=== PATIENT | female | born 1955 | race Caucasian/White ===

== ENCOUNTER 2017-02-13 16:32 | Inpatient (IN) | payer OTHER, SELFPAY | END 2017-02-16 10:15 | disposition home or self-care (01) | DRG 194 | PROVIDERS: Admitting Provider Family Medicine; Family Provider Family Medicine; Visit Provider Family Medicine | DX: J44.0 Chronic obstructive pulmonary disease with (acute) lower respiratory infection (principal); J10.00 Influenza due to other identified influenza virus with unspecified type of pneumonia | CPT/HCPCS: 71020; 80048; 82803; 85025; 87040; 87070; 87205; 87486; 87581; 87633; 87798; 94640; 94760; J0456 ==

== ENCOUNTER → 2018-05-04 14:30 | Outpatient (CLI) | payer OTHER, SELFPAY ==
--- NOTE | 2018-05-04 14:39 | XR_ITS ---
XR hand RT min 3V HISTORY: Previous surgery little finger right hand ITS.REASON: RT HAND PAIN ORDERING PHYSICIAN: Rajwinder Lazaro PATIENT AGE: 62 years COMPARISON: None FINDINGS: No fracture or dislocation. No lytic or blastic change. There is normal mineralization.. There is an orthopedic pin fusing the DIP joint of the little finger. There is narrowing of the DIP joints of the index middle and ring finger. The soft tissues are normal. 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
== END ==
PROVIDERS: PCP Nurse Practitioner Family; Visit Provider Nurse Practitioner Family
DX: M79.641 Pain in right hand (principal)
CPT/HCPCS: 73130

== ENCOUNTER → 2018-05-29 09:52 | Outpatient (CLI) | payer OTHER, SELFPAY ==
--- NOTE | 2018-05-29 09:55 | XR_ITS ---
XR DEXA axial skeleton HISTORY: ITS.REASON: POSTMENOPAUSAL SCREENING ORDERING PHYSICIAN: Rajwinder Lazaro PATIENT AGE: 62 years COMPARISON: None FINDINGS: The BMD measured at the AP Spine L1-L4 is 0.790 g/cm squared with a T score of -3.2. This is considered Osteoporotic according to the World Health Organization criteria. Fracture risk is High. Treatment is advised. IMPRESSION: Osteoporosis with high fracture risk. Pharmacological treatment suggested. Recommend follow-up exam for 1999
== END ==
PROVIDERS: PCP Nurse Practitioner Family; Visit Provider Nurse Practitioner Family
DX: Z13.820 Encounter for screening for osteoporosis (principal); Z78.0 Asymptomatic menopausal state
CPT/HCPCS: 77080

== ENCOUNTER → 2018-07-27 11:40 | Outpatient (CLI) | payer OTHER, SELFPAY ==
--- NOTE | 2018-07-27 11:44 | XR_ITS ---
XR chest 2V HISTORY: ITS.REASON: COPD,COUGH,WHEEZING,DYSPNEA ORDERING PHYSICIAN: Valerie Bermudez APRN PATIENT AGE: 62 years COMPARISON: 02/13/2017 FINDINGS: The cardiomediastinal silhouette and pulmonary vascularity are within normal limits. COPD. Scattered fibrotic change. There is thickening of the major fissure which has developed since previous exam. There are some atelectatic or fibrotic changes also noted in the lingula. No lobar consolidation or collapse.. No acute bony abnormalities. IMPRESSION: COPD with chronic changes with some new thickening of the major fissure and atelectatic or fibrotic changes in the lingula
== END ==
PROVIDERS: PCP Nurse Practitioner Family; Visit Provider Nurse Practitioner Family
DX: J44.9 Chronic obstructive pulmonary disease, unspecified (principal); R05 Cough; R06.02 Shortness of breath; R06.00 Dyspnea, unspecified
CPT/HCPCS: 71046

== ENCOUNTER → 2018-11-23 15:08 | Outpatient (CLI) | payer OTHER, SELFPAY ==
[2018-11-23 15:33] LABS: Basophils # 0.1 K/mm3 (0-0.2); Basophils % 0.6 % (0.1-2.0); Eosinophils # 0.2 K/mm3 (0.0-0.4); Eosinophils % 1.3 % (0.1-12.0); Hematocrit 45.8 % (37.0-47.0); Hemoglobin 13.8 g/dL (12.2-16.2); Lymphocytes # 3.8 K/mm3 (0.7-4.5); Lymphocytes % 26.8 % (10-50); Mean Corpuscular HGB Conc 30.2 g/dL (31.8-35.4); Mean Corpuscular Hemoglobin 30.7 pg (27.0-31.2); Mean Corpuscular Volume 101.6 fl (81-99); Mean Platelet Volume 7.7 fl (7.4-10.4); Monocytes # 1.1 K/mm3 (0.1-1.0); Monocytes % 7.4 % (1.7-9.3); Neutrophils # 9.1 K/mm3 (1.8-7.8); Neutrophils % 63.9 % (37.0-80.0); Platelet Count 465 K/mm3 (142-424); Red Blood Count 4.51 M/mm3 (4.20-5.40); Red Cell Distribution Width 14.9 % (11.5-17.5); White Blood Count 14.3 K/mm3 (4.8-10.8)
[2018-11-23 15:56] LABS: Erythrocyte Sedimentation Rate 16 mm/hr (0-30)
[2018-11-23 18:04] LABS: Alanine Aminotransferase 15 U/L (12-78); Albumin Level 3.5 gm/dL (3.4-5.0); Albumin/Globulin Ratio 1.2 (1.1-1.8); Alkaline Phosphatase 79 U/L (46-116); Anion Gap 14.3 mEq/L (5-15); Aspartate Amino Transferase 8 U/L (15-37); Bilirubin,Total 0.2 mg/dL (0.2-1.0); Blood Urea Nitrogen 12 mg/dL (7-18); C-Reactive Protein 0.2 mg/dL (0.0-0.9); Calcium 8.3 mg/dL (8.5-10.1); Carbon Dioxide 28 mmol/L (21.0-32.0); Chloride 107 mmol/L (98-107); Creatinine,Serum 0.79 mg/dL (0.55-1.02); Estimated Glomerular Filt Rate 74 ml/min (>60); GFR (African American) 89 ML/MIN (>60); Globulin 2.9 gm/dl (1.3-3.2); Glucose 96 mg/dL (74-106); Potassium 4.3 mmoL/L (3.5-5.1); Sodium 145 mmol/L (136-145); Total Protein,Serum 6.4 gm/dL (6.4-8.2)
== END ==
PROVIDERS: Visit Provider Internal Medicine
DX: M06.4 Inflammatory polyarthropathy (principal); M81.0 Age-related osteoporosis without current pathological fracture; Z79.899 Other long term (current) drug therapy
CPT/HCPCS: 36415; 80053; 85025; 85651; 86140

== ENCOUNTER → 2018-12-23 11:57 | Outpatient (CLI) | payer OTHER, SELFPAY ==
[2018-12-23 13:39] LABS: Basophils # 0.1 K/mm3 (0-0.2); Basophils % 0.7 % (0.1-2.0); Eosinophils # 0.2 K/mm3 (0.0-0.4); Eosinophils % 1.7 % (0.1-12.0); Hematocrit 46.6 % (37.0-47.0); Hemoglobin 14.8 g/dL (12.2-16.2); Lymphocytes # 3.2 K/mm3 (0.7-4.5); Lymphocytes % 33.7 % (10-50); Mean Corpuscular HGB Conc 31.6 g/dL (31.8-35.4); Mean Corpuscular Volume 104.4 fl (81-99); Mean Platelet Volume 8.5 fl (7.4-10.4); Monocytes # 0.5 K/mm3 (0.1-1.0); Monocytes % 5.4 % (1.7-9.3); Neutrophils # 5.6 K/mm3 (1.8-7.8); Neutrophils % 58.5 % (37.0-80.0); Platelet Count 432 K/mm3 (142-424); Red Blood Count 4.47 M/mm3 (4.20-5.40); Red Cell Distribution Width 14.4 % (11.5-17.5); White Blood Count 9.5 K/mm3 (4.8-10.8)
[2018-12-23 13:58] LABS: Alanine Aminotransferase 15 U/L (12-78); Albumin Level 3.9 gm/dL (3.4-5.0); Albumin/Globulin Ratio 1.3 (1.1-1.8); Alkaline Phosphatase 76 U/L (46-116); Anion Gap 14.1 mEq/L (5-15); Aspartate Amino Transferase 8 U/L (15-37); Bilirubin,Total 0.5 mg/dL (0.2-1.0); Blood Urea Nitrogen 11 mg/dL (7-18); Calcium 9.3 mg/dL (8.5-10.1); Carbon Dioxide 29 mmol/L (21.0-32.0); Chloride 103 mmol/L (98-107); Creatinine,Serum 0.54 mg/dL (0.55-1.02); Estimated Glomerular Filt Rate 114 ml/min (>60); GFR (African American) 138 ML/MIN (>60); Globulin 2.9 gm/dl (1.3-3.2); Glucose 79 mg/dL (74-106); Potassium 4.1 mmoL/L (3.5-5.1); Sodium 142 mmol/L (136-145); Total Protein,Serum 6.8 gm/dL (6.4-8.2)
[2018-12-23 14:00] LABS: C-Reactive Protein < 0.2 mg/dL (0.0-0.9)
[2018-12-23 14:34] LABS: Erythrocyte Sedimentation Rate 17 mm/hr (0-30)
== END ==
PROVIDERS: Visit Provider Internal Medicine
DX: M06.4 Inflammatory polyarthropathy (principal); M81.0 Age-related osteoporosis without current pathological fracture; Z79.899 Other long term (current) drug therapy
CPT/HCPCS: 36415; 80053; 85025; 85651; 86140

== ENCOUNTER → 2019-01-19 09:47 | Outpatient (CLI) | payer OTHER, SELFPAY ==
--- NOTE | 2019-01-19 09:50 | FL_ITS ---
PROCEDURE: FL BARIUM ENEMA CLINICAL INDICATION: tortuous colon Colon polyps COMPARISON: No exams were available for comparison FINDINGS: Fluoroscopy time: 2 minutes and 30 seconds. [employer] exam is unremarkable. The colon is visualized from rectum to cecum. Extensive diverticulosis is present within the sigmoid colon. No annular constricting lesion or polypoid filling defects were evident. There is reflux of contrast into the terminal ileum which has an unremarkable appearance. IMPRESSION: Sigmoid diverticulosis otherwise negative air-contrast barium enema Dictated by: Fox Benitez MD 01/19/2019 16:21 Electronically signed by Fox Benitez MD in [place] 01/22/2019 09:19
== END ==
PROVIDERS: PCP Family Medicine; Visit Provider Surgery
DX: Q43.8 Other specified congenital malformations of intestine (principal)
CPT/HCPCS: 74270

== ENCOUNTER → 2019-02-04 10:08 | Outpatient (CLI) | payer OTHER, SELFPAY ==
[2019-02-04 10:42] LABS: Basophils # 0.1 K/mm3 (0-0.2); Basophils % 0.5 % (0.1-2.0); Eosinophils # 0.2 K/mm3 (0.0-0.4); Eosinophils % 1.2 % (0.1-12.0); Hematocrit 42.7 % (37.0-47.0); Hemoglobin 13.6 g/dL (12.2-16.2); Lymphocytes # 5.5 K/mm3 (0.7-4.5); Lymphocytes % 28.3 % (10-50); Mean Corpuscular HGB Conc 31.7 g/dL (31.8-35.4); Mean Corpuscular Hemoglobin 31.1 pg (27.0-31.2); Mean Corpuscular Volume 98.2 fl (81-99); Monocytes % 5.2 % (1.7-9.3); Neutrophils # 12.7 K/mm3 (1.8-7.8); Neutrophils % 64.8 % (37.0-80.0); Platelet Count 601 K/mm3 (142-424); Red Blood Count 4.35 M/mm3 (4.20-5.40); Red Cell Distribution Width 14.6 % (11.5-17.5); White Blood Count 19.6 K/mm3 (4.8-10.8)
[2019-02-04 11:03] LABS: MANUAL DIFFERENTIAL MANUAL DIFFERENTIAL (MANUAL DIFF)
[2019-02-04 11:07] LABS: Eosinophils % 2 % (0-3); Lymphocytes % 30 % (10-50); Monocytes % 8 % (2-9); Neutrophils % 60 % (42-76); Platelet Estimate Moderate Increase; Total Cells Counted 100
[2019-02-04 11:08] LABS: RBC Morphology Normal
[2019-02-04 11:16] LABS: Erythrocyte Sedimentation Rate 16 mm/hr (0-30)
[2019-02-04 12:14] LABS: Alanine Aminotransferase 46 U/L (12-78); Albumin Level 3.2 gm/dL (3.4-5.0); Alkaline Phosphatase 88 U/L (46-116); Anion Gap 12.6 mEq/L (5-15); Aspartate Amino Transferase 19 U/L (15-37); Bilirubin,Total 0.3 mg/dL (0.2-1.0); Blood Urea Nitrogen 12 mg/dL (7-18); Calcium 8.5 mg/dL (8.5-10.1); Carbon Dioxide 32 mmol/L (21.0-32.0); Chloride 104 mmol/L (98-107); Creatinine,Serum 0.69 mg/dL (0.55-1.02); Estimated Glomerular Filt Rate 86 ml/min (>60); GFR (African American) 104 ML/MIN (>60); Globulin 3.2 gm/dl (1.3-3.2); Glucose 77 mg/dL (74-106); Potassium 3.6 mmoL/L (3.5-5.1); Sodium 145 mmol/L (136-145); Total Protein,Serum 6.4 gm/dL (6.4-8.2)
[2019-02-04 12:17] LABS: C-Reactive Protein < 0.2 mg/dL (0.0-0.9)
== END ==
PROVIDERS: Visit Provider Internal Medicine
DX: M06.4 Inflammatory polyarthropathy (principal); M81.0 Age-related osteoporosis without current pathological fracture; Z79.899 Other long term (current) drug therapy
CPT/HCPCS: 36415; 80053; 85007; 85025; 85651; 86140

== ENCOUNTER 2019-02-11 12:59 | Observation (INO) | payer OTHER, SELFPAY ==
--- NOTE | 2019-02-11 11:58 | XR_ITS ---
PROCEDURE: XR CHEST 2V CLINICAL HISTORY: shortness of breath COMPARISON: CXR1 CHEST-PORTABLE from 02/14/2016 CXR CHEST(2 VIEWS-NOT PORTABLE) from 02/13/2017 CT ANGIO CHEST from 12/03/2018 XR CHEST PORTABLE from 12/03/2018 FINDINGS: The cardiomediastinal silhouette and pulmonary vascularity are within normal limits. Lucent changes in the lung zhang bilaterally specially in the upper lobes appear to be stable. There are some stable curvilinear strands of increased density in the lung bases bilaterally suggesting scarring. No acute bony abnormalities. IMPRESSION: No change and no acute process. COPD. Dictated by: Ion Vo 02/11/2019 13:35 Electronically signed by Ion Vo in [place] 02/11/2019 13:35
[2019-02-11 13:24] VITALS: BMI 24.8
--- NOTE | 2019-02-11 13:58 | P.CONPHA_ITS ---
[facility] Pharmacy VTE Monitoring - Patient Demographics Admission date: 02/11/19 Report Date: 02/11/19 Time: 13:58 Allergies/Adverse Reactions: Patient Allergies No Known Allergies Allergy (Verified 01/27/19 10:05) Height: 1.65 m Weight: 67.8 kg - VTE Risk Was VTE Risk Assessment Performed: Yes VTE Score: 1 VTE Risk Level: Very Low Risk - Prophylaxis VTE Prophylaxis Ordered?: Yes Types of VTE Prophylaxis: TEDS Knee High Location of Applied Device: Bilateral Lower Extremeties - VTE Diagnosis Confirmed Treatment or plan recommended: Continue Current Treatment
[2019-02-11 14:20] LABS: Basophils # 0.1 K/mm3 (0-0.2); Basophils % 0.3 % (0.1-2.0); Eosinophils # 0.1 K/mm3 (0.0-0.4); Eosinophils % 0.5 % (0.1-12.0); Hematocrit 41.3 % (37.0-47.0); Hemoglobin 13.6 g/dL (12.2-16.2); Lymphocytes # 1.1 K/mm3 (0.7-4.5); Lymphocytes % 5.7 % (10-50); Mean Corpuscular HGB Conc 32.9 g/dL (31.8-35.4); Mean Corpuscular Hemoglobin 31.9 pg (27.0-31.2); Mean Corpuscular Volume 96.8 fl (81-99); Mean Platelet Volume 7.4 fl (7.4-10.4); Monocytes # 0.6 K/mm3 (0.1-1.0); Monocytes % 3.3 % (1.7-9.3); Neutrophils # 17.2 K/mm3 (1.8-7.8); Neutrophils % 90.2 % (37.0-80.0); Platelet Count 523 K/mm3 (142-424); Red Blood Count 4.27 M/mm3 (4.20-5.40); Red Cell Distribution Width 14.8 % (11.5-17.5); White Blood Count 19.1 K/mm3 (4.8-10.8)
[2019-02-11 14:22] VITALS: BP 131/74; PULSE 99; RESP 18; TEMP 36.9; O2SAT 95
[2019-02-11 14:23] LABS: MANUAL DIFFERENTIAL MANUAL DIFFERENTIAL (MANUAL DIFF)
[2019-02-11 14:48] LABS: Alanine Aminotransferase 25 U/L (12-78); Albumin Level 3.3 gm/dL (3.4-5.0); Albumin/Globulin Ratio 0.9 (1.1-1.8); Alkaline Phosphatase 76 U/L (46-116); Anion Gap 14.4 mEq/L (5-15); Aspartate Amino Transferase 4 U/L (15-37); Bilirubin,Total 0.2 mg/dL (0.2-1.0); Blood Urea Nitrogen 15 mg/dL (7-18); Calcium 8.8 mg/dL (8.5-10.1); Carbon Dioxide 29 mmol/L (21.0-32.0); Chloride 102 mmol/L (98-107); Creatinine Clearance Estimated 61 mL/min (50-200); Creatinine,Serum 0.64 mg/dL (0.55-1.02); Estimated Glomerular Filt Rate 93 ml/min (>60); GFR (African American) 113 ML/MIN (>60); Globulin 3.7 gm/dl (1.3-3.2); Glucose 125 mg/dL (74-106); Potassium 4.4 mmoL/L (3.5-5.1); Sodium 141 mmol/L (136-145)
[2019-02-11 15:05] LABS: ABG HCO3 25.4 mmhg (22.0-26.0); ABG Oxygen Saturation 95 % (90-100); ABG PCO2 40.1 mmhg (35.0-45.0); ABG PH 7.42 mmol/L (7.35-7.45); ABG PO2 74.4 mmhg (80-100); ABG TCO2 26.7 mmhg (23-27)
[2019-02-11 15:07] LABS: Allen's Test Acceptable; Oxygen 2L %; Source Right Radial
[2019-02-11 15:48] LABS: Lymphocytes % 5 % (10-50); Monocytes % 6 % (2-9); Neutrophils % 89 % (42-76); Platelet Estimate Slight Increase; RBC Morphology Normal; Total Cells Counted 100
[2019-02-11 16:00] VITALS: PULSE 93
--- NOTE | 2019-02-11 16:52 | HMH.HP ---
*Admission Date: 02/11/19 *Chief complaint: Shortness of breath *History of present illness: 63-year-old female with severe COPD presented to the office again today with complaints of worsening shortness of breath. Patient had been seen approximately 1 week prior and diagnosed with a COPD exacerbation. She was placed on antibiotics as well as oral steroids and was already using inhaled medications at home. Patient returned to the office today stating she was feeling worse. Her cough was unrelenting and interfering with sleep. She was more short of breath and was not responding to her home aerosols. In the office she was tachypneic with a pulse rate of 130 and O2 sat of 90% on room air. Exam was significant for diffuse rhonchi and expiratory wheezes. Patient was admitted for failed outpatient treatment of COPD exacerbation. [facility] History I have reviewed the patient's past medical history: Yes Medical History: Reports:: Chronic Obstructive Pulmonary Disease (COPD), Hypertension, Migraine Denies:: Cancer, Diabetes Mellitus Type 1, Diabetes Mellitus Type 2, Internal Pacemaker, MRSA, Seizures *Have you ever received a pneumonia vaccine?: Yes *Have you received a flu vaccine this season?: Yes Laterality Cases: Bilateral: Carpal Tunnel Release Other Surgeries: Yes: Appendectomy, Colonoscopy, Tubal Ligation, Other. No: Pacemaker Amputation: No Fractures: No - *Social History Educational Level: Attended College Smoking Status: Current every day smoker Tobacco Type: cigarettes # Packs/Day (cigarettes): 1 Alcohol Intake: never Substance Use Type: denies use *Occupational Status:: employed Housing: house Household Members: children *Travel in the last 8 weeks: None Family Hx:: No significant family history Review of Systems - Constitutional Denies anorexia, Denies body ache(s), Denies chills, Denies fever(s) - *Cardiovascular Denies chest pain, Denies chest pain at rest, Denies chest pain with activity - *Respiratory Reports change in phlegm color, Reports chest congestion, Reports cough, Reports shortness of breath, Reports shortness of breath with activity, Reports pain with cough, Denies coughing up blood - *Gastrointestinal Denies abdominal pain - *Musculoskeletal Denies joint pain Meds Home Medications Medication Instructions Recorded Confirmed Type Fluticasone/Umeclidin/Vilanter 1 puff IH DAILY 10/29/18 02/11/19 History [Trelegy Ellipta 100-62.5-25] Folic Acid [Folic Acid 1mg tablet] 1 mg PO DAILY 10/29/18 02/11/19 History SUMAtriptan succinate [Imitrex] 100 mg PO DAILYP PRN 10/29/18 02/11/19 History metHOTREXate sodium [metHOTREXate 4 tab PO WEEKLY 10/29/18 02/11/19 History 2.5mg Tablet] buPROPion HCl [Wellbutrin Xl] 150 mg PO DAILY 12/03/18 02/11/19 History Ipratropium Hamlin [Ipratropium 1 neb NS Q6 12/10/18 02/11/19 History Hamlin 0.021mg/act NS] Allergies Allergy/AdvReac Type Severity Reaction Status Date / Time No Known Allergies Allergy Verified 01/27/19 10:05 Exam Vital signs and Labs for Last 24 Hours: Temp Pulse Resp BP Pulse Ox 98.4 F 93 H 18 131/74 95 02/11/19 14:22 02/11/19 16:00 02/11/19 14:22 02/11/19 14:22 02/11/19 14:22 Laboratory Results - last 24 hr 02/11/19 11:58: Specimen Source Right radial, O2 % 2l, ABG pH 7.42, ABG pCO2 40.1, ABG pO2 74.4 L, ABG HCO3 25.4, ABG Total CO2 26.7, ABG O2 Saturation 95, ABG Base Excess 1.0, Fox Test Acceptable 02/11/19 14:00: Sodium 141, Potassium 4.4, Chloride 102, Carbon Dioxide 29, Anion Gap 14.4, BUN 15, Creatinine 0.64, Estimated Creat Clear 61, Estimated GFR 93, Est GFR ( Amer) 113, Glucose 125 H, Calcium 8.8, Total Bilirubin 0.2, AST 4 L, ALT 25, Alkaline Phosphatase 76, Total Protein 7.0, Albumin 3.3 L, Globulin 3.7 H, Albumin/Globulin Ratio 0.9 L 02/11/19 14:00: B-Natriuretic Peptide 30 02/11/19 14:00: WBC 19.1 H, RBC 4.27, Hgb 13.6, Hct 41.3, MCV 96.8, MCH 31.9 H, MCHC 32.9, RDW 14.8, Plt Count 523 H, MPV 7
[2019-02-11 19:35] VITALS: PULSE 115; O2SAT 95
[2019-02-11 20:00] VITALS: BP 147/73; PULSE 96; RESP 19; TEMP 36.6; O2SAT 95
--- NOTE | 2019-02-11 21:58 | PC.NURSE ---
Pt's room air sat at rest = 87%. RT placed pt back on O2 at 2 lpm via nc.
[2019-02-11 23:46] VITALS: BP 122/67; PULSE 81; RESP 16; TEMP 37.1; O2SAT 95
[2019-02-12] VITALS (10 sets, daily range): BP systolic 133–153; BP diastolic 74–95; PULSE 83–115; RESP 18–22; TEMP 36.6–36.8; O2SAT 86–95; BMI 24.9
--- NOTE | 2019-02-12 03:39 | PC.NURSE ---
A&OX4. PT UP INDEPENDENTLY IN ROOM. PT HAS DRY INTERMITTENT COUGH, BUT WAS ABLE TO PRODUCE SPUTUM THIS SHIFT. PT TOLERATING 2L NC WELL. PT C/O COUGH, STATING WHEN IT STARTS I JUST CAN'T GET IT TO STOP. COUGH MEDICINE ADMINISTERED PER MAR, ON REASSESSMENT, RELIEF OF COUGH NOTED. PT TOLERATING REGULAR DIET. PT HAS HAD NO C/O SOA. NO OTHER COMPLAINTS THIS SHIFT, PT RESTING IN BED, VSS WILL CONTINUE TO MONITOR.
--- NOTE | 2019-02-12 07:28 | HMH.ACPN2 ---
Internal Medicine - PN: Subj *Date: 02/12/19 *Time: 07:28 Interval history: Patient reports poor quality sleep overnight due to her cough. Her cough remains nonproductive. O2 sats did decrease to 86% on room air at rest. Exam Vital signs and Labs for Last 24 Hours: Temp Pulse Resp BP Pulse Ox 97.9 F 85 22 133/85 86 L 02/12/19 04:00 02/12/19 05:33 02/12/19 04:00 02/12/19 04:00 02/12/19 05:55 Laboratory Results - last 24 hr 02/11/19 11:58: Specimen Source Right radial, O2 % 2l, ABG pH 7.42, ABG pCO2 40.1, ABG pO2 74.4 L, ABG HCO3 25.4, ABG Total CO2 26.7, ABG O2 Saturation 95, ABG Base Excess 1.0, Fox Test Acceptable 02/11/19 14:00: Sodium 141, Potassium 4.4, Chloride 102, Carbon Dioxide 29, Anion Gap 14.4, BUN 15, Creatinine 0.64, Estimated Creat Clear 61, Estimated GFR 93, Est GFR ( Amer) 113, Glucose 125 H, Calcium 8.8, Total Bilirubin 0.2, AST 4 L, ALT 25, Alkaline Phosphatase 76, Total Protein 7.0, Albumin 3.3 L, Globulin 3.7 H, Albumin/Globulin Ratio 0.9 L 02/11/19 14:00: B-Natriuretic Peptide 30 02/11/19 14:00: WBC 19.1 H, RBC 4.27, Hgb 13.6, Hct 41.3, MCV 96.8, MCH 31.9 H, MCHC 32.9, RDW 14.8, Plt Count 523 H, MPV 7.4, Neut % (Auto) 90.2 H, Lymph % (Auto) 5.7 L, Mingo % (Auto) 3.3, Eos % (Auto) 0.5, Baso % (Auto) 0.3, Neut # (Auto) 17.2 H, Lymph # (Auto) 1.1, Mingo # (Auto) 0.6, Eos # (Auto) 0.1, Baso # (Auto) 0.1, Total Counted 100, Neutrophils % (Manual) 89 H, Lymphocytes % (Manual) 5 L, Monocytes % (Manual) 6, Platelet Estimate Slight increase, RBC Morphology Normal I & O for Last 24 hours: Intake & Output 02/09/19 02/10/19 02/11/19 02/12/19 11:59 11:59 11:59 11:59 Intake Total 360 / 360 Balance 360 / 360 Weight 149 lb 11.102 oz Microbiology Reports for the Last 24 Hours: Microbiology 02/12/19 01:30 Sputum - Expectorated Sputum Gram Stain - Final Narrative: Patient is comfortable while seated in bed. Her cough is rather harsh and deep. Lung exam reveals distant breath sounds with expiratory wheezes. Heart has a regular rate and rhythm Assessment and Plan (1) Acute exacerbation of chronic obstructive airways disease Current visit: No Status: Acute Category: Medical Code(s): J44.1 - Chronic obstructive pulmonary disease with (acute) exacerbation - Assessment and plan all Dx Assessment and Plan for all problems:: 1. Add Mucomyst nebs to see if we can help with sputum clearance 2. Continue IV steroids, duo nebs, supplemental oxygen support
--- NOTE | 2019-02-12 11:14 | HMH.PHAINT ---
MED REC-MED LIST COMPARED TO MED LIST FROM MD OFFICE AND RX FILL HX.
--- NOTE | 2019-02-12 18:05 | PC.NURSE ---
ALERT AND ORIENTED X4. PT HAS SPENT MOST OF SHIFT LYING IN BED. AMBULATES INDEPENDENTLY TO BATHROOM AND IN HALLWAY ONCE THIS SHIFT. LUNGS REMAIN DIMINISHED THROUGHOUT. O2 SATURATION IN LOW 90'S ON 2L NC. PT'S COUGH IS SLOWLY BECOMING MORE PRODUCTIVE. COUGH SUPPRESSANT ADMINISTERED ONCE PER MAR. APPETITE IS NORMAL. PT HAD BM. NO COMPLAINTS VOICED. PT DENIES PAIN. VSS. SAFETY MEASURES IN PLACE AND FALL PREVENTION EDUCATION COMPLETED. WILL CONTINUE TO MONITOR
--- NOTE | 2019-02-12 19:13 | PC.NURSE ---
report given to rigo
--- NOTE | 2019-02-12 19:34 | PC.NURSE ---
Pt's O2 sat on room air at rest = 87%. Pt did put O2 back on after neb tx
[2019-02-13] VITALS (10 sets, daily range): BP systolic 146–159; BP diastolic 85–98; PULSE 77–108; RESP 18–22; TEMP 36.5–37.1; O2SAT 86–95; BMI 24.8
--- NOTE | 2019-02-13 04:55 | PC.NURSE ---
A&OX4. PT TOLERATING 2L NC THIS SHIFT, O2 SAT IN MID 90S. UP INDEPENDENTLY IN ROOM AND HALLWAY. PT CONTINUING TO HAVE INTERMITTENT DRY COUGHING SPELLS, TREATED WITH PRN MED PER APR. ON REASSESSMENT, PT RESTING IN BED WITH EYES CLOSED. PT HAS NO OTHER COMPLAINTS THUS FAR. RESTING T/O MOST OF SHIFT. VSS WILL CONTINUE TO MONITOR.
--- NOTE | 2019-02-13 08:26 | HMH.ACPN2 ---
Internal Medicine - PN: Subj *Date: 02/13/19 *Time: 08:26 Interval history: Patient has no new complaints this morning however she does not feel very well when compared to yesterday. Patient admits that she will feel great for approximately 60 minutes after her breathing treatment but once the aerosol wears off she will begin to feel chest tightness again with shortness of breath. Episodes of cough are quite harsh and the patient becomes tired and achy from her coughing. Staff reports that she has started to have some response to the Mucomyst nebs Exam Vital signs and Labs for Last 24 Hours: Temp Pulse Resp BP Pulse Ox 98.0 F 100 H 20 151/91 H 93 L 02/13/19 08:00 02/13/19 08:00 02/13/19 08:00 02/13/19 08:00 02/13/19 08:00 I & O for Last 24 hours: Intake & Output 02/10/19 02/11/19 02/12/19 02/13/19 11:59 11:59 11:59 11:59 Intake Total 600 / 600 840 / 840 Balance 600 / 600 840 / 840 Weight 149 lb 11.102 oz 149 lb 5 oz Microbiology Reports for the Last 24 Hours: Microbiology 02/12/19 01:30 Sputum - Expectorated Sputum Gram Stain - Final 02/12/19 01:30 Sputum - Expectorated Sputum Sputum Culture - Preliminary Narrative: Patient looks very tired. Lung exam reveals more rhonchi and wheezing on the right today than yesterday. Heart has a regular rate and rhythm Assessment and Plan (1) Acute exacerbation of chronic obstructive airways disease Current visit: No Status: Acute Category: Medical Code(s): J44.1 - Chronic obstructive pulmonary disease with (acute) exacerbation - Assessment and plan all Dx Assessment and Plan for all problems:: No change in plan of care. Give Mucomyst more time. Continue to check room air sats.
--- NOTE | 2019-02-13 14:39 | PC.NURSE ---
Pt has rested well today with no complaints of pain or shortness of breath. She did have some complaint this morning of nausea and heartburn that did subside without intervention. Reported to MD with orders given to administer daily pantoprazole to prevent heartburn/acid reflux. Pt has slept intermittently throughout shift after having informed RN that she had not been sleeping well. No other issues/concerns noted at this time.
[2019-02-14] VITALS (11 sets, daily range): BP systolic 141–167; BP diastolic 70–101; PULSE 77–115; RESP 18–22; TEMP 36.6–36.9; O2SAT 85–97; BMI 25.9
--- NOTE | 2019-02-14 00:05 | PC.NURSE ---
2100 courtesy round, pt sitting up in bed, no needs expressed
--- NOTE | 2019-02-14 05:25 | PC.NURSE ---
Pt's main problems this shift has been coughing. PRN cough med given per request, cough is harsh and nonproductive when in room. Blood pressure elevated, but appears to be her norm. Pt reports her stomach hurts when she coughs, suggested splinting while coughing, pt reported, I do that, I've just coughed for so long, I told the doctor, enough is enough. Independent with care, up with steady gait noted. Nothing acute to report, monitoring continues.
--- NOTE | 2019-02-14 08:24 | HMH.ACPN2 ---
Internal Medicine - PN: Subj *Date: 02/14/19 *Time: 08:24 Interval history: Patient continues to voice frustration with her incessant cough that aggravates an abdominal hernia causing pain intermittently. She feels like there is phlegm in her throat that she cannot clear. However she does report she has been able to mobilize more sputum that is as thick as glue Exam Vital signs and Labs for Last 24 Hours: Temp Pulse Resp BP Pulse Ox 97.8 F 82 22 154/96 H 97 02/14/19 03:56 02/14/19 07:00 02/14/19 03:56 02/13/19 23:41 02/14/19 07:00 I & O for Last 24 hours: Intake & Output 02/11/19 02/12/19 02/13/19 02/14/19 11:59 11:59 11:59 11:59 Intake Total 600 / 600 840 / 840 1200 / 1200 Balance 600 / 600 840 / 840 1200 / 1200 Weight 149 lb 11.102 oz 149 lb 5 oz 156 lb 5 oz Microbiology Reports for the Last 24 Hours: Microbiology 02/12/19 01:30 Sputum - Expectorated Sputum Gram Stain - Final 02/12/19 01:30 Sputum - Expectorated Sputum Sputum Culture - Preliminary - Constitutional no acute distress - *Routine Respiratory Exam Present: rhonchi, wheezes - *Routine Cardiovascular Exam Present: RRR, Normal S1, Normal S2 Assessment and Plan (1) Acute exacerbation of chronic obstructive airways disease Current visit: No Status: Acute Category: Medical Code(s): J44.1 - Chronic obstructive pulmonary disease with (acute) exacerbation - Assessment and plan all Dx Assessment and Plan for all problems:: 1. Add mucinex and use hycodan for cough
--- NOTE | 2019-02-14 15:17 | HMH.ACPN ---
Internal Medicine - PN: Subj *Date: 02/14/19 *Time: 15:17 Exam Vital signs and Labs for Last 24 Hours: Temp Pulse Resp BP Pulse Ox 98.2 F 115 H 18 151/85 H 85 L 02/14/19 12:00 02/14/19 15:06 02/14/19 12:00 02/14/19 12:00 02/14/19 15:06 I & O for Last 24 hours: Intake & Output 02/11/19 02/12/19 02/13/19 02/14/19 23:59 23:59 23:59 23:59 Intake Total 360 / 360 720 / 720 1560 / 1560 840 / 840 Balance 360 / 360 720 / 720 1560 / 1560 840 / 840 Weight 67.8 kg 67.9 kg 67.727 kg 70.902 kg Microbiology Reports for the Last 24 Hours: Microbiology 02/12/19 01:30 Sputum - Expectorated Sputum Gram Stain - Final 02/12/19 01:30 Sputum - Expectorated Sputum Sputum Culture - Preliminary Gram Positive Cocci Assessment and Plan (1) Acute exacerbation of chronic obstructive airways disease Current visit: No Status: Acute Category: Medical Code(s): J44.1 - Chronic obstructive pulmonary disease with (acute) exacerbation The patient's infection will respond to the chosen ABx?: Yes Is the patient receiving the right drug, dose, and route?: Yes Could a more targeted ABx be ordered?: No (GRAM POSITIVE COCCI IN SPUTUM. SENSITIVITIES PENDING)
--- NOTE | 2019-02-14 17:21 | PC.NURSE ---
PT IS ALERT AND ORIENTED X4. SPORTS CARTOONIST IS STILL IN PLACE. PT DENIES PAIN. O2 SATURATION REMAINS IN LOW TO MID 90'S ON 2L NC. NO ACUTE CHANGES THIS SHIFT. PT HAS BEEN IN BED ALL SHIFT. NO REPORTED BM. APPETITE IS NORMAL. SAFETY MEASURES IN PLACE. VSS. NO DISTRESS NOTED. FALL PREVENTION EDUCATION COMPLETED. WILL CONTINUE TO MONITOR
--- NOTE | 2019-02-14 19:10 | PC.NURSE ---
PT REFUSED TO CHANGE IV.
[2019-02-15 04:00] VITALS: BP 158/96; PULSE 77; RESP 16; TEMP 36.7; O2SAT 90
--- NOTE | 2019-02-15 04:44 | PC.NURSE ---
Pt had a good night, actually slept well following hycodan administration, coughing only occasionally during rest. Fine crackles noted in bases, although pt does deep breathe. Discussed going home today, as that is her plan; education provided and admission folder contents. Pt reports being ready to go home and is so thankful the hycodan calmed her cough enough to get some rest. Pt c/o abdominal pain concerning hernia and coughing, advised continual splinting. Pt remained safe and stable, monitoring continues.
[2019-02-15 04:57] VITALS: BMI 25.9
[2019-02-15 06:13] VITALS: PULSE 63; PULSE 69; O2SAT 93
--- NOTE | 2019-02-15 07:01 | HMH.ACPN2 ---
Internal Medicine - PN: Subj *Date: 02/15/19 *Time: 07:01 Interval history: Patient notes she feels better. She has been able to go longer periods of time in between coughing spells and attributes this to the use of Hycodan. Her cough remains mostly nonproductive although she admits she feels like there is sputum to produce. Her sputum culture has shown a gram-positive cocci on preliminary review. Patient does have a documented room air sat at rest of 85% yesterday evening Exam Vital signs and Labs for Last 24 Hours: Temp Pulse Resp BP Pulse Ox 98.0 F 69 16 158/96 H 93 L 02/15/19 04:00 02/15/19 06:13 02/15/19 04:00 02/15/19 04:00 02/15/19 06:13 I & O for Last 24 hours: Intake & Output 02/12/19 02/13/19 02/14/19 02/15/19 11:59 11:59 11:59 11:59 Intake Total 600 / 600 840 / 840 1560 / 1560 1090 / 1090 Balance 600 / 600 840 / 840 1560 / 1560 1090 / 1090 Weight 149 lb 11.102 oz 149 lb 5 oz 156 lb 5 oz 156 lb 4.994 oz Microbiology Reports for the Last 24 Hours: Microbiology 02/12/19 01:30 Sputum - Expectorated Sputum Gram Stain - Final 02/12/19 01:30 Sputum - Expectorated Sputum Sputum Culture - Preliminary Gram Positive Cocci Narrative: Patient looks comfortable. Breath sounds are distant but there is much less wheezing today with improved aeration. Assessment and Plan (1) Acute exacerbation of chronic obstructive airways disease Current visit: No Status: Acute Category: Medical Code(s): J44.1 - Chronic obstructive pulmonary disease with (acute) exacerbation - Assessment and plan all Dx Assessment and Plan for all problems:: Patient will be discharged home today. She will continue Hycodan, prednisone taper and will be placed on amoxicillin at discharge. She will require supplemental oxygen so portable and home oxygen will be arranged. She will continue her nebs at home.
--- NOTE | 2019-02-15 07:03 | HMH.DCSUM ---
General - General Admission date:: 02/11/19 Discharge date: 02/15/19 HPI HPI: 63-year-old female with severe COPD presented to the office again today with complaints of worsening shortness of breath. Patient had been seen approximately 1 week prior and diagnosed with a COPD exacerbation. She was placed on antibiotics as well as oral steroids and was already using inhaled medications at home. Patient returned to the office today stating she was feeling worse. Her cough was unrelenting and interfering with sleep. She was more short of breath and was not responding to her home aerosols. In the office she was tachypneic with a pulse rate of 130 and O2 sat of 90% on room air. Exam was significant for diffuse rhonchi and expiratory wheezes. Patient was admitted for failed outpatient treatment of COPD exacerbation. Hospital Course Hospital Course: Patient was admitted and started on IV azithromycin, high-dose IV Solu-Medrol and bronchodilators for her COPD exacerbation. Patient was slow to respond and remained on supplemental oxygen throughout hospitalization with room air sats dropping to the mid 80s. As hospitalization progressed her wheezing improved. Cough remained a significant contributor to her general feeling of wellbeing. Cough interfered with sleep and dyspnea. Various remedies for her cough were tried and ultimately Hycodan tablets seem to improve her cough the most with allowed her to rest. Once patient rested better she seemed to improve more quickly. At discharge patient had improved aeration with only faint expiratory wheezes. Based on patient's history of how her previous COPD exacerbations have resolved she will require prolonged steroid taper along with continued use of aerosols. Patient will also be given Hycodan for cough. Home oxygen will be arranged. Patient's sputum culture was showing a gram-positive cocci at discharge and she will be prescribed amoxicillin. Objective Vital signs: Temp Pulse Resp BP Pulse Ox 98.0 F 69 16 158/96 H 93 L 02/15/19 04:00 02/15/19 06:13 02/15/19 04:00 02/15/19 04:00 02/15/19 06:13 no acute distress - *Routine Respiratory Exam Present: wheezes (End expiratory, less audible than on admission), distant breath sounds - *Routine Cardiovascular Exam Present: RRR Results Labs on day of discharge: Preliminary micro results at discharge 02/12/19 01:30 Sputum Culture - Preliminary Sputum - Expectorated Sputum Gram Positive Cocci DS: Diagnosis - Discharge Diagnosis (1) Acute exacerbation of chronic obstructive airways disease Status: Acute (2) COPD (chronic obstructive pulmonary disease) Status: Acute Discharge Plan - Patient Discharge Instructions ACTIVITY: Continue current activity DIET: continue same diet Patient Instructions: Chronic Obstructive Pulmonary Disease, DI for Chronic Obstructive Pulmonary Disease - Follow up Plan Follow up with: Mansoor Lamas MD [Primary Care Provider] - 02/19/19 Disposition: Home, Self-Longterm Medications: Home Medications Medication Instructions Recorded Confirmed Type Fluticasone/Umeclidin/Vilanter 1 puff IH DAILY 10/29/18 02/11/19 History [Trelegy Ellipta 100-62.5-25] Folic Acid [Folic Acid 1mg tablet] 1 mg PO DAILY 10/29/18 02/11/19 History SUMAtriptan succinate [Imitrex] 100 mg PO DAILYP PRN 10/29/18 02/11/19 History metHOTREXate sodium [metHOTREXate 10 mg PO SA 10/29/18 02/12/19 History 2.5mg Tablet] Ipratropium [place] [Ipratropium 1 neb INHALATION Q6 12/10/18 02/12/19 History [place] 0.021mg/act NS] buPROPion HCL [Wellbutrin SR 150mg 150 mg PO DAILY 02/12/19 02/12/19 History Tablet] Amoxicillin/Potassium Clav 1 tab PO BID #14 tab 02/15/19 Rx [Amox-Clav 875-125 mg Tablet] Hydrocodone Bit/Homatrop Me-Br 1 each PO Q6HP PRN #30 tablet 02/15/19 Rx [Hycodan 5mg tablet] predniSONE [Deltasone 20mg 2 tab PO DAILY #14 tab 02/15/19 Rx tablet
--- NOTE | 2019-02-15 07:57 | PC.NURSE ---
RA sat assessed at 88%. O2 2 L NC applied and pt now resting in bed.
--- NOTE | 2019-02-15 07:57 | SW/DCPLANNER ---
RECEIVED REFERRAL FOR HOME 02 FOR THIS PATIENT: PATIENT DID QUALIFY FOR HOME OXYGEN AND A PORTABLE WILL BE BROUGHT UP TO THE HOSPITAL PRIOR TO DISCHARGE.... 02 SET UP WITH [facility].
[2019-02-15 08:00] VITALS: BP 142/78; PULSE 78; RESP 19; TEMP 37.1; O2SAT 91; O2SAT 93
[2019-02-15 09:51] VITALS: PULSE 62; PULSE 68
--- NOTE | 2019-02-15 10:58 | PC.NURSE ---
Discharge completed per Michelle BRANCH
--- NOTE | 2019-02-15 11:37 | HMH.PHAINT ---
DISCHARGE COUNSELING COMPLETED FOR ALL MEDICATIONS. DRUG MONOGRAPHS GIVEN AND PATIENT DID NOT HAVE ANY QUESTIONS.
== END 2019-02-15 10:44 | disposition home or self-care (01) ==
PROVIDERS: Admitting Provider Family Medicine; PCP Family Medicine; Visit Provider Family Medicine
DX: J44.1 Chronic obstructive pulmonary disease with (acute) exacerbation (principal); I10 Essential (primary) hypertension; G43.909 Migraine, unspecified, not intractable, without status migrainosus; Z72.0 Tobacco use; Z79.899 Other long term (current) drug therapy; Z98.51 Tubal ligation status; Z90.49 Acquired absence of other specified parts of digestive tract
CPT/HCPCS: G0379; 36415; 71046; 80053; 82803; 83880; 85007; 85025; 87070; 87077; 87186; 87205; 94640; 94761; G0378; J8610

== ENCOUNTER → 2019-04-08 11:23 | Outpatient (CLI) | payer OTHER, SELFPAY ==
[2019-04-08 12:23] LABS: Basophils # 0.1 K/mm3 (0-0.2); Basophils % 0.7 % (0.1-2.0); Eosinophils # 0.2 K/mm3 (0.0-0.4); Eosinophils % 1.9 % (0.1-12.0); Hematocrit 43.1 % (37.0-47.0); Hemoglobin 13.9 g/dL (12.2-16.2); Lymphocytes # 3.1 K/mm3 (0.7-4.5); Lymphocytes % 28.5 % (10-50); Mean Corpuscular HGB Conc 32.2 g/dL (31.8-35.4); Mean Corpuscular Hemoglobin 31.5 pg (27.0-31.2); Mean Corpuscular Volume 97.9 fl (81-99); Mean Platelet Volume 8.1 fl (7.4-10.4); Monocytes # 0.6 K/mm3 (0.1-1.0); Monocytes % 5.5 % (1.7-9.3); Neutrophils # 6.9 K/mm3 (1.8-7.8); Neutrophils % 63.5 % (37.0-80.0); Platelet Count 410 K/mm3 (142-424); Red Cell Distribution Width 14.8 % (11.5-17.5); White Blood Count 10.9 K/mm3 (4.8-10.8)
[2019-04-08 12:57] LABS: Chloride 104 mmol/L (98-107); Sodium 141 mmol/L (136-145)
[2019-04-08 12:58] LABS: Potassium 3.6 mmoL/L (3.5-5.1)
[2019-04-08 13:00] LABS: Alanine Aminotransferase 13 U/L (12-78); Albumin/Globulin Ratio 1.9 (1.1-1.8); Alkaline Phosphatase 53 U/L (38-126); Anion Gap 12.6 mEq/L (5-15); Aspartate Amino Transferase 18 U/L (14-36); Bilirubin,Total 0.2 mg/dl (0.2-1.3); Blood Urea Nitrogen 12 mg/dl (7-17); Carbon Dioxide 28 mmol/L (22.0-30.0); Estimated Glomerular Filt Rate 101 ml/min (>60); GFR (African American) 122 ML/MIN (>60); Globulin 2.1 g/dL (1.3-3.2); Total Protein,Serum 6.1 g/dl (6.3-8.2)
[2019-04-08 13:01] LABS: Glucose 106 mg/dl (74-100)
[2019-04-08 14:02] LABS: Erythrocyte Sedimentation Rate 14 mm/hr (0-30)
[2019-04-08 14:19] LABS: C-Reactive Protein 0.8 mg/L (0-4)
== END ==
PROVIDERS: Visit Provider Internal Medicine
DX: M06.4 Inflammatory polyarthropathy (principal); M81.0 Age-related osteoporosis without current pathological fracture; Z79.899 Other long term (current) drug therapy
CPT/HCPCS: 36415; 80053; 85025; 85651; 86140

== ENCOUNTER → 2020-01-03 10:08 | Outpatient (CLI) | payer MEDICARE, OTHER, SELFPAY ==
[2020-01-03 14:27] LABS: Coronavirus 19 IgG Antibody Negative (Negative); Coronavirus 19 IgM Antibody Negative (Negative)
== END ==
PROVIDERS: Visit Provider Surgery
DX: Z01.818 Encounter for other preprocedural examination (principal); Z12.11 Encounter for screening for malignant neoplasm of colon
CPT/HCPCS: 36415; 86328

== ENCOUNTER 2020-01-06 08:30 | Day surgery (SDC) | payer MEDICARE, OTHER, SELFPAY ==
[2020-01-04 10:47] VITALS: BMI 24.4
[2020-01-06 08:48] VITALS: BP 143/77; PULSE 77; RESP 18; TEMP 36.4; O2SAT 94
--- NOTE | 2020-01-06 09:29 | P.PN_ITS ---
[facility] Anesthesia Checklist - Patient Identification Patient Identification: Arm Band, Verbal (Name & ) - Structural Data Admitted From: Home Planned Operative Procedure/s: colon Consent for Planned Operative Procedure(s) Verified: Yes Verified Documents: History and Physical - NPO Status Verified Time NPO: 00:00 - Additional verifications Patient : No Anesthesia Reactions: No Hx Blood Transfusions: No Blood Transfusion Reaction: No Cephalosporin Allergy: No Previous Colonoscopy: Yes - Cardiovascular Assessment Heart Sounds: S1 & S2 Pulse Strength: Baseline Pulse Rhythm: Regular Peripheral Edema: No - Airway Assessment C-Spine Mobility Assessed: Yes TMJ Mobility Assessed: Yes Dentition: Good Dentition - Neurological Assessment Level of Consciousness: Awake, Alert, Appropriate Hx Seizures: No Numbness or tingling in extremities: No - Anesthesia Plan Anesthesia Risk discussed: Yes Anesthesia Plan: Verified ASA Class: III Anesthesia Type: MAC [facility] History I have reviewed the patient's past medical history: Yes Medical History: Reports:: Chronic Obstructive Pulmonary Disease (COPD), Hypertension, Migraine Denies:: Cancer, Diabetes Mellitus Type 1, Diabetes Mellitus Type 2, Internal Pacemaker, MRSA, Seizures *Have you ever received a pneumonia vaccine?: Yes *Have you received a flu vaccine this season?: No Anesthesia experience/problems:: none Laterality Cases: Bilateral: Carpal Tunnel Release Other Surgeries: Yes: Appendectomy, Colonoscopy, Tubal Ligation, Other. No: Pacemaker Amputation: No Fractures: No - *Social History Smoking Status: Current every day smoker Tobacco Type: cigarettes # Packs/Day (cigarettes): 1 Alcohol Intake: never Substance Use Type: denies use *Occupational Status:: retired Housing: house Household Members: none *Travel in the last 8 weeks: None Family Hx:: No significant family history
[2020-01-06 09:38] VITALS: O2SAT 97
[2020-01-06 10:41] VITALS: BP 117/82; PULSE 104; RESP 18; TEMP 36.1; O2SAT 95
--- NOTE | 2020-01-06 10:44 | P.PCN_ITS ---
- Procedure: Date: 01/06/20 Patient Date of :: 1955 Procedure Performed:: Colonoscopy with polypectomy Indications:: History of colon polyps Diverticulosis Performing Provider:: Leoncio Sultana MD Referring Provider:: . Sedation:: Monitored anesthesia care Procedure:: After informed consent was obtained the patient was taken to the endoscopy nyla te. Sedation ensued after the patient was transferred to the left lateral decubitus position. Pulse, blood pressure, and oxygen saturation were monitored throughout the procedure. Digital rectal exam revealed no significant abnormality. The colonoscope was placed in position. The entire colon was evaluated. The colonoscope was carefully removed and the patient was transferred to recovery in stable condition. Please see findings and specimens below for detail. Findings:: Bowel preparation moderate Profound tortuosity and spasticity of the sigmoid colon Hemorrhoid cushions/tags Sigmoid diverticulosis Multiple polyps (see specimens) Specimens:: Adjacent cecal polyp (snare) Proximal right colon polyp Adjacent polyps at 35 cm (snare) Lobulated sessile complex polyp at 45 cm (snare) Recommendations:: Timing of repeat colonoscopy is pending pathology but will likely be between 1-2 years secondary to size/nature/number of polyps, profound tortuosity/spasticity of the sigmoid colon, and moderate bowel preparation. Complications:: No immediate Estimated blood obtained (mL): 1
[2020-01-06 10:51] VITALS: BP 138/79; PULSE 110; RESP 18; O2SAT 95
[2020-01-06 11:01] VITALS: BP 145/77; PULSE 94; RESP 18; O2SAT 97
[2020-01-06 11:17] VITALS: BP 132/80; PULSE 80; RESP 18; O2SAT 97
== END 2020-01-06 11:21 | disposition home or self-care (01) ==
LOC: OUTP 08:32
PROVIDERS: PCP Family Medicine; Visit Provider Surgery
PROC: 0DJD8ZZ Inspection of Lower Intestinal Tract, Via Natural or Artificial Opening Endoscopic (ICD-10-PCS; CPT 45380; principal; 2020-01-06 09:30)
DX: Z12.11 Encounter for screening for malignant neoplasm of colon (principal); K56.2 Volvulus; Z86.010 Personal history of colon polyps; K64.0 First degree hemorrhoids; K57.30 Diverticulosis of large intestine without perforation or abscess without bleeding; K63.5 Polyp of colon; J44.9 Chronic obstructive pulmonary disease, unspecified; I10 Essential (primary) hypertension
CPT/HCPCS: 45380; 45385; 88305; J2704

== ENCOUNTER → 2020-04-15 11:23 | Outpatient (CLI) | payer MEDICARE, OTHER, SELFPAY ==
[2020-04-15 14:12] LABS: Alanine Aminotransferase 13 U/L (12-78); Albumin/Globulin Ratio 1.5 (1.1-1.8); Alkaline Phosphatase 74 U/L (38-126); Anion Gap 9.1 mEq/L (5-15); Aspartate Amino Transferase 21 U/L (14-36); Bilirubin,Total 0.5 mg/dl (0.2-1.3); Blood Urea Nitrogen 10 mg/dl (7-17); Calcium 9.1 mg/dl (8.4-10.2); Carbon Dioxide 27 mmol/L (22.0-30.0); Chloride 109 mmol/L (98-107); Chol/HDL Ratio 3.6 (1-3.5); Cholesterol 216 mg/dl (140-200); Estimated Glomerular Filt Rate 100 ml/min (>60); GFR (African American) 121 ML/MIN (>60); Globulin 2.6 g/dL (1.3-3.2); Glucose 80 mg/dl (74-100); HDL Cholesterol 60 mg/dl (40-60); Potassium 4.1 mmoL/L (3.5-5.1); Sodium 141 mmol/L (136-145); Total Protein,Serum 6.6 g/dl (6.3-8.2); Triglycerides 76 mg/dl (30-150); VLDL Cholesterol 15 mg/dL (0-40)
[2020-04-15 14:23] LABS: Direct LDL Cholesterol 120.96 mg/dL (100-129)
[2020-04-15 14:29] LABS: 25-OH Vitamin D, Total 44.3 ng/mL (30-100)
[2020-04-15 14:43] LABS: Thyroid Stimulating Hormone 0.78 uIU/mL (0.465-4.68)
[2020-04-15 16:06] LABS: Basophils # 0.1 K/mm3 (0-0.2); Basophils % 0.7 % (0.1-2.0); Eosinophils # 0.1 K/mm3 (0.0-0.4); Eosinophils % 1.3 % (0.1-12.0); Hematocrit 46.8 % (37.0-47.0); Hemoglobin 15.3 g/dL (12.2-16.2); Lymphocytes # 3.2 K/mm3 (0.7-4.5); Lymphocytes % 34.3 % (10-50); Mean Corpuscular HGB Conc 32.7 g/dL (31.8-35.4); Mean Corpuscular Hemoglobin 31.1 pg (27.0-31.2); Mean Corpuscular Volume 95.1 fl (81-99); Mean Platelet Volume 10.4 fl (7.4-10.4); Monocytes # 0.6 K/mm3 (0.1-1.0); Monocytes % 6.4 % (1.7-9.3); Neutrophils # 5.4 K/mm3 (1.8-7.8); Neutrophils % 57.3 % (37.0-80.0); Platelet Count 289 K/mm3 (142-424); Red Blood Count 4.92 M/mm3 (4.20-5.40); Red Cell Distribution Width 13.7 % (11.5-17.5); White Blood Count 9.4 K/mm3 (4.8-10.8)
== END ==
PROVIDERS: Visit Provider Nurse Practitioner Family
DX: M81.0 Age-related osteoporosis without current pathological fracture (principal); R19.00 Intra-abdominal and pelvic swelling, mass and lump, unspecified site; Z13.29 Encounter for screening for other suspected endocrine disorder; Z13.220 Encounter for screening for lipoid disorders; E78.00 Pure hypercholesterolemia, unspecified
CPT/HCPCS: 36415; 80053; 80061; 82306; 84443; 85025

== ENCOUNTER → 2020-04-20 10:00 | Outpatient (CLI) | payer MEDICARE, OTHER, SELFPAY ==
--- NOTE | 2020-04-20 10:03 | XR_ITS ---
PROCEDURE: XR DEXA AXIAL SKELETON CLINICAL HISTORY: AGE-RELATED OSTEOPOROSIS COMPARISON: CR DEXAAX XR DEXA axial skeleton from 05/29/2018 FINDINGS: The right hip BMD is 0.669 with a T-score of -1.6. The left hip BMD is 0.637 with a T-score of -2.5. The lumbar spine BMD is 0.691 with a T-score of -3.2. Previously the lowest density was in the spine with a T-score -3.2. IMPRESSION: This patient is considered osteoporotic according to the World Health Organization criteria. Fracture risk is high. Treatment is advised. Based on these results a follow-up exam is recommended in 1 year. Dictated by: Fox Benitez MD 04/21/2020 06:20 Fox Benitez MD in [place] 04/21/2020 06:20
== END ==
PROVIDERS: PCP Family Medicine; Visit Provider Nurse Practitioner Family
DX: M81.0 Age-related osteoporosis without current pathological fracture (principal)
CPT/HCPCS: 77080

== ENCOUNTER → 2020-04-25 10:10 | Outpatient (CLI) | payer MEDICARE, OTHER, SELFPAY ==
--- NOTE | 2020-04-25 10:14 | CT_ITS ---
PROCEDURE: CT ABDOMEN PELVIS W CON CLINICAL INDICATION: ABD WALL BULGE Left-sided abdominal wall bulge COMPARISON: No exams were available for comparison TECHNIQUE: IV Contrast: 75ML Isovue 370 Oral Contrast None Axial images obtained with sagittal and coronal reformats. All CT scans at the facility use one or more dose reduction, viz: automated exposure control, ma/kV adjustment per patient size (including targeted exams where dose is matched to indication, i.e. head), or iterative reconstruction technique. FINDINGS: LOWER THORAX: There are mild fibrotic changes within the lingula. ABDOMEN & PELVIS: There is a small hiatal hernia. There is a 4 mm hypodensity in the left hepatic lobe and may represent a small liver cyst. The spleen, adrenal glands, and pancreas have an unremarkable appearance. There is a 5.4 cm right renal cyst and other smaller bilateral renal cyst. No renal or ureteral calculi. No hydronephrosis. The antrum of the stomach appears somewhat thickened. No intestinal obstruction or free air. There has been a prior appendectomy. There is extensive colonic diverticulosis of the sigmoid colon but no evidence of diverticulitis. There is a small umbilical hernia containing fat. Just superior to the un bili kiss there is a small right and also a small left paracentral hernia. The left side is slightly larger than the right and corresponds to the palpable abnormality as a BB is placed along the anterior abdominal wall at this region to denote the area of palpable concern.. There may be a tiny infraumbilical hernia as well centrally. No acute bony findings. Small cortical defect is present involving the left femoral neck at 8 mm. IMPRESSION: 1. There is a small umbilical hernia containing fat as well as small supraumbilical hernias in the right and left paracentral region of the abdomen with questionable tiny infra umbilical hernia containing fat. 2. Other nonacute findings as described above. Dictated by: Fox Benitez MD 04/27/2020 16:06 Fox Benitez MD in [place] 04/27/2020 16:06
== END ==
PROVIDERS: PCP Family Medicine; Visit Provider Nurse Practitioner Family
DX: R19.00 Intra-abdominal and pelvic swelling, mass and lump, unspecified site (principal)
CPT/HCPCS: 74177; Q9967

== ENCOUNTER 2020-05-08 09:30 | Outpatient (CLI) | payer MEDICARE, OTHER, SELFPAY ==
[2020-05-08 09:45] VITALS: BP 156/89; PULSE 68; RESP 20; TEMP 36.9; O2SAT 95
== END 2020-05-08 09:55 | disposition home or self-care (01) ==
LOC: INF 09:34
PROVIDERS: Visit Provider Nurse Practitioner Family
DX: M81.0 Age-related osteoporosis without current pathological fracture (principal)
CPT/HCPCS: 96372; J0897

== ENCOUNTER → 2020-05-31 10:47 | Outpatient (CLI) | payer MEDICARE, OTHER, SELFPAY ==
[2020-05-31 10:51] LABS: Microscopic, Urine URINE MICROSCOPIC (MICROSCOPIC)
--- NOTE | 2020-05-31 11:21 | ECG_ITS ---
APPROVED REPORT Exam: Resting ECG HR:90 bpm ECG Measurements Heart Rate 90 AXES NC 140 P 76 QRSd 102 QRS -80 QT 356 T 71 QTc 435 Conclusion Normal sinus rhythm Incomplete right bundle branch block Left anterior fascicular block Septal infarct, age undetermined Abnormal ECG Electronically signed by : Mansoor Griggs, 06/01/2020 13:56:18
[2020-05-31 11:35] LABS: Basophils # 0.1 K/mm3 (0-0.2); Basophils % 0.7 % (0.1-2.0); Eosinophils # 0.1 K/mm3 (0.0-0.4); Eosinophils % 0.6 % (0.1-12.0); Hematocrit 46.9 % (37.0-47.0); Hemoglobin 15.2 g/dL (12.2-16.2); Lymphocytes % 30.1 % (10-50); Mean Corpuscular HGB Conc 32.5 g/dL (31.8-35.4); Mean Corpuscular Hemoglobin 30.3 pg (27.0-31.2); Mean Corpuscular Volume 93.2 fl (81-99); Mean Platelet Volume 7.5 fl (7.4-10.4); Monocytes # 0.6 K/mm3 (0.1-1.0); Neutrophils # 6.3 K/mm3 (1.8-7.8); Neutrophils % 62.6 % (37.0-80.0); Platelet Count 454 K/mm3 (142-424); Red Blood Count 5.03 M/mm3 (4.20-5.40); Red Cell Distribution Width 14.4 % (11.5-17.5); White Blood Count 10.1 K/mm3 (4.8-10.8)
[2020-05-31 11:41] LABS: Appearance,Urine CLEAR (Clear); Bilirubin,Urine Negative (Negative); Blood, Urine Negative (Negative); Chloride 106 mmol/L (98-107); Color,Urine YELLOW (Yellow); Glucose,Urine (UA) Negative (Negative); Ketones,Urine Negative (Negative); Leukocyte Esterase,Urine Negative (Negative); Nitrate,Urine Negative (Negative); PH,Urine 6.5 (5.0-8.5); Protein,Urine Negative (Negative); Sodium 143 mmol/L (136-145); Specific Gravity, Urine <= 1.005 (1.005-1.030); Urobilinogen,Urine 0.2 EU/dl (0.2)
[2020-05-31 11:42] LABS: Potassium 4.4 mmoL/L (3.5-5.1)
[2020-05-31 11:44] LABS: Blood Urea Nitrogen 6 mg/dl (7-17); Estimated Glomerular Filt Rate 100 ml/min (>60); GFR (African American) 121 ML/MIN (>60)
[2020-05-31 11:45] LABS: Anion Gap 13.4 mEq/L (5-15); Calcium 9.3 mg/dl (8.4-10.2); Carbon Dioxide 28 mmol/L (22.0-30.0); Glucose 85 mg/dl (74-100)
[2020-05-31 12:00] LABS: Coronavirus 19 IgG Antibody Positive (Negative); Coronavirus 19 IgM Antibody Negative (Negative)
== END ==
PROVIDERS: Visit Provider Surgery
DX: K42.9 Umbilical hernia without obstruction or gangrene (principal); Z01.812 Encounter for preprocedural laboratory examination; Z20.822 Contact with and (suspected) exposure to COVID-19
CPT/HCPCS: 36415; 80048; 81001; 85025; 86328; 93005

== ENCOUNTER 2020-06-02 09:36 | Day surgery (SDC) | payer MEDICARE, OTHER, SELFPAY ==
[2020-05-30 12:54] VITALS: BMI 25.0
[2020-06-02] VITALS (14 sets, daily range): BP systolic 119–156; BP diastolic 43–136; PULSE 53–97; RESP 14–18; TEMP 36.6–42.7; O2SAT 77–98
--- NOTE | 2020-06-02 12:29 | HMH.OPNOTE ---
Date of procedure: 06/02/20 Pre-op Diagnosis:: Left periumbilical/supraumbilical hernia with incarcerated preperitoneal fat Right periumbilical/infraumbilical hernia Post-op Diagnosis:: Same Procedure performed:: Laparoscopic-assisted open repair of incarcerated left supraumbilical hernia with VentraLex Laparoscopic-assisted open primary repair small right infraumbilical hernia Surgeon:: Leoncio Sultana MD MANAGER [employer]:: Jatin Ramon Anesthesia: GETA Estimated blood loss (mL): 15 Operative findings:: Left supraumbilical hernia with incarcerated preperitoneal fat repaired with 6.3 cm Ventralex mesh Tiny right infraumbilical hernia primarily with 0 Ethibond Operative note:: After informed consent was obtained the patient was taken to the operating room and placed in the supine position. General anesthesia was induced and her abdomen was prepped and draped in a sterile fashion. After infiltration of local anesthetic a small stab incision was made in the left upper quadrant. A Veress needle was placed in position. The abdomen was insufflated. A 5 mm optical trocar was placed in the left mid flank. Visualization confirmed a very small right infraumbilical hernia with no sign of incarceration. Obvious incarceration of the left supraumbilical hernia was noted. The decision was made to proceed with open repair. An incision was made overlying both defects. The incarcerated preperitoneal fat along the left supraumbilical hernia was transected with electrocautery. This transection was at the edge of the herniation. A 6.3 cm Ventralex mesh was placed in position and secured with 0 Ethibond. Primary repair over the Ventralex with 0 Ethibond was then completed. Attention was then turned to the tiny right infraumbilical hernia. The deep subcutaneous tissue was dissected. A small defect was carefully elevated and primary repair was completed with 0 Ethibond. Both wounds were irrigated. Skin was then reapproximated with running 4-0 Monocryl. Dressings were applied. Patient's anesthetic agents were reversed and she was extubated prior to transfer to recovery. Condition: stable Disposition: PACU Specimens:: Incarcerated preperitoneal fat Complications:: No immediate
--- NOTE | 2020-06-02 12:37 | P.PN_ITS ---
[facility] Anesthesia Checklist - Patient Identification Patient Identification: Arm Band - Structural Data Admitted From: Home Planned Operative Procedure/s: laparoscopic paraumbilical hernia repair Consent for Planned Operative Procedure(s) Verified: Yes Verified Documents: Surgical Consent, History and Physical - NPO Status Verified Time NPO: 00:00 - Additional verifications Anesthesia Reactions: No Hx Blood Transfusions: No Blood Transfusion Reaction: No - Airway Assessment C-Spine Mobility Assessed: Yes (mp2) TMJ Mobility Assessed: Yes Dentition: Poor Dentition - Neurological Assessment Level of Consciousness: Awake, Alert - Anesthesia Plan Anesthesia Risk discussed: Yes Anesthesia Plan: Verified ASA Class: III Anesthesia Type: General [facility] History I have reviewed the patient's past medical history: Yes Medical History: Reports:: Chronic Obstructive Pulmonary Disease (COPD), Hypertension, Migraine Denies:: Cancer, Diabetes Mellitus Type 1, Diabetes Mellitus Type 2, Internal Pacemaker, MRSA, Seizures *Have you ever received a pneumonia vaccine?: Yes *Have you received a flu vaccine this season?: No Other Medical History: Denies: Blood Transfusion Reaction Anesthesia experience/problems:: nac Laterality Cases: Bilateral: Carpal Tunnel Release Other Surgeries: Yes: Appendectomy, Colonoscopy, Tubal Ligation, Other. No: Pacemaker Amputation: No Fractures: No - *Social History Last grade of school completed: Advanced degree Smoking Status: Current every day smoker Tobacco Type: cigarettes # Packs/Day (cigarettes): 1 Alcohol Intake: never Substance Use Type: denies use *Occupational Status:: retired Housing: house Household Members: none *Travel in the last 8 weeks: None Family Hx:: No significant family history
--- NOTE | 2020-06-02 12:38 | HMH.ANESI ---
[facility] Anesthesia Record Part I Intake, IV Amount: 1,500 Estimated blood loss (mL): 10 Urine output (mL): 100 Blood Pressure: 146/83 SaO2: 91 Pulse Rate: 97 Respiratory Rate: 16 Temperature: 99.5 F Patient is:: Drowsy, Stable Stable to PACU at:: 12:35
--- NOTE | 2020-06-02 13:39 | P.PN_ITS ---
[facility] Anesthesia Record Part II Discharge Time: 13:14 Destination: Surgical Day Care (OP Surgery) PACU nurse assessment reviewed?: Yes Patient Condition:: Good Anesthesia Complications:: None Swallowing reflex intact?: Yes Cyanosis?: No Blood Pressure: 121/43 Pulse Rate: 71 Temperature: 98.7 F Mental Status: Alert & Oriented Pain level:: 4 Nausea and/or vomitting:: None Intake, IV Amount: 0
[2020-06-02 13:41] LABS: Microscopic,Cath URINE MICROSCOPIC (MICROSCOPIC)
[2020-06-02 14:31] LABS: Appearance,Urine/Cath TURBID (Clear); Bilirubin,Cath Negative (Negative); Blood, Urine/Cath TRACE-I (Negative); Color,Urine/Cath DK YELLOW (Yellow); Glucose,Urine/Cath (UA) Negative (Negative); Ketones,Urine/Cath Negative (Negative); Leukocyte Esterase,Cath Negative (Negative); Nitrate,Cath Negative (Negative); Protein,Urine/Cath TRACE (Negative); Specific Gravity, Urine/Cath >= 1.030 (1.005-1.030); Urobilinogen,Cath 0.2 EU/dl (0.2)
[2020-06-02 14:43] LABS: Bacteria,Urine/Cath 4+ /lpf; Mucus,Urine/Cath 2+ /lpf
--- NOTE | 2020-06-26 15:35 | ECG_ITS ---
APPROVED REPORT Exam: Resting ECG HR:77 bpm ECG Measurements Heart Rate 77 AXES UT 136 P 72 QRSd 96 QRS -60 QT 362 T -1 QTc 409 Conclusion Normal sinus rhythm Incomplete right bundle branch block Left anterior fascicular block Septal infarct, old changes Abnormal ECG Electronically signed by : Mansoor Griggs, 06/28/2020 22:20:38
== END 2020-06-02 14:25 | disposition home or self-care (01) ==
LOC: OR 09:39
PROVIDERS: PCP Family Medicine; Visit Provider Surgery
PROC: 0WQF4ZZ Repair Abdominal Wall, Percutaneous Endoscopic Approach (ICD-10-PCS; CPT 49587; principal; 2020-06-02 11:00)
DX: K42.9 Umbilical hernia without obstruction or gangrene (principal); J44.9 Chronic obstructive pulmonary disease, unspecified; I10 Essential (primary) hypertension; G43.909 Migraine, unspecified, not intractable, without status migrainosus; Z72.0 Tobacco use; Z79.899 Other long term (current) drug therapy
CPT/HCPCS: 49587; 81001; 87086; 88302; 96374; C1781; J2405; J2710

== ENCOUNTER 2020-06-24 10:37 | Inpatient (IN) | payer MEDICARE, OTHER, SELFPAY ==
[2020-06-24] VITALS (14 sets, daily range): BP systolic 133–188; BP diastolic 80–112; PULSE 69–87; RESP 18–22; TEMP 36.8; O2SAT 85–97; BMI 24.1; BMI 24.6
--- NOTE | 2020-06-24 11:16 | HMH.EDGENADL ---
ED Disposition Clinical Impression: Diverticulitis of intestine with abscess Qualifiers: Diverticulitis site: large intestine Diverticulitis bleeding: without bleeding Qualified Code(s): K57.20 - Diverticulitis of large intestine with perforation and abscess without bleeding Disposition: Admitted As Inpatient Condition on Discharge: Good Referrals: Mansoor Lamas MD [Primary Care Provider] - Time of Disposition: 13:19 - Critical Care Critical Care Time: No Attestation: On 06/24/20, the high probability of a clinically significant, sudden or life threatening deterioration of the following system(s) required my full and direct attention, intervention and personal management. The time I documented below is in addition to time spent performing reported procedures but includes the following listed in this critical care notation. Medical Decision Making - Medical Records Medical records reviewed: Yes: I reviewed the patient's medical records. - Sajan Inquiry Pt receiving controlled substance: No Vital Signs: 06/24/20 10:37 06/24/20 11:30 06/24/20 12:52 Temperature 98.3 F Temperature Source Oral Pulse Rate 80 81 Pulse Rate [Right Radial] 87 Respiratory Rate 18 18 Blood Pressure 188/108 H 157/93 H Blood Pressure [Right Arm] 175/112 H Blood Pressure Mean 134 114 Blood Pressure Mean [Right Arm] 133 Blood Pressure Source [Right Arm] Automatic Cuff Blood Pressure Position [Right Arm] Sitting 02 Sat by Pulse Oximetry 96 94 L 94 L Oxygen Delivery Method Room Air 06/24/20 13:00 Temperature Temperature Source Pulse Rate 77 Pulse Rate [Right Radial] Respiratory Rate 18 Blood Pressure 165/97 H Blood Pressure [Right Arm] Blood Pressure Mean 119 Blood Pressure Mean [Right Arm] Blood Pressure Source [Right Arm] Blood Pressure Position [Right Arm] 02 Sat by Pulse Oximetry 95 Oxygen Delivery Method - Lab Data Lab results reviewed: Yes: I reviewed the patient's lab results. Lab Results 06/24/20 10:47: Urine Color Yellow, Urine Appearance Clear, Urine pH 7.0, Ur Specific [place] <= 1.005, Urine Protein Negative, Urine Glucose (UA) Negative, Urine Ketones Negative, Urine Blood Negative, Urine Nitrate Negative, Urine Bilirubin Negative, Urine Urobilinogen 0.2, Ur Leukocyte Esterase Negative, Urine RBC None, Urine WBC 3-5, Ur Squamous Epith Cells 3-5, Urine Bacteria None 06/24/20 11:00: WBC 13.4 H, RBC 4.71, Hgb 13.9, Hct 44.8, MCV 95.2, MCH 29.5, MCHC 31.0 L, RDW 13.5, Plt Count 532 H, MPV 7.5, Neut % (Auto) 67.4, Lymph % (Auto) 21.6, [place] % (Auto) 6.9, Eos % (Auto) 3.1, Baso % (Auto) 1.1, Neut # (Auto) 9.0 H, Lymph # (Auto) 2.9, [place] # (Auto) 0.9, Eos # (Auto) 0.4, Baso # (Auto) 0.2 06/24/20 11:00: Sodium 141, Potassium 3.8, Chloride 105, Carbon Dioxide 30, Anion Gap 9.8, BUN 6 L, Creatinine 0.50 L, Estimated Creat Clear 58, Estimated GFR 124, Est GFR ( Amer) 150, Glucose 77, Calcium 9.0, Total Bilirubin 0.4, AST 18, ALT 15, Alkaline Phosphatase 66, Total Protein 7.1, Albumin 4.2, Globulin 2.9, Albumin/Globulin Ratio 1.4 Result diagrams: 06/24/20 11:00 06/24/20 11:00 Orders (Tests/Meds): ED MEDICATIONS Generic Name Dose Route Start Last Admin Trade Name Freq PRN Reason Stop Dose Admin Lactated Ringer's 1,000 mls @ 125 mls/hr 06/24/20 12:45 06/24/20 12:48 Lactated Ringer's 1000 Ml Bag IV 07/24/20 12:44 125 mls/hr .Q8H HARMAN Administration Piperacillin Sod/Tazobactam 100 mls @ 200 mls/hr 06/24/20 12:58 06/24/20 13:05 Sod 4.5 gm/ Sodium Chloride IV 06/24/20 13:27 200 mls/hr ONCE ONE Administration Protocol Discontinued Medications Generic Name Dose Route Start Last Admin Trade Name Freq PRN Reason Stop Dose Admin Iopamidol 75 ml 06/24/20 11:59 06/24/20 12:00 Iopamidol-370 (76%);100ml Bottle IV 06/24/20 12:00 75 ml ONCE ONE Administration Morphine Sulfate 4 mg 06/24/20 12:46 06/24/20 12:55 Morphine 4mg/Ml Syringe IV 06/24/20 12:4
[2020-06-24 11:24] LABS: Microscopic, Urine URINE MICROSCOPIC (MICROSCOPIC)
[2020-06-24 11:25] LABS: Appearance,Urine CLEAR (Clear); Bilirubin,Urine Negative (Negative); Blood, Urine Negative (Negative); Color,Urine YELLOW (Yellow); Glucose,Urine (UA) Negative (Negative); Ketones,Urine Negative (Negative); Leukocyte Esterase,Urine Negative (Negative); Nitrate,Urine Negative (Negative); Protein,Urine Negative (Negative); Specific Gravity, Urine <= 1.005 (1.005-1.030); Urobilinogen,Urine 0.2 EU/dl (0.2)
[2020-06-24 11:28] LABS: Basophils # 0.2 K/mm3 (0-0.2); Basophils % 1.1 % (0.1-2.0); Chloride 105 mmol/L (98-107); Eosinophils # 0.4 K/mm3 (0.0-0.4); Eosinophils % 3.1 % (0.1-12.0); Hematocrit 44.8 % (37.0-47.0); Hemoglobin 13.9 g/dL (12.2-16.2); Lymphocytes # 2.9 K/mm3 (0.7-4.5); Lymphocytes % 21.6 % (10-50); Mean Corpuscular Hemoglobin 29.5 pg (27.0-31.2); Mean Corpuscular Volume 95.2 fl (81-99); Mean Platelet Volume 7.5 fl (7.4-10.4); Monocytes # 0.9 K/mm3 (0.1-1.0); Monocytes % 6.9 % (1.7-9.3); Neutrophils % 67.4 % (37.0-80.0); Platelet Count 532 K/mm3 (142-424); Potassium 3.8 mmoL/L (3.5-5.1); Red Blood Count 4.71 M/mm3 (4.20-5.40); Red Cell Distribution Width 13.5 % (11.5-17.5); Sodium 141 mmol/L (136-145); White Blood Count 13.4 K/mm3 (4.8-10.8)
[2020-06-24 11:30] LABS: Blood Urea Nitrogen 6 mg/dl (7-17); Creatinine Clearance Estimated 58 mL/min (50-200); Estimated Glomerular Filt Rate 124 ml/min (>60); GFR (African American) 150 ML/MIN (>60)
[2020-06-24 11:31] LABS: Alanine Aminotransferase 15 U/L (12-78); Albumin Level 4.2 g/dl (3.5-5.0); Albumin/Globulin Ratio 1.4 (1.1-1.8); Alkaline Phosphatase 66 U/L (38-126); Anion Gap 9.8 mEq/L (5-15); Aspartate Amino Transferase 18 U/L (14-36); Bilirubin,Total 0.4 mg/dl (0.2-1.3); Carbon Dioxide 30 mmol/L (22.0-30.0); Globulin 2.9 g/dL (1.3-3.2); Glucose 77 mg/dl (74-100); Total Protein,Serum 7.1 g/dl (6.3-8.2)
--- NOTE | 2020-06-24 11:40 | CT_ITS ---
PROCEDURE INFORMATION: Exam: CT Abdomen And Pelvis With Contrast Exam date and time: 06/24/2020 11:40 AM Age: 64 years old Clinical indication: Abdominal tenderness and bloating; Abdominal pain; Generalized; Prior surgery; Surgery date: <1 month; Surgery type: Hernia; Additional info: Abd pain and bloating TECHNIQUE: Imaging protocol: Computed tomography of the abdomen and pelvis with contrast. Radiation optimization: All CT scans at this facility use at least one of these dose optimization techniques: automated exposure control; mA and/or kV adjustment per patient size (includes targeted exams where dose is matched to clinical indication); or iterative reconstruction. Contrast material: ISOVUE; Contrast volume: 75 ml; Contrast route: IV; COMPARISON: CT ABDOMEN PELVIS W CON 04/25/2020 11:17 AM FINDINGS: Lungs: Atelectasis in the right lower lobe Liver: Hepatomegaly 20 cm Gallbladder and bile ducts: Normal. No calcified stones. No ductal dilation. Pancreas: Normal. No ductal dilation. Spleen: Normal. No splenomegaly. Adrenal glands: Normal. No mass. Kidneys and ureters: 6 cm simple cyst anterior right kidney. 2 cm simple cyst posterior left kidney1.1 cm simple cyst posterior right kidney . No follow-up imaging recommended . Stomach and bowel: Diverticulosis and Bowel wall thickening along the rectosigmoid colon. Mild pericolonic inflammatory changes. No evidence of perforation or bleeding. Findings consistent with acute diverticulitis. 2 cm fluid collection in the rectosigmoid. Series 3 image [id number] consistent with diverticular abscess.. Appendix: No evidence of appendicitis. Intraperitoneal space: Unremarkable. No free air. No significant fluid collection. Vasculature: Unremarkable. No abdominal aortic aneurysm. Lymph nodes: Unremarkable. No enlarged lymph nodes. Urinary bladder: Unremarkable as visualized. Reproductive: Unremarkable as visualized. Bones/joints: Unremarkable. No acute fracture. Soft tissues: Unremarkable. IMPRESSION: 1. Diverticulosis and Bowel wall thickening along the rectosigmoid colon. Mild pericolonic inflammatory changes. No evidence of perforation or bleeding. Findings consistent with acute diverticulitis. . 2. 2 cm fluid collection in the rectosigmoid. Series 3 image [id number] consistent with diverticular abscess.. THIS REPORT CONTAINS FINDINGS THAT MAY BE CRITICAL TO PATIENT CARE. The findings were verbally communicated via telephone conference with RYAN GONZALEZ at 12:38 PM EDT on 06/24/2020. The findings were acknowledged and understood. COMMENTS: Consistent with the [employer]'s Incidental Findings Committee white paper (J Am Lenora Radiol 2018): Any incidental renal lesion less than 1 cm or classified as too small to characterize, or any incidental cystic renal lesion characterized as simple-appearing, is likely benign. No follow-up imaging is recommended for these lesions per consensus recommendations based on imaging criteria.
--- NOTE | 2020-06-24 12:42 | PC.NURSE ---
Dr Chua speaking with Dr Andre
--- NOTE | 2020-06-24 12:46 | PC.NURSE ---
paged Dr Gutierrez
--- NOTE | 2020-06-24 12:55 | PC.NURSE ---
ESTEPHANIA ANDERSON speaking with Dr. Gutierrez who is educational manager for Dr. Lamas
--- NOTE | 2020-06-24 13:33 | PC.NURSE ---
Dr Andre here to see pt.
--- NOTE | 2020-06-24 13:43 | HMH.GSCON ---
*Admission Date: 06/24/20 *Reason for consult:: Diverticulitis *History of present illness: Patient is a 64-year-old female with known diverticulosis of the colon. Incidentally, she had undergone diagnostic laparoscopy and hernia repair by Dr. Sultana on 06/02/2020. She had been doing well and was actually seen for surgical follow-up on 06/21/2020. She states that later that day she had developed abdominal pain. It persisted and became progressively severe. On Friday it was quite significant. Due to the persistence she presented to the emergency department today. She was found to have a mild leukocytosis. She underwent CT scan which revealed findings consistent with sigmoid diverticulitis with rectosigmoid fluid collection consistent with possible developing abscess. Patient does state that she has had previous diverticulitis in the distant past. She has had a colonoscopy with Dr. Sultana on 12/10/2018 which revealed polyps, diverticulosis, tortuosity, spasticity of the colon. He performed follow-up colonoscopy on her on 01/06/2020 at which time she was found to have diverticulosis, polyps, tortuosity, spasticity, and fair preparation. Tentative plan was for follow-up colonoscopy in July. Review of Systems - Review of Systems Review of systems:: pertinent systems reviewed and negative unless documented below [facility] History I have reviewed the patient's past medical history: Yes Medical History: Reports:: Chronic Obstructive Pulmonary Disease (COPD), Depression, Hypertension, Migraine Denies:: Cancer, Diabetes Mellitus Type 1, Diabetes Mellitus Type 2, Internal Pacemaker, MRSA, Seizures *Have you ever received a pneumonia vaccine?: No *Have you received a flu vaccine this season?: No Other Medical History: Denies: Blood Transfusion Reaction Laterality Cases: Bilateral: Carpal Tunnel Release Other Surgeries: Yes: Appendectomy, Colonoscopy, Hernia Repair, Tubal Ligation, Other. No: Pacemaker Amputation: No Fractures: No - *Social History Smoking Status: Current every day smoker Tobacco Type: cigarettes # Packs/Day (cigarettes): 1 Alcohol Intake: never Substance Use Type: denies use *Occupational Status:: other Housing: house Household Members: none *Travel in the last 8 weeks: None - Psychiatric History Pschychiatric History:: Reports:: Depression Family Hx:: No significant family history Meds Home Medications Medication Instructions Recorded Confirmed Type Fluticasone/Umeclidin/Vilanter 1 puff IH DAILY 10/29/18 06/24/20 History [Trelerobles Ellipta 100-62.5-25] Calc/D3/Magnes/B6/Zn/Cu/Shravan 1 mg PO DAILY 06/02/20 06/24/20 History [[facility] Cit-D3-Mag 250 mg Cplt] buPROPion HCL [Wellbutrin SR 150mg 150 mg PO DAILY 06/24/20 06/24/20 History Tablet] Allergies Allergy/AdvReac Type Severity Reaction Status Date / Time No Known Allergies Allergy Verified 06/21/20 09:04 Exam Vital signs and Labs for Last 24 Hours: Temp Pulse Resp BP Pulse Ox 98.3 F 77 18 165/97 H 95 06/24/20 10:37 06/24/20 13:00 06/24/20 13:00 06/24/20 13:00 06/24/20 13:00 Laboratory Results - last 24 hr 06/24/20 10:47: Urine Color Yellow, Urine Appearance Clear, Urine pH 7.0, Ur Specific [employer] <= 1.005, Urine Protein Negative, Urine Glucose (UA) Negative, Urine Ketones Negative, Urine Blood Negative, Urine Nitrate Negative, Urine Bilirubin Negative, Urine Urobilinogen 0.2, Ur Leukocyte Esterase Negative, Urine RBC None, Urine WBC 3-5, Ur Squamous Epith Cells 3-5, Urine Bacteria None 06/24/20 11:00: WBC 13.4 H, RBC 4.71, Hgb 13.9, Hct 44.8, MCV 95.2, MCH 29.5, MCHC 31.0 L, RDW 13.5, Plt Count 532 H, MPV 7.5, Neut % (Auto) 67.4, Lymph % (Auto) 21.6, [place] % (Auto) 6.9, Eos % (Auto) 3.1, Baso % (Auto) 1.1, Neut # (Auto) 9.0 H, Lymph # (Auto) 2.9, [place] # (Auto) 0.9, Eos # (Auto) 0.4, Baso # (Auto) 0.2 06/24/20 11:00: Sodium 141, Potassium 3.8, Chloride 105, Carbon Dioxide 30, Anion Gap 9.8, BUN 6 L, Creatinine 0.50 L, Estimated Creat
--- NOTE | 2020-06-24 15:44 | PC.NURSE ---
lab advises 4 minutes left on covid test results
--- NOTE | 2020-06-24 16:09 | PC.NURSE ---
report called to herbert pineda at this time. states she will send staff down to get pt
--- NOTE | 2020-06-24 18:22 | PC.NURSE ---
shift note: New admit this shift. Dx Diverticulitis with abscess. Reports abd pain controlled with prn Morphine. A&Ox4. Up ad brittany. O2 sat mid 90s on 2L NC. Tolerating a reg diet. Dr. Andre to manage with IV abx. No other issues noted.
[2020-06-25 03:58] VITALS: BP 118/62; PULSE 67; RESP 20; TEMP 36.7; O2SAT 95
[2020-06-25 04:00] VITALS: BMI 24.7
--- NOTE | 2020-06-25 05:24 | PC.NURSE ---
pt alert and oriented. iv patent and infusing per order. vss. pt stated pain and prn med given. pt stated she didnt want take the morphine if possible. call light in reach. will continue to monitor
[2020-06-25 07:18] LABS: Basophils # 0.1 K/mm3 (0-0.2); Basophils % 0.9 % (0.1-2.0); Eosinophils # 0.5 K/mm3 (0.0-0.4); Eosinophils % 4.5 % (0.1-12.0); Hematocrit 37.3 % (37.0-47.0); Lymphocytes # 2.8 K/mm3 (0.7-4.5); Lymphocytes % 26.3 % (10-50); Mean Corpuscular HGB Conc 32.7 g/dL (31.8-35.4); Mean Corpuscular Hemoglobin 30.3 pg (27.0-31.2); Mean Corpuscular Volume 92.7 fl (81-99); Mean Platelet Volume 7.5 fl (7.4-10.4); Monocytes # 0.8 K/mm3 (0.1-1.0); Monocytes % 7.7 % (1.7-9.3); Neutrophils # 6.5 K/mm3 (1.8-7.8); Neutrophils % 60.5 % (37.0-80.0); Platelet Count 436 K/mm3 (142-424); Red Blood Count 4.03 M/mm3 (4.20-5.40); Red Cell Distribution Width 13.9 % (11.5-17.5); White Blood Count 10.7 K/mm3 (4.8-10.8)
[2020-06-25 07:21] LABS: Hemoglobin 12.2 g/dL (12.2-16.2)
[2020-06-25 07:24] LABS: Anion Gap 4.8 mEq/L (5-15); Blood Urea Nitrogen 7 mg/dl (7-17); Carbon Dioxide 31 mmol/L (22.0-30.0); Chloride 107 mmol/L (98-107); Creatinine Clearance Estimated 60 mL/min (50-200); Estimated Glomerular Filt Rate 100 ml/min (>60); GFR (African American) 121 ML/MIN (>60); Glucose 89 mg/dl (74-100); Potassium 3.8 mmoL/L (3.5-5.1); Sodium 139 mmol/L (136-145)
[2020-06-25 07:29] LABS: Calcium 7.7 mg/dl (8.4-10.2)
--- NOTE | 2020-06-25 07:46 | HMH.HP ---
*Admission Date: 06/24/20 *Chief complaint: Abdominal pain *History of present illness: 64-year-old female with history of known diverticulosis presented to the emergency department with abdominal pain. Patient believes she may have a urinary tract infection based on the fact that her pain was in the lower abdomen and suprapubic area. On evaluation patient was found to have an early diverticular abscess on CT scan. Patient was started on Zosyn and admitted. She has since been seen by Dr. Andre of the surgical service who is recommended conservative care. Patient herself denies fevers or chills. She has known diverticulosis diagnosed on multiple colonoscopies over the last 3 years. Appetite has been normal. She does report discomfort with bowel movement this morning. [facility] History I have reviewed the patient's past medical history: Yes Medical History: Reports:: Chronic Obstructive Pulmonary Disease (COPD), Depression, Hypertension, Migraine Denies:: Cancer, Diabetes Mellitus Type 1, Diabetes Mellitus Type 2, Internal Pacemaker, MRSA, Seizures *Have you ever received a pneumonia vaccine?: No *Have you received a flu vaccine this season?: No Other Medical History: Denies: Blood Transfusion Reaction Laterality Cases: Bilateral: Carpal Tunnel Release Other Surgeries: Yes: Appendectomy, Colonoscopy, Colostomy, Hernia Repair, Tubal Ligation, Other. No: Pacemaker Amputation: No Fractures: No - *Social History Smoking Status: Current every day smoker Tobacco Type: cigarettes # Packs/Day (cigarettes): 1 Alcohol Intake: never Substance Use Type: denies use *Occupational Status:: unemployed Housing: house Household Members: none *Travel in the last 8 weeks: None - Psychiatric History Pschychiatric History:: Reports:: Depression Family Hx:: No significant family history Review of Systems - Constitutional Denies anorexia - Eyes Denies blurry vision - ENT Denies dizziness - *Cardiovascular Reports shortness of breath, Reports shortness of breath with activity, Denies chest pain - *Respiratory Reports cough, Reports shortness of breath, Denies change in phlegm color, Denies chest congestion - *Gastrointestinal Reports abdominal pain - *Genitourinary Denies difficulty urinating - *Musculoskeletal Denies abnormal walking, Denies joint pain - Integumentary/Breasts Denies hair loss - *Neurologic Denies abnormal walking - Psychiatric Reports anxiety - Endocrine Denies cold intolerance - Hematologic/Lymphatic Denies easy bleeding - Allergic/Immunologic Denies GI upset with certain foods Meds Home Medications Medication Instructions Recorded Confirmed Type Fluticasone/Umeclidin/Vilanter 1 puff IH DAILY 10/29/18 06/24/20 History [Trelerobles Ellipta 100-62.5-25] Calc/D3/Magnes/B6/Zn/Cu/Shravan 1 mg PO DAILY 06/02/20 06/24/20 History [C[facility] Cit-D3-Mag 250 mg Cplt] buPROPion HCL [Wellbutrin SR 150mg 150 mg PO DAILY 06/24/20 06/24/20 History Tablet] Allergies Allergy/AdvReac Type Severity Reaction Status Date / Time No Known Allergies Allergy Verified 06/21/20 09:04 Exam Vital signs and Labs for Last 24 Hours: Temp Pulse Resp BP Pulse Ox 98.1 F 67 20 118/62 95 06/25/20 03:58 06/25/20 03:58 06/25/20 03:58 06/25/20 03:58 06/25/20 03:58 Laboratory Results - last 24 hr 06/24/20 10:47: Urine Color Yellow, Urine Appearance Clear, Urine pH 7.0, Ur Specific [place] <= 1.005, Urine Protein Negative, Urine Glucose (UA) Negative, Urine Ketones Negative, Urine Blood Negative, Urine Nitrate Negative, Urine Bilirubin Negative, Urine Urobilinogen 0.2, Ur Leukocyte Esterase Negative, Urine RBC None, Urine WBC 3-5, Ur Squamous Epith Cells 3-5, Urine Bacteria None 06/24/20 11:00: WBC 13.4 H, RBC 4.71, Hgb 13.9, Hct 44.8, MCV 95.2, MCH 29.5, MCHC 31.0 L, RDW 13.5, Plt Count 532 H, MPV 7.5, Neut % (Auto) 67.4, Lymph % (Auto) 21.6, [place] % (Auto) 6.9, Eos % (Auto) 3.1, Baso % (Auto) 1
[2020-06-25 08:00] VITALS: BP 119/56; PULSE 60; RESP 20; TEMP 36.8; O2SAT 95
[2020-06-25 08:05] VITALS: PULSE 60; RESP 20; O2SAT 95
--- NOTE | 2020-06-25 08:45 | P.PN_ITS ---
Subjective Narrative: Patient still complains of lower abdominal/pelvic discomfort. Tolerating a diet without difficulty Progress Note: A&P (1) Diverticulitis of intestine with abscess Status: Acute (2) COPD (chronic obstructive pulmonary disease) Status: Acute Assessment and Plan for All Diagnoses:: Continue IV antibiotics for now. White blood cell count has normalized. May be able to transition oral antibiotics for outpatient care soon. If clinically doing well may repeat CT scan near completion of oral antibiotic regimen. However, if clinically indicated could need CT scan sooner. Exam Vital signs and Labs for Last 24 Hours: Temp Pulse Resp BP Pulse Ox 98.1 F 67 20 118/62 95 06/25/20 03:58 06/25/20 03:58 06/25/20 03:58 06/25/20 03:58 06/25/20 03:58 Laboratory Results - last 24 hr 06/24/20 10:47: Urine Color Yellow, Urine Appearance Clear, Urine pH 7.0, Ur Specific [place] <= 1.005, Urine Protein Negative, Urine Glucose (UA) Negative, Urine Ketones Negative, Urine Blood Negative, Urine Nitrate Negative, Urine Bilirubin Negative, Urine Urobilinogen 0.2, Ur Leukocyte Esterase Negative, Urine RBC None, Urine WBC 3-5, Ur Squamous Epith Cells 3-5, Urine Bacteria None 06/24/20 11:00: WBC 13.4 H, RBC 4.71, Hgb 13.9, Hct 44.8, MCV 95.2, MCH 29.5, MCHC 31.0 L, RDW 13.5, Plt Count 532 H, MPV 7.5, Neut % (Auto) 67.4, Lymph % (Auto) 21.6, [place] % (Auto) 6.9, Eos % (Auto) 3.1, Baso % (Auto) 1.1, Neut # (Auto) 9.0 H, Lymph # (Auto) 2.9, [place] # (Auto) 0.9, Eos # (Auto) 0.4, Baso # (Auto) 0.2 06/24/20 11:00: Sodium 141, Potassium 3.8, Chloride 105, Carbon Dioxide 30, Anion Gap 9.8, BUN 6 L, Creatinine 0.50 L, Estimated Creat Clear 58, Estimated GFR 124, Est GFR ( Amer) 150, Glucose 77, Calcium 9.0, Total Bilirubin 0.4, AST 18, ALT 15, Alkaline Phosphatase 66, Total Protein 7.1, Albumin 4.2, Globulin 2.9, Albumin/Globulin Ratio 1.4 06/25/20 06:43: WBC 10.7, RBC 4.03 L, Hgb 12.2 D, Hct 37.3, MCV 92.7, MCH 30.3, MCHC 32.7, RDW 13.9, Plt Count 436 H, MPV 7.5, Neut % (Auto) 60.5, Lymph % (Auto) 26.3, [place] % (Auto) 7.7, Eos % (Auto) 4.5, Baso % (Auto) 0.9, Neut # (Auto) 6.5, Lymph # (Auto) 2.8, [place] # (Auto) 0.8, Eos # (Auto) 0.5 H, Baso # (Auto) 0.1 06/25/20 06:43: Sodium 139, Potassium 3.8, Chloride 107, Carbon Dioxide 31 H, Anion Gap 4.8 L, BUN 7, Creatinine 0.60, Estimated Creat Clear 60, Estimated GFR 100, Est GFR ( Amer) 121, Glucose 89, Calcium 7.7 L D I & O for Last 24 hours: Intake & Output 06/22/20 06/23/20 06/24/20 06/25/20 11:59 11:59 11:59 11:59 Intake Total 2280 / 2280 Output Total 0 / 0 Balance 2280 / 2280 Weight 145 lb 148 lb 3.997 oz Microbiology Reports for the Last 24 Hours: Microbiology 06/24/20 12:50 Nasopharyngeal Coronavirus COVID-19 PCR - Final - *Routine Abdominal Exam Absent: tenderness
--- NOTE | 2020-06-25 09:56 | HMH.PHAVTE ---
[facility] Pharmacy VTE Monitoring - Patient Demographics Admission date: 06/25/20 Report Date: 06/25/20 Time: 09:56 Allergies/Adverse Reactions: Patient Allergies No Known Allergies Allergy (Verified 06/21/20 09:04) Height: 1.65 m Weight: 67.245 kg Patient Problems: Current Active Problems COPD (chronic obstructive pulmonary disease) (Acute) Diverticulitis of intestine with abscess (Acute) - VTE Risk Labs: VTE Related Lab Results Hgb 12.2 g/dL (12.2-16.2) D 06/25/20 06:43 Hct 37.3 % (37.0-47.0) 06/25/20 06:43 Plt Count 436 K/mm3 (142-424) H 06/25/20 06:43 BUN 7 mg/dl (7-17) 06/25/20 06:43 Creatinine 0.60 mg/dl (0.52-1.04) 06/25/20 06:43 Estimated Creat Clear 60 mL/min (50-200) 06/25/20 06:43 VTE Score: 4 VTE Risk Level: Low Risk - Prophylaxis Types of VTE Prophylaxis: TEDS Knee High, IPCS Knee High (CINDY HOSE / ICDS ORDERED) Location of Applied Device: Not Applicable
[2020-06-25 16:00] VITALS: BP 102/66; PULSE 82; RESP 16; TEMP 36.7; O2SAT 95
--- NOTE | 2020-06-25 18:15 | PC.NURSE ---
Pt has been pleasant and cooperative this shift. A&O X4. Pt has complained of abdominal pain X2 thus far today and has received Morphine + Ibuprofen per MAR with favorable results. Pt is receiving O2 via NC @ 2.5 LPM with sats. >90%. Lungs CTA. No edema noted. Skin is C/D/I. Pt uses the toilet to void clear, yellow urine without issue. No BM this shift. Pt ambulates independently to/from the bathroom and throughout the room. 20 G peripheral IV in the RT AC is patent and infusing LR @ 125 ML/HR. VSS. Call light within reach. Will continue to monitor.
[2020-06-25 20:00] VITALS: BP 147/71; PULSE 87; RESP 19; TEMP 37.2; O2SAT 98
[2020-06-26] VITALS (7 sets, daily range): BP systolic 144–156; BP diastolic 72–99; PULSE 57–95; RESP 16–19; TEMP 36.7–37.4; O2SAT 93–98; BMI 24.7; BMI 24.6
--- NOTE | 2020-06-26 04:00 | PC.NURSE ---
late entry: pt voiced headache that was unrelieved and new order obtained. iv patent and infusing per order. pt states abd worse when using the bathroom but when resting in bed no pain. call light in reach.. vss.. will continue to monitor
[2020-06-26 06:20] LABS: Basophils # 0.1 K/mm3 (0-0.2); Basophils % 0.6 % (0.1-2.0); Eosinophils # 0.4 K/mm3 (0.0-0.4); Eosinophils % 3.3 % (0.1-12.0); Hematocrit 37.7 % (37.0-47.0); Lymphocytes # 2.4 K/mm3 (0.7-4.5); Lymphocytes % 19.6 % (10-50); Mean Corpuscular HGB Conc 31.9 g/dL (31.8-35.4); Mean Corpuscular Hemoglobin 29.9 pg (27.0-31.2); Mean Corpuscular Volume 93.7 fl (81-99); Mean Platelet Volume 7.4 fl (7.4-10.4); Monocytes % 8.1 % (1.7-9.3); Neutrophils # 8.2 K/mm3 (1.8-7.8); Neutrophils % 68.4 % (37.0-80.0); Platelet Count 418 K/mm3 (142-424); Red Blood Count 4.02 M/mm3 (4.20-5.40); Red Cell Distribution Width 13.8 % (11.5-17.5)
--- NOTE | 2020-06-26 07:20 | HMH.ACPN2 ---
Internal Medicine - PN: Leatha *Date: 06/26/20 *Time: 07:20 Interval history: Patient reports significant increase in pain after ambulating to the bathroom this morning. She also reports chest congestion Exam Vital signs and Labs for Last 24 Hours: Temp Pulse Resp BP Pulse Ox 98.1 F 57 L 17 144/72 H 98 06/26/20 04:00 06/26/20 04:00 06/26/20 04:00 06/26/20 04:00 06/26/20 04:00 Laboratory Results - last 24 hr 06/25/20 06:43: WBC 10.7, RBC 4.03 L, Hgb 12.2 D, Hct 37.3, MCV 92.7, MCH 30.3, MCHC 32.7, RDW 13.9, Plt Count 436 H, MPV 7.5, Neut % (Auto) 60.5, Lymph % (Auto) 26.3, [place] % (Auto) 7.7, Eos % (Auto) 4.5, Baso % (Auto) 0.9, Neut # (Auto) 6.5, Lymph # (Auto) 2.8, [place] # (Auto) 0.8, Eos # (Auto) 0.5 H, Baso # (Auto) 0.1 06/25/20 06:43: Sodium 139, Potassium 3.8, Chloride 107, Carbon Dioxide 31 H, Anion Gap 4.8 L, BUN 7, Creatinine 0.60, Estimated Creat Clear 60, Estimated GFR 100, Est GFR ( Amer) 121, Glucose 89, Calcium 7.7 L D 06/26/20 05:55: WBC 12.0 H, RBC 4.02 L, Hgb 12.0 L, Hct 37.7, MCV 93.7, MCH 29.9, MCHC 31.9, RDW 13.8, Plt Count 418, MPV 7.4, Neut % (Auto) 68.4, Lymph % (Auto) 19.6, [place] % (Auto) 8.1, Eos % (Auto) 3.3, Baso % (Auto) 0.6, Neut # (Auto) 8.2 H, Lymph # (Auto) 2.4, [place] # (Auto) 1.0, Eos # (Auto) 0.4, Baso # (Auto) 0.1 I & O for Last 24 hours: Intake & Output 06/23/20 06/24/20 06/25/20 06/26/20 11:59 11:59 11:59 11:59 Intake Total 2760 / 2760 2504 / 2504 Output Total 0 / 0 Balance 2760 / 2760 2504 / 2504 Weight 145 lb 148 lb 3.997 oz 148 lb 3 oz Narrative: Patient is anxious. Lung exam reveals distant but clear breath sounds. Heart has a regular rate and rhythm. Abdomen is soft, nontender, with active bowel sounds Assessment and Plan (1) Diverticulitis of intestine with abscess Status: Acute Qualifiers: Diverticulitis site: large intestine Diverticulitis bleeding: without bleeding Qualified Code(s): K57.20 - Diverticulitis of large intestine with perforation and abscess without bleeding Category: Medical Code(s): K57.80 - Diverticulitis of intestine, part unspecified, with perforation and abscess without bleeding (2) COPD (chronic obstructive pulmonary disease) Status: Acute Category: Medical Code(s): J44.9 - Chronic obstructive pulmonary disease, unspecified - Assessment and plan all Dx Assessment and Plan for all problems:: 1. Start duo nebs and budesonide as substitutes for patient's maintenance medicines for her COPD which she does not have with her 2. I will discuss with surgeon possibly changing patient's antibiotics versus repeat imaging with this increased episode of pain this morning.
--- NOTE | 2020-06-26 08:21 | HMH.GSPN ---
Subjective Narrative: Patient had acute exacerbation of pain early this morning. She states that she does have pelvic discomfort when voiding. Minimal bowel movements. Progress Note: A&P (1) Diverticulitis of intestine with abscess Status: Acute (2) COPD (chronic obstructive pulmonary disease) Status: Acute Assessment and Plan for All Diagnoses:: Due to some increase in white blood cell count with acute increase in pain I will switch her from Zosyn to Invanz. May need follow-up CT scan. Exam Vital signs and Labs for Last 24 Hours: Temp Pulse Resp BP Pulse Ox 98.1 F 57 L 17 144/72 H 98 06/26/20 04:00 06/26/20 04:00 06/26/20 04:00 06/26/20 04:00 06/26/20 04:00 Laboratory Results - last 24 hr 06/26/20 05:55: WBC 12.0 H, RBC 4.02 L, Hgb 12.0 L, Hct 37.7, MCV 93.7, MCH 29.9, MCHC 31.9, RDW 13.8, Plt Count 418, MPV 7.4, Neut % (Auto) 68.4, Lymph % (Auto) 19.6, [place] % (Auto) 8.1, Eos % (Auto) 3.3, Baso % (Auto) 0.6, Neut # (Auto) 8.2 H, Lymph # (Auto) 2.4, [place] # (Auto) 1.0, Eos # (Auto) 0.4, Baso # (Auto) 0.1 I & O for Last 24 hours: Intake & Output 06/23/20 06/24/20 06/25/20 06/26/20 11:59 11:59 11:59 11:59 Intake Total 2760 / 2760 2504 / 2504 Output Total 0 / 0 Balance 2760 / 2760 2504 / 2504 Weight 145 lb 148 lb 3.997 oz 148 lb 3 oz - *Routine Abdominal Exam Comments: Some tenderness in the left lower quadrant.
--- NOTE | 2020-06-26 15:41 | PC.NURSE ---
pt called out for pain under her left breast, and it was not radiating. patient has been coughing a lot. obtained an ekg, while getting ekg pt states the pain went away. md olmstead aware and stated no new orders.
[2020-06-27] VITALS (10 sets, daily range): BP systolic 131–156; BP diastolic 61–80; PULSE 68–94; RESP 16–20; TEMP 36.8–36.9; O2SAT 88–96; BMI 24.7
--- NOTE | 2020-06-27 03:21 | PC.NURSE ---
No acute changes overnight. Pt has c/o pain in abd and when voiding t/o shift. Pain meds have been given with desired effects. Abd is round and firm, pt reports no tenderness with palpation. Bowels sounds x4. Pt stated she felt she wasn't improving since admission. Pt is able to ambulate independently to BR. Lungs diminished, on 2.5L NC. IV patent, LR @ 125. VSS, call light in reach, no concerns at this time.
[2020-06-27 06:38] LABS: Basophils # 0.1 K/mm3 (0-0.2); Basophils % 0.6 % (0.1-2.0); Eosinophils # 0.4 K/mm3 (0.0-0.4); Hematocrit 35.1 % (37.0-47.0); Hemoglobin 11.2 g/dL (12.2-16.2); Lymphocytes # 2.9 K/mm3 (0.7-4.5); Lymphocytes % 20.2 % (10-50); Mean Corpuscular HGB Conc 31.9 g/dL (31.8-35.4); Mean Corpuscular Volume 94.2 fl (81-99); Mean Platelet Volume 7.4 fl (7.4-10.4); Monocytes # 1.2 K/mm3 (0.1-1.0); Monocytes % 8.7 % (1.7-9.3); Neutrophils # 9.5 K/mm3 (1.8-7.8); Neutrophils % 67.4 % (37.0-80.0); Platelet Count 407 K/mm3 (142-424); Red Blood Count 3.73 M/mm3 (4.20-5.40); Red Cell Distribution Width 13.6 % (11.5-17.5); White Blood Count 14.1 K/mm3 (4.8-10.8)
--- NOTE | 2020-06-27 07:06 | HMH.ACPN2 ---
Internal Medicine - PN: Subj *Date: 06/27/20 *Time: 07:06 Interval history: Patient continues to have abdominal pain. She reports pain is now more focal in the lower abdomen and suprapubic area. Pain is most intense with ambulation or going to the bathroom to urinate. Patient has concerns because she has not had a bowel movement in 48 hours. Exam Vital signs and Labs for Last 24 Hours: Temp Pulse Resp BP Pulse Ox 98.3 F 87 20 141/74 H 94 L 06/27/20 04:00 06/27/20 06:13 06/27/20 04:00 06/27/20 04:00 06/27/20 06:13 Laboratory Results - last 24 hr 06/27/20 05:55: WBC 14.1 H, RBC 3.73 L, Hgb 11.2 L, Hct 35.1 L, MCV 94.2, MCH 30.0, MCHC 31.9, RDW 13.6, Plt Count 407, MPV 7.4, Neut % (Auto) 67.4, Lymph % (Auto) 20.2, [place] % (Auto) 8.7, Eos % (Auto) 3.0, Baso % (Auto) 0.6, Neut # (Auto) 9.5 H, Lymph # (Auto) 2.9, [place] # (Auto) 1.2 H, Eos # (Auto) 0.4, Baso # (Auto) 0.1 I & O for Last 24 hours: Intake & Output 06/24/20 06/25/20 06/26/20 06/27/20 11:59 11:59 11:59 11:59 Intake Total 2760 / 2760 2984 / 2984 720 / 720 Output Total 0 / 0 Balance 2760 / 2760 2984 / 2984 720 / 720 Weight 145 lb 148 lb 3.997 oz 148 lb 3 oz 148 lb 8 oz Narrative: Patient is in no distress. She has a bronchitic cough. Lungs however are clear with a faint end expiratory wheeze heard in the right upper lobe. Heart has a regular rate and rhythm. Abdomen is soft with minimal left lower quadrant or suprapubic tenderness this morning Assessment and Plan (1) Diverticulitis of intestine with abscess Status: Acute Qualifiers: Diverticulitis site: large intestine Diverticulitis bleeding: without bleeding Qualified Code(s): K57.20 - Diverticulitis of large intestine with perforation and abscess without bleeding Category: Medical Code(s): K57.80 - Diverticulitis of intestine, part unspecified, with perforation and abscess without bleeding (2) COPD (chronic obstructive pulmonary disease) Status: Acute Category: Medical Code(s): J44.9 - Chronic obstructive pulmonary disease, unspecified - Assessment and plan all Dx Assessment and Plan for all problems:: Await morning labs. Appreciate Dr. Andre's management of the patient. Continue Invanz. Possible CT scan this morning.
--- NOTE | 2020-06-27 08:11 | CT_ITS ---
PROCEDURE: CT ABDOMEN PELVIS W CON CLINICAL INDICATION: DIVERTICULITIS, INCREASING WBC COMPARISON: CT CT ANGIO CHEST from 12/03/[address] ABDOMEN PELVIS W CON from 06/24/2020 TECHNIQUE: IV Contrast: 75ML Isovue 370 Oral Contrast 450ml Redicat Axial images obtained with sagittal and coronal reformats. All CT scans at the facility use one or more dose reduction, viz: automated exposure control, ma/kV adjustment per patient size (including targeted exams where dose is matched to indication, i.e. head), or iterative reconstruction technique. FINDINGS: LOWER THORAX: Subsegmental consolidation noted in the right lower lobe. Minor lingular atelectasis. Bibasal atelectasis is noted. HEPATOBILIARY: Hepatomegaly is noted with the liver measuring 22.3 centimeters in craniocaudal dimension. There is minor focal subtle enhancement noted in the subcapsular right lobe of the liver in segment 6 (series 3, image 48), demonstrates no focal hypodensity or washout on the 10 minutes delay phase images. This most likely represents a transient hepatic attenuation difference (FERN), nonspecific. No other focal liver lesions are noted. Minor heterogeneous enhancement of the liver parenchyma is noted. There is minor periportal edema. The gallbladder unremarkable. No intra or extrahepatic biliary dilation is noted. PANCREAS: Unremarkable. No pancreatic ductal dilation. SPLEEN:Unremarkable ADRENALS:No focal masses or nodules. KIDNEYS/URETERS/BLADDER: No evidence of focal calcifications or hydronephrosis. Bilateral renal hypodense lesions are noted, larger on the right measuring 5.5 times 5.5 centimeters, statistically most likely represent cysts. PERITONEUM / RETROPERITONEUM: Small amount of free fluid is noted in the pelvis. Peritoneum LYMPH NODES: No significant retroperitoneal or mesenteric adenopathy. GI TRACT: Few colonic diverticula are noted without evidence of diverticulitis. There is focal area of wall thickening noted in the mid sigmoid colon, demonstrates pericolonic stranding. There is a focal rim enhancing collection noted in the sigmoid colon adjacent to the inflamed diverticulum, measuring 2.3 x 2.4 centimeters. No other significant abnormality is noted. Appendix: The appendix is not knee seen although no secondary signs of appendicitis are noted. ABDOMINAL WALL: Postsurgical changes of the anterior abdominal wall. There is a small fat containing umbilical hernia noted. SOFT TISSUES: Unremarkable BONES: Minor multilevel degenerative changes of the lumbar spine are noted. IMPRESSION: There is a 2.3 x 2.4 centimeter rim enhancing focal collection noted adjacent to the inflamed diverticulum in the sigmoid colon, suggestive of diverticular abscess. No significant interval change in size compared to the prior study. Small amount of free fluid is noted in the pelvis. Multiple colonic diverticula are noted. Other chronic findings as described above. Dictated by: Aziza Reynolds 06/27/2020 11:58 Aziza Reynolds in [facility] 06/27/2020 11:58
--- NOTE | 2020-06-27 08:16 | P.PN_ITS ---
Subjective Narrative: Patient continues to complain of lower abdominal pain, worse when ambulating. Progress Note: A&P (1) Diverticulitis of intestine with abscess Status: Acute (2) COPD (chronic obstructive pulmonary disease) Status: Acute Assessment and Plan for All Diagnoses:: Follow up CT scan with IV and oral contrast due to lack of clear clinical improvement. May need operative intervention. Exam Vital signs and Labs for Last 24 Hours: Temp Pulse Resp BP Pulse Ox 98.2 F 87 18 135/67 94 L 06/27/20 07:37 06/27/20 07:37 06/27/20 07:37 06/27/20 07:37 06/27/20 07:37 Laboratory Results - last 24 hr 06/27/20 05:55: WBC 14.1 H, RBC 3.73 L, Hgb 11.2 L, Hct 35.1 L, MCV 94.2, MCH 30.0, MCHC 31.9, RDW 13.6, Plt Count 407, MPV 7.4, Neut % (Auto) 67.4, Lymph % (Auto) 20.2, [place] % (Auto) 8.7, Eos % (Auto) 3.0, Baso % (Auto) 0.6, Neut # (Auto) 9.5 H, Lymph # (Auto) 2.9, [place] # (Auto) 1.2 H, Eos # (Auto) 0.4, Baso # (Auto) 0.1 I & O for Last 24 hours: Intake & Output 06/24/20 06/25/20 06/26/20 06/27/20 11:59 11:59 11:59 11:59 Intake Total 2760 / 2760 2984 / 2984 720 / 720 Output Total 0 / 0 Balance 2760 / 2760 2984 / 2984 720 / 720 Weight 145 lb 148 lb 3.997 oz 148 lb 3 oz 148 lb 8 oz - *Routine Abdominal Exam Present: soft Comments: Mild tenderness. No guarding or rebound.
--- NOTE | 2020-06-27 08:34 | PC.NURSE ---
Pt notified me that she was done drinking her contrast, I called radiology and told Shantal.
--- NOTE | 2020-06-27 17:22 | PC.NURSE ---
PT MAN COMPLAINT TODAY WAS A MICHEL, CONTACTED AND HE PUT ORDERS IN THAT WERE CARRIED OUT. SHE WALKED THE HALLS WITH DAUGHTER, AND TOOK A SHOWER. NO BM THIS SHIFT. OTHERWISE NO ACUTE CHANGES NOTED. VSS. WILL CONT. TO MONITOR.
--- NOTE | 2020-06-27 18:48 | PC.NURSE ---
PT REPORTS HAVING LOOSE STOOLS AND BEING ABLE TO PIN POINT PAIN BEING IN HER VERY LOWER ABD.
[2020-06-28] VITALS (10 sets, daily range): BP systolic 136–151; BP diastolic 71–90; PULSE 69–89; RESP 17–20; TEMP 36.6–37.1; O2SAT 93–98; BMI 25.7
--- NOTE | 2020-06-28 04:11 | PC.NURSE ---
pt has rested intermittently t/o shift, did complain of headache twice this shift that was treated with prn medications, this morning does complain of right sided pain, that is less intense than it was yesterday, remains on 2L NC, did become SOA while ambulating to and from bathroom without oxygen
--- NOTE | 2020-06-28 06:00 | PC.NURSE ---
RA SAT=72% AT REST, RETURNED PT TO 2L NC AND GAVE NEBULIZERS.
[2020-06-28 06:27] LABS: Basophils # 0.1 K/mm3 (0-0.2); Basophils % 0.5 % (0.1-2.0); Eosinophils # 0.6 K/mm3 (0.0-0.4); Eosinophils % 5.3 % (0.1-12.0); Hematocrit 33.7 % (37.0-47.0); Hemoglobin 11.1 g/dL (12.2-16.2); Lymphocytes % 16.8 % (10-50); Mean Corpuscular HGB Conc 32.9 g/dL (31.8-35.4); Mean Corpuscular Hemoglobin 30.7 pg (27.0-31.2); Mean Corpuscular Volume 93.3 fl (81-99); Mean Platelet Volume 7.9 fl (7.4-10.4); Monocytes # 1.2 K/mm3 (0.1-1.0); Monocytes % 9.6 % (1.7-9.3); Neutrophils # 8.3 K/mm3 (1.8-7.8); Neutrophils % 67.9 % (37.0-80.0); Platelet Count 390 K/mm3 (142-424); Red Blood Count 3.61 M/mm3 (4.20-5.40); Red Cell Distribution Width 13.7 % (11.5-17.5); White Blood Count 12.2 K/mm3 (4.8-10.8)
--- NOTE | 2020-06-28 07:09 | P.PN_ITS ---
Subjective Patient reports: no new complaints Narrative: Patient states that she has had multiple bowel movements. She does have some pain when she ambulates to the bathroom. No nausea. Concerned about her breathing. Progress Note: A&P (1) Diverticulitis of intestine with abscess Status: Acute (2) COPD (chronic obstructive pulmonary disease) Status: Acute Assessment and Plan for All Diagnoses:: Continue IV antibiotics a limited diet. Discontinue MiraLAX. Exam Vital signs and Labs for Last 24 Hours: Temp Pulse Resp BP Pulse Ox 98.1 F 73 18 146/71 H 98 06/28/20 04:00 06/28/20 06:03 06/28/20 04:00 06/28/20 04:00 06/28/20 06:03 Laboratory Results - last 24 hr 06/28/20 05:55: WBC 12.2 H, RBC 3.61 L, Hgb 11.1 L, Hct 33.7 L, MCV 93.3, MCH 30.7, MCHC 32.9, RDW 13.7, Plt Count 390, MPV 7.9, Neut % (Auto) 67.9, Lymph % (Auto) 16.8, [place] % (Auto) 9.6 H, Eos % (Auto) 5.3, Baso % (Auto) 0.5, Neut # (Auto) 8.3 H, Lymph # (Auto) 2.0, [place] # (Auto) 1.2 H, Eos # (Auto) 0.6 H, Baso # (Auto) 0.1 I & O for Last 24 hours: Intake & Output 06/25/20 06/26/20 06/27/20 06/28/20 11:59 11:59 11:59 11:59 Intake Total 2760 / 2760 2984 / 2984 720 / 720 1707 / 1707 Output Total 0 / 0 Balance 2760 / 2760 2984 / 2984 720 / 720 1707 / 1707 Weight 148 lb 3.997 oz 148 lb 3 oz 148 lb 8 oz 154 lb 4 oz - *Routine Abdominal Exam Present: soft Comments: Mild tenderness in the lower abdomen.
--- NOTE | 2020-06-28 07:24 | HMH.ACPN2 ---
Internal Medicine - PN: Subj *Date: 06/28/20 *Time: 07:24 Interval history: Patient is frustrated by her slow improvement. She has developed loose stools and is making trips to the bathroom every 30 to 60 minutes. She does admit her pain has improved since admission. CT scan yesterday showed unchanged diverticular abscess. Patient continues to complain of shortness of breath with decrease in O2 sats to the 80s with ambulation to the bathroom. She will remove her oxygen at these times. Exam Vital signs and Labs for Last 24 Hours: Temp Pulse Resp BP Pulse Ox 98.1 F 73 18 146/71 H 98 06/28/20 04:00 06/28/20 06:03 06/28/20 04:00 06/28/20 04:00 06/28/20 06:03 Laboratory Results - last 24 hr 06/28/20 05:55: WBC 12.2 H, RBC 3.61 L, Hgb 11.1 L, Hct 33.7 L, MCV 93.3, MCH 30.7, MCHC 32.9, RDW 13.7, Plt Count 390, MPV 7.9, Neut % (Auto) 67.9, Lymph % (Auto) 16.8, [place] % (Auto) 9.6 H, Eos % (Auto) 5.3, Baso % (Auto) 0.5, Neut # (Auto) 8.3 H, Lymph # (Auto) 2.0, [place] # (Auto) 1.2 H, Eos # (Auto) 0.6 H, Baso # (Auto) 0.1 I & O for Last 24 hours: Intake & Output 06/25/20 06/26/20 06/27/20 06/28/20 11:59 11:59 11:59 11:59 Intake Total 2760 / 2760 2984 / 2984 720 / 720 1707 / 1707 Output Total 0 / 0 Balance 2760 / 2760 2984 / 2984 720 / 720 1707 / 1707 Weight 148 lb 3.997 oz 148 lb 3 oz 148 lb 8 oz 154 lb 4 oz Narrative: Patient is anxious. Lung exam reveals good aeration anteriorly but posteriorly there are faint expiratory wheezes throughout the lung zhang. Heart has a regular rate and rhythm. Abdomen is soft. Assessment and Plan (1) Diverticulitis of intestine with abscess Status: Acute Qualifiers: Diverticulitis site: large intestine Diverticulitis bleeding: without bleeding Qualified Code(s): K57.20 - Diverticulitis of large intestine with perforation and abscess without bleeding Category: Medical Code(s): K57.80 - Diverticulitis of intestine, part unspecified, with perforation and abscess without bleeding (2) COPD (chronic obstructive pulmonary disease) Status: Acute Category: Medical Code(s): J44.9 - Chronic obstructive pulmonary disease, unspecified - Assessment and plan all Dx Assessment and Plan for all problems:: 1. Continue IV Invanz and daily CBC. Had a discussion with the patient that we are attempting to avoid surgery by treating with a prolonged course of antibiotics. Patient voiced understanding 2. Patient is frustrated by her hospitalization. This pattern has been seen with prior hospitalizations in this patient. It was emphasized patient should wear her oxygen. Adjustments will be made to her duo nebs with substitution of Xopenex for albuterol to see if that may alleviate some of the patient's feelings of anxiety 3. Start Mucomyst nebs 4. Patient will receive Imitrex subcu for migraine headaches. She thinks the morphine may be triggering her headaches so this will be discontinued in favor of Dilaudid for severe pain 5. Encourage patient to get out of bed and ambulate as tolerated. Continue to use incentive spirometer.
--- NOTE | 2020-06-28 16:02 | PC.NURSE ---
Patients room air sat was noted to be 95% on ra. pt states that she feels as though she is breathing better after the fluids were turned off. pt does not think she had any extra UOP. (meter was not placed in toilet prior to voids). pt has requested pain meds every time they have been available. lungs are clear. bowel sounds are active. nad noted. pt has had several visitors this shift.
--- NOTE | 2020-06-29 03:16 | PC.NURSE ---
pt reports some itching since receiving Dilaudid. no hives noted or swelling. offered to call md for Benadryl and pt refused. stated she was fine. iv patent. still reports pain when urinating or having a bowel movement. 2LNC in use at this time. vss. call light in reach. will continue to monitor
[2020-06-29 04:00] VITALS: BP 124/78; PULSE 75; RESP 18; TEMP 36.7; O2SAT 93
[2020-06-29 05:00] VITALS: BMI 25.6
[2020-06-29 05:46] LABS: Basophils # 0.1 K/mm3 (0-0.2); Basophils % 0.5 % (0.1-2.0); Eosinophils # 0.7 K/mm3 (0.0-0.4); Eosinophils % 6.1 % (0.1-12.0); Hematocrit 35.9 % (37.0-47.0); Hemoglobin 11.5 g/dL (12.2-16.2); Lymphocytes # 2.4 K/mm3 (0.7-4.5); Lymphocytes % 20.6 % (10-50); Mean Corpuscular HGB Conc 32.1 g/dL (31.8-35.4); Mean Corpuscular Volume 93.6 fl (81-99); Mean Platelet Volume 7.4 fl (7.4-10.4); Monocytes # 1.1 K/mm3 (0.1-1.0); Neutrophils # 7.5 K/mm3 (1.8-7.8); Neutrophils % 63.7 % (37.0-80.0); Platelet Count 438 K/mm3 (142-424); Red Blood Count 3.83 M/mm3 (4.20-5.40); Red Cell Distribution Width 13.4 % (11.5-17.5); White Blood Count 11.8 K/mm3 (4.8-10.8)
[2020-06-29 05:53] LABS: Anion Gap 5.5 mEq/L (5-15); Calcium 8.4 mg/dl (8.4-10.2); Carbon Dioxide 35 mmol/L (22.0-30.0); Chloride 104 mmol/L (98-107); Creatinine Clearance Estimated 62 mL/min (50-200); Estimated Glomerular Filt Rate 160 ml/min (>60); GFR (African American) 194 ML/MIN (>60); Glucose 95 mg/dl (74-100); Potassium 3.5 mmoL/L (3.5-5.1); Sodium 141 mmol/L (136-145)
[2020-06-29 06:30] VITALS: PULSE 73; O2SAT 91
[2020-06-29 06:52] LABS: Blood Urea Nitrogen 2 mg/dl (7-17)
--- NOTE | 2020-06-29 06:52 | HMH.GSPN ---
Subjective Patient reports: no new complaints Narrative: She states that she feels better overall . She slept fairly well and is breathing better . She continues to have lower abdominal pain that she states is more focal now . Severity of her pain has not changed and continues to be worse with going to the bathroom . Progress Note: A&P (1) Diverticulitis of intestine with abscess Status: Acute Assessment and plan: Overall, she remains fairly stable on current antibiotics. Continue antibiotics Continue serial abdominal exams May repeat CT in approximately 1 week for ongoing evaluation of abscess (in order to better-guide antibiotic therapy and also to evaluate for possible drainable mature abscess ). (2) COPD (chronic obstructive pulmonary disease) Status: Acute Exam Vital signs and Labs for Last 24 Hours: Temp Pulse Resp BP Pulse Ox 98.0 F 75 18 124/78 93 L 06/29/20 04:00 06/29/20 04:00 06/29/20 04:00 06/29/20 04:00 06/29/20 04:00 Laboratory Results - last 24 hr 06/29/20 05:35: WBC 11.8 H, RBC 3.83 L, Hgb 11.5 L, Hct 35.9 L, MCV 93.6, MCH 30.0, MCHC 32.1, RDW 13.4, Plt Count 438 H, MPV 7.4, Neut % (Auto) 63.7, Lymph % (Auto) 20.6, [place] % (Auto) 9.0, Eos % (Auto) 6.1, Baso % (Auto) 0.5, Neut # (Auto) 7.5, Lymph # (Auto) 2.4, [place] # (Auto) 1.1 H, Eos # (Auto) 0.7 H, Baso # (Auto) 0.1 I & O for Last 24 hours: Intake & Output 06/26/20 06/27/20 06/28/20 06/29/20 11:59 11:59 11:59 11:59 Intake Total 2984 / 2984 720 / 720 2187 / 2187 960 / 960 Balance 2984 / 2984 720 / 720 2187 / 2187 960 / 960 Weight 148 lb 3 oz 148 lb 8 oz 154 lb 4 oz 154 lb - Constitutional no acute distress - *Routine Respiratory Exam Absent: respiratory distress - *Routine Cardiovascular Exam Present: RRR - *Routine Abdominal Exam Present: soft, tenderness
[2020-06-29 07:49] VITALS: BP 142/78; PULSE 79; RESP 20; TEMP 36.7; O2SAT 92
--- NOTE | 2020-06-29 07:57 | HMH.ACPN2 ---
Internal Medicine - PN: Subj *Date: 06/29/20 *Time: 07:57 Interval history: Patient reports significant improvement over the last 24 hours with pain only occurring when she has to use the bathroom to. Pain will begin upon urination or defecation and resolve at the end of bathroom use. Patient did receive Dilaudid yesterday for pain which caused itching. She notes improvement in shortness of breath with use of Mucomyst Exam Vital signs and Labs for Last 24 Hours: Temp Pulse Resp BP Pulse Ox 98.0 F 79 20 142/78 H 92 L 06/29/20 07:49 06/29/20 07:49 06/29/20 07:49 06/29/20 07:49 06/29/20 07:49 Laboratory Results - last 24 hr 06/29/20 05:35: WBC 11.8 H, RBC 3.83 L, Hgb 11.5 L, Hct 35.9 L, MCV 93.6, MCH 30.0, MCHC 32.1, RDW 13.4, Plt Count 438 H, MPV 7.4, Neut % (Auto) 63.7, Lymph % (Auto) 20.6, [place] % (Auto) 9.0, Eos % (Auto) 6.1, Baso % (Auto) 0.5, Neut # (Auto) 7.5, Lymph # (Auto) 2.4, [place] # (Auto) 1.1 H, Eos # (Auto) 0.7 H, Baso # (Auto) 0.1 06/29/20 05:35: Sodium 141, Potassium 3.5, Chloride 104, Carbon Dioxide 35 H, Anion Gap 5.5, BUN 2 L, Creatinine 0.40 L, Estimated Creat Clear 62, Estimated GFR 160, Est GFR ( Amer) 194, Glucose 95, Calcium 8.4 I & O for Last 24 hours: Intake & Output 06/26/20 06/27/20 06/28/20 06/29/20 11:59 11:59 11:59 11:59 Intake Total 2984 / 2984 720 / 720 2187 / 2187 1560 / 1560 Balance 2984 / 2984 720 / 720 2187 / 2187 1560 / 1560 Weight 148 lb 3 oz 148 lb 8 oz 154 lb 4 oz 154 lb - Constitutional no acute distress - *Routine Respiratory Exam Present: wheezes (Posteriorly) - *Routine Cardiovascular Exam Present: RRR, Normal S1, Normal S2 - *Routine Abdominal Exam Present: other Comments: Soft with suprapubic tenderness with deep palpation Assessment and Plan (1) Diverticulitis of intestine with abscess Status: Acute Qualifiers: Diverticulitis site: large intestine Diverticulitis bleeding: without bleeding Qualified Code(s): K57.20 - Diverticulitis of large intestine with perforation and abscess without bleeding Category: Medical Code(s): K57.80 - Diverticulitis of intestine, part unspecified, with perforation and abscess without bleeding (2) COPD (chronic obstructive pulmonary disease) Status: Acute Category: Medical Code(s): J44.9 - Chronic obstructive pulmonary disease, unspecified - Assessment and plan all Dx Assessment and Plan for all problems:: 1. PICC line will be placed today and Invanz will need to be continued for total of 14 days. Patient will return as an outpatient for Invanz infusions 2. Patient has duo nebs as well as Mucomyst at home. 3. Resting room air sat will be checked to see if patient will qualify for home oxygen use with her COPD. 4. Patient will need a CT scan in 1 week
--- NOTE | 2020-06-29 08:11 | XR_ITS ---
PROCEDURE: XR CHEST PORTABLE PICC PLAC CLINICAL HISTORY: Confirm PICC line placement COMPARISON: CR CXR CHEST(2 VIEWS-NOT PORTABLE) from 02/13/[address] ANGIO CHEST from 12/03/2018 CR XR CHEST PORTABLE from 12/03/2018 CR XR CHEST 2V from 02/11/2019 FINDINGS: Left subclavian PICC line with its tip overlying the SVC is noted. Background of chronic interstitial changes. No lobar consolidation, or pneumothorax. Trace right pleural effusion. Cardiac size and central pulmonary vasculature within normal limits. Vascular calcification is noted. Degenerative changes of the visualized thoracic spine. Focal sclerotic density in the right head of humerus, demonstrates no significant interval change compared to multiple studies dating back to December 03, 2018. IMPRESSION: Small right effusion. Background of chronic interstitial changes. Dictated by: Aziza Reynolds 06/29/2020 12:18 Aziza Reynolds in [facility] 06/29/2020 12:18
--- NOTE | 2020-06-29 09:26 | SW/DCPLANNER ---
PATIENT IS DISCHARGING TO HOME TODAY AND IS GOING TO NEED 10 MORE DAYS OF IV ANTIBIOTICS AND WILL GET A PICC LINE TODAY BEFORE SHE DISCHARGE... SHE WILL BE SET UP WITH HOME 02 HER ROOM AIR SATS WERE 72 THIS MORNING... A PORTABLE TANK WILL DELIVERED TO HER ROOM BEFORE SHE DISCHARGES...
--- NOTE | 2020-06-29 09:30 | PC.NURSE ---
patient resting room air sat noted to have dropped to 72%. replaced 2l of o2. will need home oxygen
[2020-06-29 09:31] VITALS: O2SAT 73
--- NOTE | 2020-06-29 11:06 | P.PN_ITS ---
Internal Medicine - PN: Subj *Date: 06/29/20 *Time: 11:06 Exam Vital signs and Labs for Last 24 Hours: Temp Pulse Resp BP Pulse Ox 98.0 F 79 20 142/78 H 73 L 06/29/20 07:49 06/29/20 07:49 06/29/20 07:49 06/29/20 07:49 06/29/20 09:31 Laboratory Results - last 24 hr 06/29/20 05:35: WBC 11.8 H, RBC 3.83 L, Hgb 11.5 L, Hct 35.9 L, MCV 93.6, MCH 30.0, MCHC 32.1, RDW 13.4, Plt Count 438 H, MPV 7.4, Neut % (Auto) 63.7, Lymph % (Auto) 20.6, [place] % (Auto) 9.0, Eos % (Auto) 6.1, Baso % (Auto) 0.5, Neut # (Auto) 7.5, Lymph # (Auto) 2.4, [place] # (Auto) 1.1 H, Eos # (Auto) 0.7 H, Baso # (Auto) 0.1 06/29/20 05:35: Sodium 141, Potassium 3.5, Chloride 104, Carbon Dioxide 35 H, Anion Gap 5.5, BUN 2 L, Creatinine 0.40 L, Estimated Creat Clear 62, Estimated GFR 160, Est GFR ( Amer) 194, Glucose 95, Calcium 8.4 I & O for Last 24 hours: Intake & Output 06/26/20 06/27/20 06/28/20 06/29/20 23:59 23:59 23:59 23:59 Intake Total 1320 / 1320 480 / 480 2667 / 2667 600 / 600 Balance 1320 / 1320 480 / 480 2667 / 2667 600 / 600 Weight 67 kg 67.358 kg 69.967 kg 69.853 kg Assessment and Plan (1) Diverticulitis of intestine with abscess Status: Acute Qualifiers: Diverticulitis site: large intestine Diverticulitis bleeding: without bleeding Qualified Code(s): K57.20 - Diverticulitis of large intestine with perforation and abscess without bleeding Category: Medical Code(s): K57.80 - Diverticulitis of intestine, part unspecified, with perforation and abscess without bleeding (2) COPD (chronic obstructive pulmonary disease) Status: Acute Category: Medical Code(s): J44.9 - Chronic obstructive pulmonary disease, unspecified The patient's infection will respond to the chosen ABx?: Yes Is the patient receiving the right drug, dose, and route?: Yes Could a more targeted ABx be ordered?: No 14
--- NOTE | 2020-06-29 15:37 | PC.NURSE ---
THIS RN PROVIDED D/C INSTRUCTIONS TO PATIENT. THIS RN VERBALIZED TO PATIENT THAT SHE HAS AN APPOINTMENT AT INFUSION AT 1300. PATIENT VERBALIZED AN UNDERSTANDING. NO OTHER CONCERNS AT THIS TIME.
--- NOTE | 2020-07-06 06:57 | HMH.DCSUM ---
General - General Admission date:: 06/24/20 Discharge date: 06/29/20 HPI HPI: 64-year-old female with history of known diverticulosis presented to the emergency department with abdominal pain. Patient believes she may have a urinary tract infection based on the fact that her pain was in the lower abdomen and suprapubic area. On evaluation patient was found to have an early diverticular abscess on CT scan. Patient was started on Zosyn and admitted. She has since been seen by Dr. Andre of the surgical service who is recommended conservative care. Patient herself denies fevers or chills. She has known diverticulosis diagnosed on multiple colonoscopies over the last 3 years. Appetite has been normal. She does report discomfort with bowel movement this morning. Hospital Course Hospital Course: Patient was admitted with diagnosis of diverticular abscess and placed on Zosyn. Over initial 48 hours patient did not feel like she was improving and pain mostly occurred when ambulating and using the bathroom to urinate. Patient is anxiety began to rise because of her perceived lack of improvement. Patient's white count initially responded to Zosyn but then increased again and antibiotics were switched to Invanz. Dr. Andre of the surgical service saw the patient daily during hospitalization. Patient's anxiety continued to rise and it was explained to the patient that recovering from a diverticular abscess was a slow process and that there were signs she was improving. This seemed to alleviate some of the patient's anxiety. White count began to trend down. Abdominal pain improved. Patient did not require inpatient surgery. Patient was discharged home. During hospitalization patient developed increased wheezing from her COPD. She was started on duo nebs and Mucomyst nebs which improved both dyspnea and wheezing. However she did develop an oxygen requirement and at discharge will require supplemental oxygen at 2 L/min. Objective Vital signs: Temp Pulse Resp BP Pulse Ox 98.0 F 79 20 142/78 H 73 L 06/29/20 07:49 06/29/20 07:49 06/29/20 07:49 06/29/20 07:49 06/29/20 09:31 DS: Diagnosis - Discharge Diagnosis (1) Diverticulitis of intestine with abscess Status: Acute (2) COPD (chronic obstructive pulmonary disease) Status: Acute Discharge Plan - Patient Discharge Instructions ACTIVITY: Continue current activity DIET: continue same diet Patient Instructions: DI for Chronic Obstructive Pulmonary Disease, DI for Diverticulitis - Follow up Plan Follow up with: Mansoor Lamas MD [Primary Care Provider] - 07/05/20 10:45 am Leoncio Sultana MD [Staff Physician] - 07/11/20 9:15 am Disposition: Home, Self-Care Condition at discharge:: Improved Home Medications: Home Medications Medication Instructions Recorded Confirmed Type Fluticasone/Umeclidin/Vilanter 1 puff IH DAILY 10/29/18 07/05/20 History [Trelegy Ellipta 100-62.5-25] Calc/D3/Magnes/B6/Zn/Cu/Shravan 1 mg PO DAILY 06/02/20 07/05/20 History [[facility] Cit-D3-Mag 250 mg Cplt] buPROPion HCL [Wellbutrin SR 150mg 150 mg PO DAILY 06/24/20 07/05/20 History Tablet] SUMAtriptan succinate [Imitrex] 100 mg PO DAILYP PRN 06/25/20 07/05/20 History Hydrocodone/Acetaminophen 1 each PO Q6HP PRN #20 tab 06/29/20 07/05/20 Rx [Hydrocodone-Acetamin 5-325 mg] Ertapenem Sodium [Invanz 1gm Vial] 1 gm IV Q24H 06/30/20 07/05/20 History Prescriptions/Medication Reconciliation: New Hydrocodone/Acetaminophen [Hydrocodone-Acetamin 5-325 mg] 1 each PO Q6HP PRN #20 tab PRN Reason: Moderate To Severe Pain Continued Fluticasone/Umeclidin/Vilanter [Trelegy Ellipta 100-62.5-25] 1 puff IH DAILY Calc/D3/Magnes/B6/Zn/Cu/Shravan [[facility] Cit-D3-Mag 250 mg Cplt] 1 mg PO DAILY buPROPion HCL [Wellbutrin SR 150mg Tablet] 150 mg PO DAILY SUMAtriptan succinate [Imitrex] 100 mg PO DAILYP PRN PRN Reason: MIGRAINES No Action E
== END 2020-06-29 15:33 | disposition home or self-care (01) | DRG 392 ==
LOC: ER 13:19 → 2ND 13:30
PROVIDERS: Admitting Provider Internal Medicine Adolescent Medicine; Emergency Provider Family Medicine; PCP Family Medicine; Visit Provider Family Medicine
DX: K57.20 Diverticulitis of large intestine with perforation and abscess without bleeding (principal); J44.9 Chronic obstructive pulmonary disease, unspecified; I10 Essential (primary) hypertension; G43.909 Migraine, unspecified, not intractable, without status migrainosus; F32.9 Major depressive disorder, single episode, unspecified; F17.210 Nicotine dependence, cigarettes, uncomplicated
CPT/HCPCS: 36415; 36569; 71045; 74177; 80048; 80053; 81001; 85025; 93005; 94640; 94760; 94761; 96365; 96367; 96375; 96376; 99284; C1751; J1335; J2405; J2543; Q9967; U0003

== ENCOUNTER 2020-06-30 13:05 | Outpatient (CLI) | payer MEDICARE, OTHER, SELFPAY ==
[2020-06-30 14:10] VITALS: BP 156/96; PULSE 78; RESP 17; TEMP 36.7; O2SAT 93
[2020-06-30 14:11] VITALS: BP 147/82; PULSE 87; RESP 16; O2SAT 90
== END 2020-06-30 14:16 | disposition home or self-care (01) ==
LOC: INF 13:05
PROVIDERS: Visit Provider Family Medicine
DX: K57.80 Diverticulitis of intestine, part unspecified, with perforation and abscess without bleeding (principal)
CPT/HCPCS: 96365; J1335

== ENCOUNTER → 2020-07-01 13:03 | Outpatient (CLI) | payer MEDICARE, OTHER, SELFPAY ==
[2020-07-01 13:06] VITALS: BP 156/93; PULSE 78; RESP 18; TEMP 36.8; O2SAT 90
== END ==
PROVIDERS: PCP Family Medicine; Visit Provider Family Medicine
DX: K57.80 Diverticulitis of intestine, part unspecified, with perforation and abscess without bleeding (principal)
CPT/HCPCS: 96365; J1335

== ENCOUNTER 2020-07-02 12:27 | Outpatient (CLI) | payer MEDICARE, OTHER, SELFPAY ==
[2020-07-02 12:27] VITALS: BP 135/72; PULSE 82; RESP 18; TEMP 37.1; O2SAT 95
== END 2020-07-02 13:11 | disposition home or self-care (01) ==
LOC: INF 12:28
PROVIDERS: PCP Family Medicine; Visit Provider Family Medicine
DX: K57.80 Diverticulitis of intestine, part unspecified, with perforation and abscess without bleeding (principal)
CPT/HCPCS: 96365; J1335

== ENCOUNTER 2020-07-03 12:37 | Outpatient (CLI) | payer MEDICARE, OTHER, SELFPAY ==
[2020-07-03 13:08] VITALS: BP 144/90; PULSE 76; RESP 18; TEMP 36.4; O2SAT 96
[2020-07-03 13:45] VITALS: BP 144/75; PULSE 87; RESP 18; O2SAT 95
== END 2020-07-03 13:45 | disposition home or self-care (01) ==
LOC: INF 12:38
PROVIDERS: Visit Provider Family Medicine
DX: K57.80 Diverticulitis of intestine, part unspecified, with perforation and abscess without bleeding (principal)
CPT/HCPCS: 96365; J1335

== ENCOUNTER 2020-07-04 11:39 | Outpatient (CLI) | payer MEDICARE, OTHER, SELFPAY ==
[2020-07-04 11:51] VITALS: BP 144/89; PULSE 87; RESP 20; TEMP 36.3; O2SAT 96
[2020-07-04 12:40] VITALS: BP 155/81; PULSE 88; RESP 20; O2SAT 96
== END 2020-07-04 12:40 | disposition home or self-care (01) ==
LOC: INF 11:39
PROVIDERS: Visit Provider Family Medicine
DX: K57.80 Diverticulitis of intestine, part unspecified, with perforation and abscess without bleeding (principal)
CPT/HCPCS: 96365; J1335

== ENCOUNTER 2020-07-05 11:45 | Outpatient (CLI) | payer MEDICARE, OTHER, SELFPAY ==
[2020-07-05 12:25] VITALS: BP 140/82; PULSE 80; RESP 18; TEMP 36.4; O2SAT 93
[2020-07-05 13:00] VITALS: BP 142/77; PULSE 92; RESP 18
== END 2020-07-05 13:30 | disposition home or self-care (01) ==
LOC: INF 12:13
PROVIDERS: Visit Provider Family Medicine
DX: K57.80 Diverticulitis of intestine, part unspecified, with perforation and abscess without bleeding (principal)
CPT/HCPCS: 96365; J1335

== ENCOUNTER 2020-07-06 12:15 | Outpatient (CLI) | payer MEDICARE, OTHER, SELFPAY ==
[2020-07-06 12:27] VITALS: BP 131/85; PULSE 89; RESP 18; TEMP 36.4; O2SAT 96
[2020-07-06 13:12] VITALS: BP 133/73; PULSE 87; RESP 16; TEMP 36.4; O2SAT 97
== END 2020-07-06 13:22 | disposition home or self-care (01) ==
LOC: INF 12:15
PROVIDERS: Visit Provider Family Medicine
DX: K57.80 Diverticulitis of intestine, part unspecified, with perforation and abscess without bleeding (principal)
CPT/HCPCS: 96365; J1335

== ENCOUNTER 2020-07-07 12:25 | Outpatient (CLI) | payer MEDICARE, OTHER, SELFPAY ==
[2020-07-07 12:50] VITALS: BP 144/84; PULSE 76; RESP 18; TEMP 36.8; O2SAT 98
[2020-07-07 13:35] VITALS: BP 137/79; PULSE 86; RESP 18; O2SAT 96
== END 2020-07-07 13:40 | disposition home or self-care (01) ==
LOC: INF 12:25
PROVIDERS: Visit Provider Family Medicine
DX: K57.80 Diverticulitis of intestine, part unspecified, with perforation and abscess without bleeding (principal)
CPT/HCPCS: 96365; J1335

== ENCOUNTER → 2020-07-08 12:19 | Outpatient (CLI) | payer MEDICARE, OTHER, SELFPAY ==
[2020-07-08 12:32] VITALS: BP 163/92; PULSE 78; RESP 20; TEMP 36.8; O2SAT 96
== END ==
PROVIDERS: PCP Family Medicine; Visit Provider Family Medicine
DX: K57.80 Diverticulitis of intestine, part unspecified, with perforation and abscess without bleeding (principal)
CPT/HCPCS: 96365; G0463; J1335

== ENCOUNTER → 2020-07-09 12:39 | Outpatient (CLI) | payer MEDICARE, OTHER, SELFPAY ==
[2020-07-09 12:52] VITALS: BP 132/69; PULSE 74; RESP 18; O2SAT 92
[2020-07-09 13:30] VITALS: BP 132/69; PULSE 74; RESP 18; O2SAT 92
== END ==
PROVIDERS: PCP Family Medicine; Visit Provider Family Medicine
DX: K57.80 Diverticulitis of intestine, part unspecified, with perforation and abscess without bleeding (principal)
CPT/HCPCS: 96365; G0463; J1335

== ENCOUNTER 2020-07-11 09:18 | Outpatient (CLI) | payer MEDICARE, OTHER, SELFPAY ==
[2020-07-11 11:14] LABS: Basophils # 0.1 K/mm3 (0-0.2); Basophils % 1.1 % (0.1-2.0); Eosinophils # 0.3 K/mm3 (0.0-0.4); Eosinophils % 2.9 % (0.1-12.0); Hematocrit 39.2 % (37.0-47.0); Lymphocytes % 27.9 % (10-50); Mean Corpuscular HGB Conc 33.1 g/dL (31.8-35.4); Mean Corpuscular Hemoglobin 30.1 pg (27.0-31.2); Mean Corpuscular Volume 90.9 fl (81-99); Mean Platelet Volume 7.7 fl (7.4-10.4); Monocytes # 0.5 K/mm3 (0.1-1.0); Monocytes % 4.8 % (1.7-9.3); Neutrophils # 6.8 K/mm3 (1.8-7.8); Neutrophils % 63.2 % (37.0-80.0); Platelet Count 443 K/mm3 (142-424); Red Blood Count 4.31 M/mm3 (4.20-5.40); Red Cell Distribution Width 14.1 % (11.5-17.5); White Blood Count 10.8 K/mm3 (4.8-10.8)
[2020-07-11 12:09] LABS: Anion Gap 9.9 mEq/L (5-15); Blood Urea Nitrogen 10 mg/dl (7-17); Calcium 8.4 mg/dl (8.4-10.2); Carbon Dioxide 28 mmol/L (22.0-30.0); Chloride 108 mmol/L (98-107); Estimated Glomerular Filt Rate 124 ml/min (>60); GFR (African American) 150 ML/MIN (>60); Glucose 79 mg/dl (74-100); Potassium 3.9 mmoL/L (3.5-5.1); Sodium 142 mmol/L (136-145)
== END 2020-07-11 11:04 | disposition home or self-care (01) ==
PROVIDERS: PCP Family Medicine; Visit Provider Family Medicine
DX: K57.20 Diverticulitis of large intestine with perforation and abscess without bleeding (principal); K57.80 Diverticulitis of intestine, part unspecified, with perforation and abscess without bleeding
CPT/HCPCS: 36415; 80048; 85025; 96374

== ENCOUNTER 2020-07-18 11:25 | Outpatient (CLI) | payer MEDICARE, OTHER, SELFPAY ==
--- NOTE | 2020-07-18 12:17 | CT_ITS ---
PROCEDURE: CT ABDOMEN PELVIS W CON CLINICAL INDICATION: abscess fu COMPARISON: CT CT ABDOMEN PELVIS W CON from 04/25/[address] ABDOMEN PELVIS W CON from 06/27/2020 TECHNIQUE: IV Contrast: 75ML Isovue 370 Oral Contrast None Axial images obtained with sagittal and coronal reformats. All CT scans at the facility use one or more dose reduction, viz: automated exposure control, ma/kV adjustment per patient size (including targeted exams where dose is matched to indication, i.e. head), or iterative reconstruction technique. FINDINGS: LOWER THORAX: There are chronic changes present in the lung bases with scarring. ABDOMEN & PELVIS: Sub cm hypodensity is present in the left hepatic lobe may be due to small cyst. The liver has an otherwise unremarkable appearance. The spleen, pancreas, and gallbladder have an unremarkable appearance. There are bilateral renal cysts as previously described. No renal or ureteral calculi or hydronephrosis. The largest cyst is along the lower pole of the right kidney measuring 5.6 cm. The left adrenal gland is slightly prominent possibly due to adenomatous involvement. The left adrenal gland however appears slightly more prominent compared to the previous exam which could be related to slice orientation. Continued follow-up may confirm stability. No intestinal obstruction or free air is evident. Previously noted abscess in the right pelvic region is no longer apparent. Colonic diverticulosis is once again noted. There is some mild residual colonic wall thickening in the sigmoid region some of which may be due to nondistention. No acute bony findings. There is a small umbilical hernia containing fat and there is an additional small right paracentral abdominal wall hernia containing fat just in the supraumbilical region IMPRESSION: Right-sided pelvic abscess has resolved. Colonic diverticulosis. There is mild nonspecific thickening of the colon in the right sigmoid area which could be due to some residual inflammation. No convincing evidence of diverticulitis. Dictated by: Fox Benitez MD 07/18/2020 16:12 Fox Benitez MD in [facility] 07/18/2020 16:12
[2020-07-18 12:28] LABS: Basophils # 0.1 K/mm3 (0-0.2); Basophils % 0.6 % (0.1-2.0); Eosinophils # 0.4 K/mm3 (0.0-0.4); Eosinophils % 2.4 % (0.1-12.0); Hematocrit 44.7 % (37.0-47.0); Hemoglobin 14.7 g/dL (12.2-16.2); Lymphocytes # 3.5 K/mm3 (0.7-4.5); Lymphocytes % 21.7 % (10-50); Mean Corpuscular HGB Conc 32.9 g/dL (31.8-35.4); Mean Corpuscular Hemoglobin 30.3 pg (27.0-31.2); Mean Corpuscular Volume 92.1 fl (81-99); Mean Platelet Volume 8.3 fl (7.4-10.4); Monocytes % 5.8 % (1.7-9.3); Neutrophils # 11.3 K/mm3 (1.8-7.8); Neutrophils % 69.6 % (37.0-80.0); Platelet Count 412 K/mm3 (142-424); Red Blood Count 4.86 M/mm3 (4.20-5.40); Red Cell Distribution Width 14.2 % (11.5-17.5); White Blood Count 16.3 K/mm3 (4.8-10.8)
[2020-07-18 12:30] LABS: MANUAL DIFFERENTIAL MANUAL DIFFERENTIAL (MANUAL DIFF)
[2020-07-18 12:37] LABS: Blood Urea Nitrogen 12 mg/dl (7-17); Estimated Glomerular Filt Rate 84 ml/min (>60); GFR (African American) 102 ML/MIN (>60)
[2020-07-18 13:59] LABS: Eosinophils % 2 % (0-3); Lymphocytes % 24 % (10-50); Monocytes % 2 % (2-9); Neutrophils % 72 % (42-76); Total Cells Counted 100
[2020-07-18 14:00] LABS: Platelet Estimate Slight Increase
[2020-07-18 14:04] LABS: Hypochromasia 1+
== END 2020-07-18 15:20 | disposition home or self-care (01) ==
PROVIDERS: PCP Family Medicine; Visit Provider Surgery
DX: K57.80 Diverticulitis of intestine, part unspecified, with perforation and abscess without bleeding (principal)
CPT/HCPCS: 36415; 74177; 82565; 84520; 85007; 85025; Q9967

== ENCOUNTER → 2020-07-19 09:58 | Outpatient (CLI) | payer MEDICARE, OTHER, SELFPAY ==
[2020-07-19 10:21] LABS: Basophils # 0.1 K/mm3 (0-0.2); Basophils % 0.9 % (0.1-2.0); Eosinophils # 0.4 K/mm3 (0.0-0.4); Eosinophils % 3.5 % (0.1-12.0); Hematocrit 42.8 % (37.0-47.0); Lymphocytes # 3.3 K/mm3 (0.7-4.5); Lymphocytes % 30.3 % (10-50); Mean Corpuscular HGB Conc 32.8 g/dL (31.8-35.4); Mean Corpuscular Hemoglobin 30.4 pg (27.0-31.2); Mean Corpuscular Volume 92.7 fl (81-99); Mean Platelet Volume 7.7 fl (7.4-10.4); Monocytes # 0.6 K/mm3 (0.1-1.0); Monocytes % 5.9 % (1.7-9.3); Neutrophils # 6.5 K/mm3 (1.8-7.8); Neutrophils % 59.3 % (37.0-80.0); Platelet Count 413 K/mm3 (142-424); Red Blood Count 4.62 M/mm3 (4.20-5.40); Red Cell Distribution Width 14.1 % (11.5-17.5); White Blood Count 10.9 K/mm3 (4.8-10.8)
[2020-07-19 11:20] LABS: Alanine Aminotransferase 13 U/L (12-78); Albumin Level 4.3 g/dl (3.5-5.0); Albumin/Globulin Ratio 1.7 (1.1-1.8); Alkaline Phosphatase 76 U/L (38-126); Anion Gap 9.9 mEq/L (5-15); Aspartate Amino Transferase 19 U/L (14-36); Bilirubin,Total 0.6 mg/dl (0.2-1.3); Blood Urea Nitrogen 13 mg/dl (7-17); Calcium 9.3 mg/dl (8.4-10.2); Carbon Dioxide 26 mmol/L (22.0-30.0); Chloride 108 mmol/L (98-107); Estimated Glomerular Filt Rate 84 ml/min (>60); GFR (African American) 102 ML/MIN (>60); Globulin 2.6 g/dL (1.3-3.2); Glucose 87 mg/dl (74-100); Potassium 3.9 mmoL/L (3.5-5.1); Sodium 140 mmol/L (136-145); Total Protein,Serum 6.9 g/dl (6.3-8.2)
== END ==
PROVIDERS: Family Medicine; Visit Provider Surgery
DX: K57.80 Diverticulitis of intestine, part unspecified, with perforation and abscess without bleeding (principal)
CPT/HCPCS: 36415; 80053; 85025

== ENCOUNTER → 2020-09-06 09:56 | Outpatient (CLI) | payer MEDICARE, OTHER, SELFPAY ==
[2020-09-06 10:45] LABS: Basophils # 0.1 K/mm3 (0-0.2); Basophils % 0.9 % (0.1-2.0); Eosinophils # 0.2 K/mm3 (0.0-0.4); Eosinophils % 1.7 % (0.1-12.0); Hematocrit 47.5 % (37.0-47.0); Hemoglobin 15.8 g/dL (12.2-16.2); Lymphocytes # 3.2 K/mm3 (0.7-4.5); Lymphocytes % 31.3 % (10-50); Mean Corpuscular HGB Conc 33.3 g/dL (31.8-35.4); Mean Corpuscular Hemoglobin 30.3 pg (27.0-31.2); Mean Platelet Volume 9.1 fl (7.4-10.4); Monocytes # 0.6 K/mm3 (0.1-1.0); Monocytes % 5.7 % (1.7-9.3); Neutrophils # 6.1 K/mm3 (1.8-7.8); Neutrophils % 60.3 % (37.0-80.0); Platelet Count 374 K/mm3 (142-424); Red Blood Count 5.22 M/mm3 (4.20-5.40); Red Cell Distribution Width 14.8 % (11.5-17.5); White Blood Count 10.1 K/mm3 (4.8-10.8)
== END ==
PROVIDERS: Visit Provider Surgery
DX: K57.80 Diverticulitis of intestine, part unspecified, with perforation and abscess without bleeding (principal)
CPT/HCPCS: 36415; 85025

== ENCOUNTER 2020-10-27 10:07 | Emergency (ER) | payer MEDICARE, OTHER, SELFPAY ==
[2020-10-27 11:14] VITALS: BP 175/106; PULSE 69; RESP 18; TEMP 36.6; O2SAT 96; BMI 20.7
[2020-10-27 11:26] VITALS: BP 175/106; PULSE 69; RESP 18; TEMP 36.6
--- NOTE | 2020-10-27 11:44 | HMH.EDUTC ---
[facility] [place] Disposition Clinical Impression: Exposure to COVID-19 virus Disposition: Home, Self-Care Condition on Discharge: Good Instructions: Preventing the Spread of Coronavirus Discharge Instructions Additional Instructions: Drink plenty of fluids. Take tylenol for pain or fever. Return if you begin to have difficulty breathing. Follow up with your regular doctor. GO TO THE ER FOR ANY WORSENING SYMPTOMS Quarantine until you know the results of your covid-19 test. If it is positive, the health department should call you and give you further instructions about your length of Quarantine and other things. Notify your school or workplace of your results and follow their instructions regarding return to work/school. Referrals: Mansoor Lamas MD [Primary Care Provider] - Time of Disposition: 11:46 Medical Decision Making - Medical Records Medical records reviewed: No: I reviewed the patient's medical records. - Sajan Inquiry Pt receiving controlled substance: No Vital Signs: 10/27/20 11:14 10/27/20 11:26 Temperature 97.8 F 97.8 F Temperature Source Oral Pulse Rate 69 Pulse Rate [Left] 69 Respiratory Rate 18 18 Blood Pressure 175/106 H Blood Pressure [Right Arm] 175/106 H Blood Pressure Mean [Right Arm] 129 02 Sat by Pulse Oximetry 96 [facility] [place] HPI - General Stated complaint: exposure with symthoms Time Seen by Provider: 10/27/20 11:44 Mode of Arrival: Ambulatory Source of Information: Patient Limitations: No Limitations Description of Symptoms (Recalled from Triage Doc. by RN): covid test. exposed 10/26 HEENT Symptoms (Recalled from RN notes): No Resp Symptoms (Recalled from RN notes): No Skin Symptoms (Recalled from RN notes): No MS Symptoms (Recalled from RN notes): No Functional Status (Recalled from RN notes): na - History of Present Illness Provider Complaint: She states that her daughter and son-in-law have covid-19 at this time. She has been around them several times recently. She denies any symptoms so far. She has been vaccinated against covid-19. - Related Data Home Medications Medication Instructions Recorded Confirmed Fluticasone/Umeclidin/Vilanter 1 puff IH DAILY 10/29/18 09/06/20 [Trelegy Ellipta 100-62.5-25] Calc/D3/Magnes/B6/Zn/Cu/Shravan 1 mg PO DAILY 06/02/20 09/06/20 [[facility] Cit-D3-Mag 250 mg Cplt] buPROPion HCL [Wellbutrin SR 150mg 150 mg PO DAILY 06/24/20 09/06/20 Tablet] SUMAtriptan succinate [Imitrex] 100 mg PO DAILYP PRN 06/25/20 09/06/20 Previous Rx's Medication Instructions Recorded sodium,potassium,mag sulfates 17.5 See Rx Instructions PO .COMPLEX 09/06/20 gram-3.13 gram-1.6 gram oral soln #354 ml Allergies Allergy/AdvReac Type Severity Reaction Status Date / Time No Known Allergies Allergy Verified 09/06/20 10:39 - Worker's Comp Is this a Worker's Comp case?: No [facility] History - Hepatitis A Screen Drug use history?: No High risk sexual behaviors?: No History of sexually transmitted infection?: No Currently employed?: No Childcare worker?: No Do you have indoor plumbing?: Yes Do you have electricity?: Yes Attestation statement:: This patient has been screened for Hepatitis A risk factors. I have reviewed the patient's past medical history: Yes Medical History: Reports:: Chronic Obstructive Pulmonary Disease (COPD), Depression, Hypertension, Migraine Denies:: Cancer, Diabetes Mellitus Type 1, Diabetes Mellitus Type 2, Internal Pacemaker, MRSA, Seizures Other Medical History: Denies: Blood Transfusion Reaction Laterality Cases: Bilateral: Carpal Tunnel Release Other Surgeries: Yes: Appendectomy, Colonoscopy, Colostomy, Hernia Repair, Tubal Ligation, Other. No: Pacemaker Amputation: No Fractures: No - Social History Smoking Status: Current every day smoker Tobacco Type: cigarettes # Packs/Day (cigarettes): 1 Alcohol Intake: never Substance Use Type: denies use Occupational Status: unemployed Housing:
== END 2020-10-27 12:28 | disposition home or self-care (01) ==
PROVIDERS: Emergency Provider Nurse Practitioner Family; PCP Family Medicine
DX: U07.1 COVID-19 (principal); J44.9 Chronic obstructive pulmonary disease, unspecified; I10 Essential (primary) hypertension; F33.1 Major depressive disorder, recurrent, moderate; F17.210 Nicotine dependence, cigarettes, uncomplicated; Z79.899 Other long term (current) drug therapy
CPT/HCPCS: G0463; 99202; U0003

== ENCOUNTER → 2020-10-30 10:43 | Outpatient (CLI) | payer MEDICARE, OTHER, SELFPAY | PROVIDERS: PCP Family Medicine; Visit Provider Family Medicine | DX: Z20.822 Contact with and (suspected) exposure to COVID-19 (principal) | CPT/HCPCS: C9803; U0003; U0005 ==

== ENCOUNTER → 2020-11-08 08:14 | Outpatient (CLI) | payer MEDICARE, OTHER, SELFPAY | PROVIDERS: Visit Provider Surgery | DX: Z01.812 Encounter for preprocedural laboratory examination (principal); Z20.822 Contact with and (suspected) exposure to COVID-19; Z12.11 Encounter for screening for malignant neoplasm of colon | CPT/HCPCS: C9803; U0003; U0005 ==

== ENCOUNTER 2020-11-09 06:35 | Day surgery (SDC) | payer MEDICARE, OTHER, SELFPAY ==
[2020-11-08 11:46] VITALS: BMI 23.3
[2020-11-09] VITALS (11 sets, daily range): BP systolic 129–146; BP diastolic 72–87; PULSE 77–101; RESP 16–18; TEMP 36.2–36.6; O2SAT 95–98
--- NOTE | 2020-11-09 08:35 | HMH.SCOPE ---
- Procedure: Date: 11/09/20 Patient Date of :: 1955 Procedure Performed:: Colonoscopy with polypectomy Indications:: History of serrated adenoma of colon History of diverticulitis with abscess Performing Provider:: Leoncio Sultana MD Referring Provider:: . Sedation:: Monitored anesthesia care Procedure:: After informed consent was obtained the patient was taken to the endoscopy suite. Sedation ensued after the patient was transferred to the left lateral decubitus position. Pulse, blood pressure, and oxygen saturation were monitored throughout the procedure. Digital rectal exam revealed no significant abnormality. The colonoscope was placed in position. The entire colon was evaluated. The colonoscope was carefully removed and the patient was transferred to recovery in stable condition. Please see findings and specimens below for detail. Findings:: Bowel preparation relatively fair Profound tortuosity of sigmoid colon Severe lack of relaxation Multiple polyps (see specimens) Specimens:: Periappendiceal polyp Hepatic flexure polyp Transverse colon polyp Adjacent polyps at 60 cm Polyp at 50 cm Polyp at 30 cm (snare) Recommendations:: Timing of repeat colonoscopy is pending pathology but will likely be between 2-3 years secondary to history of complex polyps, size/nature/number of polyps noted on this evaluation, tortuosity, and lack of relaxation. Complications:: No immediate Estimated blood obtained (mL): 1
--- NOTE | 2020-11-09 10:09 | P.PN_ITS ---
[facility] Anesthesia Checklist - Patient Identification Patient Identification: Arm Band, Verbal (Name & ) - Structural Data Admitted From: Home Planned Operative Procedure/s: colon Consent for Planned Operative Procedure(s) Verified: Yes Verified Documents: History and Physical - NPO Status Verified Time NPO: 00:00 - Additional verifications Patient : No Anesthesia Reactions: No Hx Blood Transfusions: No Blood Transfusion Reaction: No Cephalosporin Allergy: No Previous Colonoscopy: Yes - Cardiovascular Assessment Heart Sounds: S1 & S2 Pulse Strength: Baseline Pulse Rhythm: Regular Peripheral Edema: No - Airway Assessment C-Spine Mobility Assessed: Yes TMJ Mobility Assessed: Yes Dentition: Good Dentition - Neurological Assessment Level of Consciousness: Awake, Alert, Appropriate Hx Seizures: No Numbness or tingling in extremities: No - Anesthesia Plan Anesthesia Risk discussed: Yes Anesthesia Plan: Verified ASA Class: III Anesthesia Type: MAC [facility] History I have reviewed the patient's past medical history: Yes Medical History: Reports:: Chronic Obstructive Pulmonary Disease (COPD), Depression, Hypertension, Migraine Denies:: Cancer, Diabetes Mellitus Type 1, Diabetes Mellitus Type 2, Internal Pacemaker, MRSA, Seizures *Have you ever received a pneumonia vaccine?: Yes *Have you received a flu vaccine this season?: No Other Medical History: Denies: Blood Transfusion Reaction Anesthesia experience/problems:: none Laterality Cases: Bilateral: Carpal Tunnel Release Other Surgeries: Yes: Appendectomy, Colonoscopy, Colostomy, Hernia Repair, Tubal Ligation, Other. No: Pacemaker Amputation: No Fractures: No - *Social History Last grade of school completed: Advanced degree Smoking Status: Current every day smoker Tobacco Type: cigarettes # Packs/Day (cigarettes): 1 Alcohol Intake: never Substance Use Type: denies use *Occupational Status:: retired Housing: house Household Members: none *Travel in the last 8 weeks: None - Psychiatric History Pschychiatric History:: Reports:: Depression Family Hx:: No significant family history
--- NOTE | 2020-11-09 10:30 | XR_ITS ---
PROCEDURE: XR ACUTE ABDOMEN SERIES CLINICAL INDICATION: Status post complicated colonoscopy COMPARISON: CR XR CHEST PORTABLE PICC PLAC from 06/29/2020 FINDINGS: Frontal view of the chest shows COPD with emphysematous changes. No lobar consolidation or collapse. Normal heart size. Upright and supine views of the abdomen show a nonspecific bowel gas pattern. There are nondistended gas-filled loops of small bowel. No free air apparent. There is degenerative disc disease at L4-5. no abnormal calcifications IMPRESSION: No acute findings. Dictated by: Fox Benitez MD 11/09/2020 11:27 Fox Benitez MD in [place] 11/09/2020 11:27
--- NOTE | 2020-11-09 10:38 | SUR.PHASEII ---
1034: Pt. to radiology via w/c.
== END 2020-11-09 11:35 | disposition home or self-care (01) ==
LOC: OUTP 06:37
PROVIDERS: PCP Family Medicine; Visit Provider Surgery
PROC: 0DJD8ZZ Inspection of Lower Intestinal Tract, Via Natural or Artificial Opening Endoscopic (ICD-10-PCS; principal; 2020-11-09 07:30)
DX: Z12.11 Encounter for screening for malignant neoplasm of colon (principal); Z86.010 Personal history of colon polyps; K56.2 Volvulus; K63.5 Polyp of colon; I10 Essential (primary) hypertension; J44.9 Chronic obstructive pulmonary disease, unspecified; F32.9 Major depressive disorder, single episode, unspecified; G43.909 Migraine, unspecified, not intractable, without status migrainosus; Z90.49 Acquired absence of other specified parts of digestive tract; Z72.0 Tobacco use; Z79.899 Other long term (current) drug therapy
CPT/HCPCS: 45380; 45385; 74021; 88305; J2704

== ENCOUNTER 2020-11-16 11:26 | Outpatient (CLI) | payer MEDICARE, OTHER, SELFPAY ==
[2020-11-16 11:58] VITALS: BP 160/97; PULSE 66; RESP 18; TEMP 36.7; O2SAT 98
== END 2020-11-16 11:59 | disposition home or self-care (01) ==
LOC: INF 11:27
PROVIDERS: PCP Family Medicine; Visit Provider Nurse Practitioner Family
DX: M81.0 Age-related osteoporosis without current pathological fracture (principal)
CPT/HCPCS: 96372; J0897

== ENCOUNTER 2021-05-18 09:40 | Outpatient (CLI) | payer MEDICARE, OTHER, SELFPAY ==
[2021-05-18 10:20] VITALS: BP 145/78; BP 149/79; PULSE 100; PULSE 90; RESP 16; RESP 17; TEMP 36.3; TEMP 36.4; O2SAT 92; O2SAT 95
== END 2021-05-18 10:20 | disposition home or self-care (01) ==
LOC: INF 09:42
PROVIDERS: PCP Family Medicine; Visit Provider Nurse Practitioner Family
DX: M81.0 Age-related osteoporosis without current pathological fracture (principal)
CPT/HCPCS: 96372; J0897

== ENCOUNTER 2021-08-18 09:31 | Emergency (ER) | payer MEDICARE, OTHER, SELFPAY ==
--- NOTE | 2021-08-18 09:40 | HMH.EDUTC ---
[facility] [place] Clinical Impression: Viral syndrome Pharyngitis Qualifiers: Pharyngitis/tonsillitis etiology: unspecified etiology Qualified Code(s): J02.9 - Acute pharyngitis, unspecified Disposition: Home, Self-Care Condition on Discharge: Good Instructions: DI for Viral Syndrome, DI for COVID-19 (Suspected or Confirmed ), Preventing the Spread of Coronavirus Discharge Instructions Additional Instructions: Finish the steroids that you are currently on. Drink plenty of fluids. Take tylenol or ibuprofen for pain or fever. Take the medications as directed. Follow up with your regular doctor. GO TO THE ER FOR ANY WORSENING SYMPTOMS Quarantine until you know the results of your covid-19 test. Notify your school or workplace of your results and follow their instructions regarding return to work/school. Prescriptions: Ondansetron [Zofran 4mg ODT] 4 mg PO Q8HP PRN #20 tab PRN Reason: Nausea Transmission Status: Received by [facility] #[id number] Benzonatate [Benzonatate 100mg cap] 100 mg PO TIDP PRN #30 cap PRN Reason: Cough Transmission Status: Received by [facility] #[id number] Referrals: Mansoor Lamas MD [Primary Care Provider] - Time of Disposition: 10:06 Medical Decision Making - Medical Records Medical records reviewed: No: I reviewed the patient's medical records. - Sajan Inquiry Pt receiving controlled substance: No Vital Signs: 08/18/21 09:46 08/18/21 10:21 Temperature 98.4 F 98.4 F Temperature Source Oral Pulse Rate 105 H Pulse Rate [Left] 105 H Respiratory Rate 20 20 Blood Pressure 136/80 Blood Pressure [Right Arm] 136/80 Blood Pressure Mean [Right Arm] 98 02 Sat by Pulse Oximetry 95 - Lab Data Lab results reviewed: Yes: I reviewed the patient's lab results. Lab Results 08/18/21 09:41: Group A Strep Rapid Negative Orders (Tests/Meds): ORDERS Category Date Time Status Strep Screen Confirmation Stat Micro 08/18/21 09:41 Received [facility] [place] HPI - General Stated complaint: congestion, sore throat Time Seen by Provider: 08/18/21 09:45 - History of Present Illness Provider Complaint: She c/o sore throat and sinus congestion for the past 2 days. - Related Data Home Medications Medication Instructions Recorded Confirmed Fluticasone/Umeclidin/Vilanter 1 puff IH DAILY 10/29/18 11/28/20 [Trelegy Ellipta 100-62.5-25] Calc/D3/Magnes/B6/Zn/Cu/Shravan 1 mg PO DAILY 06/02/20 11/28/20 [[facility] Cit-D3-Mag 250 mg Cplt] buPROPion HCL [Wellbutrin SR 150mg 150 mg PO DAILY 06/24/20 11/28/20 Tablet] SUMAtriptan succinate [Imitrex] 100 mg PO DAILYP PRN 06/25/20 11/28/20 Acetylcysteine [Mucomyst 20% 4mL 2 ml INHALATION Q4H 11/08/20 11/28/20 vial] Previous Rx's Medication Instructions Recorded Benzonatate [Benzonatate 100mg 100 mg PO TIDP PRN #30 cap 08/18/21 cap] Ondansetron [Zofran 4mg ODT] 4 mg PO Q8HP PRN #20 tab 08/18/21 Allergies Allergy/AdvReac Type Severity Reaction Status Date / Time No Known Allergies Allergy Verified 08/18/21 09:50 [facility] History - Hepatitis A Screen Attestation statement:: This patient has been screened for Hepatitis A risk factors. I have reviewed the patient's past medical history: Yes Medical History: Reports:: Chronic Obstructive Pulmonary Disease (COPD), Depression, Hyperlipidemia, Hypertension, Migraine Denies:: Cancer, Diabetes Mellitus Type 1, Diabetes Mellitus Type 2, Internal Pacemaker, MRSA, Seizures Other Medical History: Denies: Blood Transfusion Reaction Laterality Cases: Bilateral: Carpal Tunnel Release Other Surgeries: Yes: Appendectomy, Colonoscopy, Colostomy, Hernia Repair, Tubal Ligation, Other. No: Pacemaker Amputation: No Fractures: No - Social History Smoking Status: Former smoker Tobacco Type: cigarettes # Packs/Day (cigarettes): 1 Alcohol Intake: never Substance Use Type: denies use Occupational Status: employed Ho
[2021-08-18 09:46] VITALS: BP 136/80; PULSE 105; RESP 20; TEMP 36.9; O2SAT 95; BMI 24.1
[2021-08-18 10:05] LABS: Strep Scrn Group A (Rapid) Negative (Negative)
[2021-08-18 10:21] VITALS: BP 136/80; PULSE 105; RESP 20; TEMP 36.9
== END 2021-08-18 10:23 | disposition home or self-care (01) ==
PROVIDERS: Emergency Provider Nurse Practitioner Family; PCP Family Medicine
DX: J02.9 Acute pharyngitis, unspecified (principal); B34.9 Viral infection, unspecified
CPT/HCPCS: 87430; 99212; C9803; G0463; U0003; U0005

== ENCOUNTER → 2021-09-24 07:23 | Outpatient (CLI) | payer MEDICARE, OTHER, SELFPAY ==
--- NOTE | 2021-09-24 07:27 | CT_ITS ---
FINAL REPORT CLINICAL HISTORY: H/O NICOTINE DEPENDENCE 1/2 ppd x48 years COMPARISON: 12/04/2018 FINDINGS: CTDI vol (mGy): 2.[address] images of the chest were obtained using the low-dose protocol for screening. There are multiple, borderline mediastinal lymph nodes. No axillary mass or adenopathy is identified. On the lung window images, there is moderate emphysema and mild scarring. There is a calcified granuloma in the right upper lobe. There are multiple, new bilateral pulmonary nodules. Within the right lung nodules are seen measuring up to 6 mm, 1 of which is in the anterior right upper lobe seen on image 18 and a 2nd, seen in the right lower lobe, on image number 48. Left lung nodules measure up to 7 mm, as seen in the left lower lobe on image 38. Multiple other smaller noncalcified nodules are seen bilaterally. IMPRESSION: Bilateral, noncalcified, pulmonary nodules measuring up to 7 mm, new from prior exam. Lung RADS category 4A. Recommend three-month follow-up low-dose chest CT. Reviewed, Interpreted and Dictated by German Roberson III, MD Transcribed by Sylvia Stallworth Authenticated and [facility]
== END ==
PROVIDERS: PCP Family Medicine; Visit Provider Family Medicine
DX: Z87.891 Personal history of nicotine dependence (principal); Z12.2 Encounter for screening for malignant neoplasm of respiratory organs
CPT/HCPCS: 71271

== ENCOUNTER → 2021-10-31 14:43 | Outpatient (CLI) | payer MEDICARE, OTHER, SELFPAY ==
[2021-11-07 00:07] LABS: Aspergillus flavus Negative (Neg:<1:1); Aspergillus fumigatus Negative (Neg:<1:1); Aspergillus niger Negative (Neg:<1:1); Blastomyces Antibody Negative (Neg:<1:1)
== END ==
PROVIDERS: PCP Family Medicine; Visit Provider Internal Medicine Pulmonary Disease
DX: J84.10 Pulmonary fibrosis, unspecified (principal); F17.210 Nicotine dependence, cigarettes, uncomplicated
CPT/HCPCS: 36415; 86606; 86612; 87070; 87205

== ENCOUNTER 2021-11-19 11:08 | Outpatient (CLI) | payer MEDICARE, OTHER, SELFPAY ==
[2021-11-19 11:14] VITALS: BP 156/88; PULSE 77; RESP 21; TEMP 36.3; O2SAT 90
== END 2021-11-19 11:25 | disposition home or self-care (01) ==
LOC: INF 11:09
PROVIDERS: PCP Family Medicine; Visit Provider Family Medicine
DX: M81.0 Age-related osteoporosis without current pathological fracture (principal)
CPT/HCPCS: 96372; J0897

== ENCOUNTER 2021-12-21 18:38 | Emergency (ER) | payer MEDICARE, OTHER, SELFPAY ==
[2021-12-21 18:38] VITALS: BP 189/112; PULSE 95; RESP 20; TEMP 36.9; O2SAT 86; BMI 26.6
--- NOTE | 2021-12-21 18:47 | XR_ITS ---
PROCEDURE INFORMATION: Exam: XR Chest Exam date and time: 12/21/2021 7:24 PM Age: 66 years old Clinical indication: Cough TECHNIQUE: Imaging protocol: Radiologic exam of the chest. Views: 1 view. COMPARISON: CR XR CHEST PORTABLE PICC PLAC 06/29/2020 11:48 AM FINDINGS: Lungs: Bilateral hyperinflation is present. Atelectatic changes noted within both lung bases. No focal pneumonia or pneumothorax. Pleural spaces: There are no pleural effusions present. Heart/Mediastinum: Unremarkable. No cardiomegaly. Vasculature: The vasculature demonstrates diffuse mild atherosclerotic calcification. Bones/joints: The thoracic spine demonstrates mild degenerative changes at multiple levels. IMPRESSION: 1. Bilateral hyperinflation is present. 2. Atelectatic changes noted within both lung bases. 3. No focal pneumonia or pneumothorax.
--- NOTE | 2021-12-21 18:48 | ECG_ITS ---
APPROVED REPORT Exam: Resting ECG HR:87 bpm ECG Measurements Heart Rate 87 AXES MA 158 P 94 QRSd 117 QRS -78 QT 365 T 81 QTc 409 Conclusion SINUS RHYTHM INCOMPLETE RIGHT BUNDLE BRANCH BLOCK [90+ ms QRS DURATION, TERMINAL R IN V1/V2, 40+ ms S IN I/aVL/V4/V5/V6] LEFT ANTERIOR FASCICULAR BLOCK [QRS AXIS <= -45, QR IN I, RS IN II] SEPTAL MYOCARDIAL INFARCTION , OF INDETERMINATE AGE [40+ ms Q WAVE IN V1/V2] ABNORMAL ECG UNCONFIRMED REPORT Electronically signed by : Mansoor Griggs MD 12/22/2021 08:42:20
--- NOTE | 2021-12-21 18:52 | PC.NURSE ---
notified RT of neb treatment order per ER request
--- NOTE | 2021-12-21 18:53 | HMH.EDGENADL ---
Discharge Plan Disposition Patient Disposition: Home, Self-Care Condition: Good Prescriptions Prescriptions: New ipratropium-albuterol 0.5 mg-3 mg(2.5 mg base)/3 mL solution for nebulization 3 ml inhalation Q6H PRN (Reason: wheezing) Qty: 90 0RF Rx Instructions: Do not combine with other breathing treatments benzonatate 100 mg capsule 100 mg PO TID PRN (Reason: cough) Qty: 30 0RF azithromycin 250 mg tablet 250 mg PO DAILY 4 Days Qty: 4 0RF prednisone 50 mg tablet 50 mg PO DAILY 5 Days Qty: 5 0RF Rx Instructions: Do not combine with other oral glucocorticoids No Action albuterol sulfate [ProAir HFA] 90 mcg/actuation HFA aerosol inhaler 2 puff inhalation Q6H PRN (Reason: COPD ) doxycycline hyclate 100 mg capsule 100 mg PO BID 5 Days Qty: 10 0RF prednisone 20 mg tablet 40 mg PO DAILY 5 Days Qty: 10 0RF Anoro Ellipta 62.5-25 mcg/actuation blister with device 1 inh inhalation DAILY 90 Days Qty: 180 3RF nicotine 7 mg/24 hr patch 24 hour 1 patch transdermal Q24H Qty: 28 1RF benzonatate 100 MG capsule 100 mg PO TIDP PRN (Reason: Cough) Qty: 30 0RF [id number] 1 EACH tablet 1 mg PO DAILY bupropion HCl 150 MG tablet 150 mg PO DAILY sumatriptan succinate 100 MG tablet 100 mg PO DAILYP PRN (Reason: MIGRAINES) Activity Restrictions/Add. Instructions Additional Instructions/Restrictions: At this time was felt you are safe to be discharged home. If new or worsening symptoms please do not hesitate to return to the emergency department. Please take your medications as prescribed and continue to follow-up with your primary care doctor as discussed. Clinical Impressions Clinical Impression: Acute exacerbation of chronic obstructive pulmonary disease (COPD) Instructions Patient Instructions: DI for Chronic Obstructive Pulmonary Disease Discharge ED Provider: Miguel Christine General Adult HPI General Chief complaint: Shortness of Breath/Dyspnea Stated complaint: SOA Time Seen by Provider: 12/21/21 18:50 History of Present Illness HPI narrative: Patient is a 66-year-old female with past medical history of COPD intermittently on 2 L nasal cannula at home who presents emergency department for respiratory complaint. She has had worsening shortness of breath, cough over the last 24 hours. Patient left her oxygen tank in the car and is complaining of worsening shortness of breath upon arrival. No other acute complaints at this time. Related Data Home Medications Medication Instructions Recorded Confirmed calcium 250 mg-D3 400 1 mg PO DAILY Supplement 06/02/20 12/05/21 unit-magnesium 40 [id number]-copper-valdo tablet bupropion HCl 150 mg tablet,12 hr 150 mg PO DAILY mood 06/24/20 12/05/21 sustained-release sumatriptan succinate 100 mg tablet 100 mg PO DAILYP PRN MIGRAINES 06/25/20 12/05/21 albuterol sulfate 90 mcg/actuation 2 puff inhalation Q6H PRN COPD 10/31/21 12/05/21 aerosol inhaler (ProAir HFA) Previous Rx's Medication Instructions Recorded benzonatate 100 mg capsule 100 mg PO TIDP PRN Cough #30 caps 08/18/21 umeclidinium 62.5 mcg-vilanterol 1 inh inhalation DAILY 90 days 11/23/21 25 mcg/actuation powdr for #180 ea inhalation (Anoro Ellipta) doxycycline hyclate 100 mg capsule 100 mg PO BID 5 days #10 caps 12/05/21 prednisone 20 mg tablet 40 mg PO DAILY 5 days #10 tabs 12/05/21 nicotine 7 mg/24 hr daily 1 patch transdermal Q24H #28 ea 12/10/21 transdermal patch azithromycin 250 mg tablet 250 mg PO DAILY 4 days #4 tabs 12/21/21 benzonatate 100 mg capsule 100 mg PO TID PRN cough #30 caps 12/21/21 ipratropium 0.5 mg-albuterol 3 mg 3 ml inhalation Q6H PRN wheezing 12/21/21 (2.5 mg base)/3 mL nebulization #90 mL soln prednisone 50 mg tablet 50 mg PO DAILY 5 days #5 tabs 12/21/21 Allergies Allergy/AdvReac Type Severity Reaction Status Date / Time No Known Allergies Allergy Verified
[2021-12-21 19:00] VITALS: BP 137/85; PULSE 74; O2SAT 99
[2021-12-21 19:06] VITALS: O2SAT 95
[2021-12-21 19:07] LABS: Coronavirus 19, PCR Not Detected (NotDetected); Influenza A, PCR Not Detected (NotDetected); Influenza B, PCR Not Detected (NotDetected)
[2021-12-21 19:08] LABS: Basophils # 0.2 K/mm3 (0-0.2); Basophils % 1.4 % (0.1-2.0); Eosinophils # 0.5 K/mm3 (0.0-0.4); Hematocrit 48.2 % (37.0-47.0); Hemoglobin 15.1 g/dL (12.2-16.2); Lymphocytes # 3.9 K/mm3 (0.7-4.5); Lymphocytes % 32.5 % (10-50); Mean Corpuscular HGB Conc 31.4 g/dL (31.8-35.4); Mean Corpuscular Hemoglobin 30.7 pg (27.0-31.2); Mean Corpuscular Volume 97.7 fl (81-99); Mean Platelet Volume 8.3 fl (7.4-10.4); Monocytes # 0.7 K/mm3 (0.1-1.0); Neutrophils # 6.8 K/mm3 (1.8-7.8); Neutrophils % 56.2 % (37.0-80.0); Platelet Count 384 K/mm3 (142-424); Red Blood Count 4.93 M/mm3 (4.20-5.40); White Blood Count 12.1 K/mm3 (4.8-10.8)
[2021-12-21 19:18] LABS: Alanine Aminotransferase 18 U/L (12-78); Albumin Level 4.3 g/dl (3.5-5.0); Albumin/Globulin Ratio 1.7 (1.1-1.8); Alkaline Phosphatase 71 U/L (38-126); Anion Gap 14.6 mEq/L (5-15); Aspartate Amino Transferase 28 U/L (14-36); Bilirubin,Total 0.2 mg/dl (0.2-1.3); Blood Urea Nitrogen 16 mg/dl (7-17); Calcium 9.2 mg/dl (8.4-10.2); Carbon Dioxide 32 mmol/L (22.0-30.0); Chloride 100 mmol/L (98-107); Estimated Glomerular Filt Rate 83 ml/min (>60); GFR (African American) 101 ML/MIN (>60); Globulin 2.6 g/dL (1.3-3.2); Glucose 91 mg/dl (74-100); Potassium 3.6 mmoL/L (3.5-5.1); Sodium 143 mmol/L (136-145); Total Protein,Serum 6.9 g/dl (6.3-8.2)
[2021-12-21 19:23] LABS: D-Dimer 0.67 ug/mL (0.0-0.5)
--- NOTE | 2021-12-21 19:25 | PC.NURSE ---
report given to herbert oshea and mylesrn
[2021-12-21 19:30] VITALS: BP 151/104; PULSE 77; O2SAT 95
[2021-12-21 19:33] LABS: Troponin I < 0.01 ng/ml (0.00-0.034)
[2021-12-21 19:54] LABS: VBG Base Excess 0.9 mmol/L (-2.4-2.3); VBG HCO3 27.1 mmol/L (23-30); VBG Oxygen Saturation 79.5 % (50-70); VBG PH 7.31 mmol/L (7.31-7.41); VBG Total CO2 28.8 mmol/L (23-27)
--- NOTE | 2021-12-21 19:57 | PC.NURSE ---
notified of VBG results at this time.
[2021-12-21 19:59] LABS: VBG PCO2 54.7 mmol/L (35-51)
[2021-12-21 20:36] VITALS: PULSE 75; PULSE 79
[2021-12-21 20:42] VITALS: BP 130/78; PULSE 75; RESP 18; TEMP 36.6; O2SAT 99
== END 2021-12-21 21:00 | disposition home or self-care (01) ==
PROVIDERS: Emergency Provider Emergency Medicine; PCP Family Medicine
DX: J44.1 Chronic obstructive pulmonary disease with (acute) exacerbation (principal); Z79.51 Long term (current) use of inhaled steroids; Z79.899 Other long term (current) drug therapy; R91.8 Other nonspecific abnormal finding of lung field
CPT/HCPCS: 71045; 80053; 82803; 84484; 85025; 85378; 93005; 94640; 96374; 99284; C9803; U0003; U0005

== ENCOUNTER → 2021-12-26 12:31 | Outpatient (CLI) | payer MEDICARE, OTHER, SELFPAY ==
[2021-12-26 13:35] VITALS: PULSE 82; PULSE 88
--- NOTE | 2021-12-26 14:28 | CT_ITS ---
FINAL REPORT TECHNIQUE: Axial images were obtained through the chest without contrast. CLINICAL HISTORY: f/u to nodules seen on 09/2021 lung screening scan COMPARISON: 09/24/2021 FINDINGS: There is no significant mediastinal mass or adenopathy. There is a small sliding-type hiatal hernia. Previously noted nodule in the anterior right upper lobe is less evident on prior. It appears smaller and more centrally dense. This is well seen on image 56 series 3. Previously noted focus in the periphery of the right upper lobe is not well seen. Or inferior smaller nodules in the periphery of the right upper lobe are not seen on today's exam. There is a new small nodule in the inferior right upper lobe measuring 3 mm. This is well seen on image 106 of series 3. Previously noted multitude of nodules in the posterior left lower lobe are no longer seen. There are moderate changes of centrilobular emphysema. Limited images of the upper abdomen demonstrate mild bilateral adrenal hyperplasia. IMPRESSION: Marked improvement or resolution of multiple bilateral pulmonary nodules. New 3 mm nodule in the inferior right upper lobe, indeterminate. Six-month follow-up chest CT is recommended. Reviewed, Interpreted and Dictated by Nabil Chávez MD Transcribed by Olimpia Ty Authenticated and [facility]
== END ==
PROVIDERS: PCP Family Medicine; Visit Provider Internal Medicine Pulmonary Disease
DX: R91.8 Other nonspecific abnormal finding of lung field (principal); R06.02 Shortness of breath
CPT/HCPCS: 71250; 94060; 94618; 94640; 94727; 94729

== ENCOUNTER 2022-01-23 12:35 | Emergency (ER) | payer MEDICARE, OTHER, SELFPAY ==
--- NOTE | 2022-01-23 12:43 | CT_ITS ---
FINAL REPORT CLINICAL HISTORY: abd pain COMPARISON: July 18, 2020 FINDINGS: CT OF THE ABDOMEN AND PELVIS WITH CONTRAST Axial CT images of the abdomen and pelvis were obtained after the administration of IV contrast. Coronal reformatted images were also obtained and reviewed.This study was performed with techniques to keep radiation doses as low as reasonably achievable (ALARA). Individualized dose reduction techniques using automated exposure control or adjustment of mA and/or kV according to the patient's size were employed. Abdomen: There are mild changes of emphysema and mild pulmonary scarring in the lung bases. The heart is normal in size. There is a less than 1 cm left hepatic lobe cyst which is stable. The spleen is unremarkable. There is mild adrenal gland enlargement favor hyperplasia or adenomas. The pancreas has an unremarkable appearance. There are multiple bilateral renal cysts with the largest in the medial right kidney measuring 64 mm. The aorta is normal in caliber. There is no free fluid or adenopathy. No mass or abnormal fluid collection is seen. There is a small umbilical hernia containing fat. Pelvis: There is mild colonic wall thickening which is worrisome for colitis. There is sigmoid colon diverticulosis. There is no evidence of mass or adenopathy. There is no evidence of bowel obstruction. IMPRESSION: Stable less than 1 cm left hepatic lobe cyst. Multiple bilateral renal cysts, largest 64 mm. Mild colonic wall thickening worrisome for colitis. Sigmoid colon diverticulosis. Reviewed, Interpreted and Dictated by German Roberson III, MD Transcribed by Amarilys Strickland Authenticated and [facility]
--- NOTE | 2022-01-23 12:48 | HMH.EDABDPAI ---
Discharge Plan Disposition Patient Disposition: Home, Self-Care Condition: Good Prescriptions Prescriptions: New ondansetron 8 mg tablet,disintegrating 8 mg PO DAILY 5 Days Qty: 14 0RF No Action albuterol sulfate [ProAir HFA] 90 mcg/actuation HFA aerosol inhaler 2 puff inhalation Q6H PRN (Reason: COPD ) lisinopril-hydrochlorothiazide 10-12.5 mg tablet 1 tab PO DAILY Trelegy Ellipta 100-62.5-25 mcg blister with device 1 inh inhalation DAILY 90 Days Qty: 90 3RF doxycycline hyclate 100 mg capsule 100 mg PO BID 5 Days Qty: 10 0RF prednisone 20 mg tablet 40 mg PO DAILY 5 Days Qty: 10 0RF nicotine 7 mg/24 hr patch 24 hour 1 patch transdermal Q24H Qty: 28 1RF benzonatate 100 MG capsule 100 mg PO TIDP PRN (Reason: Cough) Qty: 30 0RF ipratropium-albuterol 0.5 mg-3 mg(2.5 mg base)/3 mL solution for nebulization 3 ml inhalation Q6H PRN (Reason: wheezing) Qty: 90 0RF Rx Instructions: Do not combine with other breathing treatments benzonatate 100 mg capsule 100 mg PO TID PRN (Reason: cough) Qty: 30 0RF azithromycin 250 mg tablet 250 mg PO DAILY 4 Days Qty: 4 0RF prednisone 50 mg tablet 50 mg PO DAILY 5 Days Qty: 5 0RF Rx Instructions: Do not combine with other oral glucocorticoids [id number]-R0-La-Hh-valdo 1 EACH tablet 1 mg PO DAILY bupropion HCl 150 MG tablet 150 mg PO DAILY sumatriptan succinate 100 MG tablet 100 mg PO DAILYP PRN (Reason: MIGRAINES) Referrals Follow up/Referrals: Mansoor Lamas MD [Primary Care Provider] - See instructions Activity Restrictions/Add. Instructions Additional Instructions/Restrictions: Please take the Zofran as prescribed. Follow-up with your primary care physician within the next 1 to 2 days given your enteritis. Please eat soft liquid diet and escalate as tolerated. Please take Tylenol and ibuprofen for pain control. Return if inability to have a bowel movement, bloody stools or any other concerns. Clinical Impressions Clinical Impression: Enteritis Instructions Patient Instructions: DI for Acute Abdominal Pain, DI for Enteritis Print Language Print Language: German Discharge ED Provider: Crystal Davis Abdominal Pain HPI General Chief Complaint: Abdominal Pain Stated Complaint: Severe abd pain Time Seen by Provider: 01/23/22 12:36 Mode of Arrival: Ambulatory Source of Information: Patient Limitations: No Limitations History of Present Illness HPI narrative: Miss Mobley is a 66 yo female w PMh for COPD, recent diverticulitis, presenting to the ED for generalized abd pain, non bloody non bilious N/V/ non bloody D, which started yesterday. Patient denies fevers, cough or other infectious symptosm. Abd pain described as LLQ, constant, sharp and non radiating. No chest pain, dyspnea, cough or other respiratory sx. MD complaint: abdominal pain Onset (ago): day(s) Consistency: constant Location: LLQ Severity: severe Quality: stabbing Radiation: none Migration to: no migration Relieving factors: nothing Exacerbating factors: nothing Associated symptoms: nausea, vomiting and diarrhea Related Data Home Medications Medication Instructions Recorded Confirmed calcium 250 mg-D3 400 1 mg PO DAILY Supplement 06/02/20 12/05/21 unit-magnesium 40 [id number]-L7-Ms-copper-valdo tablet bupropion HCl 150 mg tablet,12 hr 150 mg PO DAILY mood 06/24/20 12/31/21 sustained-release sumatriptan succinate 100 mg tablet 100 mg PO DAILYP PRN MIGRAINES 06/25/20 12/05/21 albuterol sulfate 90 mcg/actuation 2 puff inhalation Q6H PRN COPD 10/31/21 12/05/21 aerosol inhaler (ProAir HFA) lisinopril 10 1 tab PO DAILY 12/31/21 12/31/21 mg-hydrochlorothiazide 12.5 mg tablet Previous Rx's Medication Instructions Recorded benzonatate 100 mg capsule 100 mg PO TIDP PRN Cough #30 caps 08/18/21 doxycycline hyclate 100 mg capsule 100 mg PO BID 5 days #10 caps 12/05/21 prednisone 2
[2022-01-23 12:59] LABS: Basophils # 0.2 K/mm3 (0-0.2); Eosinophils # 0.5 K/mm3 (0.0-0.4); Eosinophils % 2.3 % (0.1-12.0); Hematocrit 50.6 % (37.0-47.0); Hemoglobin 16.4 g/dL (12.2-16.2); Lymphocytes # 3.8 K/mm3 (0.7-4.5); Lymphocytes % 19.9 % (10-50); Mean Corpuscular HGB Conc 32.4 g/dL (31.8-35.4); Mean Corpuscular Hemoglobin 30.6 pg (27.0-31.2); Mean Corpuscular Volume 94.5 fl (81-99); Mean Platelet Volume 9.1 fl (7.4-10.4); Monocytes # 0.9 K/mm3 (0.1-1.0); Monocytes % 4.9 % (1.7-9.3); Neutrophils # 13.6 K/mm3 (1.8-7.8); Neutrophils % 71.8 % (37.0-80.0); Platelet Count 483 K/mm3 (142-424); Red Blood Count 5.35 M/mm3 (4.20-5.40); Red Cell Distribution Width 13.7 % (11.5-17.5)
[2022-01-23 13:00] LABS: MANUAL DIFFERENTIAL MANUAL DIFFERENTIAL (MANUAL DIFF)
[2022-01-23 13:02] VITALS: BP 119/79; PULSE 89
[2022-01-23 13:09] LABS: Alanine Aminotransferase 18 U/L (12-78); Albumin Level 4.4 g/dl (3.5-5.0); Albumin/Globulin Ratio 1.6 (1.1-1.8); Alkaline Phosphatase 94 U/L (38-126); Anion Gap 14.5 mEq/L (5-15); Aspartate Amino Transferase 27 U/L (14-36); Bilirubin,Total 0.5 mg/dl (0.2-1.3); Blood Urea Nitrogen 27 mg/dl (7-17); Calcium 9.7 mg/dl (8.4-10.2); Carbon Dioxide 26 mmol/L (22.0-30.0); Chloride 104 mmol/L (98-107); Estimated Glomerular Filt Rate 50 ml/min (>60); GFR (African American) 60 ML/MIN (>60); Globulin 2.8 g/dL (1.3-3.2); Glucose 136 mg/dl (74-100); Lactic Acid 1.6 mmol/L (0.7-2.1); Lipase 86 U/L (23-300); Potassium 4.5 mmoL/L (3.5-5.1); Sodium 140 mmol/L (136-145); Total Protein,Serum 7.2 g/dl (6.3-8.2)
[2022-01-23 13:12] LABS: Eosinophils % 1 % (0-3); Lymphocytes % 16 % (10-50); Monocytes % 4 % (2-9); Neutrophils % 78 % (42-76); Platelet Estimate Slight Increase; RBC Morphology Normal; Total Cells Counted 100
[2022-01-23 13:30] VITALS: BP 119/79; PULSE 76; RESP 20; TEMP 36.8; O2SAT 100; BMI 24.5
[2022-01-23 14:00] VITALS: BP 125/73; PULSE 88; O2SAT 100
[2022-01-23 14:30] VITALS: BP 132/80; PULSE 89; O2SAT 100
[2022-01-23 15:12] LABS: Microscopic, Urine URINE MICROSCOPIC (MICROSCOPIC)
[2022-01-23 15:18] LABS: Appearance,Urine CLEAR (Clear); Bilirubin,Urine Negative (Negative); Blood, Urine Negative (Negative); Color,Urine YELLOW (Yellow); Glucose,Urine (UA) Negative (Negative); Ketones,Urine Negative (Negative); Leukocyte Esterase,Urine Negative (Negative); Nitrate,Urine Negative (Negative); PH,Urine 5.5 (5.0-8.5); Protein,Urine Negative (Negative); Specific Gravity, Urine 1.015 (1.005-1.030); Urobilinogen,Urine 0.2 EU/dl (0.2)
[2022-01-23 15:35] LABS: Bacteria,Urine Trace /lpf; WBC,Urine Occasional #/hpf (0-3)
[2022-01-23 16:15] VITALS: BP 137/90; PULSE 92; RESP 20; TEMP 36.8; O2SAT 95
== END 2022-01-23 16:17 | disposition home or self-care (01) ==
PROVIDERS: Emergency Provider Student in an Organized Health Care Education/Training Program; PCP Family Medicine
DX: K52.9 Noninfective gastroenteritis and colitis, unspecified (principal); Z79.899 Other long term (current) drug therapy; J44.9 Chronic obstructive pulmonary disease, unspecified
CPT/HCPCS: 74177; 80053; 81001; 83605; 83690; 85007; 85025; 96374; 96375; 99284; J2405; Q9967

== ENCOUNTER 2022-05-22 08:49 | Outpatient (CLI) | payer MEDICARE, OTHER, SELFPAY ==
[2022-05-22 09:08] VITALS: BP 147/96; PULSE 86; RESP 18; O2SAT 92
== END 2022-05-22 09:08 | disposition home or self-care (01) ==
LOC: INF 08:49
PROVIDERS: PCP Family Medicine; Visit Provider Nurse Practitioner Family
DX: M81.0 Age-related osteoporosis without current pathological fracture (principal)
CPT/HCPCS: 96372; J0897

== ENCOUNTER 2022-11-25 09:29 | Outpatient (CLI) | payer MEDICARE, OTHER, SELFPAY ==
--- OUTSIDE RECORDS SUMMARY | 2022-11-25 09:32 | XMS_ITS | Continuity of Care Document ---
Author Name Unknown Organization [facility] Address [address] [place] [phone] Phone Care Team Providers Care Fabrication Operator Name Role Phone Kennedy ANDERSON, Sky Unavailable Unavailable Allergies, Adverse Reactions, Alerts Substance Reaction Status Criticality No Known Allergies Active No Inform ation Medications Medication Instructions Dosage Effective Dates (start - stop) Status Comments Medrol (Ha) 4 mg tablets in a dose pack take by oral route as directed per package instructions 0.00 - Active diclofenac 1 % topical gel apply 2-4 gram by topical route 3-4 times every day to the affected area(s) prn as needed - Active methotrexate sodium 2.5 mg tablet take 4 tabs po once a week ( take all 4 tabs on the same day once a week) - Active folic acid 1 mg tablet 1 tablet daily - Active ipratropium bromide 0.02 % solution for inhalation take 0.2% solution for inhalation once a day - Active bupropion HCl SR 150 mg tablet,12 hr sustained-release take 1 tablet once a day - Active AMOXICILLIN (unknown strength) take 1 tablet by oral route every 12 hours
[2022-11-25 09:56] VITALS: BP 127/82; PULSE 72; RESP 18; TEMP 36.4; O2SAT 95
== END 2022-11-25 10:15 | disposition home or self-care (01) ==
LOC: INF 09:30
PROVIDERS: PCP Family Medicine; Visit Provider Family Medicine
DX: M81.0 Age-related osteoporosis without current pathological fracture (principal)
CPT/HCPCS: 96372; J0897

== ENCOUNTER 2022-12-05 09:53 | Emergency (ER) | payer MEDICARE, OTHER, SELFPAY ==
[2022-12-05 09:54] VITALS: BP 128/77; PULSE 98; RESP 18; TEMP 36.7; O2SAT 93; BMI 25.0
--- NOTE | 2022-12-05 09:58 | XR_ITS ---
FINAL REPORT CLINICAL HISTORY: fall FINDINGS: LEFT WRIST Three views demonstrate findings worrisome for nondisplaced fracture of the distal radius. The visualized joint spaces are normally aligned. The soft tissues are unremarkable. IMPRESSION: Findings worrisome for nondisplaced fracture of the distal radius. Reviewed, Interpreted and Dictated by German Roberson III, MD Transcribed by Sylvia Stallworth Authenticated and [facility]
--- NOTE | 2022-12-05 09:58 | XR_ITS ---
FINAL REPORT CLINICAL HISTORY: fall FINDINGS: LEFT HAND Three views demonstrate no acute fracture or dislocation. There are mild and moderate degenerative changes, greatest at the second DIP and fifth digit. The visualized joint spaces are normally aligned. The soft tissues are unremarkable. IMPRESSION: No acute process. Reviewed, Interpreted and Dictated by German Roberson III, MD Transcribed by Sylvia Stallworth Authenticated and [facility]
--- NOTE | 2022-12-05 09:58 | XR_ITS ---
FINAL REPORT CLINICAL HISTORY: fall FINDINGS: 2 views of the left forearm were obtained. There is mild irregularity of the lateral cortex of the distal radius worrisome for nondisplaced fracture. The joints are intact. There are no soft tissue abnormalities. IMPRESSION: Findings worrisome for nondisplaced fracture of the lateral cortex of the distal radius. Reviewed, Interpreted and Dictated by German Roberson III, MD Transcribed by Sylvia Stallworth Authenticated and [facility]
--- OUTSIDE RECORDS SUMMARY | 2022-12-05 09:59 | XMS_ITS | Continuity of Care Document ---
Author Name Unknown Organization [facility] Address [address] [place] [phone] Phone Care Team Providers Care Hydro Electric Station Operator Name Role Phone Kennedy ANDERSON, Sky [...] 1 tablet once a day - Active Imitrex 50 mg tablet take 1 tablet by oral route after onset of migraine; may repeat after 2 hours if headache
--- NOTE | 2022-12-05 10:24 | EXP.UTC ---
Discharge Plan Disposition Patient Disposition: Home, Self-Care Condition: Good Prescriptions Prescriptions: No Action albuterol sulfate [ProAir HFA] 90 mcg/actuation HFA aerosol inhaler 2 puff inhalation Q6H PRN (Reason: COPD ) losartan 25 mg tablet 25 mg PO DAILY hydrochlorothiazide 12.5 mg tablet 12.5 mg PO DAILY Trelegy Ellipta 100-62.5-25 mcg blister with device 1 inh inhalation DAILY 90 Days Qty: 90 3RF ipratropium-albuterol 0.5 mg-3 mg(2.5 mg base)/3 mL solution for nebulization 3 ml inhalation Q6H PRN (Reason: wheezing) Qty: 90 0RF Rx Instructions: Do not combine with other breathing treatments ipcd-B0-[id number]-H4-Pk-Ns-valdo 1 EACH tablet 1 mg PO DAILY sumatriptan succinate 100 MG tablet 100 mg PO DAILYP PRN (Reason: MIGRAINES) Referrals Follow up/Referrals: Beck Olson DO [Staff Physician] - See instructions (Call office for appointment) Mansoor Lamas MD [Primary Care Provider] - See instructions Activity Restrictions/Add. Instructions Additional Instructions/Restrictions: *RICE, Rest the extremity, Ice 15-20 minutes 3-4 times daily, Compress- wear the romeo wrap as discussed as much as possible to help reduce swelling and pain, Elevate the extremity when at rest *Romeo wrap is for support and help control swelling, use it except in the shower. Be sure that is not to tight but not to loose either *Elevate when resting? *Ibuprofen as directed on package every 6-8 hours as needed for pain an inflammation. If need something more can take Tylenol in between doses of Ibuprofen to help Immediately follow up with your family doctor for new or worsening of symptoms, or no noticeable improvement over the next 3-5 days Clinical Impressions Clinical Impression: Distal radial fracture Qualifiers: Encounter type: initial encounter Fracture type: closed Fracture morphology: other fracture Laterality: left Qualified Code(s): S52.592A - Other fractures of lower end of left radius, initial encounter for closed fracture Instructions Patient Instructions: How To Perform RICE (Rest, Ice, Compress, Elevate), DI for Distal Radius Fracture, Ibuprofen Discharge ED Provider: Kimmie Brewster [facility] H[place] General Stated complaint: [id number], Lt wrist pain Mode of Arrival: Ambulatory Source of Information: Patient Limitations: No Limitations Time Seen by Provider: 12/05/22 10:00 Description of Symptoms (Recalled from Triage Doc. by RN): Patient reports falling and landing on her left wrist 2 days ago. Complaint of left wrist pain. HEENT Symptoms (Recalled from RN notes): No Resp Symptoms (Recalled from RN notes): No Skin Symptoms (Recalled from RN notes): No MS Symptoms (Recalled from RN notes): Yes Functional Status (Recalled from RN notes): wnl History of Present Illness Provider Complaint: Patient states that she was walking up the steps a couple of days ago and her toes clipped the step and made her fall foreword landing on her left wrist area States that since then she has been having swelling and pain in her wrist area with movement States that she has been putting ice on it and keeping it elevated but still has pain when she moves or bends it so today she came in to get it checked Denies any other injury Related Data Home Medications Medication Instructions Recorded Confirmed calcium 250 mg-D3 400 1 mg PO DAILY Supplement 06/02/20 11/25/22 unit-magnesium 40 nc-K1-Jd-copper-valdo tablet sumatriptan succinate 100 mg tablet 100 mg PO DAILYP PRN MIGRAINES 06/25/20 11/25/22 albuterol sulfate 90 mcg/actuation 2 puff inhalation Q6H PRN COPD 10/31/21 11/25/22 aerosol inhaler (ProAir HFA) losartan 25 mg tablet 25 mg PO DAILY 04/10/22 11/25/22 hydrochlorothiazide 12.5 mg tablet 12.5 mg PO DAILY 10/01/22 11/25/22 Previous Rx's Medication Instructions Recorded ipratropium 0.5 mg-albuterol 3 mg 3 ml inhalation Q6H PRN wheezing 12/21/21 (2.5 mg base)/3 mL
[2022-12-05 11:55] VITALS: BP 128/77; PULSE 98; RESP 18; TEMP 36.7; O2SAT 93
== END 2022-12-05 11:55 | disposition home or self-care (01) ==
PROVIDERS: Emergency Provider Nurse Practitioner; PCP Family Medicine
DX: S52.592A Other fractures of lower end of left radius, initial encounter for closed fracture (principal); F17.210 Nicotine dependence, cigarettes, uncomplicated; J44.9 Chronic obstructive pulmonary disease, unspecified; R91.8 Other nonspecific abnormal finding of lung field; W10.8XXA Fall (on) (from) other stairs and steps, initial encounter
CPT/HCPCS: 73090; 73110; 73130; 99212; 99214; G0463

== ENCOUNTER 2022-12-10 14:31 | Outpatient (RCR) | payer MEDICARE, OTHER, SELFPAY | END 2022-12-10 16:00 | disposition home or self-care (01) | LOC: OT 14:31 | PROVIDERS: Visit Provider Orthopaedic Surgery | DX: S52.502A Unspecified fracture of the lower end of left radius, initial encounter for closed fracture (principal); M25.532 Pain in left wrist | CPT/HCPCS: 97763 ==

== ENCOUNTER → 2022-12-31 13:13 | Outpatient (CLI) | payer MEDICARE, OTHER, SELFPAY ==
--- OUTSIDE RECORDS SUMMARY | 2022-12-31 13:17 | XMS_ITS | Continuity of Care Document ---
Author Name Unknown Organization [facility] Address [address] [place] [phone] Phone Care Team Providers Care Aquatic Director Name Role Phone Kennedy ANDERSON, Sky Unavailable [...] 1 tablet by oral route every 12 hour
--- NOTE | 2022-12-31 13:32 | XR_ITS ---
FINAL REPORT CLINICAL HISTORY: left wrist fx FINDINGS: 3 views of the left wrist were obtained. There is a minimally impacted transverse fracture of the distal radial metaphysis. There is no intra-articular extension. There is no dislocation. The joint spaces are intact. There is no soft tissue abnormality. IMPRESSION: Minimally impacted distal radius fracture. Reviewed, Interpreted and Dictated by Nabil Chávez MD Transcribed by Selvin Aguilar Authenticated and [facility]
== END ==
PROVIDERS: PCP Family Medicine; Visit Provider Orthopaedic Surgery
DX: S52.592A Other fractures of lower end of left radius, initial encounter for closed fracture (principal); Y99.9 Unspecified external cause status
CPT/HCPCS: 73110

== ENCOUNTER → 2023-01-14 14:19 | Outpatient (CLI) | payer MEDICARE, OTHER, SELFPAY ==
--- NOTE | 2023-01-14 14:22 | CT_ITS ---
FINAL REPORT CLINICAL HISTORY: current smoker, 1/2 pack per day for 45 years FINDINGS: CT CHEST LOW DOSE SCREENING HISTORY: Screening exam for lung cancer. Current smoker, 45 pack year smoking history DOSE: CTDIvol: 2.90 mGy, DLP: 96.38 mGy*cm COMPARISON: None . TECHNIQUE: Axial CT without IV contrast administration using low dose protocol FINDINGS: No acute lung disease is present . No pulmonary lesions are seen suspicious for neoplasm. There is evidence of old calcified granulomatous disease. Emphysematous changes are noted. No pleural or pericardial effusion is seen . No adenopathy or mass lesion is present . IMPRESSION: 1. No evidence of lung cancer LUNG RADS CATEGORY 1 RECOMMENDATION: 12 month LDCT follow up Authenticated and ER[facility]
--- OUTSIDE RECORDS SUMMARY | 2023-01-14 14:22 | XMS_ITS | Continuity of Care Document ---
Author Name Unknown Organization [facility] Address [address] [place] [phone] Phone Care Team Providers Care Cabinet Mounter Name Role Phone Kennedy ANDERSON, Sky Unavailable [...]
== END ==
PROVIDERS: PCP Family Medicine; Visit Provider Internal Medicine Pulmonary Disease
DX: F17.210 Nicotine dependence, cigarettes, uncomplicated (principal); Z12.2 Encounter for screening for malignant neoplasm of respiratory organs
CPT/HCPCS: 71271

== ENCOUNTER 2023-03-29 10:07 | Inpatient (IN) | payer MEDICARE, OTHER, SELFPAY ==
[2023-03-29] VITALS (15 sets, daily range): BP systolic 92–135; BP diastolic 46–78; PULSE 60–116; RESP 16–22; TEMP 36.5–36.8; O2SAT 86–99; BMI 25.0; BMI 25.5
--- NOTE | 2023-03-29 10:17 | XR_ITS ---
PROCEDURE INFORMATION: Exam: XR Chest Exam date and time: 03/29/2023 10:33 AM Age: 67 years old Clinical indication: Dyspnea TECHNIQUE: Imaging protocol: Radiologic exam of the chest. Views: 1 view. COMPARISON: CT LUNG SCREENING 01/14/2023 2:33 PM FINDINGS: Lungs: Hyperexpansion of the lungs with flattening of the diaphragms, suggestive of COPD. Chronically increased interstitial markings. No dense pulmonary consolidation to suggest pneumonia. Pleural spaces: No pleural effusion or pneumothorax. Heart/Mediastinum: Heart size is normal. Vasculature: Aortic atherosclerosis. Bones/joints: Unremarkable. IMPRESSION: Hyperexpansion of the lungs with flattening of the diaphragms, suggestive of COPD. Chronically increased interstitial markings. No dense pulmonary consolidation to suggest pneumonia.
--- NOTE | 2023-03-29 10:18 | PC.NURSE ---
pt 89% on 2lnc.
--- NOTE | 2023-03-29 10:18 | HMH.EDCP ---
Discharge Plan Disposition Patient Disposition: Still a Patient Prescriptions Prescriptions: No Action albuterol sulfate [ProAir HFA] 90 mcg/actuation HFA aerosol inhaler 2 puff inhalation Q6H PRN (Reason: COPD ) losartan 25 mg tablet 25 mg PO DAILY hydrochlorothiazide 12.5 mg tablet 12.5 mg PO DAILY naproxen 500 mg tablet 500 mg PO BID Qty: 60 3RF Trelegy Ellipta 100-62.5-25 mcg blister with device 1 inh inhalation DAILY 90 Days Qty: 90 3RF ipratropium-albuterol 0.5 mg-3 mg(2.5 mg base)/3 mL solution for nebulization 3 ml inhalation Q6H PRN (Reason: wheezing) Qty: 90 0RF Rx Instructions: Do not combine with other breathing treatments [id number]-Yu-Sp-valdo 1 EACH tablet 1 mg PO DAILY sumatriptan succinate 100 MG tablet 100 mg PO DAILYP PRN (Reason: MIGRAINES) Referrals Follow up/Referrals: Provider,Referral, MD [Referring] - See instructions Clinical Impressions Clinical Impression: Acute exacerbation of chronic obstructive pulmonary disease Discharge ED Provider: Torrey Burton [facility] General Chief Complaint: Shortness of Breath/Dyspnea Stated Complaint: soa Time Seen by Provider: 03/29/23 10:13 Mode of Arrival: Wheelchair Source of Information: Patient Limitations: No Limitations Description of Symptoms (Recalled from ER Triage Doc. by RN): 3 days increased SOA History of Present Illness HPI narrative: Is a 67-year-old female with a history of COPD presents today with 3 days of worsening cough shortness of breath wheezing sputum production. States has been taking antibiotics at home including cefdinir and prednisone she has been followed by Dr. Lamas without any significant improvement in her symptoms. Denies any fevers denies any history of any coronary artery disease heart failure etc. Related Data Home Medications Medication Instructions Recorded Confirmed calcium 250 mg-D3 400 1 mg PO DAILY Supplement 06/02/20 01/15/23 unit-magnesium 40 ll-E3-Ku-copper-valdo tablet sumatriptan succinate 100 mg tablet 100 mg PO DAILYP PRN MIGRAINES 06/25/20 01/15/23 albuterol sulfate 90 mcg/actuation 2 puff inhalation Q6H PRN COPD 10/31/21 01/15/23 aerosol inhaler (ProAir HFA) losartan 25 mg tablet 25 mg PO DAILY 04/10/22 01/15/23 hydrochlorothiazide 12.5 mg tablet 12.5 mg PO DAILY 10/01/22 01/15/23 Previous Rx's Medication Instructions Recorded ipratropium 0.5 mg-albuterol 3 mg 3 ml inhalation Q6H PRN wheezing 12/21/21 (2.5 mg base)/3 mL nebulization #90 mL soln naproxen 500 mg tablet 500 mg PO BID #60 tabs 12/31/22 fluticasone fur. 100 mcg-umeclid 1 inh inhalation DAILY 90 days #90 02/24/23 62.5 mcg-vilant 25 mcg ea inhalat.powder (Trelegy Ellipta) Allergies Allergy/AdvReac Type Severity Reaction Status Date / Time No Known Allergies Allergy Verified 01/15/23 10:12 [facility] Disclaimer: The information contained in this section may have been updated after the patient was seen, as this information can be updated by other users. Medical History Abnormal computerized axial tomography of chest Acute exacerbation of chronic obstructive pulmonary disease (COPD) Chronic hypoxemic respiratory failure COPD (chronic obstructive pulmonary disease) Dyspnea on exertion Multiple pulmonary nodules Panlobular emphysema Personal history of nicotine dependence Screening for lung cancer Smoking greater than 30 pack years Tobacco abuse Tobacco abuse counseling Tobacco abuse disorder Surgical History History of carpal tunnel release History of colonoscopy Family History Other No significant family history Social History Smoking Status: Current every day smoker tobacco type: cigarettes packs per day: 1 second hand exposure: Yes alcohol intake: never substance use type: denies use current occupational status: employed Travel in the last 8 weeks: None household members: none housing: house 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 occupational exposures/hazards: No caffeine: Yes ROS Obtained: Yes All systems reviewed & no additional complaints except as documented Physical Exam General General appearance: alert Respiratory Respiratory exam: Present other (Patient is in respiratory distress sitting forward breathing with pursed lip speaking in fragmented sentences moving very poor air but does have diffuse expiratory wheezing and prolonged expiratory phase oxygen saturations 90% on 3 L nasal cannula) Cardiovascular Cardiovascular exam: Present tachycardia Neurological Exam Neurological exam: Present alert and oriented X3 HEART Score HEART Score HEART Score assessment performed?: Yes History (anamnesis): Slightly suspicious ECG: Non-specific disturbance Age: >65 years Risk factors: 1-2 risk factors Troponin: </= normal limit HEART Score: 4 Critical Care Critical Care Time Critical Care Time: Yes Attestation: On , the high probability of a clinically significant, sudden or life threatening deterioration of the following system(s) required my full and direct attention, intervention and personal management. The time I documented below is in addition to time spent performing reported procedures but includes the following listed in this critical care notation. Total Time Total Critical Care Time: 35 Medical Decision Making Sajan Inquiry Pt receiving controlled substance: No Vital Signs Vital Signs: 03/29/23 10:14 03/29/23 10:30 03/29/23 10:30 Temperature 98 F Temperature Source Oral Pulse Rate 107 H 111 H Pulse Rate [Right Radial] 60 Respiratory Rate 22 Blood Pressure Blood Pressure [Right Arm] 131/78 Blood Pressure Mean [Right Arm] 95 02 Sat by Pulse Oximetry 86 L Oxygen Delivery Method Room Air Oxygen Flow Rate (LPM) 03/29/23 10:50 03/29/23 11:00 Temperature Temperature Source Pulse Rate 111 H 103 H Pulse Rate [Right Radial] Respiratory Rate 16 Blood Pressure 120/75 Blood Pressure [Right Arm] Blood Pressure Mean [Right Arm] 02 Sat by Pulse Oximetry 98 Oxygen Delivery Method Aerosol Mask Oxygen Flow Rate (LPM) 6 Lab Data Lab results reviewed: Yes I reviewed the patient's lab results. Labs: Lab Results 03/29/23 10:18: VBG pH 7.38, VBG pCO2 52.2 H, VBG pO2 49.3 H, VBG HCO3 29.9, VBG Total CO2 31.5 H, VBG O2 Saturation 87.0 H, VBG Base Excess 4.7 H 03/29/23 10:23: SARS-CoV-2 (PCR) Not detected, Influenza A Untype (PCR) Not detected, Influenza Type B (PCR) Not detected 03/29/23 10:24: WBC 27.3 H*, RBC 4.71, Hgb 14.8, Hct 45.2, MCV 95.9, MCH 31.5 H, MCHC 32.9, RDW 14.5, Plt Count 375, MPV 8.3, Neut % (Auto) 85.6 H, Lymph % (Auto) 8.8 L, Barton % (Auto) 4.0, Eos % (Auto) 1.2, Baso % (Auto) 0.4, Neut # (Auto) 23.3 H, Lymph # (Auto) 2.4, Barton # (Auto) 1.1 H, Eos # (Auto) 0.3, Baso # (Auto) 0.1, Total Counted 100, Neutrophils % (Manual) 84 H, Lymphocytes % (Manual) 13, Monocytes % (Manual) 3, Platelet Estimate Normal, RBC Morphology Normal, D-Dimer 0.73 H, Sodium 140, Potassium 3.8, Chloride 102, Carbon Dioxide 33 H, Anion Gap 8.8, BUN 18 H, Creatinine 0.60, Estimated Creat Clear 58, Estimated GFR 99, Est GFR ( Amer) 120, Glucose 110 H, Lactate 1.0, Calcium 8.9, Total Bilirubin 0.5, AST 18, ALT 18, Alkaline Phosphatase 70, Troponin I < 0.01, NT-Pro-B Natriuret Pep 98.5, Total Protein 6.8, Albumin 3.9, Globulin 2.9, Albumin/Globulin Ratio 1.3 03/29/23 10:24 03/29/23 10:24 Response Orders (Tests/Meds): ED MEDICATIONS Discontinued Medications Generic Name Dose Route Start Last Admin Trade Name Freq PRN Reason Stop Dose Admin Albuterol/Ipratropium 3 ml 03/29/23 10:17 03/29/23 10:30 Ipratropium/Albuterol 3 Ml Neb IH 03/29/23 10:18 3 ml ONCE ONE Administration Dexamethasone Sodium Phosphate 10 mg 03/29/23 10:17 03/29/23 11:21 Dexamethasone 4mg/Ml 1ml Vial IV 03/29/23 10:18 10 mg ONCE ONE Administration Diphenhydramine HCl 25 mg 03/29/23 10:53 03/29/23 11:22 Diphenhydramine 50mg/Ml Vial IV 03/29/23 10:54 25 mg ONCE ONE Administration Magnesium Sulfate 2 gm in 50 mls @ 50 mls/hr 03/29/23 10:17 03/29/23 11:20 Magnesium Sulfate 2gm/50ml Premix IV 03/29/23 11:16 50 mls/hr ONCE ONE Administration Lactated Ringer's 500 mls @ 999 mls/hr 03/29/23 11:00 03/29/23 11:21 Lactated Ringer's 1000 Ml Bag IV 03/29/23 11:30 999 mls/hr .Q31M HARMAN Administration Ketorolac Tromethamine 15 mg 03/29/23 10:53 03/29/23 11:22 Ketorolac 30mg/Ml Vial IV 03/29/23 10:54 15 mg ONCE ONE Administration Prochlorperazine Edisylate 10 mg 03/29/23 10:53 03/29/23 11:22 Prochlorperazine 10mg/2ml Vial IV 03/29/23 10:54 10 mg ONCE ONE Administration ORDERS Category Date Time Status CXR --portable [XR chest portable] Stat Exams 03/29/23 10:17 Completed BNP [Brain Natriuretic Peptide] Stat Lab 03/29/23 10:24 Completed CBC w/Auto Diff [Complete Blood Count Auto Diff] Stat Lab 03/29/23 10:24 Completed CMP [Comprehensive Metabolic Panel] Stat Lab 03/29/23 10:24 Completed D-Dimer Stat Lab 03/29/23 10:24 Completed Lactic Acid Stat Lab 03/29/23 10:24 Completed Rapid PCR Covid and Flu A/B Stat Lab 03/29/23 10:23 Completed Trop I [Troponin I] Stat Lab 03/29/23 10:24 Completed Troponin I Q3H Lab 03/29/23 13:30 Ordered Troponin I Q3H Lab 03/29/23 16:30 Ordered Blood Culture Stat Micro 03/29/23 11:24 Received Venous Blood Gas Stat RT 03/29/23 10:18 Completed ECG Data Tracing #1: Attestation: I reviewed this ECG and interpreted as documented below: (Ventricular rate of 102 abnormal axis with left anterior fascicular block sinus tachycardia no acute ischemic changes noted) MDM Narrative Medical Decision Narrative: Patient is a 67-year-old female with a history of COPD presenting today with symptoms consistent with a COPD exacerbation. She is in respiratory distress we will give DuoNeb but then give continuous albuterol, magnesium, steroids and will reassess. Other things on the differential include pulmonary embolism IA heart failure etc. Chest x-ray will be performed to specifically evaluate for possible consolidation. Holding on further antibiotics until I get a chest x-ray. She does have increased work of breathing will reassess also will get a venous blood gas and will make a decision on noninvasive positive pressure ventilation at that time. At the moment I will hold off on that to see if she has improvement in this particular regimen. Reassessment 11:38 AM patient feeling much better but still tachypneic and breathing and fragmented sentences not ready to go home. Still on continuous albuterol will need to be admitted for further management. Chest x-ray performed which I first interpreted which shows no acute cardiopulmonary emergency there is some chronic interstitial markings consistent with scarring. No evidence of pneumonia. She has been on multiple antibiotics will not escalate antibiotics at this point. She has a leukocytosis but has been on steroids recently. Do not suspect that she is septic. Patient will be admitted for further evaluation and treatment of her COPD exacerbation.
--- NOTE | 2023-03-29 10:19 | ECG_ITS ---
APPROVED REPORT Exam: Resting ECG HR:102 bpm ECG Measurements Heart Rate 102 AXES PA 136 P 85 QRSd 100 QRS -84 QT 322 T 82 QTc 380 Conclusion SINUS TACHYCARDIA POSSIBLE LEFT ATRIAL ENLARGEMENT [-0.1mV P-WAVE IN V1/V2] LEFT ANTERIOR FASCICULAR BLOCK [QRS AXIS <= -45, QR IN I, RS IN II] ABNORMAL ECG UNCONFIRMED REPORT Electronically signed by : Mansoor Griggs MD 03/31/2023 17:59:03
[2023-03-29] MEDS: IPRATROPIUM/ALBUTEROL 3 ML NEB IH ×4 (10:30→22:18)
[2023-03-29 10:37] LABS: Coronavirus 19, PCR Not Detected (NotDetected); Influenza A, PCR Not Detected (NotDetected); Influenza B, PCR Not Detected (NotDetected)
--- OUTSIDE RECORDS SUMMARY | 2023-03-29 10:40 | XMS_ITS | Continuity of Care Document ---
Author Name Unknown Organization [facility] Address [address] [place] [id number] Phone Care Team Providers Care Palliative Care Physician Name Role Phone Kennedy ANDERSON, Sky Unavailable Unavailable Allergies, Adverse Reactions, Alerts Substance Reaction Status Criticality No Known Allergies Active No Inform ation Medications Medication Instructions Dosage Effective Dates (start - stop) Status Comments diclofenac 1 % topical gel apply 2-4 gram by topical route 3-4 times every day to the affected area(s) prn as needed - Active Medrol (Ha) 4 mg tablets in a dose pack take by oral route as directed per package instructions 0.00 - Active methotrexate sodium 2.5 mg tablet [...] may repeat after 2 hours if headache returns,not to exceed 200mg in 24hrs 50 MG - Active Vitamin C 500 mg tablet take 1 tablet by oral route every day 1 tablet - Active AMOXICILLIN (unknown strength) take 1 tablet by oral route every 12 hours Not Available - Active Fish Oil 1,000 mg (120 mg-180 mg) capsule take 1 capsule by oral route every day 1 capsule - Active Vitamin D3 2,000 unit capsule take 1 tablet by oral route every day 1 tablet - Active Trelegy Ellipta 100 mcg-62.5 mcg-25 mcg powder for inhalation take 25 mcg of inhalation once a day - Active Procedures Procedure Date Office Visit Level IV Office Visit Level IV EL-anti-CCP/2 Rheumatoid Factor Tushar RF/3 IgM 019 RF/3 IgG/IgA New Office Consult Level V Manual Appl Stress Pfrmd Phys Joint Radi Advance Directives Directive Yes / No Effective Date File Name No Information Encounters Encounter Description Practice Location Reason(s) For Visit Diagnoses Date Provider Providers Copied on Encounter [facility] [address] [place] [address], [id number], tel:[phone] [facility] No Information 0 Kennedy Swanson . [address] [address] [place] [address], [id number] . tel:[phone] [facility] [address] [place] [address], [id number], tel:[phone] [facility] No Information 0 Kennedy Swanson . [address] [place] [place] [address], [id number] . tel:[phone] Office Visit Level IV [facility] [address] [place] [address], [id number], tel:[phone] [facility] Psoriatic arthritis (chief complaint) Osteoarthr itis (chief complaint) COPDInflammatory polyarthropathyGe neralized osteoarthritisPla ntar fasciitisOsteopor osisBody mass index (BMI) 26.0-26.9, adultNSAID Fpc Use 0 Kennedy Swanson . [address] [place] [facility] [place], [id number] . tel:[phone] Referring Provider: Rajwinder Lazaro, [address] [facility] , [place], [address]. tel:[phone] Office Visit Level IV [facility] [address], [id number], tel:[phone] [facility] Psoriatic arthritis (chief complaint) Osteoarthr itis (chief complaint) COPDInflammatory polyarthropathyGe neralized osteoarthritisPla ntar fasciitisOsteopor osisNSAID Fpc UseBody mass index (BMI) 26.0-26.9, adult Sep- Kennedy Swanson . [address] [place] [address], [id number] . tel:[phone] Referring Provider: Rajwinder Lazaro, [address] [facility]. [address], [place], [address]. tel:[phone] [facility] [address], [id number], [place] tel:[phone] [facility] No Information Kennedy Swanson . [address] [place] [address], [id number] . tel:[phone] Referring Provider: Rajwinder Lazaro, [address] [place] [address]. , [place], [address]. tel:[phone] New Office Consult Level V [facility], [address], [id number], [place] tel:[phone] [facility] Joint Pain (chief complaint) Osteoarthr itis (chief complaint) Chronic plantar fasciitis (chief complaint) Inflammatory polyarthropathyGe neralized osteoarthritisNSA ID Fpc UseCOPDOsteoporos isPlantar fasciitis Kennedy Swanson . [address], [place], [place], [id number] . tel:[phone] Referring Provider: Rajwinder Lazaro, [address] [facility] [place] [address], [id number]. tel:[phone] Family History Family Member Type Diagnosis Age At Onset Mother Problem (finding) [facility] P[facility] Payer name Insurance type Covered republican ID Ricco goodman(s) [employer] [id number] CI [id number] Social History Type Description Quantity Date Captured Comments Alcohol Use Details Unknown Caffeine Use Details Unknown Tobacco Use Status Smoking Status No Information Sex Female Chief Complaint And Reason For Visit No Information Reason For Referral Reason For Referral No Information Plan Of Treatment Date Type Action Status Goal Lifestyle education regardin g diet completed Goal Tobacco cessation counseling completed Goal Lifestyle education regardin g diet completed Future Order: Lab Order CBC With Differential/Platelet ([id number]), Ordered on: Ordered Future Order: Lab Order Comp. Me tabolic Panel (14) ([id number]), Ordered on: Ordered Future Order: Lab Order C-Reacti ve Protein, Quant ([id number]), Ordered on: Ordered Future Order: Lab Order Sediment ation Rate-Westergren ([id number]), Ordered on: Ordered Future Order: Lab Order Sediment ation Rate-Westergren ([id number]), Ordered on: Ordered Future Order: Lab Order CBC With Differential/Platelet ([id number]), Ordered on: Ordered Future Order: Lab Order Comp. Me tabolic Panel (14) ([id number]), Ordered on: Ordered Future Order: Lab Order C-Reacti ve Protein, Quant ([id number]), Ordered on: Ordered Future Order: Lab Order CBC With Differential/Platelet ([id number]), Ordered on: Ordered Future Order: Lab Order Comp. Me tabolic Panel (14) ([id number]), Ordered on: Ordered Future Order: Lab Order C-Reacti ve Protein, Quant ([id number]), Ordered on: Ordered Future Order: Lab Order Sediment ation Rate-Westergren ([id number]), Ordered on: Ordered Future Order: Lab Order Rheumato id Factor/3 IgM, IgG, IgA (Theratest) (RF3), Ordered on: Ordered Future Order: Lab Order Cyclic C itrullinated Peptide-4P (Theratest) (CCP4P), Ordered on: Ordered History Of Present Illness Encounter Date Complaint History Of Prese nt Illness Psoriatic arthritis Osteoarthritis Psoriatic arthritis Osteoarthritis Joint Pain Osteoarthritis Chronic plantar fasciitis Functional Status Date Functional Assessmen t No Information Instructions Date Instruction Additional Infor mation Stable on p.r.n. NSAID Related t o Generalized osteoarthritis Continue weight-bear ing exercise calcium vitamin-D. Monitoring with PCP. Related to Osteoporosis Risks of NSAIDs disc ussed including GI upset, GI bleeding, renal and hepatic risks and the risks of cardiovascular disease and stroke. Warned patient not to take with other NSAIDs including OTC NSAIDs. Related to NSAID Fpc Use Chronic; resolved with methotrex ate Related to Plantar fasciitis erosive inflammatory polyarthritis affecting the hands and feet. At this time I favor psoriatic arthritis sans psoriasis given the inflammatory arthritis in her hands, negative rheumatoid markers and chronic plantar fasciitis that can be seen with psoriatic arthritis. Differential includes psoriatic arthritis sans psoriasis, erosive osteoarthritis, seronegative rheumatoid arthritis. She reports methotrexate has been very beneficial. No side effects except hair loss Feet are much better on methotrexate. Continue methotrexate. She can try lowering to 3 tablets once weeklyContinue labs every 8 weeks for toxicity monitoring. Labs reviewed and stable. New standing order provided.rtc 4 months Related to Inflammatory polyarthropathy Lifestyle education regarding di et Related to Body mass index (BMI) 26.0-26.9, adult Continue weight-bear ing exercise calcium vitamin-D. Monitoring with PCP. Related to Osteoporosis Stable on p.r.n. NSAID Related t o Generalized osteoarthritis She in erosive infla mmatory polyarthritis affecting the hands and feet. At this time I favor psoriatic arthritis sans psoriasis given the inflammatory arthritis in her hands, negative rheumatoid markers and chronic plantar fasciitis that can be seen with psoriatic arthritis. Differential includes psoriatic arthritis sans psoriasis, erosive osteoarthritis, seronegative rheumatoid arthritis. She reports methotrexate has been very beneficial. No side effects. Continue methotrexateWe discussed DMARD therapy including Plaquenil, Sulfasalazine, Leflunomide, and MTX and the alternative of not being treated. MTX was chosen. Risks include but are not limited to severe liver damage that can be fatal, the possible need for liver biopsy, bone marrow suppression that can lead to dangerously low blood counts, GI side effects including mouth sores and diarrhea, fatigue, and rare risk of severe pulmonary complications. There should be no alcohol consumed with MTX. MTX can cause severe abnormalities whether the mother or father is taking the medication and thus must be avoided if is a possibility. All medication is to be taken one day a week only. The need for q 8 week labs and the need for folic acid supplementation were discussed.rtc 4 months Related to Inflammatory polyarthropathy Chronic; improved Related to Lalit ntar fasciitis Risks of NSAIDs disc ussed including GI upset, GI bleeding, renal and hepatic risks and the risks of cardiovascular disease and stroke. Warned patient not to take with other NSAIDs including OTC NSAIDs. Related to NSAID Fpc Use Lifestyle education regarding di et Related to Body mass index (BMI) 26.0-26.9, adult I suspect she has an inflammatory polyarthritis affecting the hands and feet. At this time I favor psoriatic arthritis sans psoriasis given the inflammatory arthritis in her hands, negative rheumatoid markers and chronic plantar fasciitis that can be seen with psoriatic arthritis. Differential includes psoriatic arthritis sans psoriasis, erosive osteoarthritis, seronegative rheumatoid arthritis. There is no evidence of lupus or connective tissue disease. Labs recently have been unremarkable with negative EMILY, negative rheumatoid factor and normal sed rate and CRP normal uric acid.Recommend x-rays of the hands and feet today to look for any erosive changes. Stop egpi-xip-fqhlele NSAIDs and try meloxicam. She does not have any active synovitis today but she did have a severe flare in her right hand in April of 2018 when her hand joints became red swollen and she could not close the hand. She is still having pain in the hands today despite axqj-vkv-madnkje NSAIDs but no active synovitis. Risk and benefits of meloxicam discussed in detail. Handout provided on osteoarthritis Related to Inflammatory polyarthropathy Risks of NSAIDs disc ussed including GI upset, GI bleeding, renal and hepatic risks and the risks of cardiovascular disease and stroke. Warned patient not to take with other NSAIDs including OTC NSAIDs. Related to NSAID Fpc Use Chronic bilateral feet Related t o Plantar fasciitis Assessments Type Assessment Date No Information Patient Care Teams Name Effective Dates (start - stop) Status Members No Information
[2023-03-29 10:41] LABS: Alanine Aminotransferase 18 U/L (12-78); Albumin Level 3.9 g/dl (3.5-5.0); Albumin/Globulin Ratio 1.3 (1.1-1.8); Alkaline Phosphatase 70 U/L (38-126); Anion Gap 8.8 mEq/L (5-15); Aspartate Amino Transferase 18 U/L (14-36); Bilirubin,Total 0.5 mg/dl (0.2-1.3); Blood Urea Nitrogen 18 mg/dl (7-17); Calcium 8.9 mg/dl (8.4-10.2); Carbon Dioxide 33 mmol/L (22.0-30.0); Chloride 102 mmol/L (98-107); Creatinine Clearance Estimated 58 mL/min (50-200); Estimated Glomerular Filt Rate 99 ml/min (>60); GFR (African American) 120 ML/MIN (>60); Globulin 2.9 g/dL (1.3-3.2); Glucose 110 mg/dl (74-100); Potassium 3.8 mmoL/L (3.5-5.1); Sodium 140 mmol/L (136-145); Total Protein,Serum 6.8 g/dl (6.3-8.2)
[2023-03-29 10:43] LABS: VBG Base Excess 4.7 mmol/L (-2.4-2.3); VBG HCO3 29.9 mmol/L (23-30); VBG PH 7.38 mmol/L (7.31-7.41); VBG PO2 49.3 mmol/L (28-40); VBG Total CO2 31.5 mmol/L (23-27)
[2023-03-29 10:45] LABS: VBG PCO2 52.2 mmol/L (35-51)
[2023-03-29 10:46] LABS: D-Dimer 0.73 ug/mL (0.0-0.5)
[2023-03-29 10:50] LABS: Basophils # 0.1 K/mm3 (0-0.2); Basophils % 0.4 % (0.1-2.0); Eosinophils # 0.3 K/mm3 (0.0-0.4); Eosinophils % 1.2 % (0.1-12.0); Hematocrit 45.2 % (37.0-47.0); Hemoglobin 14.8 g/dL (12.2-16.2); Lymphocytes # 2.4 K/mm3 (0.7-4.5); Lymphocytes % 8.8 % (10-50); Mean Corpuscular HGB Conc 32.9 g/dL (31.8-35.4); Mean Corpuscular Hemoglobin 31.5 pg (27.0-31.2); Mean Corpuscular Volume 95.9 fl (81-99); Mean Platelet Volume 8.3 fl (7.4-10.4); Monocytes # 1.1 K/mm3 (0.1-1.0); Neutrophils # 23.3 K/mm3 (1.8-7.8); Neutrophils % 85.6 % (37.0-80.0); Platelet Count 375 K/mm3 (142-424); Red Blood Count 4.71 M/mm3 (4.20-5.40); Red Cell Distribution Width 14.5 % (11.5-17.5); White Blood Count 27.3 K/mm3 (4.8-10.8)
[2023-03-29 10:54] LABS: NT Pro Brain Natriuretic Pep. 98.5 pg/mL (0-125)
[2023-03-29 10:55] LABS: MANUAL DIFFERENTIAL MANUAL DIFFERENTIAL (MANUAL DIFF); Troponin I < 0.01 ng/ml (0.00-0.034)
[2023-03-29] MEDS: MAGNESIUM SULFATE IN WATER 2 GM/50 ML PIGGYBACK IV (11:20)
[2023-03-29] MEDS: LACTATED RINGERS 1000ML 500 ML 999 ML IV (11:21)
[2023-03-29] MEDS: DEXAMETHASONE 4MG/ML 1ML VIAL 10 MG IV (11:21)
[2023-03-29] MEDS: PROCHLORPERAZINE 10MG/2ML VIAL 10 MG IV (11:22)
[2023-03-29] MEDS: KETOROLAC 30MG/ML VIAL 15 MG IV (11:22)
[2023-03-29] MEDS: diphenhydrAMINE 50MG/ML VIAL 25 MG IV (11:22)
--- NOTE | 2023-03-29 11:29 | PC.NURSE ---
Dr. Burton at for re-eval
[2023-03-29 11:37] LABS: Lymphocytes % 13 % (10-50); Monocytes % 3 % (2-9); Neutrophils % 84 % (42-76); Platelet Estimate Normal; RBC Morphology Normal; Total Cells Counted 100
--- NOTE | 2023-03-29 11:52 | PC.NURSE ---
[facility]ILDC[facility] WORKER NOTIFIED OF ADMISSION
--- NOTE | 2023-03-29 12:57 | PC.NURSE ---
REPORT CALLED TO KAIDEN RN
--- NOTE | 2023-03-29 13:00 | PC.NURSE ---
pt admitted to room 202 with copd exacerbation to the hospitalist, obs
[2023-03-29 14:33] LABS: Troponin I < 0.01 ng/ml (0.00-0.034)
[2023-03-29] MEDS: GUAIFENESIN/DEXTROMETHORPHAN 200MG/20MG 10ML UDC 10 ML PO (14:46)
--- NOTE | 2023-03-29 16:05 | P.HP_ITS ---
History of Present Illness *Admission Date: 03/29/23 *Reason for visit:: shortness of breath *History of present illness: Ms. Mobley is a 67-year-old female with tobacco use disorder, COPD, oxygen dependence at night. States that she had worsening shortness of breath over the past 3 days. Reports having COVID last month and felt like she was getting better until she developed in a COPD exacerbation 1 week ago. Initiated on cefdinir and prednisone. Was getting better until 2 to 3 days ago when she developed worsening shortness of breath. Was smoking until 3 days ago, half to a pack a day. Multiple sick contacts at home. From the ER because of worsening shortness of breath, increased sputum production, increased wheezing. In the ER was found to be hypoxic necessitating higher oxygen than her normal baseline. Initiated on steroids and breathing treatments. Medicine consulted for admission. On evaluation, reports green sputum. Denies fever but feels weak and fatigued. Has a roommate who works in childcare, they have all had cough congestion and respiratory symptoms for the past month [facility] Disclaimer: The information contained in this section may have been updated after the patient was seen, as this information can be updated by other users. Medical History Abnormal computerized axial tomography of chest Acute exacerbation of chronic obstructive pulmonary disease (COPD) Chronic hypoxemic respiratory failure COPD (chronic obstructive pulmonary disease) Dyspnea on exertion Multiple pulmonary nodules Panlobular emphysema Personal history of nicotine dependence Screening for lung cancer Smoking greater than 30 pack years Tobacco abuse Tobacco abuse counseling Tobacco abuse disorder Surgical History History of carpal tunnel release History of colonoscopy Family History No significant family history Social History Smoking Status: Current every day smoker tobacco type: cigarettes packs per day: 1 second hand exposure: Yes alcohol intake: never substance use type: denies use current occupational status: employed Travel in the last 8 weeks: None household members: none housing: house 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 occupational exposures/hazards: No caffeine: Yes Review of Systems Review of Systems Review of systems (narrative): 14 point review of systems performed, pertinent positives and negatives as per HPI Meds Home Medications and Allergies Home Medications Medication Instructions Recorded Confirmed Type calcium 250 mg-D3 400 1 mg PO DAILY Supplement 06/02/20 01/15/23 History unit-magnesium 40 hm-H5-Nb-copper-valdo tablet sumatriptan succinate 100 mg tablet 100 mg PO DAILYP PRN Migraine 06/25/20 03/29/23 History Headache albuterol sulfate 90 mcg/actuation 2 puff inhalation Q6HP PRN 10/31/21 03/29/23 History aerosol inhaler (ProAir HFA) Shortness Of Breath losartan 25 mg tablet 25 mg PO DAILY 04/10/22 01/15/23 History hydrochlorothiazide 12.5 mg tablet 12.5 mg PO DAILY Fluid 10/01/22 03/29/23 History fluticasone fur. 100 mcg-umeclid 1 inh inhalation DAILY Copd 03/29/23 03/29/23 History 62.5 mcg-vilant 25 mcg inhalat.powder (Trelegy Ellipta) ipratropium 0.5 mg-albuterol 3 mg 3 ml inhalation Q6HP PRN wheezing 03/29/23 03/29/23 History (2.5 mg base)/3 mL nebulization soln prednisone 10 mg tablet 10 mg PO DAILY 03/29/23 History New Prescriptions to Start Prescriptions: Allergies Allergy/AdvReac Type Severity Reaction Status Date / Time No Known Allergies Allergy Verified 01/15/23 10:12 Exam Data for Last 24 hours Vital signs and Labs for Last 24 Hours: Temp Pulse Resp BP Pulse Ox O2 Del Method O2 Flow Rate 98.2 F 116 H 20 115/60 92 L Nasal Cannula 2 03/29/23 13:21 03/29/23 14:30 03/29/23 13:21 03/29/23 13:21 03/29/23 14:30 03/29/23 14:30 03/29/23 14:30 Laboratory Results - last 24 hr 03/29/23 10:18: VBG pH 7.38, VBG pCO2 52.2 H, VBG pO2 49.3 H, VBG HCO3 29.9, VBG Total CO2 31.5 H, VBG O2 Saturation 87.0 H, VBG Base Excess 4.7 H 03/29/23 10:23: SARS-CoV-2 (PCR) Not detected, Influenza A Untype (PCR) Not detected, Influenza Type B (PCR) Not detected 03/29/23 10:24: WBC 27.3 H*, RBC 4.71, Hgb 14.8, Hct 45.2, MCV 95.9, MCH 31.5 H, MCHC 32.9, RDW 14.5, Plt Count 375, MPV 8.3, Neut % (Auto) 85.6 H, Lymph % (Auto) 8.8 L, [place] % (Auto) 4.0, Eos % (Auto) 1.2, Baso % (Auto) 0.4, Neut # (Auto) 23.3 H, Lymph # (Auto) 2.4, [place] # (Auto) 1.1 H, Eos # (Auto) 0.3, Baso # (Auto) 0.1, Total Counted 100, Neutrophils % (Manual) 84 H, Lymphocytes % (Manual) 13, Monocytes % (Manual) 3, Platelet Estimate Normal, RBC Morphology Normal, D-Dimer 0.73 H, Sodium 140, Potassium 3.8, Chloride 102, Carbon Dioxide 33 H, Anion Gap 8.8, BUN 18 H, Creatinine 0.60, Estimated Creat Clear 58, Estimated GFR 99, Est GFR ( Amer) 120, Glucose 110 H, Lactate 1.0, Calcium 8.9, Total Bilirubin 0.5, AST 18, ALT 18, Alkaline Phosphatase 70, Troponin I < 0.01, NT-Pro-B Natriuret Pep 98.5, Total Protein 6.8, Albumin 3.9, Globulin 2.9, Albumin/Globulin Ratio 1.3 03/29/23 13:39: Troponin I < 0.01 I & O for Last 24 hours: Intake & Output 03/26/23 03/27/23 03/28/23 03/29/23 23:59 23:59 23:59 23:59 Weight 69.57 kg Constitutional Constitutional: no acute distress, average body habitus and chronically ill appearing *Routine HEENT Exam Head: Present normocephalic Eye: Present EOMI and PERRL ENT: Present mucous membranes moist *Routine Neck Exam Neck: Present supple; Absent lymphadenopathy *Routine Respiratory Exam Respiratory: Present accessory muscle use, prolonged expiratory phase, wheezes and crackles; Absent rhonchi *Routine Cardiovascular Exam Cardiovascular: Present RRR *Routine Abdominal Exam Abdominal: Present soft and normoactive bowel sounds; Absent tenderness *Routine Rectal Exam Rectal:: deferred *Routine Genitalia Exam Genitalia:: deferred *Routine Extremities Exam Extremities: Present edema; Absent cyanosis or clubbing *Routine Skin Exam Skin: Present warm; Absent rash *Routine Neurological Exam Neurological: Present alert, oriented X3 and moving all extremities; Absent altered mental status Assessment and Plan *Assessment and plan (1) Acute on chronic respiratory failure with hypoxemia: Status: Acute Category: Medical Code(s): J96.21 - Acute and chronic respiratory failure with hypoxia (2) Acute exacerbation of chronic obstructive pulmonary disease: Status: Acute Category: Medical Code(s): J44.1 - Chronic obstructive pulmonary disease with (acute) exacerbation (3) Personal history of nicotine dependence: Status: Chronic Category: Medical Code(s): Z87.891 - Personal history of nicotine dependence (4) HTN (hypertension): Status: Acute Category: Medical Code(s): I10 - Essential (primary) hypertension Plan 67-year-old female presents with worsening shortness of breath. Concern for COPD exacerbation with failure of recent outpatient treatment. Discussed case with ER physician, request admission due to new oxygen requirement. Medicine agreed to admit. Initiated on antibiotics and steroids. Problems addressed as follows: COPD exacerbation with worsening acute on chronic hypoxemic respiratory failure. -DuoNebs every 4 hours scheduled -Budesonide twice daily scheduled -Received 10 mg dexamethasone in the ER. Will continue prednisone 40 mg daily x 5 days -Comprehensive respiratory panel pending to evaluate for alternate viral pathology given relatively clear looking chest x-ray, worsening symptoms in light of outpatient antibiotics. -Initiate levofloxacin 750 mg daily for 5 days -Guaifenesin/dextromethorphan 10 mL every 6 hours as needed for cough -Sputum sample pending. -Supplemental oxygen with goal saturation greater 90%, currently on 3 L. - Continue Trelegy inhaler daily - White cell count 27,000, blood gas with normal pH, no significant hypercarbia. Continue HCTZ 12.5 mg daily for hypertension Tobacco use disorder, nicotine patch daily as needed CBC, CMP, magnesium ordered for the morning Full code Regular diet Lovenox 40 mg subcu daily
--- NOTE | 2023-03-29 16:39 | PC.NURSE ---
A&OX4. TOLERATING 3LNC WELL. STATES SHE WEARS 2LNC AT HOME. COMES TO THE FLOOR WITH HER OWN O2 TANK. PT HAS NO COMPLAINTS OTHER THAN INTERMITTENT HACKING COUGH. TX PER MAR, EFFECTIVENESS NOTED. PT STATES SHE IS JUST VERY TIRED. RESTING IN BED COMFORTABLY. VSS.
[2023-03-29 17:30] LABS: Troponin I < 0.01 ng/ml (0.00-0.034)
--- NOTE | 2023-03-29 17:42 | PC.NURSE ---
Pt oxygen is 87 on room air at rest.
[2023-03-29] MEDS: LEVOFLOXACIN/D5W 750 MG/150 ML 750 MG/150 ML PIGGYBACK 100 MG IV (18:52)
[2023-03-29 19:02] LABS: Adenovirus,PCR Not Detected (NotDetected); Coronavirus 19, PCR Not Detected (NotDetected); Coronavirus 229E Not Detected (NotDetected); Coronavirus NL63 Not Detected (NotDetected); Coronavirus OC43 Not Detected (NotDetected); Coronovirus HKU1,PCR Not Detected (NotDetected); Human Metapneumovirus Not Detected (NotDetected); Influenza A, PCR Not Detected (NotDetected); Influenza AH1, 2009 Not Detected (NotDetected); Influenza AH1, PCR Not Detected (NotDetected); Influenza AH3,PCR Not Detected (NotDetected); Influenza B, PCR Not Detected (NotDetected); Parainfluenza 1, PCR Not Detected (NotDetected); Parainfluenza 2, PCR Not Detected (NotDetected); Parainfluenza 3, PCR Not Detected (NotDetected); Parainfluenza 4, PCR Not Detected (NotDetected); Respiratory Syncytial Virus Not Detected (NotDetected); Rhinovirus/Enterovirus Not Detected (NotDetected)
[2023-03-29] MEDS: BUDESONIDE 0.5MG/2ML NEB 0.5 MG IH (19:05)
[2023-03-30] VITALS (15 sets, daily range): BP systolic 115–139; BP diastolic 59–86; PULSE 80–110; RESP 17–20; TEMP 36.4–36.8; O2SAT 90–96; BMI 25.9
[2023-03-30] MEDS: IPRATROPIUM/ALBUTEROL 3 ML NEB IH ×6 (02:28→21:49)
[2023-03-30] MEDS: GUAIFENESIN/DEXTROMETHORPHAN 200MG/20MG 10ML UDC 10 ML PO ×3 (05:09→23:05)
[2023-03-30] MEDS: BUDESONIDE 0.5MG/2ML NEB 0.5 MG IH ×2 (06:15→18:10)
[2023-03-30] MEDS: NICOTINE 21MG/24HR PATCH 21 MG TD (08:38)
[2023-03-30 08:39] LABS: Basophils % 0.1 % (0.1-2.0); Eosinophils # 0.1 K/mm3 (0.0-0.4); Eosinophils % 0.3 % (0.1-12.0); Hematocrit 42.2 % (37.0-47.0); Hemoglobin 13.7 g/dL (12.2-16.2); Lymphocytes # 1.4 K/mm3 (0.7-4.5); Lymphocytes % 5.5 % (10-50); Mean Corpuscular HGB Conc 32.5 g/dL (31.8-35.4); Mean Corpuscular Hemoglobin 32.5 pg (27.0-31.2); Mean Corpuscular Volume 100.2 fl (81-99); Mean Platelet Volume 8.8 fl (7.4-10.4); Monocytes # 1.1 K/mm3 (0.1-1.0); Monocytes % 4.4 % (1.7-9.3); Neutrophils % 89.6 % (37.0-80.0); Platelet Count 388 K/mm3 (142-424); Red Blood Count 4.21 M/mm3 (4.20-5.40); Red Cell Distribution Width 14.6 % (11.5-17.5); White Blood Count 24.6 K/mm3 (4.8-10.8)
[2023-03-30 08:42] LABS: MANUAL DIFFERENTIAL MANUAL DIFFERENTIAL (MANUAL DIFF)
[2023-03-30 08:48] LABS: Alanine Aminotransferase 27 U/L (12-78); Albumin Level 3.8 g/dl (3.5-5.0); Albumin/Globulin Ratio 1.4 (1.1-1.8); Alkaline Phosphatase 74 U/L (38-126); Anion Gap 9.5 mEq/L (5-15); Aspartate Amino Transferase 28 U/L (14-36); Bilirubin,Total 0.4 mg/dl (0.2-1.3); Blood Urea Nitrogen 21 mg/dl (7-17); Carbon Dioxide 32 mmol/L (22.0-30.0); Chloride 102 mmol/L (98-107); Creatinine Clearance Estimated 60 mL/min (50-200); Estimated Glomerular Filt Rate 99 ml/min (>60); GFR (African American) 120 ML/MIN (>60); Globulin 2.8 g/dL (1.3-3.2); Glucose 155 mg/dl (74-100); Magnesium 2.4 mg/dl (1.6-2.3); Potassium 4.5 mmoL/L (3.5-5.1); Sodium 139 mmol/L (136-145); Total Protein,Serum 6.6 g/dl (6.3-8.2)
[2023-03-30] MEDS: FLUTICASONE/UMECLIDIN/VILANTER 100/62.5/25MCG INHALER 1 PUFF IH (09:03)
[2023-03-30] MEDS: predniSONE 20MG TAB 40 MG PO (09:31)
[2023-03-30] MEDS: hydroCHLOROthiazide 12.5MG CAPSULE 12.5 MG PO (09:31)
[2023-03-30 09:35] LABS: Lymphocytes % 6 % (10-50); Macrocytosis 1+; Monocytes % 3 % (2-9); Neutrophils % 91 % (42-76); Platelet Estimate Normal; Total Cells Counted 100
--- NOTE | 2023-03-30 10:17 | HMH.PHAINT1 ---
Pharmacy Intervention Comments: MEDICATION RECONCILIATION COMPLETE USING LIST FROM MOST RECENT MD OFFICE VISIT AND EXTERNAL PHARMACY FILL HISTORY.
--- OUTSIDE RECORDS SUMMARY | 2023-03-30 12:29 | XMS_ITS | Continuity of Care Document ---
Author Name Unknown Organization [facility] Address [address] [place] [id number] Phone Care Team Providers Care Learning And Development Coordinator Name Role Phone Kennedy ANDERSON, Sky Unavailable [...] Provider Providers Copied on Encounter [facility] [address] [employer] [address] [place] [address], [id number], tel:[phone] [facility] No Information 0 Kennedy Swanson . [address] [employer] [address] [place] [address], [id number] . tel:[phone] [facility] [address] [employer] [address] [place] [address], [id number], tel:[phone] [facility] No Information 0 Kennedy Swanson . [address] [employer] [employer] [address] [place] [address], [id number] . tel:[phone] Office Visit Level IV [facility] [address] [employer] [address] [place] [address], [id number], tel:[phone] [facility] Psoriatic arthritis (chief complaint) Osteoarthr itis (chief complaint) COPDInflammatory polyarthropathyGe neralized osteoarthritisPla ntar fasciitisOsteopor osisBody mass index (BMI) 26.0-26.9, adultNSAID Penitentiary Use 0 Kennedy Swanson . [address] [employer] [facility], [place], [id number] . tel:[phone] Referring Provider: Rajwinder Lazaro, [address] [facility] , [place], [address]. tel:[phone] Office Visit Level IV [facility] [address], [id number], tel:[phone] [facility] Psoriatic arthritis (chief complaint) Osteoarthr itis (chief complaint) COPDInflammatory polyarthropathyGe neralized osteoarthritisPla ntar fasciitisOsteopor osisNSAID Penitentiary UseBody mass index (BMI) 26.0-26.9, adult Sep- Kennedy Swanson . [address] [place] [address], [id number] . tel:[phone] Referring Provider: Rajwinder Lazaro, [address] [facility], [place], [address]. tel:[phone] [facility] [address], [id number], [place] tel:[phone] [facility].. No Information Kennedy Swanson . [address] [place] [address], [id number] . tel:[phone] Referring Provider: Rajwinder Lazaro, [address] [place] [address]. , [place], [address]. tel:[phone] New Office Consult Level V [facility], [address], [id number], [place] tel:[phone] [facility] Joint Pain (chief complaint) Osteoarthr itis (chief complaint) Chronic plantar fasciitis (chief complaint) Inflammatory polyarthropathyGe neralized osteoarthritisNSA ID Penitentiary UseCOPDOsteoporos isPlantar fasciitis Kennedy Swanson . [address], [place], [place], [id number] . tel:[phone] Referring Provider: Rajwinder Lazaro, [address] [facility] [place] [address], [address]. tel:[phone] Family History Family Member Type Diagnosis Age At Onset Mother Problem (finding) [facility] Payers Payer name Insurance type Covered green party ID Ricco goodman(s) [employer] [id number] CI [id number] Social History Type Description Quantity Date Captured Comments Alcohol Use Details Unknown Caffeine Use Details Unknown Tobacco Use Status Smoking Status No Information Sex Female Chief Complaint And Reason For Visit No Information Reason For Referral Reason For Referral No Information Plan Of Treatment Date Type Action Status Goal Tobacco cessation counseling completed Goal Lifestyle education regardin g diet completed Goal Lifestyle education regardin g diet completed Future Order: Lab Order CBC With Differential/Platelet ([id number]), Ordered on: Ordered Future Order: Lab Order Comp. Me tabolic Panel (14) ([id number]), Ordered on: Ordered Future Order: Lab Order C-Reacti ve Protein, Quant ([id number]), Ordered on: Ordered Future Order: Lab Order Sediment ation Rate-Westergren ([id number]), Ordered on: Ordered Future Order: Lab Order Sediment ation Rate-Westergren ([id number]), Ordered on: Ordered Future Order: Lab Order CBC With Differential/Platelet ([id number]), Ordered on: Ordered Future Order: Lab Order Comp. Me tabolic Panel (14) ([id number]), Ordered on: Ordered Future Order: Lab Order C-Reacti ve Protein, Quant ([id number]), Ordered on: Ordered Future Order: Lab Order CBC With Differential/Platelet ([id number]), Ordered on: Ordered Future Order: Lab Order Comp. Me tabolic Panel (14) ([id number]), Ordered on: Ordered Future Order: Lab Order C-Reacti ve Protein, Quant ([id number]), Ordered on: Ordered Future Order: Lab Order Sediment ation Rate-Redergren ([id number]), Ordered on: Ordered Future Order: Lab Order [...] Information Instructions Date Instruction Additional Infor mation erosive inflammatory polyarthritis affecting the hands and [...] provided.rtc 4 months Related to Inflammatory polyarthropathy Continue weight-bear ing exercise calcium vitamin-D. Monitoring with PCP. Related to Osteoporosis Risks of NSAIDs disc ussed including GI upset, GI bleeding, renal and hepatic risks and the risks of cardiovascular disease and stroke. Warned patient not to take with other NSAIDs including OTC NSAIDs. 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 NSAID Related t o Generalized osteoarthritis Chronic; resolved with methotrex ate Related to Plantar fasciitis Lifestyle education regarding di et Related to Body mass index (BMI) 26.0-26.9, adult Stable on p.r.n. NSAID Related t o Generalized osteoarthritis Continue weight-bear ing exercise calcium vitamin-D. Monitoring with PCP. Related to Osteoporosis Risks of NSAIDs disc ussed including GI upset, GI bleeding, renal and hepatic risks and the risks of cardiovascular disease and stroke. Warned patient not to take with other NSAIDs including OTC NSAIDs. Related to NSAID Penitentiary Use Chronic; improved Related to Lalit ntar fasciitis She in erosive infla mmatory polyarthritis affecting [...] discussed.rtc 4 months Related to Inflammatory polyarthropathy Lifestyle [...] to look for any erosive changes. Stop lhov-rdr-hsbjscp NSAIDs and try meloxicam. She does not have any active synovitis today but she did have a severe flare in her right hand in April of 2018 when her hand joints became red swollen and she could not close the hand. She is still having pain in the hands today despite gkke-vll-iyunxub NSAIDs but no active synovitis. Risk and benefits of meloxicam discussed in detail. Handout provided on osteoarthritis Related to Inflammatory polyarthropathy Chronic bilateral feet Related t o Plantar fasciitis Risks of NSAIDs disc ussed including GI upset, GI bleeding, renal and hepatic risks and the risks of cardiovascular disease and stroke. Warned patient not to take with other NSAIDs including OTC NSAIDs. Related to NSAID Anesthesiology Teacher Use Assessments Type Assessment Date No Information Patient Care Teams Name Effective Dates (start - stop) Status Members No Information
[2023-03-30] MEDS: LEVOFLOXACIN/D5W 750 MG/150 ML 750 MG/150 ML PIGGYBACK 100 MG IV (18:15)
[2023-03-30] MEDS: ACETAMINOPHEN 325MG TAB 650 MG PO (18:49)
--- NOTE | 2023-03-30 20:09 | EXP.ACUTE.PN ---
Subjective *Date: 03/30/23 *Time: 20:09 Interval history: Patient states she is feeling marginally better. Cough is improving but still productive. On 2 L nasal cannula. No nausea or vomiting. No chest pain Medical Exam Vital signs and Labs for Last 24 Hours: Vital Signs Temp Pulse Pulse Resp BP Pulse Ox O2 Del Method 03/30/23 19:43 Nasal Cannula 03/30/23 19:42 97 H 03/30/23 19:42 91 H 03/30/23 19:00 Nasal Cannula 03/30/23 16:00 97.6 F 109 H 17 139/86 96 Nasal Cannula 03/30/23 17:00 Nasal Cannula 03/30/23 15:00 Nasal Cannula 03/30/23 13:00 Nasal Cannula 03/30/23 15:02 96 H 03/30/23 15:02 102 H 03/30/23 12:00 90 03/30/23 11:00 Nasal Cannula 03/30/23 09:00 Nasal Cannula 03/30/23 10:20 109 H 03/30/23 10:20 103 H 03/30/23 10:20 92 L Nasal Cannula 03/30/23 09:33 Nasal Cannula 03/30/23 08:00 98.3 F 100 H 20 115/66 90 L Nasal Cannula 03/30/23 09:05 95 Nasal Cannula 03/30/23 08:00 100 H 03/30/23 07:00 Nasal Cannula 03/30/23 06:15 97 H 03/30/23 06:15 101 H 03/30/23 06:15 95 Nasal Cannula 03/30/23 05:00 Nasal Cannula 03/30/23 04:00 98.3 F 96 H 18 115/68 94 L Nasal Cannula 03/30/23 00:00 80 03/30/23 03:00 Nasal Cannula 03/30/23 01:00 Nasal Cannula 03/29/23 23:00 Nasal Cannula 03/29/23 21:00 Nasal Cannula 03/30/23 02:29 96 H 03/30/23 02:29 97 H 03/29/23 21:00 Nasal Cannula 03/29/23 22:18 100 H 03/29/23 22:18 101 H 03/29/23 21:53 98.0 F 96 H 16 135/69 92 L Nasal Cannula O2 Flow Rate FiO2 03/30/23 19:43 2 28 03/30/23 19:42 03/30/23 19:42 03/30/23 19:00 03/30/23 16:00 03/30/23 17:00 03/30/23 15:00 03/30/23 13:00 03/30/23 15:02 03/30/23 15:02 03/30/23 12:00 03/30/23 11:00 03/30/23 09:00 03/30/23 10:20 03/30/23 10:20 03/30/23 10:20 2 03/30/23 09:33 2 03/30/23 08:00 03/30/23 09:05 2 03/30/23 08:00 03/30/23 07:00 3 03/30/23 06:15 03/30/23 06:15 03/30/23 06:15 2 03/30/23 05:00 3 03/30/23 04:00 03/30/23 00:00 03/30/23 03:00 3 03/30/23 01:00 3 03/29/23 23:00 3 03/29/23 21:00 3 03/30/23 02:29 03/30/23 02:29 03/29/23 21:00 3 03/29/23 22:18 03/29/23 22:18 03/29/23 21:53 2 Intake and Output 03/30/23 03/30/23 03/30/23 07:59 15:59 23:59 Intake Total 720 / 1080 360 / 1080 Output Total 0 / 0 0 / 0 0 / 0 Balance 0 / 1080 720 / 1080 360 / 1080 Intake: Intake, Oral Amount 720 / 1080 360 / 1080 Output: Output, Urine Amount 0 / 0 0 / 0 0 / 0 Other: Number of Voids 0 2 Number of Unmeasured Voids 1 1 2 Weight 70.817 kg Patient Weight 03/30/23 23:59 Weight 70.817 kg Laboratory Results - last 24 hr 03/29/23 19:00: Chlamy pneumoniae PCR TNP, Adenovirus (PCR) Not detected, B. pertussis DNA (PCR) TNP, Coronavirus OC43 (PCR) Not detected, Coronavirus HKU1 (PCR) Not detected, Coronavirus 229E (PCR) Not detected, SARS-CoV-2 (PCR) Not detected, Coronavirus NL63 (PCR) Not detected, Human Metapneumovir PCR Not detected, Influenza A (H1) PCR Not detected, Influ A (H1N1/09) PCR Not detected, Influenza A (H3) PCR Not detected, Influenza Type A (PCR) Not detected, Influenza Type B (PCR) Not detected, M. pneumoniae (PCR) TNP, Parainfluenza 1 (PCR) Not detected, Parainfluenza 2 (PCR) Not detected, Parainfluenza 3 (PCR) Not detected, Parainfluenza 4 (PCR) Not detected, RSV (PCR) Not detected, Entero/Rhino (PCR) Not detected 03/30/23 07:51: WBC 24.6 H*, RBC 4.21, Hgb 13.7, Hct 42.2, MCV 100.2 H, MCH 32.5 H, MCHC 32.5, RDW 14.6, Plt Count 388, MPV 8.8, Neut % (Auto) 89.6 H, Lymph % (Auto) 5.5 L, [place] % (Auto) 4.4, Eos % (Auto) 0.3, Baso % (Auto) 0.1, Neut # (Auto) 22.0 H, Lymph # (Auto) 1.4, [place] # (Auto) 1.1 H, Eos # (Auto) 0.1, Baso # (Auto) 0.0, Total Counted 100, Neutrophils % (Manual) 91 H, Lymphocytes % (Manual) 6 L, Monocytes % (Manual) 3, Platelet Estimate Normal, Macrocytosis 1+, Sodium 139, Potassium 4.5, Chloride 102, Carbon Dioxide 32 H, Anion Gap 9.5, BUN 21 H, Creatinine 0.60, Estimated Creat Clear 60, Estimated GFR 99, Est GFR ( Amer) 120, Glucose 155 H D, Calcium 9.0, Magnesium 2.4 H, Total Bilirubin 0.4, AST 28 D, ALT 27 D, Alkaline Phosphatase 74, Total Protein 6.6, Albumin 3.8, Globulin 2.8, Albumin/Globulin Ratio 1.4 I & O for Labs for Last 24 Hours: Intake & Output 03/27/23 03/28/23 03/29/23 03/30/23 23:59 23:59 23:59 23:59 Intake Total 1080 / 1080 Output Total 0 / 0 0 / 0 Balance 0 / 0 1080 / 1080 Weight 69.57 kg 70.817 kg Constitutional: Present no acute distress, average body habitus, chronically ill appearing and cooperative Head: Present atraumatic and normocephalic ENT: Present normal exam Neck: Present normal inspection Respiratory: Present rhonchi, wheezes and normal respiratory effort; Absent crackles Cardiac: Present Reg Rate and Rhythm GI: Present soft and normal bowel sounds; Absent distention or tenderness Extremities: Present normal inspection and full ROM; Absent edema Skin: Present intact; Absent erythema Neuro: Present Grossly Intact, alert, awake, oriented x 3 and moves all extremities Assessment and Plan *Assessment and plan (1) Acute on chronic respiratory failure with hypoxemia: Status: Acute Category: Medical Code(s): J96.21 - Acute and chronic respiratory failure with hypoxia (2) Acute exacerbation of chronic obstructive pulmonary disease: Status: Acute Category: Medical Code(s): J44.1 - Chronic obstructive pulmonary disease with (acute) exacerbation (3) Personal history of nicotine dependence: Status: Chronic Category: Medical Code(s): Z87.891 - Personal history of nicotine dependence (4) HTN (hypertension): Status: Acute Category: Medical Code(s): I10 - Essential (primary) hypertension Plan 67-year-old female presents with worsening shortness of breath. Concern for COPD exacerbation with failure of recent outpatient treatment. Discussed case with ER physician, request admission due to new oxygen requirement. Medicine agreed to admit. Initiated on antibiotics and steroids. Continues to require inpatient management. Showing slow improvement. Problems addressed as follows: COPD exacerbation with worsening acute on chronic hypoxemic respiratory failure. -DuoNebs every 4 hours scheduled -Budesonide twice daily scheduled -Received 10 mg dexamethasone in the ER. Will continue prednisone 40 mg daily x 5 days -Comprehensive respiratory panel negative -Continue levofloxacin 750 mg daily for 5 days -White cell count elevated at 24.6 -Guaifenesin/dextromethorphan 10 mL every 6 hours as needed for cough -Sputum sample pending. -Supplemental oxygen with goal saturation greater 90%, currently on 2 L. - Continue Trelegy inhaler daily - Pulmonology consulted Continue HCTZ 12.5 mg daily for hypertension Tobacco use disorder, nicotine patch daily as needed CBC, CMP, magnesium ordered for the morning Full code Regular diet Lovenox 40 mg subcu daily
[2023-03-31] VITALS (14 sets, daily range): BP systolic 119–144; BP diastolic 61–83; PULSE 77–116; RESP 16–22; TEMP 36.8–36.9; O2SAT 92–97; BMI 25.9
[2023-03-31] MEDS: IPRATROPIUM/ALBUTEROL 3 ML NEB IH ×6 (02:04→21:06)
[2023-03-31] MEDS: clonazePAM 0.5MG TABLET 0.25 MG PO (03:12)
[2023-03-31] MEDS: BUDESONIDE 0.5MG/2ML NEB 0.5 MG IH ×2 (05:55→18:07)
[2023-03-31] MEDS: FLUTICASONE/UMECLIDIN/VILANTER 100/62.5/25MCG INHALER 1 PUFF IH (05:55)
[2023-03-31] MEDS: ACETAMINOPHEN 325MG TAB 650 MG PO (06:14)
[2023-03-31 07:13] LABS: Basophils % 0.1 % (0.1-2.0); Eosinophils # 0.1 K/mm3 (0.0-0.4); Eosinophils % 0.3 % (0.1-12.0); Hematocrit 39.4 % (37.0-47.0); Hemoglobin 13.1 g/dL (12.2-16.2); Lymphocytes % 16.2 % (10-50); Mean Corpuscular HGB Conc 33.3 g/dL (31.8-35.4); Mean Corpuscular Hemoglobin 32.6 pg (27.0-31.2); Mean Corpuscular Volume 97.7 fl (81-99); Mean Platelet Volume 8.4 fl (7.4-10.4); Monocytes % 5.3 % (1.7-9.3); Neutrophils # 14.3 K/mm3 (1.8-7.8); Platelet Count 393 K/mm3 (142-424); Red Blood Count 4.03 M/mm3 (4.20-5.40); Red Cell Distribution Width 14.6 % (11.5-17.5); White Blood Count 18.3 K/mm3 (4.8-10.8)
[2023-03-31 07:29] LABS: MANUAL DIFFERENTIAL MANUAL DIFFERENTIAL (MANUAL DIFF)
[2023-03-31 08:30] LABS: Chloride 102 mmol/L (98-107); Potassium 4.2 mmoL/L (3.5-5.1); Sodium 138 mmol/L (136-145)
[2023-03-31 08:33] LABS: Anion Gap 7.2 mEq/L (5-15); Blood Urea Nitrogen 21 mg/dl (7-17); Calcium 8.4 mg/dl (8.4-10.2); Carbon Dioxide 33 mmol/L (22.0-30.0); Creatinine Clearance Estimated 60 mL/min (50-200); Estimated Glomerular Filt Rate 83 ml/min (>60); GFR (African American) 101 ML/MIN (>60); Glucose 85 mg/dl (74-100)
[2023-03-31] MEDS: hydroCHLOROthiazide 12.5MG CAPSULE 12.5 MG PO (09:37)
[2023-03-31] MEDS: predniSONE 20MG TAB 40 MG PO (09:37)
--- NOTE | 2023-03-31 09:58 | EXP.PULM.CON ---
History of Present Illness History of present illness: Ms. Mobley is a 67-year-old female greater than [id number] smoking history, COPD stage III on Trelegy 100 inhaler last seen in pulmonary clinic in December 2022 presented to the ER with worsening respiratory distress pulmonary was called for further evaluation and management. [facility] Disclaimer: The information contained in this section may have been updated after the patient was seen, as this information can be updated by other users. Medical History (Updated 03/31/23 @ 12:14 by Vikki Jung MD) Abnormal computerized axial tomography of chest Acute exacerbation of chronic obstructive pulmonary disease (COPD) Acute respiratory failure with hypoxia Chronic hypoxemic respiratory failure COPD (chronic obstructive pulmonary disease) Dyspnea on exertion Multiple pulmonary nodules Panlobular emphysema Personal history of nicotine dependence Pneumonia Screening for lung cancer Smoking greater than 30 pack years Tobacco abuse Tobacco abuse counseling Tobacco abuse disorder Surgical History History of carpal tunnel release History of colonoscopy Family History No significant family history Social History Smoking Status: Current every day smoker tobacco type: cigarettes packs per day: 1 second hand exposure: Yes alcohol intake: never substance use type: denies use current occupational status: employed Travel in the last 8 weeks: None household members: none housing: house 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 occupational exposures/hazards: No caffeine: Yes Review of Systems Constitutional Constitutional: Reports anorexia, Reports body ache(s) and Reports fatigue Eyes Eyes: Denies eye discharge, Denies dry eyes, Denies irritation and Denies itchy eyes ENT Ears, Nose, Mouth, and Throat: Denies epistaxis, Denies facial pain, Denies lip swelling and Denies throat swelling *Cardiovascular Cardiovascular: Reports dyspnea and Reports dyspnea on exertion *Respiratory Respiratory: Reports change in phlegm color, Reports chest congestion, Reports cough, Reports dyspnea, Reports dyspnea on exertion, Reports excessive phlegm production and Reports wheezing *Gastrointestinal Gastrointestinal: Denies abdominal pain, Denies belching and Denies cramping *Musculoskeletal Musculoskeletal: Reports back pain, Reports myalgias and Reports other (No small joint swelling or Pain) Psychiatric Psychiatric: Denies homicidal ideation and Denies suicidal ideation Endocrine Endocrine: Reports fatigue and Denies heat intolerance Hematologic/Lymphatic Hematologic/Lymphatic: Denies easy bleeding and Denies lymphadenopathy Allergic/Immunologic Allergic/Immunologic: Denies itchy eyes, Denies lip swelling, Denies throat swelling and Reports wheezing Pulmonology Exam Inpatient Vital signs and Labs for Last 24 Hours: Temp Pulse Resp BP Pulse Ox O2 Del Method O2 Flow Rate 98.2 F 106 H 16 134/74 95 Nasal Cannula 2 03/31/23 08:00 03/31/23 09:12 03/31/23 08:00 03/31/23 08:00 03/31/23 08:00 03/31/23 08:00 03/31/23 05:56 FiO2 28 03/30/23 19:43 Laboratory Results - last 24 hr 03/31/23 06:20: WBC 18.3 H D, RBC 4.03 L, Hgb 13.1, Hct 39.4, MCV 97.7, MCH 32.6 H, MCHC 33.3, RDW 14.6, Plt Count 393, MPV 8.4, Neut % (Auto) 78.0, Lymph % (Auto) 16.2, [place] % (Auto) 5.3, Eos % (Auto) 0.3, Baso % (Auto) 0.1, Neut # (Auto) 14.3 H, Lymph # (Auto) 3.0, [place] # (Auto) 1.0, Eos # (Auto) 0.1, Baso # (Auto) 0.0, Sodium 138, Potassium 4.2, Chloride 102, Carbon Dioxide 33 H, Anion Gap 7.2, BUN 21 H, Creatinine 0.70, Estimated Creat Clear 60, Estimated GFR 83, Est GFR ( Amer) 101, Glucose 85 D, Calcium 8.4 I & O for Labs for Last 24 Hours: Intake & Output 03/28/23 03/29/23 03/30/23 03/31/23 23:59 23:59 23:59 23:59 Intake Total 1080 / 1080 Output Total 0 / 0 0 / 0 0 / 0 Balance 0 / 0 1080 / 1080 0 / 0 Weight 153 lb 6 oz 156 lb 2 oz 156 lb 1.996 oz Constitutional: Present moderate distress Head: Present normocephalic and atraumatic ENT: Present normal exam, normal oropharynx and mucous membranes moist Neck: Present normal inspection and full ROM Respiratory: Present respiratory distress, wheezes and able to speak in complete sentences Cardiac: Present S1/S2, Tachycardia and radial pulses present GI: Present soft and distention; Absent tenderness or guarding Rectal (female): Present deferred (female): Present deferred Skin: Present intact; Absent cyanosis or jaundice Neuro: Present alert, awake and oriented x 3 Extremities: Present normal inspection; Absent clubbing or cyanosis Psychiatric: Present normal affect and cooperative Meds Home Medications and Allergies Home Medications Medication Instructions Recorded Confirmed Type calcium 250 mg-D3 400 1 mg PO DAILY Supplement 06/02/20 03/30/23 History unit-magnesium 40 [id number]-A6-Cn-copper-valdo tablet sumatriptan succinate 100 mg tablet 100 mg PO DAILYP PRN Migraine 06/25/20 03/29/23 History Headache albuterol sulfate 90 mcg/actuation 2 puff inhalation Q6HP PRN 10/31/21 03/29/23 History aerosol inhaler (ProAir HFA) Shortness Of Breath losartan 25 mg tablet 25 mg PO DAILY High Blood Pressure 04/10/22 03/30/23 History hydrochlorothiazide 12.5 mg tablet 12.5 mg PO DAILY Fluid 10/01/22 03/29/23 History fluticasone fur. 100 mcg-umeclid 1 inh inhalation DAILY Copd 03/29/23 03/29/23 History 62.5 mcg-vilant 25 mcg inhalat.powder (Trelegy Ellipta) ipratropium 0.5 mg-albuterol 3 mg 3 ml inhalation Q6HP PRN wheezing 03/29/23 03/29/23 History (2.5 mg base)/3 mL nebulization soln prednisone 10 mg tablet 10 mg PO DAILY Copd 03/29/23 03/30/23 History New Prescriptions to Start Prescriptions: Allergies Allergy/AdvReac Type Severity Reaction Status Date / Time No Known Allergies Allergy Verified 01/15/23 10:12 Results Laboratory Findings 03/31/23 06:20 03/31/23 06:20 PT/INR, D-dimer D-Dimer 0.73 ug/mL (0.0-0.5) H 03/29/23 10:24 Abnormal lab findings: Abnormal Labs 03/29/23 03/29/23 03/30/23 10:18 10:24 07:51 WBC 27.3 H* 24.6 H* RBC MCV 100.2 H MCH 31.5 H 32.5 H Neut % (Auto) 85.6 H 89.6 H Lymph % (Auto) 8.8 L 5.5 L Neut # (Auto) 23.3 H 22.0 H [place] # (Auto) 1.1 H 1.1 H Neutrophils % (Manual) 84 H 91 H Lymphocytes % (Manual) 6 L D-Dimer 0.73 H VBG pCO2 52.2 H VBG pO2 49.3 H VBG Total CO2 31.5 H VBG O2 Saturation 87.0 H VBG Base Excess 4.7 H Carbon Dioxide 33 H 32 H BUN 18 H 21 H Glucose 110 H 155 H D Magnesium 2.4 H 03/31/23 06:20 WBC 18.3 H D RBC 4.03 L MCV MCH 32.6 H Neut % (Auto) Lymph % (Auto) Neut # (Auto) 14.3 H [place] # (Auto) Neutrophils % (Manual) Lymphocytes % (Manual) D-Dimer VBG pCO2 VBG pO2 VBG Total CO2 VBG O2 Saturation VBG Base Excess Carbon Dioxide 33 H BUN 21 H Glucose Magnesium Assessment and Plan *Assessment and plan (1) Acute exacerbation of chronic obstructive pulmonary disease: Status: Acute Category: Medical Code(s): J44.1 - Chronic obstructive pulmonary disease with (acute) exacerbation (2) Pneumonia: Status: Acute Category: Medical Code(s): J18.9 - Pneumonia, unspecified organism (3) Acute respiratory failure with hypoxia: Status: Acute Category: Medical Code(s): J96.01 - Acute respiratory failure with hypoxia Plan Ms. Mobley is a 67-year-old female greater than [id number] smoking history, COPD stage III on Trelegy 100 inhaler last seen in pulmonary clinic in December 2022 presented to the ER with worsening respiratory distress pulmonary was called for further evaluation and management. Patient complains of frequent exacerbations for the last 4 to 5 weeks not returning to her baseline. Symptoms started getting worse after her diagnosis of COVID-19 pneumonia. Mild COVID managed as an outpatient basis. Did not receive any COVID-specific treatment. Patient reported recent history of COVID-19 pneumonia and recovering from COPD exacerbation prior to this hospital admission. She was receiving prednisone and cefdinir as an outpatient basis. Chest x-ray upon admission, no dense consolidation/airspace disease noted. Hyperinflated lungs consistent with COPD. Significant neutrophilic predominant leukocytosis upon admission, improving. Was initiated on levofloxacin along with continuation of her prednisone. Comprehensive respiratory viral PCR panel negative. On initial examination no significant wheezing noted. Patient appeared to be in mild to moderate respiratory distress with significant cough with productive phlegm. No sputum cultures available for review. Still needing oxygen supplementation and 1 to 2 L saturating 90% on room air. Plan: Continue current antibiotics including levofloxacin to complete a total of 5-day course Continue DuoNebs every 4 hours along with Pulmicort every 12 scheduled Follow-up with sputum culture results Continue prednisone 40 mg daily for a total of 5 days # Thank you for involving pulmonary in this patient care. Will continue to follow for
[2023-03-31 11:09] LABS: Lymphocytes % 18 % (10-50); Monocytes % 4 % (2-9); Neutrophils % 76 % (42-76); Total Cells Counted 100
[2023-03-31 11:21] LABS: Macrocytosis 1+; Platelet Estimate Normal
[2023-03-31 11:22] LABS: Anisocytosis 1+
--- NOTE | 2023-03-31 14:34 | P.PN_ITS ---
Subjective *Date: 03/31/23 *Time: 14:34 Interval history: Patient continues to have productive cough, states she feels terrible this morning. No fever overnight. No nausea or vomiting. White cell count improving at 18. Stable on 2 L nasal cannula oxygen. Pulmonary seeing her today Medical Exam Vital signs and Labs for Last 24 Hours: Vital Signs Temp Pulse Pulse Resp BP Pulse Ox O2 Del Method 03/31/23 13:00 Nasal Cannula 03/31/23 12:00 91 H 21 127/72 95 Nasal Cannula 03/31/23 11:00 Nasal Cannula 03/31/23 08:00 Nasal Cannula 03/31/23 09:00 Nasal Cannula 03/31/23 09:12 106 H 03/31/23 09:12 110 H 03/31/23 08:00 98.2 F 104 H 16 134/74 95 Nasal Cannula 03/31/23 04:00 100 H 03/31/23 05:56 88 03/31/23 05:56 96 H 03/31/23 05:56 95 Nasal Cannula 03/31/23 05:00 Nasal Cannula 03/31/23 04:00 98.5 F 91 H 16 119/61 97 Nasal Cannula 03/31/23 03:00 Nasal Cannula 03/31/23 00:00 90 03/31/23 02:05 91 H 03/31/23 02:05 90 03/31/23 01:00 Nasal Cannula 03/30/23 23:00 Nasal Cannula 03/30/23 21:00 Nasal Cannula 03/30/23 20:00 110 H 03/31/23 00:00 98.4 F 90 18 130/83 97 Nasal Cannula 03/30/23 22:30 98 H Nasal Cannula 03/30/23 20:00 98.3 F 104 H 20 133/59 L 92 L Nasal Cannula 03/30/23 21:50 91 H 03/30/23 21:49 93 H 03/30/23 19:43 Nasal Cannula 03/30/23 19:42 97 H 03/30/23 19:42 91 H 03/30/23 19:00 Nasal Cannula 03/30/23 16:00 97.6 F 109 H 17 139/86 96 Nasal Cannula 03/30/23 17:00 Nasal Cannula 03/30/23 15:00 Nasal Cannula 03/30/23 15:02 96 H 03/30/23 15:02 102 H O2 Flow Rate FiO2 03/31/23 13:00 2 03/31/23 12:00 03/31/23 11:00 2 03/31/23 08:00 03/31/23 09:00 2 03/31/23 09:12 03/31/23 09:12 03/31/23 08:00 03/31/23 04:00 03/31/23 05:56 03/31/23 05:56 03/31/23 05:56 2 03/31/23 05:00 3 03/31/23 04:00 2 03/31/23 03:00 3 03/31/23 00:00 03/31/23 02:05 03/31/23 02:05 03/31/23 01:00 3 03/30/23 23:00 3 03/30/23 21:00 3 03/30/23 20:00 03/31/23 00:00 2 03/30/23 22:30 3 03/30/23 20:00 03/30/23 21:50 03/30/23 21:49 03/30/23 19:43 2 28 03/30/23 19:42 03/30/23 19:42 03/30/23 19:00 03/30/23 16:00 03/30/23 17:00 03/30/23 15:00 03/30/23 15:02 03/30/23 15:02 Intake and Output 03/30/23 03/31/23 03/31/23 23:59 07:59 15:59 Intake Total 360 / 1080 780 / 780 Output Total 0 / 0 0 / 0 Balance 360 / 1080 0 / 780 780 / 780 Intake: Intake, Oral Amount 360 / 1080 780 / 780 Output: Output, Urine Amount 0 / 0 0 / 0 Other: Number of Voids 2 Number of Unmeasured Voids 1 1 Weight 70.817 kg Patient Weight 03/31/23 23:59 Weight 70.817 kg Laboratory Results - last 24 hr 03/31/23 06:20: WBC 18.3 H D, RBC 4.03 L, Hgb 13.1, Hct 39.4, MCV 97.7, MCH 32.6 H, MCHC 33.3, RDW 14.6, Plt Count 393, MPV 8.4, Neut % (Auto) 78.0, Lymph % (Auto) 16.2, [place] % (Auto) 5.3, Eos % (Auto) 0.3, Baso % (Auto) 0.1, Neut # (Auto) 14.3 H, Lymph # (Auto) 3.0, [place] # (Auto) 1.0, Eos # (Auto) 0.1, Baso # (Auto) 0.0, Total Counted 100, Neutrophils % (Manual) 76, Band Neutrophils % 2.0, Lymphocytes % (Manual) 18, Monocytes % (Manual) 4, Platelet Estimate Normal, Anisocytosis 1+, Macrocytosis 1+, Sodium 138, Potassium 4.2, Chloride 102, Carbon Dioxide 33 H, Anion Gap 7.2, BUN 21 H, Creatinine 0.70, Estimated Creat Clear 60, Estimated GFR 83, Est GFR ( Amer) 101, Glucose 85 D, Calcium 8.4 I & O for Labs for Last 24 Hours: Intake & Output 03/28/23 03/29/23 03/30/23 03/31/23 23:59 23:59 23:59 23:59 Intake Total 1080 / 1080 780 / 780 Output Total 0 / 0 0 / 0 0 / 0 Balance 0 / 0 1080 / 1080 780 / 780 Weight 69.57 kg 70.817 kg 70.817 kg Constitutional: Present no acute distress, average body habitus, chronically ill appearing and cooperative Head: Present atraumatic and normocephalic ENT: Present normal exam Neck: Present normal inspection Respiratory: Present rhonchi, wheezes and normal respiratory effort; Absent crackles Cardiac: Present Reg Rate and Rhythm GI: Present soft and normal bowel sounds; Absent distention or tenderness Extremities: Present normal inspection and full ROM; Absent edema Skin: Present intact; Absent erythema Neuro: Present Grossly Intact, alert, awake, oriented x 3 and moves all extremities Assessment and Plan *Assessment and plan (1) Acute on chronic respiratory failure with hypoxemia: Status: Acute Category: Medical Code(s): J96.21 - Acute and chronic respiratory failure with hypoxia (2) Acute exacerbation of chronic obstructive pulmonary disease: Status: Acute Category: Medical Code(s): J44.1 - Chronic obstructive pulmonary disease with (acute) exacerbation (3) Personal history of nicotine dependence: Status: Chronic Category: Medical Code(s): Z87.891 - Personal history of nicotine dependence (4) HTN (hypertension): Status: Acute Category: Medical Code(s): I10 - Essential (primary) hypertension Plan 67-year-old female presents with worsening shortness of breath. Concern for COPD exacerbation with failure of recent outpatient treatment. Discussed case with ER physician, request admission due to new oxygen requirement. Medicine agreed to admit. Initiated on antibiotics and steroids. Continues to require inpatient management. Showing slow improvement. Problems addressed as follows: COPD exacerbation with worsening acute on chronic hypoxemic respiratory failure. -DuoNebs every 4 hours scheduled, Budesonide twice daily scheduled - Will continue prednisone 40 mg daily x 5 days; levofloxacin 750 mg daily for 5 days -White cell count elevated but improving at 18.3 -Guaifenesin/dextromethorphan 10 mL every 6 hours as needed for cough -Sputum sample pending. -Supplemental oxygen with goal saturation greater 90%, currently on 2 L. - Continue Trelegy inhaler daily - Pulmonology consulted, discussed case today, recommends continuing treatment as above. No changes to antibiotics. Monitor for improvement. Symptoms most consistent with severe COPD exacerbation, slow to improve. Continue HCTZ 12.5 mg daily for hypertension Tobacco use disorder, nicotine patch daily as needed CBC, CMP, magnesium ordered for the morning Full code Regular diet Lovenox 40 mg subcu daily
[2023-03-31] MEDS: NICOTINE 21MG/24HR PATCH 21 MG TD (15:08)
--- NOTE | 2023-03-31 18:13 | PC.NURSE ---
PT IS RESTING IN BED. ALERT AND ORIENTED X4. EATING AND DRINKING FAIR. AMBULATES TO THE BATHROOM. 02 SATURATION HAS MAINTAINED 90-93 ON 2 L NC. LUNG SOUNDS DIMINISHED WITH SCATTERED WHEEZES. ABDOMEN SOFT/NON TENDER WITH ACTIVE BOWEL SOUNDS. VSS. WILL CONTINUE TO MONITOR.
[2023-03-31] MEDS: levoFLOXacin 750 MG TABLET PO (18:56)
[2023-03-31] MEDS: GUAIFENESIN/DEXTROMETHORPHAN 200MG/20MG 10ML UDC 10 ML PO (23:27)
[2023-04-01] VITALS (9 sets, daily range): BP systolic 133–143; BP diastolic 69–92; PULSE 69–102; RESP 18–22; TEMP 36.6–36.8; O2SAT 88–100; BMI 26.3
[2023-04-01] MEDS: IPRATROPIUM/ALBUTEROL 3 ML NEB IH ×2 (06:12→09:56)
[2023-04-01] MEDS: BUDESONIDE 0.5MG/2ML NEB 0.5 MG IH (06:12)
[2023-04-01 06:48] LABS: Basophils # 0.1 K/mm3 (0-0.2); Basophils % 0.4 % (0.1-2.0); Eosinophils # 0.1 K/mm3 (0.0-0.4); Eosinophils % 0.6 % (0.1-12.0); Hematocrit 41.3 % (37.0-47.0); Hemoglobin 13.7 g/dL (12.2-16.2); Lymphocytes # 2.8 K/mm3 (0.7-4.5); Mean Corpuscular HGB Conc 33.1 g/dL (31.8-35.4); Mean Corpuscular Hemoglobin 32.4 pg (27.0-31.2); Mean Corpuscular Volume 97.8 fl (81-99); Mean Platelet Volume 9.8 fl (7.4-10.4); Monocytes # 0.9 K/mm3 (0.1-1.0); Monocytes % 5.4 % (1.7-9.3); Neutrophils # 11.9 K/mm3 (1.8-7.8); Neutrophils % 75.6 % (37.0-80.0); Platelet Count 404 K/mm3 (142-424); Red Blood Count 4.22 M/mm3 (4.20-5.40); Red Cell Distribution Width 14.5 % (11.5-17.5); White Blood Count 15.7 K/mm3 (4.8-10.8)
[2023-04-01 06:51] LABS: Chloride 102 mmol/L (98-107)
[2023-04-01 06:52] LABS: Potassium 4.2 mmoL/L (3.5-5.1); Sodium 138 mmol/L (136-145)
[2023-04-01 06:53] LABS: MANUAL DIFFERENTIAL MANUAL DIFFERENTIAL (MANUAL DIFF)
[2023-04-01 06:54] LABS: Alanine Aminotransferase 29 U/L (12-78); Aspartate Amino Transferase 35 U/L (14-36); Blood Urea Nitrogen 19 mg/dl (7-17); Creatinine Clearance Estimated 61 mL/min (50-200); Estimated Glomerular Filt Rate 83 ml/min (>60); GFR (African American) 101 ML/MIN (>60)
[2023-04-01 06:55] LABS: Albumin Level 3.6 g/dl (3.5-5.0); Albumin/Globulin Ratio 1.4 (1.1-1.8); Alkaline Phosphatase 55 U/L (38-126); Anion Gap 6.2 mEq/L (5-15); Bilirubin,Total 0.4 mg/dl (0.2-1.3); Calcium 8.9 mg/dl (8.4-10.2); Carbon Dioxide 34 mmol/L (22.0-30.0); Globulin 2.6 g/dL (1.3-3.2); Glucose 106 mg/dl (74-100); Magnesium 2.1 mg/dl (1.6-2.3); Total Protein,Serum 6.2 g/dl (6.3-8.2)
--- NOTE | 2023-04-01 07:27 | P.DS_ITS ---
General Admission date:: 03/29/23 Discharge date: 04/01/23 HPI HPI HPI: Ms. Mobley is a 67-year-old female with tobacco use disorder, COPD, oxygen dependence at night. States that she had worsening shortness of breath over the past 3 days. Reports having COVID last month and felt like she was getting better until she developed in a COPD exacerbation 1 week ago. Initiated on cefdinir and prednisone. Was getting better until 2 to 3 days ago when she developed worsening shortness of breath. Was smoking until 3 days ago, half to a pack a day. Multiple sick contacts at home. From the ER because of worsening shortness of breath, increased sputum production, increased wheezing. In the ER was found to be hypoxic necessitating higher oxygen than her normal baseline. Initiated on steroids and breathing treatments. Medicine consulted for admission. On evaluation, reports green sputum. Denies fever but feels weak and fatigued. Has a roommate who works in childcare, they have all had cough congestion and respiratory symptoms for the past month Hospital Course Hospital Course Hospital Course: 67-year-old female presents with worsening shortness of breath. Concern for COPD exacerbation with failure of recent outpatient treatment. Discussed case with ER physician, request admission due to new oxygen requirement. Medicine agreed to admit. Initiated on antibiotics and steroids. Oxygen has been slow to wean. Pulmonology consulted to assist with care. Stable and meeting criteria to discharge home to continue to convalesce. Problems addressed as follows: COPD exacerbation withacute on chronic hypoxemic respiratory failure. -Patient is for increased oxygen requirement. Initiated on breathing treatments, steroids, antibiotics. Pulmonology consulted and assisted with care. Patient showed improvement in her white count. Initially 27 on admission, improved to 15 by day of discharge. Sputum was thinning doing better. Weaned to 2 L nasal cannula oxygen with a room air of 88% on morning of discharge. Will complete 5 days of prednisone starting on day of discharge and complete 5 total days of antibiotics with levofloxacin 750 mg daily. Clinically patient doing better. Continue with Trelegy inhaler. Follow-up with pulmonology in a week for reevaluation. Continue HCTZ 12.5 mg daily for hypertension Tobacco use disorder, nicotine patch daily as needed. Prescribed at discharge Exam Data for Last 24 hours Vital signs and Labs for Last 24 Hours: Temp Pulse Resp BP Pulse Ox O2 Del Method O2 Flow Rate 98.1 F 96 H 22 143/92 H 95 Nasal Cannula 2 04/01/23 04:00 04/01/23 06:13 04/01/23 04:00 04/01/23 04:00 04/01/23 06:13 04/01/23 07:00 04/01/23 07:00 FiO2 28 03/30/23 19:43 Laboratory Results - last 24 hr 03/31/23 06:20: WBC 18.3 H D, RBC 4.03 L, Hgb 13.1, Hct 39.4, MCV 97.7, MCH 32.6 H, MCHC 33.3, RDW 14.6, Plt Count 393, MPV 8.4, Neut % (Auto) 78.0, Lymph % (Auto) 16.2, [place] % (Auto) 5.3, Eos % (Auto) 0.3, Baso % (Auto) 0.1, Neut # (Auto) 14.3 H, Lymph # (Auto) 3.0, [place] # (Auto) 1.0, Eos # (Auto) 0.1, Baso # (Auto) 0.0, Total Counted 100, Neutrophils % (Manual) 76, Band Neutrophils % 2.0, Lymphocytes % (Manual) 18, Monocytes % (Manual) 4, Platelet Estimate Normal, Anisocytosis 1+, Macrocytosis 1+, Sodium 138, Potassium 4.2, Chloride 102, Carbon Dioxide 33 H, Anion Gap 7.2, BUN 21 H, Creatinine 0.70, Estimated Creat Clear 60, Estimated GFR 83, Est GFR ( Amer) 101, Glucose 85 D, Calcium 8.4 04/01/23 05:39: WBC 15.7 H, RBC 4.22, Hgb 13.7, Hct 41.3, MCV 97.8, MCH 32.4 H, MCHC 33.1, RDW 14.5, Plt Count 404, MPV 9.8, Neut % (Auto) 75.6, Lymph % (Auto) 18.0, [place] % (Auto) 5.4, Eos % (Auto) 0.6, Baso % (Auto) 0.4, Neut # (Auto) 11.9 H, Lymph # (Auto) 2.8, [place] # (Auto) 0.9, Eos # (Auto) 0.1, Baso # (Auto) 0.1, Sodium 138, Potassium 4.2, Chloride 102, Carbon Dioxide 34 H, Anion Gap 6.2, BUN 19 H, Creatinine 0.70, Estimated Creat Clear 61, Estimated GFR 83, Est GFR ( Amer) 101, Glucose 106 H D, Calcium 8.9, Magnesium 2.1 D, Total Bilirubin 0.4, AST 35, ALT 29, Alkaline Phosphatase 55, Total Protein 6.2 L, Albumin 3.6, Globulin 2.6, Albumin/Globulin Ratio 1.4 I & O for Last 24 hours: Intake & Output 03/29/23 03/30/23 03/31/23 04/01/23 23:59 23:59 23:59 23:59 Intake Total 1080 / 1080 1140 / 1140 Output Total 0 / 0 0 / 0 0 / 0 0 / 0 Balance 0 / 0 1080 / 1080 1140 / 1140 0 / 0 Weight 69.57 kg 70.817 kg 70.817 kg 71.758 kg Constitutional Constitutional: no acute distress, average body habitus, chronically ill appearing and cooperative *Routine HEENT Exam Head: Present normocephalic Eye: Present EOMI and PERRL ENT: Present mucous membranes moist *Routine Neck Exam Neck: Present supple; Absent lymphadenopathy *Routine Respiratory Exam Respiratory: Present prolonged expiratory phase, rhonchi, wheezes (minimal end expiratory) and normal respiratory effort; Absent crackles *Routine Cardiovascular Exam Cardiovascular: Present RRR *Routine Abdominal Exam Abdominal: Present soft and normoactive bowel sounds; Absent tenderness *Routine Extremities Exam Extremities: Absent cyanosis, clubbing or edema *Routine Skin Exam Skin: Present warm; Absent rash *Routine Neurological Exam Neurological: Present alert, oriented X3 and moving all extremities; Absent altered mental status Results Data Completed and Pending Labs on day of discharge: Labs from last 24 hours 04/01/23 03/31/23 05:39 06:20 WBC 15.7 H 18.3 H D RBC 4.22 4.03 L Hgb 13.7 13.1 Hct 41.3 39.4 MCV 97.8 97.7 MCH 32.4 H 32.6 H MCHC 33.1 33.3 RDW 14.5 14.6 Plt Count 404 393 MPV 9.8 8.4 Neut % (Auto) 75.6 78.0 Lymph % (Auto) 18.0 16.2 [place] % (Auto) 5.4 5.3 Eos % (Auto) 0.6 0.3 Baso % (Auto) 0.4 0.1 Neut # (Auto) 11.9 H 14.3 H Lymph # (Auto) 2.8 3.0 [place] # (Auto) 0.9 1.0 Eos # (Auto) 0.1 0.1 Baso # (Auto) 0.1 0.0 Total Counted 100 Neutrophils % (Manual) 76 Band Neutrophils % 2.0 Lymphocytes % (Manual) 18 Monocytes % (Manual) 4 Platelet Estimate Normal Anisocytosis 1+ Macrocytosis 1+ Sodium 138 138 Potassium 4.2 4.2 Chloride 102 102 Carbon Dioxide 34 H 33 H Anion Gap 6.2 7.2 BUN 19 H 21 H Creatinine 0.70 0.70 Estimated Creat Clear 61 60 Estimated GFR 83 83 Est GFR ( Amer) 101 101 Glucose 106 H D 85 D Calcium 8.9 8.4 Magnesium 2.1 D Total Bilirubin 0.4 AST 35 ALT 29 Alkaline Phosphatase 55 Total Protein 6.2 L Albumin 3.6 Globulin 2.6 Albumin/Globulin Ratio 1.4 DS: Diagnosis Discharge Diagnosis (1) Acute on chronic respiratory failure with hypoxemia: Status: Acute Code(s): J96.21 - Acute and chronic respiratory failure with hypoxia (2) Acute exacerbation of chronic obstructive pulmonary disease: Status: Acute Code(s): J44.1 - Chronic obstructive pulmonary disease with (acute) exacerbation (3) Personal history of nicotine dependence: Status: Chronic Code(s): Z87.891 - Personal history of nicotine dependence (4) HTN (hypertension): Status: Acute Code(s): I10 - Essential (primary) hypertension Meds Home Medications and Allergies Home Medications Medication Instructions Recorded Confirmed Type calcium 250 mg-D3 400 1 mg PO DAILY Supplement 06/02/20 03/30/23 History unit-magnesium 40 [id number]-[id number] tablet sumatriptan succinate 100 mg tablet 100 mg PO DAILYP PRN Migraine 06/25/20 03/29/23 History Headache albuterol sulfate 90 mcg/actuation 2 puff inhalation Q6HP PRN 10/31/21 03/29/23 History aerosol inhaler (ProAir HFA) Shortness Of Breath losartan 25 mg tablet 25 mg PO DAILY High Blood Pressure 04/10/22 03/30/23 History hydrochlorothiazide 12.5 mg tablet 12.5 mg PO DAILY Fluid 10/01/22 03/29/23 History fluticasone fur. 100 mcg-umeclid 1 inh inhalation DAILY Copd 03/29/23 03/29/23 History 62.5 mcg-vilant 25 mcg inhalat.powder (Trelegy Ellipta) ipratropium 0.5 mg-albuterol 3 mg 3 ml inhalation Q6HP PRN wheezing 03/29/23 03/29/23 History (2.5 mg base)/3 mL nebulization soln prednisone 10 mg tablet 10 mg PO DAILY Copd 03/29/23 03/30/23 History levofloxacin 750 mg tablet 750 mg PO 1800 2 days #2 tabs 04/01/23 Rx nicotine 21 mg/24 hr daily 21 mg transdermal DAILYP PRN 04/01/23 Rx transdermal patch Nicotine Cravings 28 days #28 ea prednisone 20 mg tablet 40 mg PO DAILY 5 days #10 tabs 04/01/23 Rx New Prescriptions to Start Prescriptions: Jayesh Mendoza nicotine Matt,Jayesh prednisone Jayesh Gutierrez Allergies Allergy/AdvReac Type Severity Reaction Status Date / Time No Known Allergies Allergy Verified 01/15/23 10:12 Discharge Plan Disposition Patient Disposition: Home, Self-Care Condition: Fair Discharge Order Discharge Orders: Discharge Order (Routine); Ordered 04/01/23 Ordered By: Jayesh Gutierrez Follow up Plan Follow up with: Vikki Jung MD [Physician] - 04/08/23 1:15 pm Mansoor Lamas MD [Primary Care Provider] - 04/04/23 3:45 pm Prescriptions/Medication Reconciliation: New nicotine 21 mg/24 hr Patch 24 Hour 21 mg transdermal DAILYP PRN (Reason: Nicotine Cravings) 28 Days Qty: 28 0RF prednisone 20 mg Tablet 40 mg PO DAILY 5 Days Qty: 10 0RF levofloxacin 750 mg Tablet 750 mg PO 1800 2 Days Qty: 2 0RF Continued albuterol sulfate [ProAir HFA] 90 mcg/actuation HFA aerosol inhaler 2 puff inhalation Q6HP PRN (Reason: Shortness Of Breath) losartan 25 mg tablet 25 mg PO DAILY hydrochlorothiazide 12.5 mg tablet 12.5 mg PO DAILY [id number]-Gk-valdo 1 EACH tablet 1 mg PO DAILY sumatriptan succinate 100 MG tablet 100 mg PO DAILYP PRN (Reason: Migraine Headache) prednisone 10 mg tablet 10 mg PO DAILY ipratropium-albuterol 0.5 mg-3 mg(2.5 mg base)/3 mL solution for nebulization 3 ml inhalation Q6HP PRN (Reason: wheezing) Rx Instructions: Do not combine with other breathing treatments Trelegy Ellipta 100-62.5-25 mcg blister with device 1 inh inhalation DAILY Problem Reconciliation Problems Reviewed?: Yes Patient Discharge Instructions ACTIVITY: Continue current activity DIET: continue same diet Patient Instructions: DI for Chronic Obstructive Pulmonary Disease, DI for Pneumonia -- Adult, Smoking Resource: your quit plan Providers Primary Care Provider: Mansoor Lamas Admit Provider: Jayesh Gutierrez Attending Provider: Jayesh Gutierrez
[2023-04-01 08:35] LABS: Lymphocytes % 25 % (10-50); Monocytes % 2 % (2-9); Neutrophils % 72 % (42-76); Total Cells Counted 100
[2023-04-01 08:36] LABS: Anisocytosis 1+; Macrocytosis 1+; Platelet Estimate Slight Increase
[2023-04-01 08:37] LABS: Spherocytes 1+
[2023-04-01] MEDS: hydroCHLOROthiazide 12.5MG CAPSULE 12.5 MG PO (09:01)
[2023-04-01] MEDS: predniSONE 20MG TAB 40 MG PO (09:01)
--- NOTE | 2023-04-01 09:56 | P.PN_ITS ---
Subjective *Date: 04/01/23 *Time: 11:21 Interval history: No acute respiratory events overnight. Stable oxygen garments. Patient denies any new respiratory complaints. Pulmonology Exam Inpatient Vital signs and Labs for Last 24 Hours: Temp Pulse Resp BP Pulse Ox O2 Del Method O2 Flow Rate 98.1 F 101 H 18 133/74 95 Nasal Cannula 2 04/01/23 07:59 04/01/23 07:59 04/01/23 07:59 04/01/23 07:59 04/01/23 08:00 04/01/23 08:38 04/01/23 08:38 FiO2 28 03/30/23 19:43 Laboratory Results - last 24 hr 03/31/23 06:20: Total Counted 100, Neutrophils % (Manual) 76, Band Neutrophils % 2.0, Lymphocytes % (Manual) 18, Monocytes % (Manual) 4, Platelet Estimate Normal, Anisocytosis 1+, Macrocytosis 1+ 04/01/23 05:39: WBC 15.7 H, RBC 4.22, Hgb 13.7, Hct 41.3, MCV 97.8, MCH 32.4 H, MCHC 33.1, RDW 14.5, Plt Count 404, MPV 9.8, Neut % (Auto) 75.6, Lymph % (Auto) 18.0, [place] % (Auto) 5.4, Eos % (Auto) 0.6, Baso % (Auto) 0.4, Neut # (Auto) 11.9 H, Lymph # (Auto) 2.8, [place] # (Auto) 0.9, Eos # (Auto) 0.1, Baso # (Auto) 0.1, Total Counted 100, Neutrophils % (Manual) 72, Band Neutrophils % 1.0, Lymphocytes % (Manual) 25, Monocytes % (Manual) 2, Platelet Estimate Slight increase, Anisocytosis 1+, Macrocytosis 1+, Spherocytes 1+, Sodium 138, Potassium 4.2, Chloride 102, Carbon Dioxide 34 H, Anion Gap 6.2, BUN 19 H, Creatinine 0.70, Estimated Creat Clear 61, Estimated GFR 83, Est GFR ( Amer) 101, Glucose 106 H D, Calcium 8.9, Magnesium 2.1 D, Total Bilirubin 0.4, AST 35, ALT 29, Alkaline Phosphatase 55, Total Protein 6.2 L, Albumin 3.6, Globulin 2.6, Albumin/Globulin Ratio 1.4 I & O for Labs for Last 24 Hours: Intake & Output 03/29/23 03/30/23 03/31/23 04/01/23 23:59 23:59 23:59 23:59 Intake Total 1080 / 1080 1140 / 1140 240 / 240 Output Total 0 / 0 0 / 0 0 / 0 0 / 0 Balance 0 / 0 1080 / 1080 1140 / 1140 240 / 240 Weight 153 lb 6 oz 156 lb 2 oz 156 lb 1.996 oz 158 lb 3.2 oz Constitutional: Present moderate distress Head: Present normocephalic and atraumatic ENT: Present normal exam, normal oropharynx and mucous membranes moist Neck: Present normal inspection and full ROM Respiratory: Present respiratory distress and able to speak in complete sentences; Absent wheezes Cardiac: Present S1/S2, Tachycardia and radial pulses present GI: Present soft and distention; Absent tenderness or guarding Rectal (female): Present deferred (female): Present deferred Skin: Present intact; Absent cyanosis or jaundice Neuro: Present alert, awake and oriented x 3 Extremities: Present normal inspection; Absent clubbing or cyanosis Psychiatric: Present normal affect and cooperative Assessment and Plan *Assessment and plan (1) Acute exacerbation of chronic obstructive pulmonary disease: Status: Acute Category: Medical Code(s): J44.1 - Chronic obstructive pulmonary disease with (acute) exacerbation (2) Pneumonia: Status: Acute Category: Medical Code(s): J18.9 - Pneumonia, unspecified organism (3) Acute respiratory failure with hypoxia: Status: Acute Category: Medical Code(s): J96.01 - Acute respiratory failure with hypoxia Plan Ms. Mboley is a 67-year-old female greater than [id number] smoking history, COPD stage III on Trelegy 100 inhaler last seen in pulmonary clinic in December 2022 presented to the ER with worsening respiratory distress pulmonary was called for further evaluation and management. Patient complains of frequent exacerbations for the last 4 to 5 weeks not returning to her baseline. Symptoms started getting worse after her diagnosis of COVID-19 pneumonia. Mild COVID managed as an outpatient basis. Did not receive any COVID-specific treatment. Patient reported recent history of COVID-19 pneumonia and recovering from COPD exacerbation prior to this hospital admission. She was receiving prednisone and cefdinir as an outpatient basis. Chest x-ray upon admission, no dense consolidation/airspace disease noted. Hyperinflated lungs consistent with COPD. Significant neutrophilic predominant leukocytosis upon admission, improving. Was initiated on levofloxacin along with continuation of her prednisone. Comprehensive respiratory viral PCR panel negative. On initial examination no significant wheezing noted. Patient appeared to be in mild to moderate respiratory distress with significant cough with productive phlegm. No sputum cultures available for review. Still needing oxygen supplementation and 1 to 2 L saturating 90% on room air. Interval update: No acute respiratory vents overnight Plan: Continue nasal cannula oxygen supplementation to maintain O2 saturation goal of 90 to 95%. Patient currently on 1 L saturating 93%. Continue current antibiotics including levofloxacin to complete a total of 5-day course Patient can be sent home on home inhaler therapy including Trelegy 100 alongfinal with DuoNebs every 6 hours on as-needed basis Follow-up with sputum culture results Continue prednisone 40 mg daily x 5 days starting today # Thank you for involving pulmonary in this patient care. Will follow the patient in pulmonary clinic in 5 to 7 days post discharge
--- NOTE | 2023-04-04 12:10 | CARE MANAGER ---
Contacted patient related to hospital discharge. Patient states she is feeling a little better, but it is taking time. She has her new medications and is aware of her follow up appointments. She denies questions or concerns. JOSE CARLOS Serrano
== END 2023-04-01 13:20 | disposition home or self-care (01) | DRG 190 ==
LOC: ER 11:11 → 2ND 12:53
PROVIDERS: Admitting Provider Internal Medicine Adolescent Medicine; Emergency Provider Student in an Organized Health Care Education/Training Program; PCP Family Medicine; Visit Provider Internal Medicine Adolescent Medicine
DX: J44.1 Chronic obstructive pulmonary disease with (acute) exacerbation (principal); J96.21 Acute and chronic respiratory failure with hypoxia; I10 Essential (primary) hypertension; F17.210 Nicotine dependence, cigarettes, uncomplicated
CPT/HCPCS: 36415; 71045; 80048; 80053; 82803; 83605; 83735; 83880; 84484; 85007; 85025; 85378; 87040; 87632; 87635; 87636; 93005; 94640; 94760; 94761; 99291; J1956; J3475

== ENCOUNTER 2023-04-11 12:48 | Outpatient (CLI) | payer MEDICARE, OTHER, SELFPAY ==
[2023-04-11 13:25] VITALS: PULSE 84; PULSE 89
[2023-04-11] MEDS: ALBUTEROL 0.083% 2.5 MG/3 ML NEB IH (13:25)
== END 2023-04-11 23:59 ==
LOC: RT 12:49
PROVIDERS: PCP Family Medicine; Visit Provider Internal Medicine Pulmonary Disease
DX: R06.09 Other forms of dyspnea (principal); J44.9 Chronic obstructive pulmonary disease, unspecified; Z72.0 Tobacco use
CPT/HCPCS: 94060; 94618; 94640

== ENCOUNTER 2023-05-01 15:03 | Emergency (ER) | payer MEDICARE, OTHER, SELFPAY ==
--- NOTE | 2023-05-01 15:05 | ECG_ITS ---
APPROVED REPORT Exam: Resting ECG HR:68 bpm ECG Measurements Heart Rate 68 AXES ID 157 P 72 QRSd 109 QRS -70 QT 372 T -30 QTc 389 Conclusion SINUS RHYTHM LEFT ANTERIOR FASCICULAR BLOCK [QRS AXIS <= -45, QR IN I, RS IN II] Electronically signed by : OLIVIA BARNARD, 05/02/2023 03:26:23
[2023-05-01 15:08] VITALS: BP 172/90; PULSE 73; RESP 22; TEMP 36.5; O2SAT 94; BMI 27.1
--- NOTE | 2023-05-01 15:19 | ED_ITS ---
<Statement entered by Torrey Burton MD - 05/01/23 23:02> I was consulted by the MUNIR, and we discussed the complexity of the problems being addressed. I approved the treatment and management plan for this patient's care in the emergency department, thus performing a substantive portion of the medical decision making. Torrey Burton MD, VELIA, FACEP Discharge Plan Disposition Patient Disposition: Home, Self-Care Condition: Good Prescriptions Prescriptions: No Action albuterol sulfate [ProAir HFA] 90 mcg/actuation HFA aerosol inhaler 2 puff inhalation Q6HP PRN (Reason: Shortness Of Breath) losartan 25 mg tablet 25 mg PO DAILY hydrochlorothiazide 12.5 mg tablet 12.5 mg PO DAILY [id number] 1 EACH tablet 1 mg PO DAILY sumatriptan succinate 100 MG tablet 100 mg PO DAILYP PRN (Reason: Migraine Headache) ipratropium-albuterol 0.5 mg-3 mg(2.5 mg base)/3 mL solution for nebulization 3 ml inhalation Q6HP PRN (Reason: wheezing) Rx Instructions: Do not combine with other breathing treatments Trelegy Ellipta 100-62.5-25 mcg blister with device 1 inh inhalation DAILY nicotine 21 mg/24 hr Patch 24 Hour 21 mg transdermal DAILYP PRN (Reason: Nicotine Cravings) 28 Days Qty: 28 0RF Referrals Follow up/Referrals: Provider,Referral, [Referring] - See instructions Activity Restrictions/Add. Instructions Additional Instructions/Restrictions: Follow-up with Dr. Abraham which we have given the information for and continue follow-up with your PCP and pulmonology as needed. Clinical Impressions Clinical Impression: Dyspnea, Chest pressure Discharge ED Provider: Torrey Burton HPI General Chief Complaint: Shortness of Breath/Dyspnea Stated Complaint: chest pain Time Seen by Provider: 05/01/23 15:20 Mode of Arrival: Ambulatory Source of Information: Patient Limitations: No Limitations Description of Symptoms (Recalled from ER Triage Doc. by RN): Patient presents to ER with complaints of SOB that started yesterday. Patient states it is worse with exertion and she wears 2L NC as needed. States she feels some chest pressure that is present with exertion. Patient denies current chest pain. History of Present Illness HPI narrative: Patient presents for evaluation of chest pressure that began yesterday. Patient also reports associated worsening dyspnea. Patient has history of COPD on intermittent 2 L by nasal cannula as needed at home. Patient has utilize her home oxygen as well as nebulizers with improvement of her subjective symptoms however it is not completely gone away. Patient states that her discomfort currently at the time of her arrival in the ER is like to elephant sitting on my chest . Patient did see her floor associate today who sent her to the ER for further evaluation. Patient denies fever chills hemoptysis hematochezia melena nausea vomiting diarrhea. Related Data Home Medications Medication Instructions Recorded Confirmed calcium 250 mg-D3 400 1 mg PO DAILY Supplement 06/02/20 05/01/23 unit-magnesium 40 [id number]-valdo tablet sumatriptan succinate 100 mg tablet 100 mg PO DAILYP PRN Migraine 06/25/20 05/01/23 Headache albuterol sulfate 90 mcg/actuation 2 puff inhalation Q6HP PRN 10/31/21 05/01/23 aerosol inhaler (ProAir HFA) Shortness Of Breath losartan 25 mg tablet 25 mg PO DAILY High Blood Pressure 04/10/22 05/01/23 hydrochlorothiazide 12.5 mg tablet 12.5 mg PO DAILY Fluid 10/01/22 05/01/23 fluticasone fur. 100 mcg-umeclid 1 inh inhalation DAILY Copd 03/29/23 05/01/23 62.5 mcg-vilant 25 mcg inhalat.powder (Trelegy Ellipta) ipratropium 0.5 mg-albuterol 3 mg 3 ml inhalation Q6HP PRN wheezing 03/29/23 05/01/23 (2.5 mg base)/3 mL nebulization soln Previous Rx's Medication Instructions Recorded nicotine 21 mg/24 hr daily 21 mg transdermal DAILYP PRN 04/01/23 transdermal patch Nicotine Cravings 28 days #28 ea Allergies Allergy/AdvReac Type Severity Reaction Status Date / Time No Known Allergies Allergy Verified 05/01/23 14:35 [facility] Disclaimer: The information contained in this section may have been updated after the patient was seen, as this information can be updated by other users. Medical History Acute respiratory failure with hypoxia Pneumonia Abnormal computerized axial tomography of chest Personal history of nicotine dependence Acute exacerbation of chronic obstructive pulmonary disease (COPD) Dyspnea on exertion Tobacco abuse counseling Tobacco abuse Smoking greater than 30 pack years Screening for lung cancer Tobacco abuse disorder Chronic hypoxemic respiratory failure Panlobular emphysema Multiple pulmonary nodules COPD (chronic obstructive pulmonary disease) Surgical History History of colonoscopy History of carpal tunnel release Family History Other No significant family history Social History (Updated 05/01/23 @ 14:36 by Verenice Mccray) Smoking Status: Former smoker smoking status stop date: 04/01/2023 second hand exposure: Yes alcohol intake: never substance use type: denies use current occupational status: employed Travel in the last 8 weeks: None household members: none housing: house 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 occupational exposures/hazards: No caffeine: Yes ROS Obtained: Yes Systems reviewed as appropriate & no additional complaints except as documented Physical Exam General General appearance: alert and in no apparent distress Head Head exam: atraumatic and normal inspection Eye Eye exam: Present normal appearance, PERRL and EOMI ENT ENT exam: Present normal exam, normal oropharynx and mucous membranes moist Neck Neck exam: Present normal inspection, full ROM and trachea midline; Absent lymphadenopathy Chest Chest inspection: Present normal inspection and symmetric chest wall rise Respiratory Respiratory exam: Present normal lung sounds bilaterally and prolonged expiratory phase; Absent respiratory distress, wheezes, stridor or accessory muscle use Cardiovascular Cardiovascular exam: Present regular rate, normal rhythm, normal heart sounds, +S1 and +S2 Abdominal Exam Abdominal exam: Present soft and normal bowel sounds; Absent tenderness, guarding or rebound Extremities Exam Extremities exam: Present normal inspection and full ROM Neurological Exam Neurological exam: Present alert, oriented X3 and CN II-XII intact Psychiatric Psychiatric exam: Present normal affect and normal mood Skin Skin exam: Present warm, dry and normal color Lymphatic Lymphatic Findings: no adenopathy HEART Score HEART Score HEART Score assessment performed?: Yes History (anamnesis): Slightly suspicious ECG: Normal Age: >65 years Risk factors: 3 or more risk factors Troponin: </= normal limit HEART Score: 4 Critical Care Critical Care Time Critical Care Time: No Medical Decision Making Medical Records Medical records reviewed: Yes I reviewed the patient's medical records. Sajan Inquiry Pt receiving controlled substance: No Vital Signs Vital Signs: 05/01/23 15:08 05/01/23 15:30 05/01/23 16:00 Temperature 97.7 F Temperature Source Oral Pulse Rate 73 68 Pulse Rate [Right] 73 Respiratory Rate 22 22 23 Blood Pressure 157/98 H 153/88 H Blood Pressure [Right Arm] 172/90 H Blood Pressure Mean 114 122 Blood Pressure Mean [Right Arm] 117 Blood Pressure Source [Right Arm] Automatic Cuff 02 Sat by Pulse Oximetry 94 L 97 97 Oxygen Delivery Method Room Air 05/01/23 16:30 05/01/23 18:25 Temperature 98.1 F Temperature Source Pulse Rate 65 68 Pulse Rate [Right] Respiratory Rate 22 18 Blood Pressure 140/89 158/89 H Blood Pressure [Right Arm] Blood Pressure Mean 112 Blood Pressure Mean [Right Arm] Blood Pressure Source [Right Arm] 02 Sat by Pulse Oximetry 96 Oxygen Delivery Method Room Air Lab Data Lab results reviewed: Yes I reviewed the patient's lab results. Labs: Lab Results 05/01/23 15:20: WBC 12.1 H, RBC 4.01 L, Hgb 12.9, Hct 40.3, MCV 100.7 H, MCH 32.1 H, MCHC 31.9, RDW 15.0, Plt Count 439 H, MPV 8.4, Neut % (Auto) 61.8, Lymph % (Auto) 28.0, [place] % (Auto) 7.4, Eos % (Auto) 1.6, Baso % (Auto) 1.2, Neut # (Auto) 7.5, Lymph # (Auto) 3.4, [place] # (Auto) 0.9, Eos # (Auto) 0.2, Baso # (Auto) 0.1, PT 10.6, INR 0.98, D-Dimer 0.57 H, Sodium 140, Potassium 4.0, C hloride 109 H, Carbon Dioxide 28, Anion Gap 7.0, BUN 14, Creatinine 0.70, Estimated Creat Clear 63, Estimated GFR 83, Est GFR ( Amer) 101, Glucose 80, Calcium 8.6, Magnesium 2.1, Total Bilirubin 0.2, AST 25, ALT 16, Alkaline Phosphatase 60, Troponin I < 0.01, Total Protein 5.9 L, Albumin 3.8, Globulin 2.1, Albumin/Globulin Ratio 1.8 05/01/23 15:23: SARS-CoV-2 (PCR) Not detected, Influenza A Untype (PCR) Not detected, Influenza Type B (PCR) Not detected 05/01/23 15:20 05/01/23 15:20 Response Orders (Tests/Meds): ED MEDICATIONS Discontinued Medications Generic Name Dose Route Start Last Admin Trade Name Surajq PRN Reason Stop Dose Admin Acetaminophen 1,000 mg 05/01/23 15:19 05/01/23 15:33 Acetaminophen 1,000mg/100ml Vial IV 05/01/23 15:20 1,000 mg ONCE ONE Administration Iopamidol 70 ml 05/01/23 16:50 05/01/23 17:00 Iopamidol-370 (76%);100ml Bottle IV 05/01/23 16:51 70 ml ONCE ONE Administration Ketorolac Tromethamine 15 mg 05/01/23 15:19 05/01/23 15:33 Ketorolac 30mg/Ml Vial IV 05/01/23 15:20 15 mg ONCE ONE Administration Sodium Chloride 10 ml 05/01/23 16:50 05/01/23 17:00 Sodium Chloride 0.9% 10ml Syr (Rad Only) IV 05/01/23 16:51 10 ml ONCE ONE Administration Sodium Chloride 50 ml 05/01/23 16:50 05/01/23 17:00 0.9 % Sodium Chloride 50 Ml Vial IV 05/01/23 16:51 50 ml ONCE ONE Administration ORDERS Category Date Time Status CTA Chest [CT angio chest PE protocol] Stat Cat Scan 05/01/23 15:38 Completed Chest XR -- portable [XR chest portable] Stat Exams 05/01/23 15:19 Taken CBC w/Auto Diff [Complete Blood Count Auto Diff] Stat Lab 05/01/23 15:20 Completed CMP [Comprehensive Metabolic Panel] Stat Lab 05/01/23 15:20 Completed D-Dimer Stat Lab 05/01/23 15:20 Completed INR [Prothrombin Time INR] Stat Lab 05/01/23 15:20 Completed Magnesium Stat Lab 05/01/23 15:20 Completed Rapid PCR Covid and Flu A/B Stat Lab 05/01/23 15:23 Completed Trop I [Troponin I] Stat Lab 05/01/23 15:20 Completed UA [Urinalysis and Microscopic] Stat Lab 05/01/23 15:20 Ordered MDM Narrative Medical Decision Narrative: In summary patient is a 67-year-old female who presents to the emergency department for evaluation of chest pressure. Patient is hemodynamically stable upon arrival, afebrile. Physical exam is remarkable for tachypnea with prolonged expiratory phase but normal breath sounds normal heart sounds and otherwise an unremarkable nonfocal exam.. Differential diagnosis includes COPD exacerbation versus PE versus ACS versus viral bacterial infection etc. Initial workup will be conducted with hematologic labs twelve-lead EKG CTA PE protocol respiratory swabs. Initial interventions include Toradol Tylenol. Initial workup reviewed by me shows a white count of 12.1 with absolute neutrophil count of 7.5, D-dimer 07, and the remainder of her laboratory investigations nonactionable including a normal troponin and negative COVID and flu. My informal interpretation of CTA PE protocol shows no acute thrombus or acute disease with radiologist read pending. Upon repeat evaluation patient reports resolution of her chest heaviness and dyspnea at rest. Given this life- threatening or emergent condition has been thoroughly investigated and patient is stable for discharge with close follow-up with pulmonology cardiology and her PCP. Patient verbalized understanding and agreement. P
--- NOTE | 2023-05-01 15:19 | XR_ITS ---
FINAL REPORT CLINICAL HISTORY: cough wheezing COMPARISON: 12/21/2021 FINDINGS: A single portable view of the chest was obtained. The heart size and pulmonary vascularity are within normal limits. Large lung volumes are present consistent with changes of chronic obstructive pulmonary disease. The mediastinum is within normal limits. There is a small left base opacity, likely atelectasis or pneumonia. The bony thorax is intact. IMPRESSION: Small left base opacity, atelectasis or pneumonia, new since prior chest x-ray of December 2021. Changes of chronic obstructive pulmonary disease. Reviewed, Interpreted and Dictated by German Roberson III, MD Transcribed by Shyanne Lopez Authenticated and [facility]
[2023-05-01 15:28] LABS: Coronavirus 19, PCR Not Detected (NotDetected); Influenza A, PCR Not Detected (NotDetected); Influenza B, PCR Not Detected (NotDetected)
[2023-05-01 15:30] VITALS: BP 157/98; PULSE 73; RESP 22; O2SAT 97
[2023-05-01] MEDS: KETOROLAC 30MG/ML VIAL 15 MG IV (15:33)
[2023-05-01] MEDS: ACETAMINOPHEN 1,000MG/100ML VIAL 1000 MG IV (15:33)
--- NOTE | 2023-05-01 15:38 | CT_ITS ---
PROCEDURE INFORMATION: Exam: CTA Chest With Contrast Exam date and time: 05/01/2023 4:47 PM Age: 67 years old Clinical indication: Pain; Chest pressure; Additional info: Chest pressure, dyspnea TECHNIQUE: Imaging protocol: Computed tomographic angiography of the chest with contrast. Exam focused on the arteries. 3D rendering (Not supervised by radiologist): MIP and/or 3D reconstructed images were created by the technologist. Radiation optimization: All CT scans at this facility use at least one of these dose optimization techniques: automated exposure control; mA and/or kV adjustment per patient size (includes targeted exams where dose is matched to clinical indication); or iterative reconstruction. Contrast material: ISO 370; Contrast volume: 70 ml; Contrast route: INTRAVENOUS (IV); COMPARISON: CT ANGIO CHEST 12/03/2018 11:55 PM FINDINGS: Pulmonary arteries: Normal. No pulmonary emboli. Aorta: Mild atherosclerotic changes are seen within the thoracic aorta without evidence of aneurysm. Lungs: Minor atelectasis in the lingula. Emphysematous changes. 8 mm right upper lobe calcified granuloma. Minor chronic scarring or atelectasis in the right middle lobe. No acute airspace consolidation. Pleural spaces: Unremarkable. No pneumothorax. No pleural effusion. Heart: Unremarkable. No cardiomegaly. No pericardial effusion. Lymph nodes: Unremarkable. No enlarged lymph nodes. Kidneys and ureters: 1.9 cm simple right renal cyst. Bones/joints: Considerable lucency seen in the medullary cavity of the right humeral neck and proximal humeral shaft with adjacent cortical thickening seen. No acute fracture or dislocation. Soft tissues: Unremarkable. IMPRESSION: 1. Atelectasis/scarring bilaterally as described. 2. Emphysematous changes. 3. Simple right renal cyst. No follow-up imaging of this finding is recommended. 4. Lucency and cortical thickening seen in the right humeral neck and proximal shaft. Consider further evaluation with shoulder MRI. COMMENTS: 1. Consistent with the [employer] [place] [employer]'s Incidental Findings Committee white paper (J Am Lenora Radiol 2018): Any incidental renal lesion less than 1 cm or classified as too small to characterize, or any incidental cystic renal lesion characterized as simple-appearing, is likely benign. No follow-up imaging is recommended for these lesions per consensus recommendations based on imaging criteria. 2. The presence of pulmonary emphysema on CT is an independent risk factor for lung cancer. In the absence of a history or active diagnosis of lung cancer, it is recommended that this patient with emphysema be evaluated for enrollment in a low dose CT lung cancer screening program.
[2023-05-01 15:39] LABS: INR 0.98 (0.9-1.1); Prothrombin Time 10.6 seconds (10.1-12.5)
[2023-05-01 15:41] LABS: Magnesium 2.1 mg/dl (1.6-2.3)
[2023-05-01 15:47] LABS: D-Dimer 0.57 ug/mL (0.0-0.5)
[2023-05-01 15:52] LABS: Basophils # 0.1 K/mm3 (0-0.2); Basophils % 1.2 % (0.1-2.0); Eosinophils # 0.2 K/mm3 (0.0-0.4); Eosinophils % 1.6 % (0.1-12.0); Hematocrit 40.3 % (37.0-47.0); Hemoglobin 12.9 g/dL (12.2-16.2); Lymphocytes # 3.4 K/mm3 (0.7-4.5); Mean Corpuscular HGB Conc 31.9 g/dL (31.8-35.4); Mean Corpuscular Hemoglobin 32.1 pg (27.0-31.2); Mean Corpuscular Volume 100.7 fl (81-99); Mean Platelet Volume 8.4 fl (7.4-10.4); Monocytes # 0.9 K/mm3 (0.1-1.0); Monocytes % 7.4 % (1.7-9.3); Neutrophils # 7.5 K/mm3 (1.8-7.8); Neutrophils % 61.8 % (37.0-80.0); Platelet Count 439 K/mm3 (142-424); Red Blood Count 4.01 M/mm3 (4.20-5.40); White Blood Count 12.1 K/mm3 (4.8-10.8)
[2023-05-01 16:00] VITALS: BP 153/88; PULSE 68; RESP 23; O2SAT 97
[2023-05-01 16:21] LABS: Alanine Aminotransferase 16 U/L (12-78); Albumin Level 3.8 g/dl (3.5-5.0); Albumin/Globulin Ratio 1.8 (1.1-1.8); Alkaline Phosphatase 60 U/L (38-126); Aspartate Amino Transferase 25 U/L (14-36); Bilirubin,Total 0.2 mg/dl (0.2-1.3); Blood Urea Nitrogen 14 mg/dl (7-17); Calcium 8.6 mg/dl (8.4-10.2); Carbon Dioxide 28 mmol/L (22.0-30.0); Chloride 109 mmol/L (98-107); Creatinine Clearance Estimated 63 mL/min (50-200); Estimated Glomerular Filt Rate 83 ml/min (>60); GFR (African American) 101 ML/MIN (>60); Globulin 2.1 g/dL (1.3-3.2); Glucose 80 mg/dl (74-100); Sodium 140 mmol/L (136-145); Total Protein,Serum 5.9 g/dl (6.3-8.2)
[2023-05-01 16:30] VITALS: BP 140/89; PULSE 65; RESP 22; O2SAT 96
[2023-05-01 16:34] LABS: Troponin I < 0.01 ng/ml (0.00-0.034)
[2023-05-01] MEDS: IOPAMIDOL-370 (76%);100ML BOTTLE 70 ML IV (17:00)
[2023-05-01] MEDS: 0.9 % SODIUM CHLORIDE 50 ML VIAL IV (17:00)
[2023-05-01] MEDS: SODIUM CHLORIDE 0.9% 10ML SYR (RAD ONLY) 10 ML IV (17:00)
[2023-05-01 18:25] VITALS: BP 158/89; PULSE 68; RESP 18; TEMP 36.7; O2SAT 96
== END 2023-05-01 18:30 | disposition home or self-care (01) ==
PROVIDERS: Physician Assistant; Emergency Provider Student in an Organized Health Care Education/Training Program; PCP Family Medicine
DX: R07.89 Other chest pain (principal); J96.11 Chronic respiratory failure with hypoxia; J44.9 Chronic obstructive pulmonary disease, unspecified; Z87.891 Personal history of nicotine dependence
CPT/HCPCS: 71045; 71275; 80053; 83735; 84484; 85025; 85378; 85610; 87636; 93005; 96374; 96375; 99285; J0131; Q9967

== ENCOUNTER 2023-05-26 12:29 | Outpatient (CLI) | payer MEDICARE, OTHER, SELFPAY ==
--- NOTE | 2023-05-26 12:35 | CT_ITS ---
APPROVED REPORT Instructional Facilitator: CLINICAL INDICATION Chest Pain TECHNIQUE Image Acquisition: A 128 slice MDCT scanner ([employer]) was used for data acquisition. A noncontrast coronary calcium scan was performed. A CT attenuation threshold of 130 Hounsfield units (HU) was used for the detection of calcium in contiguous voxels of 1 sq mm in area to be counted as individual lesions. Bolus tracking in the ascending aorta with a threshold of 180 HU was performed. Immediately afterwards, ECG synchronized cardiac CT was then performed from the cardiac base to apex using retrospective gating with ECG tube current modulation. A total of 85 mL of Isovue 370 mg/mL contrast medium was administered at 5 mL/sec followed by a saline flush using a biphasic injection protocol. A tube voltage of 120 KVp was used. The patient received the following medications prior to the cardiac CT. 75 mg of oral metoprolol 15 mg of oral ivabradine 0.8 mg of sublingual nitroglycerin The average heart rate at the time of acquisition was 54 bpm and regular. Image Reconstruction Transaxial images were reconstructed at 0.67 mm slide thickness. Data was reviewed interactively on an advanced workstation capable of 2 and 3-dimensional displays in all conventional reconstruction formats, including multiplanar reformations, maximum intensity projections, curved multiplanar reformations, and volume rendered reconstructions. When applicable, selected routine images describing the relevant coronary anatomy and pathology were saved and sent to PACS. Complications None Technical Quality Overall image quality was good. Coronary artery opacification was adequate. Total DLP (Dose-Length Product) is 1353.3 mGy-cm. The reported value represents the total of one or more individual components during the CT acquisition of this date and at this time, and as such, the same value may appear in more than one CT report depending on the interpreting/reporting physicians. COMPARISON None FINDINGS CT Coronary Calcium Scoring LMA (Left Main Artery) = 0 LAD (Left Anterior Descending) = 0 LCX (Left Coronary Circumflex) = 4 RCA (Right Coronary Artery) = 0 Total Calcium Score = 4 using the AJ-130 method. The observed calcium score of 4 is at 48th percentile for subjects of the same age, sex, and race/ethnicity. The interpretation of the calcium heart score is based on the following continuum*: 0 = no calcified plaque detected (risk of coronary artery disease is very low ??? less than 5%) 1-10 = calcium detected in extremely minimal levels (risk of coronary diseases is still low ??? less than 10%) 11-100 = mild levels of plaque detected with certainty (mild or minimal narrowing of heart arteries is likely) 101-400 = definite,at least moderate levels of plaque detected (relatively high risk of a heart attack within 3-5 years) >401-999 = extensive levels of plaque detected (high risk of heart attack, high levels of vascular disease are present, high likelihood of at least one significant coronary narrowing) *The calcium heart score quantifies the burden of coronary calcification/plaque in the coronary arteries. The calcium heart score is not able to evaluate the presence or burden of non-calcified (i.e. soft) plaque. There is also identifiable calcification in the ascending and descending thoracic aorta. Coronary CT Angiography The coronary arterial system is right dominant. Quantitative Stenosis Grading: Left Main (LM): The left main originates normally from the left sinus of Valsalva. The LM bifurcates into the left anterior descending artery and left circumflex artery. The LM is patent with no evidence of atherosclerosis. Left Anterior Descending (LAD) and Diagonal Branches: The LAD gives off 4 diagonal branch(es). The LAD and its branches are patent with no evidence of atherosclerosis. There is no evidence of LAD-myocardial bridge. Left Circumflex (LCX) and Obtuse Marginals (OM): The LCX gives off 2 Obtuse Marginal (OM) branch(es). There is a focus of calcification in the proximal LCX, but no evidence of luminal stenosis. Right Coronary Artery (RCA): The RCA originates normally from the right sinus of Valsalva. The RCA gives off a posterior descending artery (PDA) and posterolateral (PL) branches. The RCA and its branches are patent with no evidence of atherosclerosis. Non-Coronary Cardiac Findings: Analysis of the left ventricular (LV) structure and function was performed after 3-D reconstruction of the LV from axial images, with user-corrected automatic contouring for assessment of LV volumes and user-defined reconstruction from oblique planes for measurement of 3-D cardiac structure and function. -The left ventricle systolic function is normal. -There is no left atrial appendage filling defect. Two right pulmonary veins and two left pulmonary veins drain normally into the left atrium. -No pericardial thickening or calcification. -Central and branch pulmonary arteries in the [id number] are unremarkable. -Thoracic aorta within the visualized thoracic aortic-branches in the [id number] is unremarkable. Extracardiac Structures No significant extra-cardiac findings. Note, however, that this study is focused on the cardiac findings. IMPRESSION -Presence of coronary calcification with an Agatston score = 4 using the AJ-130 method. -The observed calcium score of 4 is at 48th percentile for subjects of the same age, sex, and race/ethnicity. -No evidence of significant flow-limiting atherosclerosis of the coronary arteries. -CAD-RADS 1. Management recommendations per ACC/AHA guidelines*, as clinically appropriate. *Recommendations: CAD RADS 0: Reassurance. Consider non-atherosclerotic causes of chest pain. CAD RADS 1: Consider non-atherosclerotic causes of chest pain. Consider preventive therapy and risk factor modification. CAD RADS 2: Consider non-atherosclerotic causes of chest pain. Consider preventive therapy and risk factor modification, particularly for patients with nonobstructive plaque in multiple segments. CAD RADS 3: Consider further functional testing. Consider symptom-guided anti-ischemic and preventive pharmacotherapy as well as risk factor modification per published guideline statements. CAD RADS 4A: Consider further functional testing or invasive coronary angiography with revascularization per published guideline statements. Consider symptom-guided anti-ischemic and preventive pharmacotherapy as well as risk factor modification per published guideline statements. CAD RADS 4B: Invasive coronary angiography recommended with revascularization per published guideline statements. Consider symptom-guided anti-ischemic and preventive pharmacotherapy as well as risk factor modification per published guideline statements. CAD RADS 5: Consider invasive angiography and/or viability assessment with revascularization per published guideline statements. Consider symptom-guided anti-ischemic and preventive pharmacotherapy as well as risk factor modification per published guideline statements. CRITICAL RESULT None COMMUNICATION Per this written report The coronary and cardiac findings of this CCTA were reviewed, reported, and signed by Hilario Valencia MD (Head Banquet Waiter/Waitress) Conclusion Electronically signed by : Kelly Valencia MD 05/29/2023 12:20:54
--- NOTE | 2023-05-26 12:35 | CA_ITS ---
APPROVED REPORT EXAM: Comprehensive 2D, Doppler, and color-flow Echocardiogram Packing Attendant: Makayla Witt CRT Ht: 5 ft 5 in Wt: 159lbs BSA: 1.79 BP: 130/85 mmHg Indications: Abnormal ECG, Chest Pain, COPD, Shortness of Breath, quit smoking 1 week ago 2D Dimensions LA Volume 20.50 mL LA Volume Index 11.39 mL/m2 (M/F) 16-34 M-Mode Dimensions RVDd 2.54 cm (0.9-2.6) LA Diam 3.18 cm (1.9-4.0) LVDd 4.25 cm (3.5-5.7) LVDs 2.94 cm (3.5-5.7) IVSd 1.71 cm (0.6-1.1) PWd 0.70 cm (0.6-1.1) EF (Teich) 58.80% FS 30.80% EDV (Teich) 80.80 mL TAPSE 1.11 (<1.7) ESV (Teich) 33.30 mL LV Diastology E Decel Time 187 (160-240 msec) E/A Ratio 0.60 MED A' 12.70 cm/s LAT A' 14.90 cm/s Aortic Valve AO Peak GR. 8.60 mmHg Mitral Valve MV A Velocity 85.0 (40-130 cm/s) E/A Ratio 0.60 Pulmonary Valve PV Peak Velocity 94.0 (50-150 cm/s) Tricuspid Valve TR P. Velocity 332.00 cm/s RAP Estimate 10.00 mmHg RVSP 54.00 mmHg Left Ventricle The left ventricle is normal size. The left ventricular systolic function is normal. The left ventricular ejection fraction is within the normal range. There is increased LV wall thickness. There is normal LV segmental wall motion. Transmitral Doppler flow pattern suggests impaired LV relaxation. LVEF is 55%. Right Ventricle The right ventricle is normal size. The right ventricular systolic function is normal. Atria The left atrium size is normal. The right atrium size is normal. There is no Doppler evidence of interatrial shunt. Aortic Valve The aortic valve is mildly thickened. There is no aortic valvular stenosis. Trace aortic regurgitation. Mitral Valve The mitral valve leaflets are mildly thickened. No evidence of mitral valve stenosis. Trace mitral regurgitation. Tricuspid Valve The tricuspid valve leaflets are thin and pliable. Mild tricuspid regurgitation. RVSP is 35-40 mmHg. Pulmonic Valve The pulmonary valve is normal in structure. Trace pulmonic regurgitation. Great Vessels The aortic root is normal in size. The ascending aorta is normal in size. The IVC is dilated, but collapses > 50% with respirophasic variation. RA pressure is estimated at 8 mmHg. Pericardium There is no pericardial effusion. Other Information Study Quality: Fair Conclusion Normal biventricular systolic function. Mild TR. Elevated RVSP 35-40 mmHg. Electronically signed by : Kelly Valencia MD 05/28/2023 22:23:37
[2023-05-26 13:25] VITALS: BP 116/86; PULSE 86; RESP 18; O2SAT 93
[2023-05-26 13:30] VITALS: BP 116/86; PULSE 86; RESP 18; O2SAT 93
[2023-05-26] MEDS: IVABRADINE HCL 7.5MG TABLET *IVABRADINE+METOPROLOL REGIMINE 15 MG PO (13:30)
[2023-05-26] MEDS: METOPROLOL TARTRATE 25MG TABLET *IVABRADINE+METOPROLOL REGIMINE 25 MG PO (13:30)
[2023-05-26] MEDS: METOPROLOL TARTRATE 50MG TABLET 50 MG (13:30)
[2023-05-26 14:15] VITALS: BP 142/76; PULSE 63; RESP 18; O2SAT 93
[2023-05-26 14:30] VITALS: BP 113/74; PULSE 52; RESP 18; O2SAT 93
[2023-05-26] MEDS: 0.9 % SODIUM CHLORIDE 50 ML VIAL IV (15:00)
[2023-05-26] MEDS: IOPAMIDOL-370 (76%);100ML BOTTLE 85 ML IV (15:00)
[2023-05-26 15:40] VITALS: BP 123/67; PULSE 66; RESP 22; TEMP 36.4; O2SAT 96
[2023-05-26] MEDS: DENOSUMAB 60 MG/ML SYRINGE SQ (15:40)
== END 2023-05-26 15:50 | disposition home or self-care (01) ==
LOC: RT 12:30 → RAD 13:32
PROVIDERS: PCP Family Medicine; Visit Provider Family Medicine
DX: R94.31 Abnormal electrocardiogram [ECG] [EKG] (principal); R42 Dizziness and giddiness; R53.83 Other fatigue; R07.89 Other chest pain; R06.09 Other forms of dyspnea; I10 Essential (primary) hypertension; M81.0 Age-related osteoporosis without current pathological fracture
CPT/HCPCS: 75571; 75574; 93306; 96372; J0897; Q9967

== ENCOUNTER 2023-05-26 14:47 | Outpatient (RCR) | payer MEDICARE, OTHER, SELFPAY | END 2023-05-26 23:59 | disposition home or self-care (01) | LOC: PT 14:47 | PROVIDERS: Visit Provider Internal Medicine Pulmonary Disease | DX: J44.9 Chronic obstructive pulmonary disease, unspecified (principal) | CPT/HCPCS: 94626 ==

== ENCOUNTER 2023-07-03 14:31 | Outpatient (CLI) | payer MEDICARE, OTHER, SELFPAY ==
--- OUTSIDE RECORDS SUMMARY | 2023-07-03 14:34 | XMS_ITS | Continuity of Care Document ---
Author Name Unknown Organization [facility] Address [address] [place] [id number] Phone Care Team Providers Care Customer Care Voice Consultant Name Role Phone Kennedy ANDERSON, Sky Unavailable [...] Provider Providers Copied on Encounter [facility] [address] [facility] [address] [place] [address], [id number], tel:[phone] [facility] No Information 0 Kennedy Swanson . [address] [employer] [address] [place] [address], [id number] . tel:[phone] [facility] 330 [employer] [address] [place] [address], [id number], tel:[phone] [facility] No Information 0 Kennedy Swanson . [address] [employer] [address] [place] [address], [id number] . tel:[phone] Office Visit Level IV [facility] [address] [employer] [address] [place] [address], [id number], tel:[phone] [facility] Psoriatic arthritis (chief complaint) Osteoarthr itis (chief complaint) COPDInflammatory polyarthropathyGe neralized osteoarthritisPla ntar fasciitisOsteopor osisBody mass index (BMI) 26.0-26.9, adultNSAID [employer] Use 0 Kennedy Swanson . [address] [employer] [facility], [id number] . tel:[phone] Referring Provider: Rajwinder Lazaro, [address] [facility] , [place], [address]. tel:[phone] Office Visit Level IV [facility] [address], [id number], tel:[phone] [facility] Psoriatic arthritis (chief complaint) Osteoarthr itis (chief complaint) COPDInflammatory polyarthropathyGe neralized osteoarthritisPla ntar fasciitisOsteopor osisNSAID Mcfp UseBody mass index (BMI) 26.0-26.9, adult Sep- Kennedy Swanson . [address] [place] [address], [id number] . tel:[phone] Referring Provider: Rajwinder Lazaro, [address] [facility]. [address], [place], [address]. tel:[phone] [facility] [address], [id number], [place] tel:[phone] [facility] No Information Kennedy Swanson . [address] [place] [address], [id number] . tel:[phone] Referring Provider: Rajwinder Lazaro, [address] [place] [address]. , [place], [address]. tel:[phone] New Office Consult Level V [facility], [address] [place] [employer], [id number], [place] tel:[phone] [facility] Joint Pain (chief complaint) Osteoarthr itis (chief complaint) Chronic plantar fasciitis (chief complaint) Inflammatory polyarthropathyGe neralized osteoarthritisNSA ID Mcfp UseCOPDOsteoporos isPlantar fasciitis Kennedy Swanson . [address], [place], [place], [id number] . tel:[phone] Referring Provider: Rajwinder Lazaro, [address] [facility] [place] [address], [address]. tel:[phone] Family History Family Member Type Diagnosis Age At Onset Mother Problem (finding) [facility] Payers Payer name Insurance type Covered alliance party ID Ricco goodman(s) [employer] [id number] CI [id number] Social History Type Description Quantity Date Captured [...] Future Order: Lab Order CBC With Differential/Platelet ([id number]), Ordered on: Ordered Future Order: Lab Order Comp. Me tabolic Panel (14) ([id number]), Ordered on: Ordered Future Order: Lab Order C-Reacti ve Protein, Quant ([id number]), Ordered on: Ordered Future Order: Lab Order Sediment ation Rate-Westergren ([id number]), Ordered on: Ordered Future Order: Lab Order Sediment ation Rate-Westergren ([id number]), Ordered on: Ordered Future Order: Lab Order CBC With Differential/Platelet ([id number]), Ordered on: Ordered Future Order: Lab Order Comp. Me tabolic Panel (14) ([id number]), Ordered on: Ordered Future Order: Lab Order C-Reacti ve Protein, Quant ([id number]), Ordered on: Ordered Future Order: Lab Order CBC With Differential/Platelet ([id number]), Ordered on: Ordered Future Order: Lab Order Comp. Me tabolic Panel (14) ([id number]), Ordered on: Ordered Future Order: Lab Order C-Reacti ve Protein, Quant ([id number]), Ordered on: Ordered Future Order: Lab Order Sediment ation Rate-Westergren ([id number]), Ordered on: Ordered Future Order: Lab Order [...] provided.rtc 4 months Related to Inflammatory polyarthropathy Stable on p.r.n. NSAID Related t o Generalized osteoarthritis Chronic; resolved with methotrex ate Related to Plantar fasciitis Continue weight-bear ing exercise calcium vitamin-D. Monitoring with PCP. Related to Osteoporosis Risks of NSAIDs disc ussed including GI upset, GI bleeding, renal and hepatic risks and the risks of cardiovascular disease and stroke. Warned patient not to take with other NSAIDs including OTC NSAIDs. 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 NSAID Related t o Generalized osteoarthritis Continue weight-bear ing exercise calcium vitamin-D. Monitoring with PCP. Related to Osteoporosis She in erosive infla mmatory polyarthritis affecting [...] NSAIDs including OTC NSAIDs. 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 Stop sjed-hbh-lggcnas NSAIDs and try meloxicam. She does not have any active synovitis today but she did have a severe flare in her right hand in April of 2018 when her hand joints became red swollen and she could not close the hand. She is still having pain in the hands today despite yfty-vfk-rlxqlhc NSAIDs but no active synovitis. Risk and benefits of meloxicam discussed in detail. Handout provided on osteoarthritis Related to Inflammatory polyarthropathy Risks of NSAIDs disc ussed including GI upset, GI bleeding, renal and hepatic risks and the risks of cardiovascular disease and stroke. Warned patient not to take with other NSAIDs including OTC NSAIDs. 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
[2023-07-03 14:43] LABS: Coronavirus 19, PCR Not Detected (NotDetected); Influenza A, PCR Not Detected (NotDetected); Influenza B, PCR Not Detected (NotDetected)
[2023-07-14 08:09] LABS: Alpha-1-Antitrypsin 143 mg/dL (101-187)
== END 2023-07-03 23:59 | disposition home or self-care (01) ==
LOC: LAB 14:32
PROVIDERS: PCP Family Medicine; Visit Provider Internal Medicine Pulmonary Disease
DX: J44.1 Chronic obstructive pulmonary disease with (acute) exacerbation (principal)
CPT/HCPCS: 36415; 82103; 82104; 87636

== ENCOUNTER 2023-08-26 07:18 | Day surgery (SDC) | payer MEDICARE, OTHER, SELFPAY ==
[2023-08-19 09:38] VITALS: BMI 25.0
--- OUTSIDE RECORDS SUMMARY | 2023-08-26 07:20 | XMS_ITS ---
Author Name Unknown Organization [facility] No information ASSESSMENT No information CHIEF COMPLAINT No information Medications Date Medication Dosage Dosageunit Startdate Active Dispense Refills Ndccode Isprescription Srcstatus 08/10 00:00 :00 Acetylcyste ine 10 % Solution 03/11/2019 00:00:00 1 240 ml 1 [id number] Taking 05/14 00:00 :00 Acetylcyste ine 10 % Solution 03/11/2019 00:00:00 1 240 ml 1 [id number] 703 Taking 02/15 00:00 :00 Acetylcyste ine 10 % Solution 03/11/2019 00:00:00 1 240 ml 1 [id number] 703 Continue 10/30 00:00 :00 Acetylcyste ine 10 % Solution 03/11/2019 00:00:00 0 240 ml 1 [id number] 703 P Unknown Status 08/10 00:00 :00 Advil 200 MG Tablet null 0 [id number] 320 Unknown Status 05/14 00:00 :00 Advil 200 MG Tablet null 0 [id number] 320 Unknown Status 10/30 00:00 :00 Advil 200 MG Tablet null 0 [id number] 320 Unknown Status 08/10 00:00 :00 buPROPion HCl ER (SR) 150 MG Tablet Extended Release 12 Hour 07/11/2020 00:00:00 1 90 3 [id number] 501 Taking 05/14 00:00 :00 buPROPion HCl ER (SR) 150 MG Tablet Extended Release 12 Hour 07/11/2020 00:00:00 1 90 3 [id number] 501 Taking 02/15 00:00 :00 buPROPion HCl ER (SR) 150 MG Tablet Extended Release 12 Hour 07/11/2020 00:00:00 1 90 3 [id number] 501 Continue 08/10 00:00 :00 Homatropine Methylbromi de - Powder null 0 [id number] 700 Unknown Status 05/14 00:00 :00 Homatropine Methylbromi de - Powder null 0 [id number] 700 Unknown Status 10/30 00:00 :00 Homatropine Methylbromi de - Powder null 0 [id number] 700 Unknown Status 08/10 00:00 :00 HYDROcodone -Acetaminop hen 5-325 MG Tablet 07/18/2020 00:00:00 1 20 Tablet 0 [id number] 401 P Taking 05/14 00:00 :00 HYDROcodone -Acetaminop hen 5-325 MG Tablet 07/18/2020 00:00:00 1 20 Tablet 0 [id number] 401 P Taking 10/30 00:00 :00 HYDROcodone -Acetaminop hen 5-325 MG Tablet 07/18/2020 00:00:00 1 20 Tablet 0 [id number] 401 P Taking 08/10 00:00 :00 Ibuprofen 800 MG Tablet 05/04/2018 00:00:00 0 45 0 [id number] 830 P Unknown Status 05/14 00:00 :00 Ibuprofen 800 MG Tablet 05/04/2018 00:00:00 0 45 0 [id number] 830 P Unknown Status 10/30 00:00 :00 Ibuprofen 800 MG Tablet 05/04/2018 00:00:00 0 45 0 [id number] 830 P Unknown Status 08/10 00:00 :00 Imitrex 100 MG Tablet null 0 27 2 [id number] 701 P Unknown Status 05/14 00:00 :00 Imitrex 100 MG Tablet null 0 27 2 [id number] 701 P Unknown Status 10/30 00:00 :00 Imitrex 100 MG Tablet null 0 27 2 [id number] 701 P Unknown Status 08/10 00:00 :00 Ipratropium [place] 0.02 % Solution 03/24/2017 00:00:00 0 360 3 [id number] 993 Unknown Status 05/14 00:00 :00 Ipratropium [place] 0.02 % Solution 03/24/2017 00:00:00 0 360 3 [id number] 993 Unknown Status 10/30 00:00 :00 Ipratropium [place] 0.02 % Solution 03/24/2017 00:00:00 0 360 3 [id number] 993 Unknown Status 08/10 00:00 :00 levoFLOXaci n 500 MG Tablet 08/10/2021 00:00:00 1 7 Tablet 0 [id number] 261 P Start 08/10 00:00 :00 predniSONE 20 MG Tablet 08/10/2021 00:00:00 1 21 0 [id number] 820 P Start 08/10 00:00 :00 ProAir HFA 108 (90 Base) MCG/ACT Aerosol Solution 08/10/2019 00:00:00 0 1 0 [id number] 501 P Unknown Status 05/14 00:00 :00 ProAir HFA 108 (90 Base) MCG/ACT Aerosol Solution 08/10/2019 00:00:00 0 1 0 [id number] 501 P Unknown Status 10/30 00:00 :00 ProAir HFA 108 (90 Base) MCG/ACT Aerosol Solution 08/10/2019 00:00:00 0 1 0 [id number] 501 P Unknown Status 08/10 00:00 :00 Prolia 60 MG/ML Solution Prefilled Syringe 04/27/2020 00:00:00 0 [id number] 001 P Unknown Status 05/14 00:00 :00 Prolia 60 MG/ML Solution Prefilled Syringe 04/27/2020 00:00:00 0 [id number] 001 P Unknown Status 10/30 00:00 :00 Prolia 60 MG/ML Solution Prefilled Syringe 04/27/2020 00:00:00 0 [id number] 001 P Unknown Status 08/10 00:00 :00 Topiramate 25 MG Tablet 07/12/2020 00:00:00 1 180 Tablet 3 [id number] 505 Taking 05/14 00:00 :00 Topiramate 25 MG Tablet 07/12/2020 00:00:00 1 180 Tablet 3 [id number] 505 Taking 11/16 00:00 :00 Topiramate 25 MG Tablet 07/12/2020 00:00:00 1 180 Tablet 3 [id number] 505 Continue 11/09 00:00 :00 Topiramate 25 MG Tablet 07/12/2020 00:00:00 1 180 Tablet 3 [id number] 505 Continue 10/30 00:00 :00 Topiramate 25 MG Tablet 07/12/2020 00:00:00 0 60 Tablet 0 [id number] 505 P Unknown Status 08/10 00:00 :00 Trelegy Ellipta 100-62. 5-25 MCG/INH Aerosol Powder Breath Activated null 0 3 3 [id number] 710 Unknown Status 05/14 00:00 :00 Trelegy Ellipta 100-62. 5-25 MCG/INH Aerosol Powder Breath Activated null 0 3 3 [id number] 710 Unknown Status 10/30 00:00 :00 Trelegy Ellipta 100-62. 5-25 MCG/INH Aerosol Powder Breath Activated null 0 3 3 [id number] 710 Unknown Status 08/10 00:00 :00 Wellbutrin SR 150 MG Tablet Extended Release 12 Hour 06/23/2020 00:00:00 0 180 1 [id number] 555 P Unknown Status 05/14 00:00 :00 Wellbutrin SR 150 MG Tablet Extended Release 12 Hour 06/23/2020 00:00:00 0 180 1 [id number] 555 P Unknown Status 10/30 00:00 :00 Wellbutrin SR 150 MG Tablet Extended Release 12 Hour 06/23/2020 00:00:00 0 180 1 [id number] 555 P Unknown Status OBJECTIVE DATA No information PHYSICAL EXAMINATION No information TREATMENT PLAN No information PROBLEMS No information RESULTS No information REVIEW OF SYSTEMS No information SUBJECTIVE DATA No information VITAL SIGNS No information
[2023-08-26 07:39] VITALS: BP 160/100; PULSE 96; RESP 17; TEMP 36.4; O2SAT 90
--- NOTE | 2023-08-26 07:56 | HMH.SCOPE ---
Procedure: Date: 08/26/23 Patient Date of :: 1955 Procedure Performed:: Colonoscopy Indications:: History of colon polyps. Note: Last colonoscopy in October 2020 was complicated by profound tortuosity and poor relaxation. Multiple adenomatous polyps were excised. Performing Provider:: Leoncio Sultana MD Referring Provider:: . Sedation:: Monitored anesthesia care Procedure:: After informed consent was obtained the patient was taken to the endoscopy suite. Sedation ensued after the patient was transferred to the left lateral decubitus position. Pulse, blood pressure, and oxygen saturation were monitored throughout the procedure. Digital rectal exam revealed no significant abnormality. The colonoscope was placed in position. The entire colon was evaluated. The colonoscope was carefully removed and the patient was transferred to recovery in stable condition. Please see findings and specimens below for detail. Findings:: Bowel preparation moderate Unchanged sigmoid diverticulosis Fairly severe lack of relaxation and tortuosity (particularly in sigmoid colon) Specimens:: None Recommendations:: Repeat colonoscopy in 3-5 years secondary to history of complex polyps, tortuosity, and lack of relaxation. Complications:: No immediate Estimated blood obtained (mL): 0 Colonoscopy Component Colonoscopy Component Was a colonoscopy performed during today's procedure?: Yes Recommended follow up colonoscopy of at least 10 years?: No If no, follow up colonoscopy recommended in ___ years?: (See above) Reason for not recommending >/= 10 yr follow-up interval?: (See above)
[2023-08-26 08:04] VITALS: O2SAT 89
[2023-08-26 08:48] VITALS: BP 154/93; PULSE 107; RESP 16; TEMP 36.9; O2SAT 94
[2023-08-26 08:58] VITALS: BP 155/96; PULSE 102; RESP 16; TEMP 36.7; O2SAT 97
[2023-08-26 09:08] VITALS: BP 170/99; PULSE 102; RESP 16; TEMP 36.7; O2SAT 95
[2023-08-26 09:18] VITALS: BP 130/109; PULSE 106; RESP 16; TEMP 36.7; O2SAT 93
--- NOTE | 2023-08-26 12:02 | EXP.ANES.CKL ---
[facility] Disclaimer: The information contained in this section may have been updated after the patient was seen, as this information can be updated by other users. Medical History Diverticulitis Abnormal electrocardiogram [ECG] [EKG] Acute respiratory failure with hypoxia Pneumonia Abnormal computerized axial tomography of chest Personal history of nicotine dependence Acute exacerbation of chronic obstructive pulmonary disease (COPD) Dyspnea on exertion Tobacco abuse counseling Tobacco abuse Smoking greater than 30 pack years Screening for lung cancer Tobacco abuse disorder Chronic hypoxemic respiratory failure Panlobular emphysema Multiple pulmonary nodules COPD (chronic obstructive pulmonary disease) Surgical History History of hernia surgery History of appendectomy History of colonoscopy History of carpal tunnel release Family History Other No significant family history Social History Smoking Status: Current some day smoker smoking status stop date: 04/01/2023 second hand exposure: Yes alcohol intake: never substance use type: denies use current occupational status: employed Travel in the last 8 weeks: None household members: none housing: house 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 occupational exposures/hazards: No caffeine: Yes [facility] Anesthesia Checklist Patient Identification Patient Identification: Arm Band and Family Structural Data Admitted From: Home Planned Operative Procedure/s: colonoscopy Verified Documents: Surgical Consent and History and Physical NPO Status Verified Time NPO: 00:00 Additional verifications Patient : No Anesthesia Reactions: No Hx Blood Transfusions: No Blood Transfusion Reaction: No Cephalosporin Allergy: No Previous Colonoscopy: Yes Airway Assessment Mallampati Score:: Class II C-Spine Mobility Assessed: Yes TMJ Mobility Assessed: Yes Dentition: Good Dentition Neurological Assessment Level of Consciousness: Awake, Alert, Appropriate and Follows Commands Hx Seizures: No Numbness or tingling in extremities: No Anesthesia Plan Anesthesia Risk discussed: Yes ASA Class: III Anesthesia Type: MAC Preoperative Comments Pre-Operative Comments: COPD, Exertional dyspnea. Oxygen dependence.
== END 2023-08-26 09:19 | disposition home or self-care (01) ==
PROVIDERS: PCP Family Medicine; Visit Provider Surgery
PROC: 0DJD8ZZ Inspection of Lower Intestinal Tract, Via Natural or Artificial Opening Endoscopic (ICD-10-PCS; CPT 45378; principal; 2023-08-26 08:30)
DX: Z86.010 Personal history of colon polyps (principal); K57.30 Diverticulosis of large intestine without perforation or abscess without bleeding
CPT/HCPCS: 45378

== ENCOUNTER 2023-10-07 13:53 | Outpatient (CLI) | payer MEDICARE, OTHER, SELFPAY ==
--- NOTE | 2023-10-07 14:00 | MM_ITS ---
PROCEDURE INFORMATION: Exam: MG Left Diagnostic Breast Tomosynthesis Exam date and time: 10/07/2023 1:49 PM Age: 67 years old Clinical indication: Call back for finding in the left breast on screening mammogram dated 09/23/2023. TECHNIQUE: Imaging protocol: Left Diagnostic tomosynthesis and 2D mammography including computer-aided detection (CAD) when performed. Unilateral or bilateral exam. COMPARISON: 1. MG [facility] SCRN MAMMO W/CAD BILAT 09/23/2023 9:49 AM 2. MG [facility] SCR[facility] MAMMO W/CAD BILAT 04/18/2021 10:10 AM FINDINGS: MAMMOGRAPHY: Breast composition: There are scattered areas of fibroglandular density. Breast mammogram findings: On the spot compression views, there is an ovoid asymmetry measuring 0.9 cm in the lower-inner quadrant of the left breast best visualized on the MLO projection, at the anterior depth. No discrete mass, distortion, or suspicious calcifications are seen. IMPRESSION: Probably benign asymmetry in the left breast. Please see ultrasound report for left breast ultrasound study dated 10/07/2023 as well. This was dictated separately. Six-month follow-up left breast diagnostic mammogram and left ultrasound is recommended for this finding. ASSESSMENT: BI-RADS Category 3: Probably benign.
--- NOTE | 2023-10-07 14:02 | US_ITS ---
PROCEDURE INFORMATION: Exam: US Left Breast, Complete Exam date and time: 10/07/2023 2:23 PM Age: 67 years old Clinical indication: Finding in the left breast on screening mammogram dated 09/23/2023 with inconclusive results on diagnostic mammogram dated 10/07/2023. TECHNIQUE: Imaging protocol: Complete ultrasound of all four quadrants of the left breast and the retroareolar regions, including ultrasound of the axilla when performed. COMPARISON: 1. MG [facility] SCRN MAMMO W/CAD BILAT 09/23/2023 9:49 AM 2. MG MM DIG MAMM DX UNILAT LT CAD 10/07/2023 1:49 PM FINDINGS: ULTRASOUND: Breast ultrasound findings: Complete scanning of the left breast is performed. In the lower inner quadrant, 7 o'clock axis, 2 cm from the nipple, there is an ovoid hypoechoic mass measuring 0.7 x 0.4 cm which correlates to the mammogram finding in the lower inner quadrant on mammography dated 09/23/2023. There is no associated suspicious distortion or shadowing. No left axillary adenopathy. IMPRESSION: Finding in the left breast 7 o'clock axis, 2 cm from the nipple is probably benign. Follow-up left breast diagnostic mammogram and left breast ultrasound in 6 months is recommended for close surveillance. ASSESSMENT: BI-RADS Category 3: Probably benign.
== END 2023-10-07 23:59 | disposition home or self-care (01) ==
LOC: RAD 13:53
PROVIDERS: PCP Family Medicine; Visit Provider Family Medicine
DX: R92.8 Other abnormal and inconclusive findings on diagnostic imaging of breast (principal)
CPT/HCPCS: 76641; 77061; 77065; G0279

== ENCOUNTER 2023-11-25 09:23 | Outpatient (CLI) | payer MEDICARE, OTHER, SELFPAY ==
[2023-11-25 09:33] VITALS: BP 158/88; PULSE 109; RESP 18; TEMP 36.6; O2SAT 90
[2023-11-25 09:47] VITALS: BP 158/88; PULSE 99; RESP 18; TEMP 36.6; O2SAT 92
[2023-11-25] MEDS: DENOSUMAB 60 MG/ML SYRINGE SQ (09:47)
== END 2023-11-25 09:49 | disposition home or self-care (01) ==
LOC: INF 09:24
PROVIDERS: PCP Family Medicine; Visit Provider Family Medicine
DX: M06.4 Inflammatory polyarthropathy (principal); M81.0 Age-related osteoporosis without current pathological fracture; Z79.899 Other long term (current) drug therapy
CPT/HCPCS: 96372; J0897

== ENCOUNTER 2024-01-23 08:18 | Emergency (ER) | payer MEDICARE, OTHER, SELFPAY ==
--- OUTSIDE RECORDS SUMMARY | 2024-01-23 08:24 | XMS_ITS | Encounter Summary ---
Author Organization [facility] Address [address] [place] [address] Care Team Providers Care Diagnostic Cardiac Sonographer Name Role Phone Mansoor Marquez MD Primary Care Provider + Reason for Referral * Durable Medical Equipment (Routine) - Authorized Specialty Diagnoses / Procedures Referred By Contac t Referred To Contact Diagnoses Chronic respiratory failure with hypoxia Procedures Oxygen Therapy Mansoor Marquez MD [address] [facility] [place] [address] Phone: tel: fax: [employer] [address] [place] [address] Phone: tel: fax: Referral ID Status Reason Start Date Expiration Date V isits Requested Visits Authorized [id number] Authorized 06/23/2023 06/22/2024 1 1 Reason for Visit * Reason Onset Date Comments ORDER NEEDED 06/19/2023 Encounter Details Date Type Department Care Team (Late st Contact Info) Description 06/19/2023 Telephone [facility] FAMILY MEDICINE [address] [facility] [place] [address] Mansoor Marquez MD [address] [place] [address] ORDER NEEDED Social History Tobacco Use Types Packs/Day Years Used Date Smoking Tobacco: Former Cigarettes 0.5 15 0 04/01/2008 - 04/01/2023 Smokeless Tobacco: Never Alcohol Use Standard Drinks/Week Comments Never 0 (1 standard drink = 0.6 oz pur e alcohol) PHQ-2 Answer Date Recorded Retired PHQ-9: Brief Depression Severity Measure Score 0 09/05/2022 Abuse Screen Answer Date Recorded Unsafe at Home or Work/School Not on file Feels Threatened by Someone? Not on file 10/2022 Does Anyone Keep You from Co ntacting Others or Doint Things Outside the Home? Not on file 11/25/2022 Physical Sign of Abuse Present Not on file 1 Housing Stability Answer Date Recorded Current Living Arrangements Not on file 10/2022 Potentially Unsafe Housing Conditions Not on maricel e 11/25/2022 Family and Community Support Answer Tian e Recorded Help with Day-to-Day Activities Not on file 11/25/2022 Lonely or Isolated Not on file 11/25/2022 Employment Answer Date Recorded Do you want help finding or keeping work or a zoe b? Not on file 11/25/2022 Disabilities Answer Date Recorded Concentrating, Remembering, or Making Decisions Difficulty Not on file 11/25/2022 Doing Errands Independently Difficulty Not on fi le 11/25/2022 Education Answer Date Recorded Help with school or training? Not on file Preferred Language Not on file 11/25/2022 PHQ-2 Answer Date Recorded Retired PHQ-9: Brief Depression Severity Measure Score 0 03/14/2023 Comments Unknown Sex and Gender Information Value Date Recorded Sex Assigned at Not on file Legal Sex Female 10:16 AM EDT Gender Identity Not on file Sexual Orientation Not on file documented as of this encounter Miscellaneous Notes * Telephone Encounter - Berkley Cortez MA - 06/26/2023 2:19 PM EDT Faxed. * Telephone Encounter - Mansoor Marquez MD - 06/23/2023 12:15 PM EDT Order created. * Telephone Encounter - Shanell Castro RegSched Rep - 06/19/2023 3:21 PM EDT REP CALLED FROM [employer] STATED THE PATIENT CALLED HIM NEEDING HIS SERVICES. PATIENT IS NEEDING O2 AND REP MILENA STATED HE NEEDS A ORDER FROM DR MARQUEZ AND IT CAN SAY NEEDS O2 OR PORTABLE CONCENTRATOR HE WILL NEED ORDER, DEMO, AND INSURANCE CARDS. P: [phone] F:[phone] documented in this encounter Plan of Treatment Not on file documented as of this encounter Visit Diagnoses Diagnosis Chronic respiratory failure with hypoxia- Primary documented in this encounter Care Teams Diagnostic Cardiac Sonographer Relationship Specialty Start Date End Date Mansoor Marquez MD [address] [facility] [place] [address] PCP - General Family Medicine 06/04/21 Dr Jung [facility] [place] Pulmonary Disease 10/02/22 documented as of this encounter
--- OUTSIDE RECORDS SUMMARY | 2024-01-23 08:24 | XMS_ITS | Encounter Summary ---
[facility] Address [address] [place] [address] Care Team Providers Care Director Of Accounting Name Role Phone Mansoor Lamas MD Primary Care Provider + Reason for Visit * Reason Comments Med Refill Encounter Details Date Type Department Care Team (Late st Contact Info) Description 12/22/2023 Refill [facility] FAMILY MEDICINE [address] [place] [address] Mansoor Lamas MD [address] [facility] [place] [address] Social History Tobacco Use Types Packs/Day Years Used Date Smoking Tobacco: Every Day Cigarettes 0.5 15 Started: 04/01/2008; Last attempted to quit: 04/01/2023 Smokeless Tobacco: Never Comments:Pt started back smo melvi Alcohol Use Standard Drinks/Week Comments Never 0 [...] Retired PHQ-9: Brief Depression Severity Measure Score 9 09/08/2023 Comments Unknown Sex and Gender Information Value Date Recorded Sex Assigned at Not on file Legal Sex Female 10:16 AM EDT Gender Identity Not on file Sexual Orientation Not on file documented as of this encounter Plan of Treatment Not on file documented as of this encounter Visit Diagnoses Not on filedocumented in this encounter Additional Health Concerns Assessment Noted Time PHQ-2 Depression Total Score: 2 09/08/19 24 9:47 AM EDT documented as of this encounter Care Teams Director Of Accounting Relationship Specialty Start Date End Date Mansoor Lamas MD [address] [place] [address] PCP - General Family Medicine 06/04/21 Dr Jung [facility] [place] Pulmonary Disease 10/02/22 documented as of this encounter
--- OUTSIDE RECORDS SUMMARY | 2024-01-23 08:24 | XMS_ITS | Encounter Summary ---
[facility] Organization [facility] Address [address] [place] [address] Care Team Providers Care Water Systems Engineer Name Role Phone Mansoor Marquez MD Primary Care Provider + Reason for Visit * Reason Onset Date Comments DR MARQUEZ - URGENT ORDER ISSUE 05/26/2023 Encounter Details Date Type Department Care Team (Late st Contact Info) Description 05/26/2023 Telephone [facility] FAMILY MEDICINE [address] [place] [address] Mansoor Marquez MD [address] [place] [address] DR MARQUEZ - URGENT ORDER ISSUE Social History Tobacco Use Types Packs/Day Years [...] encounter Miscellaneous Notes * Telephone Encounter - Roma Hickman MA - 05/26/2023 2:43 PM EDT Faxed order to [facility] and informed pt * Telephone Encounter - Miguel Duong RegSched Rep - 05/26/2023 12:40 PM EDT Caller: Shira Mobley Relationship: Self Best call back number: [phone] What orders are you requesting (i.e. lab or imaging): PROLIA INJECTION In what timeframe would the patient need to come in: TODAY 05/26/23. PATIENT IS AT [facility] HAVING OTHER PROCEDURES/TESTING DONE TODAY Additional notes: PATIENT WAS ADVISED THAT [facility] HAS STILL NOT RECEIVED THE ORDER FOR THE NEW PROLIA INJECTION AND ARE UNABLE TO ADMINISTER THIS INJECTION DUE TO THE PREVIOUS ORDER BEING . PLEASE ADVISE PATIENT WHEN THIS ORDER HAS BEEN SENT. documented in this encounter Plan of Treatment Not on file documented as of this encounter Visit Diagnoses Not on filedocumented in this encounter Additional Health Concerns Infection Onset Date Last Indicated Resolved Time COVID (confirmed) 02/27/2023 02/27/2023 05/28/2023 9:08 PM EDT documented as of this encounter Care Teams Water Systems Engineer Relationship Specialty Start Date End Date Mansoor Marquez MD [address] [place] [address] PCP - General Family Medicine 06/04/21 Dr Jung [facility] [place] Pulmonary Disease 10/02/22 documented as of this encounter
--- OUTSIDE RECORDS SUMMARY | 2024-01-23 08:24 | XMS_ITS | Encounter Summary ---
Author Organization [facility] Address [address] [place] [address] Care Team Providers Care Supervisor Intelligence Analyst Name Role Phone Mansoor Lamas MD Primary Care Provider + Reason for Visit * Reason Comments cough & SOA Encounter Details Date Type Department Care Team (Late st Contact Info) Description 06/05/2023 9:45 AM EDT Office Visit [facility] FAMILY MEDICINE [address] [place] [address] Mansoor Lamas MD [address] [place] [address] COPD with exacerbation (Primary Dx); Pulmonary hypertension; intermediate teacher current use of diuretic; Panlobular emphysema; Chronic respiratory failure with hypoxia; Seasonal allergic rhinitis due to pollen; Primary hypertension Social History Tobacco Use Types Packs/Day Years [...] on file documented as of this encounter Last Filed Vital Signs Vital Sign Reading Time Taken Comments Blood Pressure 130/70 06/05/2023 9:34 AM EDT Pulse 73 06/05/2023 9:34 AM EDT Temperature 36.7 ??C (98 ??F) 06/05/2023 9:3 4 AM EDT Respiratory Rate 24 06/05/2023 9:34 AM EDT Oxygen Saturation 83% 06/05/2023 9:3 4 AM EDT on room air Inhaled Oxygen Concentration - - Weight 70.4 kg (155 lb 3.2 oz) 06/05/19 24 9:34 AM EDT Height 162.6 cm (5' 4.02 ) 06/05/2023 9 :34 AM EDT Body Mass Index 26.63 06/05/2023 9:34 AM EDT documented in this encounter Progress Notes * Mansoor Lamas MD - 06/05/2023 9:45 AM EDT Chief Complaint Patient presents with cough & SOA Subjective Shira Mobley is a 67 y.o. female with COPD, hypertension and recent diagnosis of pulmonary hypertension. She presents today with increasing cough and shortness of breath approximately 3 days after being out doors. She denies sick contacts. She recently underwent a comprehensive cardiovascular evaluation at [facility] with echocardiogram identifying increased right ventricular systolic pressures of 35 to 40 mmHg. Cardiology changed her antihypertensives and diuretics and she isnow taking only furosemide 20 mg daily which she started 3 days prior. Over the last 3 days she hasdeveloped increased cough, shortness of breath and sensation of wheezing, along with sputum that is dark green. She feels a rattling sensation in her chest but coughing does not alleviate the abnormal sensation. She continues to take Trelegy. She has used her albuterol nebs twice per day for the last 3 days Patient's core sucker is Dr. Kowalski at [facility]. Patient's fleecer is Dr. Abraham at [facility]. Objective Vital Signs: BP 130/70 Pulse 73 Temp 98 ??F (36.7 ??C) Resp 24 Ht 162.6 cm (64.02 ) Wt 70.4 kg (155 lb3.2 oz) SpO2 (!) 83% Comment: on room air BMI 26.63 kg/m?? Physical Exam Vitals reviewed. Constitutional: Appearance: Normal appearance. Comments: Despite her hypoxia in office she does not look ill nor show signs of increased work of breathing HENT: Head: Normocephalic and atraumatic. Right Ear: Tympanic membrane and ear canal normal. Left Ear: Tympanic membrane and ear canal normal. Nose: Nose normal. Mouth/Throat: Mouth: Mucous membranes are moist. Pharynx: Oropharynx is clear. Eyes: Conjunctiva/sclera: Conjunctivae normal. Cardiovascular: Rate and Rhythm: Normal rate and regular rhythm. Heart sounds: Normal heart sounds. No murmur heard. Pulmonary: Effort: Pulmonary effort is normal. No respiratory distress. Breath sounds: Wheezing present. Comments: Patient has a wet cough. Exam is significant only for expiratory wheezing bilaterally Musculoskeletal: Cervical back: Normal range of motion and neck supple. No tenderness. Lymphadenopathy: Cervical: No cervical adenopathy. Skin: General: Skin is warm and dry. Neurological: Mental Status: She is alert. Psychiatric: Mood and Affect: Mood normal. Result Review Assessment and Plan Diagnoses and all orders for this visit: 1. COPD with exacerbation (Primary) - predniSONE (DELTASONE) 20 MG tablet; Take 2 tablets by mouth Daily. Dispense: 10 tablet; Refill: 0 - acetylcysteine (MUCOMYST) 20 % nebulizer solution; Take 4 mL by nebulization 3 (Three) Times a Day. Dispense: 40 mL; Refill: 2 - amoxicillin (AMOXIL) 500 MG capsule; Take 1 capsule by mouth 3 (Three) Times a Day. Dispense: 21 capsule; Refill: 0 2. Pulmonary hypertension 3. FDC current use of diuretic - potassium chloride (KLOR-CON M10) 10 MEQ CR tablet; Take 1 tablet by mouth Daily. Dispense: 30 tablet; Refill: 2 4. Panlobular emphysema 5. Chronic respiratory failure with hypoxia 6. Seasonal allergic rhinitis due to pollen - loratadine (Claritin) 10 MG tablet; Take 1 tablet by mouth Daily. Dispense: 30 tablet; Refill: 2 7. Primary hypertension Plan: 1. Patient is having a COPD exacerbation. She will be placed on Amoxil 500 mg twice daily, prednisone 50 mg daily for 5 days. She has been instructed to increase her albuterol frequency to every 4 hours as long as she is not experiencing side effects. Patient has successfully used Mucomyst in the past and will be given a prescription for Mucomyst every 8 hours. Patient should also wear supplemental oxygen 24 hours/day. Should her condition worsen she will need to present to the emergency room. 2. Pulmonary hypertension is a new diagnosis. She will continue her furosemide. I am adding a dailypotassium supplement to avoid hypokalemia 3. Other antihypertensives will be discontinued at this time. 4. I do feel like patient is having some allergy symptoms and we will place her on Claritin daily Follow Up No follow-ups on file. Patient was given instructions and counseling regarding her condition or for health maintenance advice. Please see specific information pulled into the AVS if appropriate. documented in this encounter Plan of Treatment Not on file documented as of this encounter Visit Diagnoses Diagnosis COPD with exacerbation- Primary Pulmonary hypertension Other chronic pulmonary heart diseases FDC current use of diuretic Panlobular emphysema Other emphysema Chronic respiratory failure with hypoxia Seasonal allergic rhinitis due to pollen Primary hypertension Unspecified essential hypertension documented in this encounter Care Teams Supervisor Intelligence Analyst Relationship Specialty Start Date End Date Mansoor Lamas MD [address] [place] [address] PCP - General Family Medicine 06/04/21 Dr Jung [facility] [place] Pulmonary Disease 10/02/22 documented as of this encounter
--- OUTSIDE RECORDS SUMMARY | 2024-01-23 08:24 | XMS_ITS | Encounter Summary ---
[facility] Address [address] [place] [address] Care Team Providers Care Commercial Airplane Pilot Name Role Phone Mansoor Lamas MD Primary Care Provider + Encounter Details Date Type Department Care Team (Late st Contact Info) Description 03/15/2023 Documentation [facility] FAMILY MEDICINE [address] [facility] [place] [address] Jhoan Davis MD [address] [place] [address] Social History Tobacco Use Types Packs/Day Years Used Date Smoking Tobacco: Every Day Cigarettes 0.5 15 Smokeless Tobacco: Never Alcohol Use Standard Drinks/Week [...] of this encounter Visit Diagnoses Diagnosis COPD exacerbation- Primary Obstructive chronic bronchitis with exacerbation Acute bronchitis, unspecified organism documented in this encounter Additional Health Concerns Infection Onset Date Last Indicated Resolved Time COVID (confirmed) 02/27/2023 02/27/2023 05/28/2023 9:08 PM EDT documented as of this encounter Care Teams Commercial Airplane Pilot Relationship Specialty Start Date End Date Mansoor Lamas MD [address] [place] [id number] PCP - General Family Medicine 06/04/21 Dr Jung [facility] [place] Pulmonary Disease 10/02/22 documented as of this encounter
--- OUTSIDE RECORDS SUMMARY | 2024-01-23 08:24 | XMS_ITS | Encounter Summary ---
[facility] Address [address] [place] [address] Care Team Providers Care Line Lead Name Role Phone Mansoor Lamas MD Primary Care Provider + Reason for Visit * Reason Comments Med Refill Encounter Details Date Type Department Care Team (Late st Contact Info) Description 05/06/2023 Refill [facility] FAMILY MEDICINE [address] [facility] [place] [address] Mansoor Lamas MD [address] [facility] [place] [address] Social History Tobacco Use Types [...] Recorded Current Living Arrangements Not on file 1010/2022 Potentially Unsafe Housing Conditions Not on maricel [...] documented as of this encounter Care Teams Line Lead Relationship Specialty Start Date End Date Mansoor Lamas MD [address] [place] [address] PCP - General Family Medicine 06/04/21 Dr Jung [facility] [place] Pulmonary Disease 10/02/22 documented as of this encounter
--- OUTSIDE RECORDS SUMMARY | 2024-01-23 08:24 | XMS_ITS | Encounter Summary ---
[facility] [address] [place] [address] Care Team Providers Care Clean Room Technician Name Role Phone Mansoor Lamas MD Primary Care Provider + Reason for Referral * Diagnostic Imaging (Routine) - Closed Specialty Diagnoses / Procedures Referred By Contac t Referred To Contact Diagnoses Encounter for screening mammogram for malignant neoplasm of breast Procedures Mammo screening digital tomosynthesis bilateral w CAD Mammo screening digital tomosynthesis bilateral w CAD Mansoor Lamas MD [address] [facility] [place] [address] Phone: tel: fax: [address] [address] Phone: tel: Referral ID Status Reason Start Date Expiration Date Visits Re quested Visits Authorized [id number] Closed 09/08/2023 09/07/2024 1 1 Reason for Visit * Reason Comments Medicare Wellness-subsequent Encounter Details Date Type Department Care Team (Late st Contact Info) Description 09/08/2023 9:45 AM EDT Office Visit [facility] [address] [place] [id number] Mansoor Lamas MD [address] [place] [address] Medicare annual wellness visit, subsequent (Primary Dx); Encounter for screening mammogram for malignant neoplasm of breast; Chronic respiratory failure with hypoxia; Panlobular emphysema Social History Tobacco Use Types Packs/Day Years Used Date Smoking Tobacco: Every Day Cigarettes 0.5 15 Started: 04/01/2008; Last attempted to quit: 04/01/2023 Smokeless Tobacco: Never Tobacco Cessation:Ready to Q uit: Not Asked; Counseling Given: Not Answered Comments:Pt started back smoking Alcohol Use Standard Drinks/Week Comments Never 0 [...] Sign Reading Time Taken Comments Blood Pressure 130/80 09/08/2023 9:39 AM EDT Pulse 95 09/08/2023 9:39 AM EDT Temperature 36.4 ??C (97.5 ??F) 09/08/2023 9:39 AM ED T Respiratory Rate 20 09/08/2023 9:39 AM EDT Oxygen Saturation 85% 09/08/2023 9:39 AM EDT Inhaled Oxygen Concentration - - Weight 68.1 kg (150 lb 3.2 oz) 09/08/2023 9:39 A M EDT Height 162.6 cm (5' 4.02 ) 09/08/2023 9:39 AM ED T Body Mass Index 25.77 09/08/2023 9:39 AM EDT documented in this encounter Patient Instructions * Attachments The following attachments cannot be sent through Care Everywhere. * Kegel Exercises (Indian) documented in this encounter Progress Notes * Mansoor Lamas MD - 09/08/2023 9:45 AM EDTAssociated Problem(s): Panlobular emphysema * Mansoor Lamas MD - 09/08/2023 9:45 AM EDT Images from the original note were not included. Subjective The ABCs of the Annual Wellness Visit Medicare Wellness Visit Shira Mobley is a 67 y.o. patient who presents for a Medicare Wellness Visit. The following portions of the patient's history were reviewed and updated as appropriate: allergies, current medications, past family history, past medical history, past social history, past surgical history, and problem list. Compared to one year ago, the patient's physical health is worse. Compared to one year ago, the patient's mental health is the same. Recent Hospitalizations: She was admitted within the past 365 days at [facility]. Current Medical Providers: Patient Care Team: Mansoor Lamas MD as PCP - General (Family Medicine) Mehul Sanchez MD (Obstetrics and Gynecology) Dr Jung (Pulmonary Disease) Keith Abraham MD as Consulting Physician (Interventional Cardiology) Outpatient Medications Prior to Visit Medication Sig Dispense Refill acetylcysteine (MUCOMYST) 20 % nebulizer solution Take 4 mL by nebulization 3 (Three) Times a Day. 40 mL 2 albuterol (ACCUNEB) 0.63 MG/3ML nebulizer solution Take 3 mL by nebulization Every 6 (Six) Hours AsNeeded for Wheezing. 30 each 12 albuterol sulfate HFA 108 (90 Base) MCG/ACT inhaler USE 2 INHALATIONS EVERY 4 HOURS NEEDED FOR WHEEZING OR SHORTNESS OF BREATH 51 g 3 buPROPion SR (Wellbutrin SR) 150 MG 12 hr tablet Take 1 tablet by mouth 2 (Two) Times a Day. 60 tablet 2 Lytivhc-Tftqncaeu-Axneoht D (CALCIUM 1200+D3 PO) Take by mouth. denosumab (PROLIA) 60 MG/ML solution prefilled syringe syringe Inject 1 mL under the skin into the appropriate area as directed Every 6 (Six) Months. 1 mL 3 loratadine (Claritin) 10 MG tablet Take 1 tablet by mouth Daily. 30 tablet 2 potassium chloride (KLOR-CON M10) 10 MEQ CR tablet Take 1 tablet by mouth Daily. 30 tablet 2 SUMAtriptan (IMITREX) 100 MG tablet Take one tablet at onset of headache. May repeat dose one time in 2 hours if headache not relieved. 9 tablet 5 Trelegy Ellipta 100-62.5-25 MCG/ACT inhaler furosemide (LASIX) 20 MG tablet Take 1 tablet by mouth Daily. amoxicillin (AMOXIL) 500 MG capsule Take 1 capsule by mouth 3 (Three) Times a Day. (Patient not taking: Reported on 09/08/2023) 21 capsule 0 predniSONE (DELTASONE) 20 MG tablet Take 2 tablets by mouth Daily. (Patient not taking: Reported on09/08/2023) 10 tablet 0 No facility-administered medications prior to visit. No opioid medication identified on active medication list. I have reviewed chart for other potential high risk medication/s and harmful drug interactions in the elderly. Aspirin is not on active medication list. Aspirin use is not indicated based on review of current medical condition/s. Risk of harm outweighs potential benefits. . Patient Active Problem List Diagnosis Panlobular emphysema Chronic respiratory failure with hypoxia Migraine without aura and without status migrainosus, not intractable Moderate episode of recurrent major depressive disorder Primary hypertension Advance Care Planning (Click this link to access ACP Navigator) Advance Directive is not on file. ACP discussion was held with the patient during this visit. Patient does not have an advance directive, information provided. Objective Vitals: 09/08/23 0939 BP: 130/80 Pulse: 95 Resp: 20 Temp: 97.5 ??F (36.4 ??C) SpO2: (!) 85% Weight: 68.1 kg (150 lb 3.2 oz) Height: 162.6 cm (64.02 ) PainSc: 0-No pain Estimated body mass index is 25.77 kg/m?? as calculated from the following: Height as of this encounter: 162.6 cm (64.02 ). Weight as of this encounter: 68.1 kg (150 lb 3.2 oz). Does the patient have evidence of cognitive impairment? No Health Risk Assessment Smoking Status: Social History Tobacco Use Smoking Status Every Day Current packs/day: 0.00 Average packs/day: 0.5 packs/day for 15.0 years (7.5 ttl pk-yrs) Types: Cigarettes Start date: 04/01/2008 Last attempt to quit: 04/01/2023 Years since quittin.4 Smokeless Tobacco Never Tobacco Comments Pt started back smoking Alcohol Consumption: Social History Substance and Sexual Activity Alcohol Use Never Fall Risk Screen: STEADI Fall Risk Assessment was completed, and patient is at LOW risk for falls.Assessment completed on:09/08/2023 Depression Screenin09/08/2023 9:47 AM PHQ-2/PHQ-9 Depression Screening Little Interest or Pleasure in Doing Things 1-->several days Feeling Down, Depressed or Hopeless 1-->several days Trouble Falling or Staying Asleep, or Sleeping Too Much 3-->nearly every day Feeling Tired or Having Little Energy 3-->nearly every day Poor Appetite or Overeating 0-->not at all Feeling Bad about Yourself - or that You are a Failure or Have Let Yourself or Your Family Down 0-->not at all Trouble Concentrating on Things, Such as Reading the Newspaper or Watching Television 0-->not atall Moving or Speaking So Slowly that Other People Could Have Noticed? Or the Opposite - Being So Fidgety 1-->several days Thoughts that You Would be Better Off or of Hurting Yourself in Some Way 0-->not at all PHQ-9: Brief Depression Severity Measure Score 9 If You Checked Off Any Problems, How Difficult Have These Problems Made It For You to Do Your Work,Take Care of Things at Home, or Get Along with Other People? somewhat difficult Health Habits and Functional and Cognitive Screenin09/08/2023 9:45 AM Functional & Cognitive Status Do you have difficulty preparing food and eating? No Do you have difficulty bathing yourself, getting dressed or grooming yourself? No Do you have difficulty using the toilet? No Do you have difficulty moving around from place to place? No Do you have trouble with steps or getting out of a bed or a chair? No Current Diet Well Balanced Diet Dental Exam Up to date Eye Exam Up to date Exercise (times per week) 0 times per week Current Exercises Include No Regular Exercise Do you need help using the phone? No Are you deaf or do you have serious difficulty hearing? No Do you need help to go to places out of walking distance? No Do you need help shopping? No Do you need help preparing meals? No Do you need help with housework? No Do you need help with laundry? No Do you need help taking your medications? No Do you need help managing money? No Do you ever drive or ride in a car without wearing a seat belt? Yes Have you felt unusual stress, anger or loneliness in the last month? No Who do you live with? Other If you need help, do you have trouble finding someone available to you? No Have you been bothered in the last four weeks by sexual problems? No Do you have difficulty concentrating, remembering or making decisions? Yes Age-appropriate Screening Schedule: Refer to the list below for future screening recommendations based on patient's age, sex and/or medical conditions. Orders for these recommended tests are listed in the plan section. The patient has been provided with a written plan. Health Maintenance List Health Maintenance Topic Date Due ZOSTER VACCINE (2 of 3) 11/15/2016 HEPATITIS C SCREENING Never done MAMMOGRAM 04/19/2023 COVID-19 Vaccine (2022- season) 2023 (Originally 10/18/2022) INFLUENZA VACCINE 09/18/2023 ANNUAL WELLNESS VISIT 09/07/2024 BMI FOLLOWUP 09/07/2024 DXA SCAN 10/10/2024 TDAP/TD VACCINES (2 - Td or Tdap) 10/29/2028 COLORECTAL CANCER SCREENING 11/09/2030 Pneumococcal Vaccine 65+ Completed [facility] Preventative Services Quick Reference Risk Factors Identified During Encounter Immunizations Discussed/Encouraged: Influenza, COVID19, and RSV (Respiratory Syncytial Virus) Tobacco Use/Dependance Risk (use dotphrase .tobaccocessation for documentation) Urinary Incontinence: Kegel exercises discussed Dental Screening Recommended Vision Screening Recommended Mammogram Ordered The above risks/problems have been discussed with the patient. Pertinent information has been shared with the patient in the After Visit Summary. An After Visit Summary and PPPS were made available to the patient. Follow Up: Next Medicare Wellness visit to be scheduled in 1 year. Assessment & Plan Medicare annual wellness visit, subsequent Encounter for screening mammogram for malignant neoplasm of breast Chronic respiratory failure with hypoxia Panlobular emphysema Orders Placed This Encounter Procedures Mammo screening digital tomosynthesis bilateral w CAD Follow Up: Return in about 1 year (around 09/07/2024) for Medicare Wellness. documented in this encounter Plan of Treatment Not on file documented as of this encounter Results * Mammo screening digital tomosynthesis bilateral w CAD (09/23/2023) Anatomical Region Laterality Modality Breast N/A Mammography us Mansoor Lamas MD IMG MAMMOGRAPHY ORDERABL ES Final Result documented in this encounter Visit Diagnoses Diagnosis Medicare annual wellness visit, subsequent- Primary Encounter for screening mammogram for malignant neoplasm of breast Chronic respiratory failure with hypoxia Panlobular emphysema Other emphysema documented in this encounter Additional Health Concerns Assessment Noted Time PHQ-2 Depression Total Score: 2 09/08/19 24 9:47 AM EDT documented as of this encounter Care Teams Clean Room Technician Relationship Specialty Start Date End Date Mansoor Lamas MD [address] [place] [address] [place] [address] PCP - General Family Medicine 06/04/21 Dr Jung [facility] [place] Pulmonary Disease 10/02/22 documented as of this encounter
--- OUTSIDE RECORDS SUMMARY | 2024-01-23 08:24 | XMS_ITS | Encounter Summary ---
[facility] [address] [place] [address] Care Team Providers Care Installment Dealer Name Role Phone Mansoor Lamas MD Primary Care Provider + Reason for Visit * Reason Comments FU from [facility] discharge / COPD Encounter Details Date Type Department Care Team (Late st Contact Info) Description 04/04/2023 3:45 PM EST Office Visit [facility] FAM[facility]IC[facility] [address] [place] [address] Mansoor Lamas MD [address] [place] [address] COPD with exacerbation (Primary Dx); Chronic respiratory failure with hypoxia; Cigarette smoker Social History Tobacco Use Types Packs/Day Years Used Date Smoking Tobacco: Former Cigarettes 0.5 15 0 04/01/2008 - 04/01/2023 Smokeless Tobacco: Never Tobacco Cessation:Counseling Given: Not Answered Alcohol Use Standard Drinks/Week Comments Never 0 [...] Sign Reading Time Taken Comments Blood Pressure 118/70 04/04/2023 3:45 PM EST Pulse 119 04/04/2023 3:45 PM EST Temperature 36.2 ??C (97.1 ??F) 04/04/2023 3:45 PM ES T Respiratory Rate 20 04/04/2023 3:45 PM EST Oxygen Saturation 91% 04/04/2023 3:45 PM EST Inhaled Oxygen Concentration - - Weight 70.8 kg (156 lb) 04/04/2023 3:45 PM EST Height 162.6 cm (5' 4.02 ) 04/04/2023 3:45 PM ES T Body Mass Index 26.76 04/04/2023 3:45 PM EST documented in this encounter Progress Notes * Mansoor Lamas MD - 04/04/2023 3:45 PM EST Chief Complaint Patient presents with FU from [facility] discharge / COPD Subjective Shira Mobley is a 67 y.o. who presents for transition of care after a 4-day hospitalization at [facility] from March 28 through . Patient presented with worsening shortness of breath and acute respiratory failure from COPD. Patient was admitted and treated for COPD exacerbation and pneumonia. Patient's visual basic .net developer also saw her while hospitalized but is less convinced therewas pneumonia. Patient was treated with intravenous steroids and aerosols as well as antibiotics. Since discharge she has finished antibiotics and has 2 days of steroids remaining. She reports feeling tired. She has had 2 cigarettes since discharge. The following portions of the patient's history were reviewed and updated as appropriate: allergies, current medications, past family history, past medical history, past social history, past surgicalhistory, and problem list. Review of Systems Objective Vital Signs: BP 118/70 Pulse 119 Temp 97.1 ??F (36.2 ??C) Resp 20 Ht 162.6 cm (64.02 ) Wt 70.8 kg (156lb) SpO2 91% BMI 26.76 kg/m?? Physical Exam Vitals reviewed. Constitutional: Appearance: Normal appearance. Cardiovascular: Rate and Rhythm: Normal rate and regular rhythm. Pulses: Normal pulses. Heart sounds: Normal heart sounds. Pulmonary: Effort: Pulmonary effort is normal. Breath sounds: Normal breath sounds. Comments: Breath sounds are distant Neurological: Mental Status: She is alert. Result Review Assessment and Plan Diagnoses and all orders for this visit: 1. COPD with exacerbation (Primary) 2. Chronic respiratory failure with hypoxia 3. Cigarette smoker Other orders - buPROPion SR (Wellbutrin SR) 150 MG 12 hr tablet; Take 1 tablet by mouth 2 (Two) Times a Day. Dispense: 60 tablet; Refill: 2 Plan: Patient will finish steroids as prescribed. She has follow-up with pulmonology on Friday. Shewill discuss pulmonary rehabilitation with her visual basic .net developer. Patient is aware that her continued cigarette habit is a significant contributor to the frequent exacerbations she has had over the last 2 months. She was agreeable to another course of bupropion Follow Up No follow-ups on file. Patient was given instructions and counseling regarding her condition or for health maintenance advice. Please see specific information pulled into the AVS if appropriate. documented in this encounter Plan of Treatment Not on file documented as of this encounter Visit Diagnoses Diagnosis COPD with exacerbation- Primary Chronic respiratory failure with hypoxia Cigarette smoker Tobacco use disorder documented in this encounter Additional Health Concerns Infection Onset Date Last Indicated Resolved Time COVID (confirmed) 02/27/2023 02/27/2023 05/28/2023 9:08 PM EDT documented as of this encounter Care Teams Installment Dealer Relationship Specialty Start Date End Date Mansoor Lamas MD [address] [place] [address] PCP - General Family Medicine 06/04/21 Dr Jung [facility] [place] Pulmonary Disease 10/02/22 documented as of this encounter
--- OUTSIDE RECORDS SUMMARY | 2024-01-23 08:24 | XMS_ITS | Encounter Summary ---
[facility] Address [address] [place] [address] Care Team Providers Care Campaign Marketing Manager Name Role Phone Mansoor Lamas MD Primary Care Provider + Reason for Visit * Reason Onset Date Comments Med Refill 03/14/2023 Encounter Details Date Type Department Care Team (Late st Contact Info) Description 03/14/2023 Refill [facility] [address] [place] [address] Mansoor Lamas MD [address] [place] [address] COPD exacerbation; Acute bronchitis, unspecified organism Social History Tobacco Use Types Packs/Day Years [...] encounter Miscellaneous Notes * Telephone Encounter - Olimpia Sheffield RegSched Rep - 03/14/2023 3:41 PM EST Caller: Shira Mobley Relationship: Self Best call back number: [phone] Requested Prescriptions: Requested Prescriptions Pending Prescriptions Disp Refills cefdinir (OMNICEF) 300 MG capsule 14 capsule 0 Sig: Take 1 capsule by mouth 2 (Two) Times a Day. predniSONE (DELTASONE) 10 MG tablet 40 tablet 0 Si tabs daily for 4 days, then 3 tabs daily for 4 days, then 2 tabs daily for 4 days, then 1 tablet daily for 4 days Pharmacy where request should be sent: [id number] - [facility] [place] - [address] AT [address] & [facility] - [phone] - [phone] FX Last office visit with prescribing clinician: 03/14/2023 Last telemedicine visit with prescribing clinician: Visit date not found Next office visit with prescribing clinician: 09/08/2023 Additional details provided by patient: WAS SENT TO WRONG PHARMACY Does the patient have less than a 3 day supply: [x] Yes [] No Would you like a call back once the refill request has been completed: [] Yes [x] No If the office needs to give you a call back, can they leave a voicemail: [] Yes [x] No Radha Arredondo Rep 03/14/23 15:41 EST documented in this encounter Plan of Treatment Not on file documented as of this encounter Visit Diagnoses Diagnosis COPD exacerbation Obstructive chronic bronchitis with exacerbation Acute bronchitis, unspecified organism documented in this encounter Additional Health Concerns Infection Onset Date Last Indicated Resolved Time COVID (confirmed) 02/27/2023 02/27/2023 05/28/2023 9:08 PM EDT documented as of this encounter Care Teams Campaign Marketing Manager Relationship Specialty Start Date End Date Mansoor Lamas MD [address] [place] [address] PCP - General Family Medicine 06/04/[address] [facility] [place] Pulmonary Disease 10/02/22 documented as of this encounter
--- OUTSIDE RECORDS SUMMARY | 2024-01-23 08:24 | XMS_ITS | Clinical Summary ---
[facility] Address [address] [place] [address] Care Team Providers Care Pulp Refiner Operator Name Role Phone Mansoor Lamas MD Primary Care Provider + Allergies No known active allergies Medications Calcium-Magnesiu m-Vitamin D (CALCIUM 1200+D3 PO) Take by mouth. Activ e Trelegy Ellipta 100-62.5-25 MCG/ACT inhaler 2 Active albuterol sulfate HFA 108 (90 Base) MCG/ACT inhaler USE 2 INHALATIONS EVERY 4 HOURS NEEDED FOR WHEEZING OR SHORTNESS OF BREATH 51 g 3 4 Active albuterol (ACCUNEB) 0.63 MG/3ML nebulizer solutionIndicati ons:Panlobular emphysema Take 3 mL by nebulization Every 6 (Six) Hours As Needed for Wheezing. 30 each 12 4 Active buPROPion SR (Wellbutrin SR) 150 MG 12 hr tablet Take 1 tablet by mouth 2 (Two) Times a Day. 60 tablet 2 4 Active denosumab (PROLIA) 60 MG/ML solution prefilled syringe syringeIndicatio ns:Age-related osteoporosis without current pathological fracture Inject 1 mL under the skin into the appropriate area as directed Every 6 (Six) Months. 1 mL 3 4 Active potassium chloride (KLOR-CON M10) 10 MEQ CR tabletIndication s:termite inspector current use of diuretic Take 1 tablet by mouth Daily. 30 tablet 2 4 Active loratadine (Claritin) 10 MG tabletIndication s:Seasonal allergic rhinitis due to pollen Take 1 tablet by mouth Daily. 30 tablet 2 4 Active acetylcysteine (MUCOMYST) 20 % nebulizer solutionIndicati ons:COPD with exacerbation Take 4 mL by nebulization 3 (Three) Times a Day. 40 mL 2 4 Active SUMAtriptan (IMITREX) 100 MG tablet TAKE 1 TABLET AT ONSET OF HEADACHE. MAY REPEAT DOSE ONE TIME IN 2 HOURS IF HEADACHE NOT RELIEVED 9 tablet 11 4 Active Active Problems Problem Noted Date Diagnosed Date Primary hypertension 12/31/2021 Assessment & Plan (12/31/2021 10:18 AM EST): Hypertension is response is variable. Continue current medications. Blood pressure will be reassessed patient will check pressures and call on Friday with update. Migraine without aura and wi thout status migrainosus, not intractable 09/03/2021 Moderate episode of recurrent major depressive d isorder 09/03/2021 Assessment & Plan (09/03/2021 1:03 PM EDT): Patient's depression is recurrent and is moderate without psychosis. Their depression is currently active and the condition is worsening. This will be reassessed at the next regular appointment. F/U as described:patient will continue current medication therapy. Patient had stopped taking her Wellbutrin and within the last 2 weeks has restarted the medication. Panlobular emphysema 06/04/2021 Assessment & Plan (09/08/2023 10:13 AM EDT): Assessment & Plan (12/31/2021 10:26 AM EST): COPD is worsening. Discussed monitoring symptoms and use of quick-relief medications and contacting us early in the course of exacerbations. Continue current medications. Follow-up with pulmonology today as scheduled for review of CT scan and pulmonary function testing results. I will change patient's ProAir to Ventolin due to intolerance to ProAir. Chronic respiratory failure with hypoxia 022 Encounters Date Type Department Care Team Description 12/22/2023 Refill [facility] FAMILY MEDICINE [address] [address] [place] [phone] Mansoor Lamas MD from Last 3 Months Immunizations Name Administration Dates Next Due COVID-19 (PFIZER) BIVALENT 12+YRS 12/31/2021 Covid-19 (Pfizer) Chairez Cap Monovalent 09/03/2021 Pneumococcal Conjugate 20-Valent (PCV20) 022 Tdap 10/29/2018 Zostavax 09/20/2016 Family History Medical History Relation Name Comments No Known Problems Father Cancer Maternal Aunt Aunt breast Alzheimer's disease Mother Relation Name Status Comments Father Maternal Aunt Aunt Alive Mother Social History Tobacco Use Types Packs/Day Years [...] on file Sexual Orientation Not on file Last Filed Vital Signs Vital Sign Reading [...] Mass Index 25.77 09/08/2023 9:39 AM EDT Plan of Treatment Health Maintenance Due Date Last Done Comments COLOGUARD 1955 COLON CANCER SCREENING 5 YEA R SIGMOIDOSCOPY [address] COLONOGRAPHY 1955 FECAL OCCULT BLOOD TEST 1954 FIT Testing (1 year) 1955 ZOSTER VACCINE (2 of 3) 11/15/2016 09/20/2016 HEPATITIS C SCREENING 06/04/2021 INFLUENZA VACCINE 08/18/2023 COVID-19 Vaccine (2023-03 5 season) 2023 12/31/2021, 09/03/2021, 06/15/2020, Additional history exists ANNUAL WELLNESS VISIT 09/07/2024 09/08/2023 , 09/08/2023, 09/05/2022, Additional history exists BMI FOLLOWUP 09/07/2024 09/08/2023, 08/18, 11/09/2021 DXA SCAN 10/10/2024 10/10/2022, 09/17, 09/30/2022, Additional history exists MAMMOGRAM 10/09/2025 10/10/2023, 09/18, 10/07/2023, Additional history exists TDAP/TD VACCINES (2 - Td or Tdap) 10/29/2028 019 COLONOSCOPY 08/25/2033 08/26/2023, 10/19, 11/09/2020, Additional history exists COLORECTAL CANCER SCREENING 08/25/2033 Pneumococcal Vaccine 65+ Completed 09/03/2021 Procedures Procedure Name Priority Date/Time Associated Diagnosis Comments MAMMO SCREENING DIGITAL TOMOSYNTHESIS BILATERAL W CAD Routine 09/23/2023 Encounter for screening mammogram for malignant neoplasm of breast SCANNED - DEXA 10/10/2022 from Last 3 Months or Most Recently Relevant to Health Maintenance Results * Mammo screening digital tomosynthesis bilateral w CAD (09/23/2023) Anatomical Region Laterality Modality Breast N/A Mammography Mansoor Lamas MD IMG MAMMOGRAPHY ORDERABL ES Final Result * SCANNED - DEXA (10/10/2022) Anatomical Region Laterality Modality Other Mansoor Lamas MD CHART REVIEW TABS Fin al Result from Last 3 Months or Most Recently Relevant to Health [place] [address] MEDICARE A & B [facility] Care Teams Pulp Refiner Operator Relationship Specialty Start Date End Date Mansoor Lamas MD [address] [facility] [place] [address] PCP - General Family Medicine 06/04/21 Dr Jung [facility] [place] Pulmonary Disease 10/02/22
--- OUTSIDE RECORDS SUMMARY | 2024-01-23 08:24 | XMS_ITS | Encounter Summary ---
[facility] Address [address] [place] [address] Care Team Providers Care Notcher Name Role Phone Mansoor Lamas MD Primary Care Provider + Reason for Visit * Reason Comments FU on cough and SOA Sore Throat Started last night Encounter Details Date Type Department Care Team (Late st Contact Info) Description 03/14/2023 2:45 PM EST Office Visit [facility] FAMILY MEDICINE [address] [place] [address] Mansoor Lamas MD [address] [place] [address] Acute bronchitis, unspecified organism (Primary Dx); COPD exacerbation Social History Tobacco Use Types Packs/Day Years Used Date Smoking Tobacco: Every Day Cigarettes 0.5 15 Smokeless Tobacco: Never Tobacco Cessation:Ready to Q uit: No; Counseling Given: Not Answered Alcohol Use Standard Drinks/Week [...] Sign Reading Time Taken Comments Blood Pressure 125/72 03/14/2023 2:40 PM EST Pulse 87 03/14/2023 2:40 PM EST Temperature 36.4 ??C (97.5 ??F) 03/14/2023 2:40 PM ES T Respiratory Rate 20 03/14/2023 2:40 PM EST Oxygen Saturation 93% 03/14/2023 2:40 PM EST Inhaled Oxygen Concentration - - Weight 69.2 kg (152 lb 9.6 oz) 03/14/2023 2:40 P M EST Height 162.6 cm (5' 4.02 ) 03/14/2023 2:40 PM ES T Body Mass Index 26.18 03/14/2023 2:40 PM EST documented in this encounter Progress Notes * Mansoor Lamas MD - 03/14/2023 2:45 PM EST Chief Complaint Patient presents with FU on cough and SOA Sore Throat Started last night Subjective Shira Mobley is a 67 y.o. who presents for cough, chest congestion with green sputum production and sore throat. Patient was seen 2 weeks ago and had a positive COVID-19 infection. She completed a course of Paxlovid. Patient felt better for 1 day after completing Paxlovid and since that time has felt gradually worse. She denies fevers or chills Objective Vital Signs: BP 125/72 Pulse 87 Temp 97.5 ??F (36.4 ??C) Resp 20 Ht 162.6 cm (64.02 ) Wt 69.2 kg (152 lb 9.6 oz) SpO2 93% BMI 26.18 kg/m?? Physical Exam Constitutional: Appearance: Normal appearance. HENT: Head: Normocephalic and atraumatic. Right Ear: [...] is normal. No respiratory distress. Breath sounds: Examination of the left-upper field reveals rhonchi. Examination of the left-middle field reveals wheezing and rhonchi. Decreased breath sounds present. Abdominal: General: Abdomen is flat. Bowel sounds are normal. There is no distension. Palpations: Abdomen is soft. Tenderness: There is no abdominal tenderness. Musculoskeletal: Cervical back: Normal range of motion and neck supple. No tenderness. Lymphadenopathy: Cervical: No cervical adenopathy. Skin: General: Skin is warm and dry. Neurological: Mental Status: She is alert. Psychiatric: Mood and Affect: Mood normal. Result Review Assessment and Plan Diagnoses and all orders for this visit: 1. Acute bronchitis, unspecified organism (Primary) - cefdinir (OMNICEF) 300 MG capsule; Take 1 capsule by mouth 2 (Two) Times a Day. Dispense: 14 capsule; Refill: 0 2. COPD exacerbation - cefdinir (OMNICEF) 300 MG capsule; Take 1 capsule by mouth 2 (Two) Times a Day. Dispense: 14 capsule; Refill: 0 - predniSONE (DELTASONE) 10 MG tablet; 4 tabs daily for 4 days, then 3 tabs daily for 4 days, then 2 tabs daily for 4 days, then 1 tablet daily for 4 days Dispense: 40 tablet; Refill: 0 Plan: Patient will be given a repeat course of antibiotics along with a prolonged steroid taper Follow Up No follow-ups on file. Patient was given instructions and counseling regarding her condition or for health maintenance advice. Please see specific information pulled into the AVS if appropriate. documented in this encounter Plan of Treatment Not on file documented as of this encounter Visit Diagnoses Diagnosis Acute bronchitis, unspecified organism- Primary COPD exacerbation Obstructive chronic bronchitis with exacerbation documented in this encounter Additional Health Concerns Infection Onset Date Last Indicated Resolved Time COVID (confirmed) 02/27/2023 02/27/2023 05/28/2023 9:08 PM EDT documented as of this encounter Care Teams Notcher Relationship Specialty Start Date End Date Mansoor Lamas MD [address] [place] [address] PCP - General Family Medicine 06/04/[address] [facility] [place] Pulmonary Disease 10/02/22 documented as of this encounter
--- OUTSIDE RECORDS SUMMARY | 2024-01-23 08:24 | XMS_ITS | Encounter Summary ---
[facility] Address [address] [place] [address] Care Team Providers Care Business Management Professor Name Role Phone Mansoor Lamas MD Primary Care Provider + Reason for Visit * Reason Onset Date Comments NEEDING ORDER 05/21/2023 Encounter Details Date Type Department Care Team (Late st Contact Info) Description 05/21/2023 Telephone [facility] FAMILY MEDICINE [address] [facility] [place] [address] Mansoor Lamas MD [address] [place] [address] NEEDING ORDER Social History Tobacco Use Types Packs/Day Years [...] encounter Miscellaneous Notes * Telephone Encounter - Mansoor Lamas MD - 05/24/2023 11:06 AM EDT Rx printed for faxing * Telephone Encounter - Abi Pedraza RegSched Rep - 05/21/2023 2:12 PM EDT Infusion department at [facility] calling to get a new order sent for Prolia for this patient. She has an appointment next Friday. Informed them Dr. Lamas is out this week but would return on Friday. documented in this encounter Plan of Treatment Not on file documented as of this encounter Visit Diagnoses Diagnosis Age-related osteoporosis without current pathological fracture documented in this encounter Additional Health Concerns Infection Onset Date Last Indicated Resolved Time COVID (confirmed) 02/27/2023 02/27/2023 05/28/2023 9:08 PM EDT documented as of this encounter Care Teams Business Management Professor Relationship Specialty Start Date End Date Mansoor Lamas MD [address] [place] [address] PCP - General Family Medicine 06/04/21 Dr Jung [facility] [place] Pulmonary Disease 10/02/22 documented as of this encounter
--- OUTSIDE RECORDS SUMMARY | 2024-01-23 08:24 | XMS_ITS | Encounter Summary ---
[facility] Address [address] [place] [address] Care Team Providers Care Software Engineer Intern Name Role Phone Mansoor Lamas MD Primary Care Provider + Reason for Visit * Reason Onset Date Comments REFERRAL FOR MAMMOGRAM AND ULTRASOUND 09/25/2023 Encounter Details Date Type Department Care Team (Late st Contact Info) Description 09/25/2023 Telephone [facility] FAMILY MEDICINE [address] [place] [address] Mansoor Lamas MD [address] [place] [address] REFERRAL FOR MAMMOGRAM AND ULTRASOUND Social History Tobacco Use Types Packs/Day Years [...] encounter Miscellaneous Notes * Telephone Encounter - Shanell Castro RegSched Rep - 09/29/2023 2:42 PM EDT ORDERS HAVE BEEN SENT [facility] [place] TO RELAY * Telephone Encounter - Lora Hanson RegSched Rep - 09/29/2023 10:06 AM EDT PATIENT MADE CONTACT TO CHECK THE STATUS OF PREVIOUS REQUEST TO HAVE ORDERS FOR MAMMOGRAM AND ULTRASOUND FORWARDED TO [facility] PATIENT STATED [facility] HAS NOT RECEIVED ORDERS OF TODAY, 09/28 * Telephone Encounter - Davina Salcido RegSched Rep - 09/25/2023 3:39 PM EDT Caller: Shira Mobley Relationship: Self Best call back number: [phone] What is the office location: [facility] What is the office phone number: FAX: [phone] ATTN KAIA Any additional details: THIS WAS SCHEDULED AT [facility] AND PATIENT PREFERS [facility] THIS IS CLOSER TO HER HOUSE; PLEASE CALL TO ADVISE (PATIENTS PHONE IS DOWN) documented in this encounter Plan of Treatment Not on file documented as of this encounter Visit Diagnoses Not on filedocumented in this encounter Additional Health Concerns Assessment Noted Time PHQ-2 Depression Total Score: 2 09/08/19 24 9:47 AM EDT documented as of this encounter Care Teams Software Engineer Intern Relationship Specialty Start Date End Date Mansoor Lamas MD [address] [place] [address] PCP - General Family Medicine 06/04/21 Dr Jung [facility] [place] Pulmonary Disease 10/02/22 documented as of this encounter
--- OUTSIDE RECORDS SUMMARY | 2024-01-23 08:25 | XMS_ITS | Encounter Summary ---
[facility] Address [address] [place] [address] Care Team Providers Care Sanding Machine Tender Name Role Phone Mansoor Lamas MD Primary Care Provider + Reason for Visit * Reason Onset Date Comments LETTER NEEDED FOR MEDICATION PREFERENCE 09/18/19 Encounter Details Date Type Department Care Team (Late st Contact Info) Description 09/17/2021 Telephone [facility] FAMILY MEDICINE [address] [place] [address] Mansoor Lamas MD [address] [place] [address] LETTER NEEDED FOR MEDICATION PREFERENCE Social History Tobacco Use Types Packs/Day Years Used Date Smoking Tobacco: Every Day PHQ-2 Answer Date Recorded Retired PHQ-9: Brief Depression Severity Measure Score 24 09/03/2021 Comments Unknown Sex and Gender Information Value Date Recorded Sex Assigned at Not on file Legal Sex Female 10:16 AM EDT Gender Identity Not on file Sexual Orientation Not on file documented as of this encounter Miscellaneous Notes * Telephone Encounter - German Felix RegSched Rep - 09/17/2021 2:31 PM EDT A user error has taken place: encounter opened in error, closed for administrative reasons. documented in this encounter Plan of Treatment Not on file documented as of this encounter Visit Diagnoses Not on filedocumented in this encounter Additional Health Concerns Assessment Noted Time PHQ-2 Depression Total Score: 6 09/04/19 22 10:24 AM EDT documented as of this encounter Care Teams Sanding Machine Tender Relationship Specialty Start Date End Date Mansoor Lamas MD [address] [place] [address] PCP - General Family Medicine 06/04/21 documented as of this encounter
--- OUTSIDE RECORDS SUMMARY | 2024-01-23 08:25 | XMS_ITS | Encounter Summary ---
[facility] Address [address] [place] [address] Care Team Providers Care Dough Mixer Helper Name Role Phone Mansoor Lamas MD Primary Care Provider + Reason for Visit * Reason Onset Date Comments Med Refill 03/04/2023 Encounter Details Date Type Department Care Team (Late st Contact Info) Description 03/04/2023 Refill [facility] FAMILY MEDICINE [address] [place] [address] Mansoor Lamas MD [address] [place] [address] Acute cough Social History Tobacco Use Types Packs/Day Years [...] Brief Depression Severity Measure Score 0 09/05/2022 Comments Unknown Sex and Gender Information Value Date Recorded Sex Assigned at Not on file Legal Sex Female 10:16 AM EDT Gender Identity Not on file Sexual Orientation Not on file documented as of this encounter Miscellaneous Notes * Telephone Encounter - Miguel Duong RegSched Rep - 03/04/2023 1:25 PM EST Caller: Shira Mobley Relationship: Self Best call back number: [phone] Requested Prescriptions: Requested Prescriptions Pending Prescriptions Disp Refills benzonatate (TESSALON) 200 MG capsule 21 capsule 0 Sig: Take 1 capsule by mouth 3 (Three) Times a Day As Needed for Cough for up to 7 days. Pharmacy where request should be sent: [id number] - [place], [place] - [address] [place] [address] [phone] - [phone] FX Last office visit with prescribing clinician: 02/27/2023 Last telemedicine visit with prescribing clinician: Visit date not found Next office visit with prescribing clinician: 09/08/2023 Additional details provided by patient: PATIENT HAS NONE REMAINING OF HER COUGH MEDICATIONS AND IS STILL EXPERIENCING A LOT OF COUGHING. PLEASE ADVISE IF THERE ARE ANY ISSUES/CONCERNS Radha Moseley Rep 03/04/23 13:26 EST documented in this encounter Plan of Treatment Not on file documented as of this encounter Visit Diagnoses Diagnosis Acute cough documented in this encounter Additional Health Concerns Infection Onset Date Last Indicated Resolved Time COVID (confirmed) 02/27/2023 02/27/2023 05/28/2023 9:08 PM EDT documented as of this encounter Care Teams Dough Mixer Helper Relationship Specialty Start Date End Date Mansoor Lamas MD [address] [place] [address] PCP - General Family Medicine 06/04/21 Dr Jung [facility] [place] Pulmonary Disease 10/02/22 documented as of this encounter
--- OUTSIDE RECORDS SUMMARY | 2024-01-23 08:25 | XMS_ITS | Encounter Summary ---
[facility] Address [address] [place] [address] Care Team Providers Care Filler Wiper Name Role Phone Mansoor Lamas MD Primary Care Provider + Reason for Visit * Reason Comments Med Refill Encounter Details Date Type Department Care Team (Late st Contact Info) Description 09/20/2022 Refill [facility] FAMILY MEDICINE [address] [facility] [place] [address] Mansoor Lamas MD [address] [place] [address] Social History Tobacco Use Types Packs/Day Years Used Date Smoking Tobacco: Every Day Cigarettes 0.5 15 Smokeless Tobacco: Never Alcohol Use Standard Drinks/Week Comments Never 0 (1 standard drink = 0.6 oz pur e alcohol) PHQ-2 Answer Date Recorded Retired PHQ-9: Brief Depression Severity Measure Score 0 09/05/2022 PHQ-2 Answer Date Recorded Retired PHQ-9: Brief [...] Diagnoses Not on filedocumented in this encounter Care Teams Filler Wiper Relationship Specialty Start Date End Date Mansoor Lamas MD [address] [place] [address] PCP - General Family Medicine 06/04/21 documented as of this encounter
--- OUTSIDE RECORDS SUMMARY | 2024-01-23 08:25 | XMS_ITS | Encounter Summary ---
Author Organization [facility] Address [address] [place] [address] Care Team Providers Care Dictionary Editor Name Role Phone Mansoor Lamas MD Primary Care Provider + Reason for Visit * Reason Comments Sore Throat Sore throat, red, wa salomón, goopy eyes, dry cough, sinus congestion, x 3 wks. Tried mucinex and isn't helping. Encounter Details Date Type Department Care Team (Latest Contact Info) Description 04/24/2022 2:30 PM EST Office Visit [facility] [address] [facility] [place] [address] Idalia Adler DO [address] [facility] [place] [address] Acute URI (Primary Dx); Acute cough; Acute bacterial conjunctivitis of both eyes Social History Tobacco Use Types Packs/Day Years Used Date Smoking Tobacco: Some Days Cigarettes 0.5 15 Smokeless Tobacco: Never Tobacco Cessation:Ready to Q uit: Not Asked; Counseling Given: Not Answered Alcohol Use Standard Drinks/Week Comments Never 0 (1 standard drink = 0.6 oz pur e alcohol) PHQ-2 Answer Date Recorded Retired PHQ-9: Brief Depression Severity Measure Score 15 04/24/2022 Comments Unknown Sex and Gender Information Value Date Recorded Sex Assigned at Not on file Legal Sex Female 10:16 AM EDT Gender Identity Not on file Sexual Orientation Not on file documented as of this encounter Last Filed Vital Signs Vital Sign Reading Time Taken Comments Blood Pressure 150/90 04/24/2022 2:37 PM EST Pulse 73 04/24/2022 2:37 PM EST Temperature 36.3 ??C (97.3 ??F) 04/24/2022 2:37 PM ES T Respiratory Rate 18 04/24/2022 2:37 PM EST Oxygen Saturation 95% 04/24/2022 2:37 PM EST Inhaled Oxygen Concentration - - Weight 69.9 kg (154 lb 3.2 oz) 04/24/2022 2:37 P M EST Height 165.1 cm (5' 5 ) 04/24/2022 2:37 PM EST Body Mass Index 25.66 04/24/2022 2:37 PM EST documented in this encounter Progress Notes * Idalia Adler, - 04/24/2022 2:30 PM EST Chief Complaint Sore Throat (Sore throat, red, watery, goopy eyes, dry cough, sinus congestion, x 3 wks. Tried mucinex and isn't helping.) Subjective Shira Mobley presents to [facility] Sore Throat This is a new problem. The current episode started 1 to 4 weeks ago (3 weeks). There has been no fever. Associated symptoms include congestion. Pertinent negatives include no ear discharge, ear pain or shortness of breath. Treatments tried: tea with honey, Mucinex, Sudafed. Conjunctivitis The current episode started yesterday. The onset was sudden. Associated symptoms include photophobia, congestion, sore throat, URI, eye discharge and eye redness. Pertinent negatives include no double vision, no eye itching, no ear discharge, no ear pain and no eye pain. The following portions of the patient's history were reviewed and updated as appropriate: allergies, current medications, past family history, past medical history, past social history, past surgicalhistory and problem list. Objective Physical Exam Vitals reviewed. HENT: Right Ear: There is impacted cerumen. Left Ear: Tympanic membrane, ear canal and external ear normal. Mouth/Throat: Pharynx: Oropharyngeal exudate present. No posterior oropharyngeal erythema. Eyes: General: Lids are normal. Conjunctiva/sclera: Right eye: Right conjunctiva is injected. Exudate present. Left eye: Left conjunctiva is injected. Exudate present. Cardiovascular: Heart sounds: Normal heart sounds. Pulmonary: Effort: Pulmonary effort is normal. Breath sounds: Normal breath sounds. No wheezing. Neurological: Mental Status: She is alert. Result Review : Assessment and Plan Diagnoses and all orders for this visit: 1. Acute URI (Primary) - triamcinolone acetonide (KENALOG-40) injection 40 mg - azithromycin (Zithromax Z-Ha) 250 MG tablet; Take 2 tablets by mouth on day 1, then 1 tablet daily on days 2-5 Dispense: 6 tablet; Refill: 0 2. Acute cough - triamcinolone acetonide (KENALOG-40) injection 40 mg - azithromycin (Zithromax Z-Ha) 250 MG tablet; Take 2 tablets by mouth on day 1, then 1 tablet daily on days 2-5 Dispense: 6 tablet; Refill: 0 3. Acute bacterial conjunctivitis of both eyes - trimethoprim-polymyxin b (POLYTRIM) 65078-9.1 UNIT/ML-% ophthalmic solution; Administer 1 drop toboth eyes Every 4 (Four) Hours for 7 days. Dispense: 10 mL; Refill: 0 Follow Up No follow-ups on file. Patient was given instructions and counseling regarding her condition or for health maintenance advice. Please see specific information pulled into the AVS if appropriate. documented in this encounter Plan of Treatment Not on file documented as of this encounter Visit Diagnoses Diagnosis Acute URI- Primary Acute upper respiratory infections of unspecified site Acute cough Acute bacterial conjunctivitis of both eyes documented in this encounter Administered Medications Inactive Administered Medications - up to 3 most recent administrations Medication Order MAR Action Action Date Dose Rate Site triamcinolone acetonide (KENALOG-40) injection 40 mg 40 mg, Intramuscular, Once, On Fri04/24/22 at 1519, For 1 doseIndications:Acute URI,Acute cough Given 04/24/2022 3:30 PM EST 40 mg Left Ventrogluteal documented in this encounter Additional Health Concerns Assessment Noted Time PHQ-2 Depression Total Score: 6 04/25/19 2:35 PM EST documented as of this encounter Care Teams Dictionary Editor Relationship Specialty Start Date End Date Mansoor Lamas MD [address] [place] [address] PCP - General Family Medicine 06/04/21 documented as of this encounter
--- OUTSIDE RECORDS SUMMARY | 2024-01-23 08:25 | XMS_ITS | Encounter Summary ---
Author Organization [facility] Address [address] [place] [address] Care Team Providers Care Geothermal Technician Name Role Phone Mansoor Marquez MD Primary Care Provider + Encounter Details Date Type Department Care Team (Late st Contact Info) Description 02/27/2023 Telephone [facility] [address] [place] [address] Mansoor Marquez MD [address] [place] [address] Social History Tobacco Use Types [...] encounter Miscellaneous Notes * Telephone Encounter - Kathe Porras MA - 02/28/2023 9:21 AM EST Left Vm to pharmacy, call back if they have any questions. * Telephone Encounter - Mansoor Marquez MD - 02/28/2023 7:36 AM EST 30 each on the rx means 30 vials. Patient does not use the medication every single day when she is well which is why she was not given a month's worth, only refills * Telephone Encounter - Ilda Vick RegSched Rep - 02/27/2023 11:11 AM EST Pharmacy Name: [id number] - [place], [place] - [address] [address] [address] & [facility] [phone] [facility] [phone] FX What medication are you calling in regards to: ALBUTEROL NEBULIZER SOLUTION What question does the pharmacy have: IS THE QUANTITY FOR 30 DAYS OR FOR 30 VIALS? THE PATIENT IS USING ONE VIAL EVERY 6 HOURS Who is the provider that prescribed the medication: DR MARQUEZ Additional notes: documented in this encounter Plan of Treatment Not on file documented as of this encounter Visit Diagnoses Not on filedocumented in this encounter Additional Health Concerns Infection Onset Date Last Indicated Resolved Time COVID (confirmed) 02/27/2023 02/27/2023 05/28/2023 9:08 PM EDT documented as of this encounter Care Teams Geothermal Technician Relationship Specialty Start Date End Date Mansoor Marquez MD [address] [facility] [place] [address] PCP - General Family Medicine 06/04/21 Dr Jung [facility] [place] Pulmonary Disease 10/02/22 documented as of this encounter
--- OUTSIDE RECORDS SUMMARY | 2024-01-23 08:25 | XMS_ITS | Encounter Summary ---
[facility] Address [address] [place] [address] Care Team Providers Care Video Editor Name Role Phone Mansoor Lamas MD Primary Care Provider + Encounter Details Date Type Department Care Team (Late st Contact Info) Description 02/18/2023 Telephone [facility] [address] [place] [address] Mansoor Lamas MD [address] [place] [address] Social History Tobacco Use Types [...] encounter Miscellaneous Notes * Telephone Encounter - Cherri Murphy - 02/18/2023 11:54 AM EST Pt has only one pill for the cough and she is requesting something stronger in a syrup form for hercoughing to be sent in. [phone] documented in this encounter Plan of Treatment Not on file documented as of this encounter Visit Diagnoses Diagnosis Acute URI- Primary Acute upper respiratory infections of unspecified site documented in this encounter Care Teams Video Editor Relationship Specialty Start Date End Date Mansoor Lamas MD [address] [place] [address] PCP - General Family Medicine 06/04/21 Dr Jung [facility] [place] Pulmonary Disease 10/02/22 documented as of this encounter
--- OUTSIDE RECORDS SUMMARY | 2024-01-23 08:25 | XMS_ITS | Encounter Summary ---
[facility] Address [address] [place] [address] Care Team Providers Care Farm Loan Representative Name Role Phone Mansoor Lamas MD Primary Care Provider + Reason for Visit * Reason Comments Medicare Wellness-subsequent Encounter Details Date Type Department Care Team (Late st Contact Info) Description 09/05/2022 10:15 AM EDT Office Visit [facility] [address] [place] [address] Mansoor Lamas MD [address] [place] [address] Medicare annual wellness visit, subsequent (Primary Dx); Primary hypertension; Chronic respiratory failure with hypoxia; Leg cramps Social History Tobacco Use Types Packs/Day Years Used Date Smoking Tobacco: Every Day Cigarettes 0.5 15 Smokeless Tobacco: Never Tobacco Cessation:Ready to Q uit: No Alcohol Use Standard Drinks/Week Comments Never 0 [...] Sign Reading Time Taken Comments Blood Pressure 118/68 09/05/2022 10:24 AM EDT Pulse 72 09/05/2022 10:24 AM EDT Temperature 36.5 ??C (97.7 ??F) 09/05/2022 10:24 AM E DT Respiratory Rate 20 09/05/2022 10:24 AM EDT Oxygen Saturation 94% 09/05/2022 10:24 AM EDT Inhaled Oxygen Concentration - - Weight 68.7 kg (151 lb 6.4 oz) 09/05/2022 10:24 AM EDT Height 162.6 cm (5' 4 ) 09/05/2022 10:24 AM EDT Body Mass Index 25.99 09/05/2022 10:24 AM EDT documented in this encounter Progress Notes * Mansoor Lamas MD - 09/05/2022 10:15 AM EDT The ABCs of the Annual Wellness Visit Subsequent Medicare Wellness Visit Subjective Shira Mobley is a 66 y.o. female who presents for a Subsequent Medicare Wellness Visit. The following portions of the patient's history were reviewed and updated as appropriate: allergies, current medications, past family history, past medical history, past social history, past surgical history, and problem list. Compared to one year ago, the patient feels her physical health is better. Compared to one year ago, the patient feels her mental health is better. Recent Hospitalizations: She was not admitted to the hospital during the last year. Current Medical Providers: Patient Care Team: Mansoor Lamas MD as PCP - General (Family Medicine) Mehul Sanchez MD (Obstetrics and Gynecology) Outpatient Medications Prior to Visit Medication Sig Dispense Refill Ibbdrkf-Jnniynkfy-Dmufmks D (CALCIUM 1200+D3 PO) Take by mouth. Trelegy Ellipta 100-62.5-25 MCG/ACT inhaler Ventolin HFA 108 (90 Base) MCG/ACT inhaler Inhale 2 puffs Every 4 (Four) Hours As Needed for Wheezing. 18 g 11 losartan-hydrochlorothiazide (Hyzaar) 50-12.5 MG per tablet Take 1 tablet by mouth Daily. 30 tablet0 SUMAtriptan (IMITREX) 100 MG tablet Take one tablet at onset of headache. May repeat dose one time in 2 hours if headache not relieved. 9 tablet 5 denosumab (PROLIA) 60 MG/ML solution prefilled syringe syringe Inject 1 mL under the skin into the appropriate area as directed 1 (One) Time for 1 dose. 180 mL 3 azithromycin (Zithromax Z-Ha) 250 MG tablet Take 2 tablets by mouth on day 1, then 1 tablet daily on days 2-5 (Patient not taking: Reported on 09/05/2022) 6 tablet 0 buPROPion SR (WELLBUTRIN SR) 150 MG 12 hr tablet Take 1 tablet by mouth 2 (Two) Times a Day. 180 tablet 1 nicotine (NICODERM CQ) 14 MG/24HR patch Place 1 patch on the skin as directed by provider Daily. (Patient not taking: Reported on 09/05/2022) 28 patch 0 No facility-administered medications prior to visit. [...] depressive disorder Primary hypertension Advance Care Planning Advance Care Planning Advance Directive is not on file. ACP discussion was held with the patient during this visit. Patient does not have an advance directive, information provided. Objective Vitals: 09/05/22 1024 BP: 118/68 Pulse: 72 Resp: 20 Temp: 97.7 ??F (36.5 ??C) SpO2: 94% Weight: 68.7 kg (151 lb 6.4 oz) Height: 162.6 cm (64 ) PainSc: 4 PainLoc: Neck Estimated body mass index is 25.99 kg/m?? as calculated from the following: Height as of this encounter: 162.6 cm (64 ). Weight as of this encounter: 68.7 kg (151 lb 6.4 oz). BMI is >= 25 and <30. (Overweight) The following options were offered after discussion;: exercise counseling/recommendations Does the patient have evidence of cognitive impairment? No HEALTH RISK ASSESSMENT Smoking Status: Social History Tobacco Use Smoking Status Every Day Packs/day: 0.50 Years: 15.00 Pack years: 7.50 Types: Cigarettes Smokeless Tobacco Never Alcohol Consumption: Social History Substance and Sexual Activity Alcohol Use Never Fall Risk Screen: BUTCHADI Fall Risk Assessment was completed, and patient is at LOW risk for falls.Assessment completed on:09/05/2022 Depression Screenin09/05/2022 10:31 AM PHQ-2/PHQ-9 Depression Screening Little Interest or Pleasure in Doing Things 0-->not at all Feeling Down, Depressed or Hopeless 0-->not at all PHQ-9: Brief Depression Severity Measure Score 0 Health Habits and Functional and Cognitive Screenin09/05/2022 10:28 AM Functional & Cognitive Status Do you have difficulty preparing food and eating? No Do you have difficulty bathing yourself, getting dressed or grooming yourself? No Do you have difficulty using the toilet? No Do you have difficulty moving around from place to place? No Do you have trouble with steps or getting out of a bed or a chair? No Current Diet Unhealthy Diet Dental Exam Up to date Eye Exam Not up to date Exercise (times per week) 5 times per week Current Exercises Include Walking Do you need help using the phone? [...] a car without wearing a seat belt? No Have you felt unusual stress, anger or loneliness in the last month? No Who do you live with? Other If you need help, do you have trouble finding someone available to you? No Have you been bothered in the last four weeks by sexual problems? No Do you have difficulty concentrating, remembering or making decisions? No Age-appropriate Screening Schedule: Refer to the list below for future screening recommendations based on patient's age, sex and/or medical conditions. Orders for these recommended tests are listed in the plan section. The patient has been provided with a written plan. Health Maintenance Topic Date Due ZOSTER VACCINE (2 of 3) 11/15/2016 HEPATITIS C SCREENING Never done DXA SCAN 04/20/2022 COVID-19 Vaccine (5 - Pfizer series) 04/30/2022 INFLUENZA VACCINE 11/17/2022 MAMMOGRAM 04/19/2023 ANNUAL WELLNESS VISIT 09/06/2023 TDAP/TD VACCINES (2 - Td or Tdap) 10/29/2028 COLORECTAL CANCER SCREENING 11/09/2030 Pneumococcal Vaccine 65+ Completed [facility] Preventative Services Quick Reference Risk Factors Identified During Encounter: Depression/Dysphoria: current medicine has been discontinued due to resolution Immunizations Discussed/Encouraged: Influenza and COVID19 Tobacco Use/Dependance Risk (use dotphrase .tobaccocessation for documentation)Patient not interested in cessation The above risks/problems have been discussed with the patient. Pertinent information has been shared with the patient in the After Visit Summary. Diagnoses and all orders for this visit: 1. Medicare annual wellness visit, subsequent (Primary) 2. Primary hypertension - CBC & Differential - Basic Metabolic Panel - Lipid Panel - losartan-hydrochlorothiazide (Hyzaar) 50-12.5 MG per tablet; Take 1 tablet by mouth Daily. Dispense: 90 tablet; Refill: 3 3. Chronic respiratory failure with hypoxia 4. Leg cramps Other orders - SUMAtriptan (IMITREX) 100 MG tablet; Take one tablet at onset of headache. May repeat dose one time in 2 hours if headache not relieved. Dispense: 9 tablet; Refill: 5 Follow Up: Next Medicare Wellness visit to be scheduled in 1 year. An After Visit Summary and PPPS were made available to the patient. documented in this encounter Plan of Treatment Not on file documented as of this encounter Procedures Procedure Name Priority Date/Time Associated Diagnosis Comments CBC AND DIFFERENTIAL Routine 09/05/2022 10:55 AM EDT Primary hypertension LIPID PANEL Routine 09/05/2022 10:55 AM EDT Primary hypertension BASIC METABOLIC PANEL Routine 09/05/2022 10:55 AM EDT Primary hypertension documented in this encounter Results * (ABNORMAL) Lipid Panel (09/05/2022 10:55 AM EDT) Total Cholesterol 215(H) 0 - 200 mg/dL [facility] Comment: Cholesterol Reference Ranges (U.S. Department of Health and Human Services ATP III Classifications) Desirable ?<200 mg/dL Borderline High ?200-239 mg/dL High Risk ?>240 mg/dL Triglyceride Reference Ranges (U.S. Department of Health and Human Services ATP III Classifications) Normal ? <150 mg/dL Borderline High ??150-199 mg/dL High ? 200-499 mg/dL Very High ?>500 mg/dL HDL Reference Ranges (U.S. Department of Health and Human Services ATP III Classifications) Low ? <40 mg/dl (major risk factor for CHD) High ?>60 mg/dl ('negative' risk factor for CHD) LDL Reference Ranges (U.S. Department of Health and Human Services ATP III Classifications) Optimal ?<100 mg/dL Near Optimal ? 100-129 mg/dL Borderline High ??130-159 mg/dL High ? 160-189 mg/dL Very High ?>189 mg/dL Triglycerides 116 0 - 150 mg/dL [facility] HDL Cholesterol 56 40 - 60 mg/dL [facility] VLDL Cholesterol Gregory 21 5 - 40 mg/dL [facility] LDL Chol Calc (NIH) 138(H) 0 - 100 mg/dL [facility] Blood 09/05/2022 10:5 5 AM EDT 09/05/2022 Narrative [facility] ([facility]) - 09/06/2022 3:08 AM EDT Performed at: ??[address] ??[id number] Facility Sales And Admin: Pop Bobby MD, Phone: ??[phone] Patient Fasting: ??Y us Mansoor Lamas MD LAB BLOOD ORDERABLES Fin al Result [facility] (AMBULATORY) [address] [place] [address], [facility] [address] [place] [address], [place] [phone] * Basic Metabolic Panel (09/05/2022 10:55 AM EDT) Pathologist [facility] Glucose 91 65 - 99 mg/dL [facility] BUN 13 8 - 23 mg/dL [facility] Creatinine 0.87 0.57 - 1.00 mg/dL [facility] EGFR Result 73.1 >60.0 mL/min/1.7 3 [facility] Comment: GFR Normal >60 Chronic Kidney Disease <60 Kidney Failure <15 BUN/Creatinine Ratio 14.9 7.0 - 25.0 [facility] Sodium 141 136 - 145 mmol/L [facility] Potassium 4.4 3.5 - 5.2 mmol/L [facility] Chloride 100 98 - 107 mmol/L [facility] Total CO2 28.6 22.0 - 29.0 mmol/L [facility] Calcium 9.5 8.6 - 10.5 mg/dL [facility] Blood 09/05/2022 10:5 5 AM EDT 09/05/2022 Narrative [facility] ([facility]) - 09/06/2022 3:08 AM EDT Performed at: ??[address] ??[id number] Facility Sales And Admin: Pop Bobby MD, Phone: ??[phone] Patient Fasting: ??Y Mansoor Lamas MD LAB BLOOD ORDERABLES Fin al Result [facility] (AMBULATORY) [address] [place] [address], [place] [phone] [facility] [address] [place] [address], [place] [phone] * (ABNORMAL) CBC & Differential (09/05/2022 10:55 AM EDT) [facility] WBC 12.46(H) 3.40 - 10.80 10*3/mm3 [facility] RBC 5.03 3.77 - 5.28 10*6/mm3 [facility] Hemoglobin 15.5 12.0 - 15.9 g/dL [facility] Hematocrit 47.3(H) 34.0 - 46.6 % [facility] MCV 94.0 79.0 - 97.0 fL [facility] MCH 30.8 26.6 - 33.0 pg [facility] MCHC 32.8 31.5 - 35.7 g/dL [facility] RDW 13.0 12.3 - 15.4 % [facility] Platelets 399 140 - 450 10*3/mm3 [facility] Neutrophil Rel % 59.9 42.7 - 76.0 % [facility] Lymphocyte Rel % 29.8 19.6 - 45.3 % [facility] Monocyte Rel % 8.7 5.0 - 12.0 % [facility] Eosinophil Rel % 0.7 0.3 - 6.2 % [facility] Basophil Rel % 0.5 0.0 - 1.5 % [facility] Neutrophils Absolute 7.46(H) 1.70 - 7.00 10*3/mm3 [facility] Lymphocytes Absolute 3.71(H) 0.70 - 3.10 10*3/mm3 [facility] Monocytes Absolute 1.09(H) 0.10 - 0.90 10*3/mm3 [facility] Eosinophils Absolute 0.09 0.00 - 0.40 10*3/mm3 [facility] Basophils Absolute 0.06 0.00 - 0.20 10*3/mm3 [facility] Immature Granulocyte Rel % 0.4 0.0 - 0.5 % [facility] Immature Grans Absolute 0.05 0.00 - 0.05 10*3/mm3 [facility] nRBC 0.0 0.0 - 0.2 /100 WBC [facility] Blood 09/05/2022 10:5 5 AM EDT 09/05/2022 Narrative [facility] ([facility]) - 09/06/2022 3:08 AM EDT Performed at: ??[address] - [address] ??[id number] Facility Sales And Admin: Pop Bobby MD, Phone: ??[phone] Patient Fasting: ??Y us Mansoor Lamas MD LAB BLOOD ORDERABLES Fin al Result [facility] (AMBULATORY) [address] [place] [address], [place] [phone] [facility] [address] [place] [address], [place] [phone] documented in this encounter Visit Diagnoses Diagnosis Medicare annual wellness visit, subsequent- Primary Primary hypertension Unspecified essential hypertension Chronic respiratory failure with hypoxia Leg cramps Cramp of limb documented in this encounter Care Teams Farm Loan Representative Relationship Specialty Start Date End Date Mansoor Lamas MD [address] [place] [address] PCP - General Family Medicine 06/04/21 documented as of this encounter
--- OUTSIDE RECORDS SUMMARY | 2024-01-23 08:25 | XMS_ITS | Encounter Summary ---
Author Organization [facility] Address [address] [place] [address] Care Team Providers Care Print Production Manager Name Role Phone Mansoor Lamas MD Primary Care Provider + Reason for Visit * Reason Onset Date Comments Med Refill 12/19/2021 Encounter Details Date Type Department Care Team (Late st Contact Info) Description 12/19/2021 Refill [facility] [address] [place] [address] Mansoor Lamas MD [address] [place] [address] Social History Tobacco Use Types [...] Telephone Encounter - Roma Hickman MA - 12/19/2021 3:27 PM EDT We have never sent this in for pt before * Telephone Encounter - Tarah Nick RegSched Rep - 12/19/2021 2:45 PM EDT Caller: Shira Mobley Relationship: Self Best call back number: [phone] Requested Prescriptions: Requested Prescriptions Pending Prescriptions Disp Refills ??? buPROPion SR (WELLBUTRIN SR) 150 MG 12 hr tablet Pharmacy where request should be sent: [id number] - [place], [place] - [address] [place] [address] AT [facility] & - [phone] - [phone] FX Additional details provided by patient: PATIENT IS REQUESTING A TEMPORARY REFILL UNTIL SHE RECEIVESMEDICATION FROM [facility]. PATIENT STATES THAT SHE HAS BEEN OUT FOR A WEEK Does the patient have less than a 3 day supply: [x] Yes [] No Radha Aj 12/19/21 14:46 EDT documented in this encounter Plan of Treatment Not on file documented as of this encounter Visit Diagnoses Not on filedocumented in this encounter Additional Health Concerns Assessment Noted Time PHQ-2 Depression Total Score: 6 09/04/19 22 10:24 AM EDT documented as of this encounter Care Teams Print Production Manager Relationship Specialty Start Date End Date Mansoor Lamas MD [address] [place] [address] PCP - General Family Medicine 06/04/21 documented as of this encounter
--- OUTSIDE RECORDS SUMMARY | 2024-01-23 08:25 | XMS_ITS | Encounter Summary ---
[facility] Address [address] [place] [address] Care Team Providers Care Vertical Contour Band Saw Operator Name Role Phone Mansoor Lamas MD Primary Care Provider + Reason for Visit * Reason Comments Sore Throat Started yesterday sinus congestion & MICHEL Started two days a go Encounter Details Date Type Department Care Team (Late st Contact Info) Description 02/27/2023 10:45 AM EST Office Visit [facility] [address] [place] [address] Mansoor Lamas MD [address] [place] [address] Acute URI (Primary Dx); Acute non-recurrent frontal sinusitis; COVID-19 virus infection; Panlobular emphysema Social History Tobacco Use Types [...] Reading Time Taken Comments Blood Pressure 130/70 02/27/2023 10:40 AM EST Pulse 92 02/27/2023 10:40 AM EST Temperature 36.6 ??C (97.8 ??F) 02/27/2023 1 0:40 AM EST Respiratory Rate 20 02/27/2023 10:4 0 AM EST Oxygen Saturation 98% 02/27/2023 10: 40 AM EST Inhaled Oxygen Concentration - - Weight 68.9 kg (151 lb 12.8 oz) 024 10:40 AM EST Height 162.6 cm (5' 4.02 ) 02/27/2023 1 0:40 AM EST Body Mass Index 26.04 02/27/2023 10:40 AM EST documented in this encounter Progress Notes * Mansoor Lamas MD - 02/27/2023 10:45 AM EST Chief Complaint Patient presents with ??? Sore Throat Started yesterday ? ? sinus congestion & MICHEL Started two days ago Subjective Shira Mobley is a 67 y.o. who presents for 2 days of sore throat, right sided headache and sinus pressure with mild increase in cough. She has COPD Objective Vital Signs: BP 130/70 Pulse 92 Temp 97.8 ??F (36.6 ??C) Resp 20 Ht 162.6 cm (64.02 ) Wt 68.9 kg (151 lb 12.8 oz) SpO2 98% BMI 26.04 kg/m?? Physical Exam Vitals reviewed. Constitutional: Appearance: Normal appearance. HENT: Head: Normocephalic and atraumatic. Right Ear: Tympanic membrane and ear canal normal. Left Ear: Tympanic membrane and ear canal normal. Nose: Nose normal. Right Sinus: Frontal sinus tenderness present. Mouth/Throat: Mouth: Mucous membranes are moist. Pharynx: Oropharynx is clear. Eyes: Conjunctiva/sclera: Conjunctivae normal. Cardiovascular: Rate and Rhythm: Normal rate and regular rhythm. Heart sounds: Normal heart sounds. No murmur heard. Pulmonary: Effort: Pulmonary effort is normal. No respiratory distress. Breath sounds: Decreased breath sounds present. No wheezing, rhonchi or rales. Abdominal: General: Abdomen is flat. Bowel sounds are normal. There is no distension. Palpations: Abdomen is soft. Tenderness: There is no abdominal tenderness. Musculoskeletal: Cervical back: Normal range of motion and neck supple. No tenderness. Lymphadenopathy: Cervical: No cervical adenopathy. Skin: General: Skin is warm and dry. Neurological: Mental Status: She is alert. Psychiatric: Mood and Affect: Mood normal. Result Review The following data was reviewed by: Mansoor Lamas MD on 02/27/2023: Data reviewed : POCT Sars/Flu--+ SARS Assessment and Plan Diagnoses and all orders for this visit: 1. Acute URI (Primary) - Nirmatrelvir & Ritonavir, 300mg/100mg, (PAXLOVID) 20 x 150 MG & 10 x 100MG tablet therapypack tablet; Take 3 tablets by mouth 2 (Two) Times a Day. Dispense: 30 each; Refill: 0 - POCT SARS-CoV-2 + Flu Antigen JAYLIN 2. Acute non-recurrent frontal sinusitis - Nirmatrelvir & Ritonavir, 300mg/100mg, (PAXLOVID) 20 x 150 MG & 10 x 100MG tablet therapypack tablet; Take 3 tablets by mouth 2 (Two) Times a Day. Dispense: 30 each; Refill: 0 - POCT SARS-CoV-2 + Flu Antigen JAYLIN 3. COVID-19 virus infection - Nirmatrelvir & Ritonavir, 300mg/100mg, (PAXLOVID) 20 x 150 MG & 10 x 100MG tablet therapypack tablet; Take 3 tablets by mouth 2 (Two) Times a Day. Dispense: 30 each; Refill: 0 4. Panlobular emphysema - albuterol (ACCUNEB) 0.63 MG/3ML nebulizer solution; Take 3 mL by nebulization Every 6 (Six) HoursAs Needed for Wheezing. Dispense: 30 each; Refill: 12 - Nirmatrelvir & Ritonavir, 300mg/100mg, (PAXLOVID) 20 x 150 MG & 10 x 100MG tablet therapypack tablet; Take 3 tablets by mouth 2 (Two) Times a Day. Dispense: 30 each; Refill: 0 Plan Start Paxlovid Use Albuterol Neb bid and q4h prn Cont. Trelegy If Sinus dischage becomes purulent will start antibiotci Follow Up No follow-ups on file. Patient was given instructions and counseling regarding her condition or for health maintenance advice. Please see specific information pulled into the AVS if appropriate. documented in this encounter Plan of Treatment Not on file documented as of this encounter Procedures Procedure Name Priority Date/Time Associated Diagnosis Comments POC FLU + SARS ANTIGEN JAYLIN Routine 02/27/2023 11:01 AM EST Acute URI Acute non-recurrent frontal sinusitis documented in this encounter Results * (ABNORMAL) POCT SARS-CoV-2 + Flu Antigen JAYLIN (02/27/2023 11:01 AM EST) SARS Antigen Detected(A) Not Detected, Presumptive Negative Influenza A Antigen JAYLIN Not Detected Not Detected Influenza B Antigen JAYLIN Not Detected Not Detected Internal Control Passed Passed Lot Number [id number] Expiration Date 12/14/2023 Swab 02/27/2023 11:0 1 AM EST Mansoor Lamas MD POINT OF CARE TEST ORDER CHRISTI Final Result documented in this encounter Visit Diagnoses Diagnosis Acute URI- Primary Acute upper respiratory infections of unspecified site Acute non-recurrent frontal sinusitis COVID-19 virus infection Panlobular emphysema Other emphysema documented in this encounter Additional Health Concerns Infection Onset Date Last Indicated Resolved Time COVID (confirmed) 02/27/2023 02/27/2023 05/28/2023 9:08 PM EDT documented as of this encounter Care Teams Vertical Contour Band Saw Operator Relationship Specialty Start Date End Date Mansoor Lamas MD [address] [place] [address] PCP - General Family Medicine 06/04/21 Dr Jung [facility] [place] Pulmonary Disease 10/02/22 documented as of this encounter
--- OUTSIDE RECORDS SUMMARY | 2024-01-23 08:25 | XMS_ITS | Encounter Summary ---
[facility] Address [address] [place] [address] Care Team Providers Care Food Packer Name Role Phone Mansoor Lamas MD Primary Care Provider + Reason for Visit * Reason Onset Date Comments PREFERRED MEDICATION 08/24/2021 Encounter Details Date Type Department Care Team (Late st Contact Info) Description 08/24/2021 Telephone [facility] [address] [facility] [place] [address] Mansoor Lamas MD [address] [facility] [place] [address] PREFERRED MEDICATION Social History Tobacco Use Types Packs/Day Years [...] encounter Miscellaneous Notes * Telephone Encounter - Susan Cardoso - 09/27/2021 9:14 AM EDT NOTIFIED PT * Telephone Encounter - Jacquie Badillo MA - 09/26/2021 5:08 PM EDT LVM * Telephone Encounter - Mansoor Lamas MD - 09/26/2021 2:28 PM EDT The ProAir HFA is not the medicine she had side effects from. I will send the [facility] inhaler [facility] * Telephone Encounter - Latonya Schmitt RegSched Rep - 08/24/2021 10:57 AM EDT Caller: Shira Mobley Relationship: Self Best call back number: [phone] What medications are you currently taking: Current Outpatient Medications on File Prior to Visit Medication Sig Dispense Refill ??? albuterol sulfate HFA 108 (90 Base) MCG/ACT inhaler Inhale 2 puffs Every 4 (Four) Hours As Needed for Wheezing. 18 g 11 ??? buPROPion SR (WELLBUTRIN SR) 150 MG 12 hr tablet ??? Csqtbsn-Tofkqgtsy-Srjhmok D (CALCIUM 1200+D3 PO) Take by mouth. ??? Okkrzuxmafs-Rsdqnowbu-Pxiorw (Trelegy Ellipta) 100-62.5-25 MCG/INH inhaler Inhale 1 puff Daily.3 each 3 No current facility-administered medications on file prior to visit. Which medication are you concerned about: albuterol sulfate HFA 108 (90 Base) MCG/ACT inhaler Who prescribed you this medication: PCP What are your concerns: PATIENT STATES SHE SPOKE WITH [facility] AND THEY HAVE MADE HER AWARE THAT THIS MEDICATION IS NOT A PREFERRED MEDICATION AND WILL COST HER $68. PATIENT STATES THE PRO AIRINHALER IS A PREFERRED INHALER BUT IS UNSURE IF THIS IS THE INHALER THAT CAUSED HER TO HAVE ISSUES WITH HER EYESIGHT IN THE PAST AND WOULD LIKE TO REQUEST THAT PCP LOOK BACK IN HER MEDICAL RECORDS TOMAKE SURE THIS INHALER IS SAFE FOR HER TO USE BEFORE PRESCRIBING. PATIENT STATES IF THE PRO AIR IS THE MEDICATION SHE HAD AN ALLERGIC REACTION TO PCP CAN COMPLETE A FORM STATING SHE IS ALLERGIC AND THE albuterol sulfate HFA 108 (90 Base) MCG/ACT inhaler WILL BE COVERED IN ITS PLACE. PHARMACY: [facility] - [place] [phone] [place] [phone] FX?[phone] Associate Signed OrdersPatient EstimateProvidersCurrent Interactions documented in this encounter Plan of Treatment Not on file documented as of this encounter Visit Diagnoses Diagnosis Panlobular emphysema- Primary Other emphysema documented in this encounter Additional Health Concerns Assessment Noted Time PHQ-2 Depression Total Score: 2 06/05/19 22 10:33 AM EDT documented as of this encounter Care Teams Food Packer Relationship Specialty Start Date End Date Mansoor Lamas MD [facility] [place] [address] PCP - General Family Medicine 06/04/21 Dr [address] [facility] [place] Pulmonary Disease 10/02/22 documented as of this encounter
--- OUTSIDE RECORDS SUMMARY | 2024-01-23 08:25 | XMS_ITS | Encounter Summary ---
[facility] Address [address] [place] [address] Care Team Providers Care Dispatcher Relay Name Role Phone Mansoor Lamas MD Primary Care Provider + Reason for Visit * Reason Comments Medicare Wellness-subsequent Headache Pt states that she's had a headache every single day since she finished her round of steroids. Muscle Pain Pt states that she h as been having a lot of muscle cramping Encounter Details Date Type Department Care Team (Late st Contact Info) Description 09/03/2021 10:00 AM EDT Office Visit [facility] [address] [place] [address] Mansoor Lamas MD [address] [place] [address] Medicare annual wellness visit, subsequent (Primary Dx); Chronic respiratory failure with hypoxia; Migraine without aura and without status migrainosus, not intractable; Panlobular emphysema; Cigarette nicotine dependence with nicotine-induced disorder; Screening for lung cancer Social History Tobacco Use Types Packs/Day Years [...] Sign Reading Time Taken Comments Blood Pressure 142/80 09/03/2021 10:17 AM EDT Pulse 79 09/03/2021 10:17 AM EDT Temperature 36.3 ??C (97.3 ??F) 09/03/2021 10:17 AM E DT Respiratory Rate - - Oxygen Saturation 90% 09/03/2021 10:17 AM EDT Inhaled Oxygen Concentration - - Weight 71.7 kg (158 lb) 09/03/2021 10:17 AM EDT Height 165.1 cm (5' 5 ) 09/03/2021 10:17 AM EDT Body Mass Index 26.29 09/03/2021 10:17 AM EDT documented in this encounter Progress Notes * Mansoor Lamas MD - 09/03/2021 1:02 PM EDTAssociated Problem(s): Moderate episode of recurrent major depressive disorder Patient's depression is recurrent and is moderate without psychosis. Their depression is currently active and the condition is worsening. This will be reassessed at the next regular appointment. F/U as described:patient will continue current medication therapy. Patient had stopped taking her Wellbutrin and within the last 2 weeks has restarted the medication. * Mansoor Lamas MD - 09/03/2021 10:00 AM EDT The ABCs of the Annual Wellness Visit Subsequent Medicare Wellness Visit Chief Complaint Patient presents with ??? Medicare Wellness-subsequent ??? Headache Pt states that she's had a headache every single day since she finished her round of steroids. ??? Muscle Pain Pt states that she has been having a lot of muscle cramping Subjective History of Present Illness: Shira Mobley is a 65 y.o. female who presents for a Subsequent Medicare Wellness Visit. The following portions of the patient's history were reviewed and updated as appropriate: allergies, current medications, past family history, past medical history, past social history, past surgical history and problem list. Compared to one year ago, the patient feels her physical health is worse. Compared to one year ago, the patient feels her mental health is worse. Patient reports COPD exacerbation 2 weeks ago treated at an outside office with steroids and antibiotics. Patient is in process of recovering but has developed cramping in the legs. Regarding her emphysema and chronic respiratory failure she has begun wearing oxygen at night and has noticed improvement in mentation and cognition since doing this as suggested at last visit. She admits to increased depressive symptoms. Patient has stopped taking her Wellbutrin several months ago but has decided to restart the medication. Recent Hospitalizations: She was not admitted to the hospital during the last year. Current Medical Providers: Patient Care Team: Mansoor Lamas MD as PCP - General (Family Medicine) Mehul Sanchez MD (Obstetrics and Gynecology) Outpatient Medications Prior to Visit Medication Sig Dispense Refill ??? buPROPion SR (WELLBUTRIN SR) 150 MG 12 hr tablet ??? Wjrkpjb-Jmcyixdhy-Navxuvx D (CALCIUM 1200+D3 PO) Take by mouth. ??? albuterol sulfate HFA 108 (90 Base) MCG/ACT inhaler Inhale 2 puffs Every 4 (Four) Hours As Needed for Wheezing. 54 g 11 ??? Nkohupgmokq-Lgszodmal-Dapfnj (Trelegy Ellipta) 100-62.5-25 MCG/INH inhaler Inhale 1 puff Daily.3 each 3 No facility-administered medications prior to visit. No opioid medication identified on active medication list. I have reviewed chart for other potential high risk medication/s and harmful drug interactions in the elderly. Aspirin is not on active medication list. Aspirin use is not indicated based on review of current medical condition/s. Risk of harm outweighs potential benefits. . Patient Active Problem List Diagnosis ??? Panlobular emphysema (HCC) ??? Chronic respiratory failure with hypoxia (HCC) ??? Migraine without aura and without status migrainosus, not intractable ??? Moderate episode of recurrent major depressive disorder (HCC) Advance Care Planning Advance Directive is not on file. ACP discussion was held with the patient during this visit. Patient does not have an advance directive, information provided. Objective Vitals: 09/03/21 1017 BP: 142/80 Pulse: 79 Temp: 97.3 ??F (36.3 ??C) TempSrc: Temporal SpO2: 90% Weight: 71.7 kg (158 lb) Height: 165.1 cm (65 ) Estimated body mass index is 26.29 kg/m?? as calculated from the following: Height as of this encounter: 165.1 cm (65 ). Weight as of this encounter: 71.7 kg (158 lb). BMI is >= 25 and <30. (Overweight) The following options were offered after discussion;: none(medical contraindication) Does the patient have evidence of cognitive impairment? Yes Physical Exam Cardiovascular: Rate and Rhythm: Normal rate and regular rhythm. Pulses: Normal pulses. Heart sounds: Normal heart sounds. Pulmonary: Effort: Pulmonary effort is normal. Breath sounds: Normal breath sounds. Neurological: Mental Status: She is alert. HEALTH RISK ASSESSMENT Smoking Status: Social History Tobacco Use Smoking Status Current Every Day Smoker Smokeless Tobacco Not on file Alcohol Consumption: Social History Substance and Sexual Activity Alcohol Use None Fall Risk Screen: [facility] Fall Risk Assessment has not been completed. Depression Screening: PHQ-2/PHQ-9 Depression Screening 09/03/2021 Little Interest or Pleasure in Doing Things 3-->nearly every day Feeling Down, Depressed or Hopeless 3-->nearly every day Trouble Falling or Staying Asleep, or Sleeping Too Much 3-->nearly every day Feeling Tired or Having Little Energy 3-->nearly every day Poor Appetite or Overeating 3-->nearly every day Feeling Bad about Yourself - or that You are a Failure or Have Let Yourself or Your Family Down 3-->nearly every day Trouble Concentrating on Things, Such as Reading the Newspaper or Watching Television 3-->nearlyevery day Moving or Speaking So Slowly that Other People Could Have Noticed? Or the Opposite - Being So Fidgety 0-->not at all Thoughts that You Would be Better Off or of Hurting Yourself in Some Way 3-->nearly every day PHQ-9: Brief Depression Severity Measure Score 24 If You Checked Off Any Problems, How Difficult Have These Problems Made It For You to Do Your Work,Take Care of Things at Home, or Get Along with Other People? very difficult Health Habits and Functional and Cognitive Screening: Functional & Cognitive Status 09/03/2021 Do you have difficulty preparing food and eating? No Do you have difficulty bathing yourself, getting dressed or grooming yourself? No Do you have difficulty using the toilet? No Do you have difficulty moving around from place to place? No Do you have trouble with steps or getting out of a bed or a chair? No Current Diet Well Balanced Diet Dental Exam Not up to date Eye Exam Not up to date Exercise (times per week) Other Current Exercises Include No Regular Exercise Do you need help using the phone? No Are you deaf or do you have serious difficulty hearing? No Do you need help with transportation? Yes Do you need help shopping? No Do [...] anger or loneliness in the last month? Yes Who do you live with? Other If [...] written plan. Health Maintenance Topic Date Due ??? DXA SCAN Never done ??? ZOSTER VACCINE (2 of 3) 11/15/2016 ??? INFLUENZA VACCINE 11/17/2021 ??? MAMMOGRAM 04/19/2023 ??? TDAP/TD VACCINES (2 - Td or Tdap) 10/29/2028 Assessment & Plan [facility] Preventative Services Quick Reference Risk Factors Identified During Encounter Dementia/Memory Depression/Dysphoria Immunizations Discussed/Encouraged (specific Immunizations; Prevnar 20 (Pneumococcal 20-valent conjugate) and COVID19 Tobacco Use/Dependance (use dotphrase .tobaccocessation for documentation) The above risks/problems have been discussed with the patient. Follow up actions/plans if indicated are seen below in the Assessment/Plan Section. Pertinent information has been shared with the patient in the After Visit Summary. Diagnoses and all orders for this visit: 1. Medicare annual wellness visit, subsequent (Primary) 2. Chronic respiratory failure with hypoxia (HCC) - Ventolin HFA 108 (90 Base) MCG/ACT inhaler; Inhale 2 puffs Every 4 (Four) Hours As Needed for Wheezing. Dispense: 18 g; Refill: 11 3. Migraine without aura and without status migrainosus, not intractable Comments: Response to morning caffeine and ibuprofen 4. Panlobular emphysema (HCC) Comments: Stable. Continue Trelegy 5. Cigarette nicotine dependence with nicotine-induced disorder - CT Chest Low Dose Cancer Screening WO; Future 6. Screening for lung cancer Comments: Proceed with low-dose CT scan of chest Orders: - CT Chest Low Dose Cancer Screening WO; Future Other orders - Pneumococcal Conjugate Vaccine 20-Valent (PCV20) - COVID-19 Vaccine (jellyfish) Chairez Cap Follow Up: Return in about 3 months (around 12/04/2021) for Next scheduled follow up. An After Visit Summary and PPPS were made available to the patient. documented in this encounter Plan of Treatment Not on file documented as of this encounter Visit Diagnoses Diagnosis Medicare annual wellness visit, subsequent- Primary Chronic respiratory failure with hypoxia Migraine without aura and without status migrainosus, not intractable Panlobular emphysema Other emphysema Cigarette nicotine dependence with nicotine-induced disorder Screening for lung cancer documented in this encounter Additional Health Concerns Assessment Noted Time PHQ-2 Depression Total Score: 6 09/04/19 10:24 AM EDT documented as of this encounter Care Teams Dispatcher Relay Relationship Specialty Start Date End Date [place] [address] PCP - General Family Medicine 06/04/21 documented as of this encounter
--- OUTSIDE RECORDS SUMMARY | 2024-01-23 08:25 | XMS_ITS | Encounter Summary ---
[facility] Address [address] [place] [address] Care Team Providers Care Baler Name Role Phone Mansoor Lamas MD Primary Care Provider + Reason for Visit * Reason Onset Date Comments Med Refill 12/20/2021 Encounter Details Date Type Department Care Team (Late st Contact Info) Description 12/20/2021 Refill [facility] [address] [place] [address] Mansoor Lamas MD [address] [place] [address] Social History Tobacco Use Types [...] encounter Miscellaneous Notes * Telephone Encounter - Maya Davis - 12/20/2021 10:19 AM EDT Caller: Shira Mobley Relationship: Self Best call back number: [phone] Requested Prescriptions: Requested Prescriptions Pending Prescriptions Disp Refills ??? buPROPion SR (WELLBUTRIN SR) 150 MG 12 hr tablet 60 tablet 5 Sig: Take 1 tablet by mouth 2 (Two) Times a Day. Pharmacy where request should be sent: [id number] - [place], [place] - [address] - [phone] - [phone] FX Additional details provided by patient: Does the patient have less than a 3 day supply: [x] Yes [] No Radha Jansen Rep 12/20/21 10:20 EDT documented in this encounter Plan of Treatment Not on file documented as of this encounter Visit Diagnoses Not on filedocumented in this encounter Additional Health Concerns Infection Onset Date Last Indicated Resolved Time COVID (confirmed) 02/27/2023 02/27/2023 05/28/2023 9:08 PM EDT Assessment Noted Time PHQ-2 Depression Total Score: 6 09/04/19 10:24 AM EDT documented as of this encounter Care Teams Baler Relationship Specialty Start Date End Date Mansoor Lamas MD [address] [place] [address] PCP - General Family Medicine 06/04/21 Dr Jung [facility] [place] Pulmonary Disease 10/02/22 documented as of this encounter
--- OUTSIDE RECORDS SUMMARY | 2024-01-23 08:25 | XMS_ITS | Encounter Summary ---
[facility] Address [address] [place] [address] Care Team Providers Care Hired Hand Name Role Phone Mansoor Lamas MD Primary Care Provider + Reason for Visit * Reason Comments Sinus pressure w/ cough Tom had flu last wk. No fever. Encounter Details Date Type Department Care Team (Late st Contact Info) Description 01/29/2023 4:30 PM EST Office Visit [facility] [address] [place] [address] Maricel Cabrera, REHABILITATION CENTER MANAGER [address] [place] [address] Exposure to the flu (Primary Dx); COPD with exacerbation Social History Tobacco Use Types Packs/Day [...] Sign Reading Time Taken Comments Blood Pressure 108/66 01/29/2023 4:26 PM EST Pulse 64 01/29/2023 4:26 PM EST Temperature 36.9 ??C (98.4 ??F) 01/29/2023 4:26 PM ES T Respiratory Rate 16 01/29/2023 4:26 PM EST Oxygen Saturation 91% 01/29/2023 4:26 PM EST Inhaled Oxygen Concentration - - Weight 68.9 kg (152 lb) 01/29/2023 4:26 PM EST Height 162.6 cm (5' 4 ) 01/29/2023 4:26 PM EST Body Mass Index 26.09 01/29/2023 4:26 PM EST documented in this encounter Progress Notes * Maricel Cabrera, REHABILITATION CENTER MANAGER - 01/29/2023 4:30 PM EST Date: 01/29/2023 Patient Name: Shira Mobley : 1955 Chief Complaint: Chief Complaint Patient presents with Sinus pressure w/ cough Grandson had flu last wk. No fever. History of Present Illness: Shira Mobley is a 67 y.o. female who is here today for Fatigue, shortness of breath, cough with sputum production, body aches, sore throat, right sinus pressure and painfor the last 3 days. Grandson with flu. No fever, N/V/D. She does smoke 1/2ppd and treated for COPDwith trelegy. Using oxygen currently. Review of Systems: Review of Systems Constitutional: Negative for chills, fatigue and fever. HENT: Positive for congestion. Negative for ear pain, postnasal drip, rhinorrhea, sinus pressure and sore throat. Eyes: Negative for discharge and itching. Respiratory: Positive for cough and shortness of breath. Negative for wheezing. Cardiovascular: Negative for chest pain. Gastrointestinal: Negative for abdominal pain, diarrhea and nausea. Musculoskeletal: Negative for myalgias. Neurological: Negative for headache. Past Medical History: Past Medical History: Diagnosis Date Anxiety Arthritis Years Colon polyp ? Dr gonzalez is doing the colonoscopies COPD (chronic obstructive pulmonary disease) ? Dr jameson at [facility] is my lung doctor Depression ? Taking bupropion Diverticulosis ? Headache Always History of medical problems Copd Hypertension 2021 Taking losartan Irritable bowel syndrome Osteopenia 2018 Taking prolia Past Surgical History: Past Surgical History: Procedure Laterality Date APPENDECTOMY CHOLECYSTECTOMY HERNIA REPAIR TUBAL ABDOMINAL LIGATION Family History: Family History Problem Relation Age of Onset Alzheimer's disease Mother No Known Problems Father Cancer Maternal Aunt breast Social History: Social History Socioeconomic History Marital status: Tobacco Use Smoking status: Every Day Packs/day: 0.50 Years: 15.00 Additional pack years: 0.00 Total pack years: 7.50 Types: Cigarettes Smokeless tobacco: Never Vaping Use Vaping Use: Never used Substance and Sexual Activity Alcohol use: Never Drug use: Never Sexual activity: Not Currently Medications: Current Outpatient Medications: Hlitrxu-Owwwjvkax-Gnqasjj D (CALCIUM 1200+D3 PO), Take by mouth., Disp: , Rfl: hydroCHLOROthiazide (HYDRODIURIL) 12.5 MG tablet, Take 1 tablet by mouth Daily., Disp: 90 tablet, Rfl: 1 losartan-hydrochlorothiazide (Hyzaar) 50-12.5 MG per tablet, Take 1 tablet by mouth Daily., Disp: 90 tablet, Rfl: 3 SUMAtriptan (IMITREX) 100 MG tablet, Take one tablet at onset of headache. May repeat dose one timein 2 hours if headache not relieved., Disp: 9 tablet, Rfl: 5 Trelegy Ellipta 100-62.5-25 MCG/ACT inhaler, , Disp: , Rfl: Ventolin HFA 108 (90 Base) MCG/ACT inhaler, Inhale 2 puffs Every 4 (Four) Hours As Needed for Wheezing., Disp: 18 g, Rfl: 11 denosumab (PROLIA) 60 MG/ML solution prefilled syringe syringe, Inject 1 mL under the skin into theappropriate area as directed 1 (One) Time for 1 dose., Disp: 180 mL, Rfl: 3 doxycycline (VIBRAMYCIN) 100 MG capsule, Take 1 capsule by mouth 2 (Two) Times a Day for 10 days., Disp: 20 capsule, Rfl: 0 methylPREDNISolone (MEDROL) 4 MG dose pack, Take as directed on package instructions., Disp: 21 tablet, Rfl: 0 Allergies: No Known Allergies Physical Exam: Vital Signs: Vitals: 01/29/23 1626 BP: 108/66 Pulse: 64 Resp: 16 Temp: 98.4 ??F (36.9 ??C) SpO2: 91% Weight: 68.9 kg (152 lb) Height: 162.6 cm (64 ) Body mass index is 26.09 kg/m??. Physical Exam Vitals and nursing note reviewed. Constitutional: Appearance: She is not ill-appearing. HENT: Head: Normocephalic and atraumatic. Right Ear: External ear normal. No middle ear effusion. Tympanic membrane is not erythematous or bulging. Left Ear: External ear normal. No middle ear effusion. Tympanic membrane is not erythematous or bulging. Nose: Nose normal. No nasal tenderness or congestion. Right Turbinates: Not enlarged or swollen. Left Turbinates: Not enlarged or swollen. Right Sinus: No maxillary sinus tenderness. Left Sinus: No maxillary sinus tenderness. Mouth/Throat: Mouth: Mucous membranes are moist. Pharynx: No pharyngeal swelling or posterior oropharyngeal erythema. Tonsils: No tonsillar exudate. Eyes: Pupils: Pupils are equal, round, and reactive to light. Cardiovascular: Rate and Rhythm: Normal rate and regular rhythm. Pulmonary: Effort: Pulmonary effort is normal. Breath sounds: Examination of the right-lower field reveals wheezing. Examination of the left-lowerfield reveals wheezing. Wheezing present. Abdominal: General: Bowel sounds are normal. Musculoskeletal: Cervical back: Normal range of motion and neck supple. Skin: General: Skin is warm. Neurological: General: No focal deficit present. Mental Status: She is alert and oriented to person, place, and time. Psychiatric: Mood and Affect: Mood normal. Assessment/Plan: Diagnoses and all orders for this visit: 1. Exposure to the flu (Primary) - POCT SARS-CoV-2 Antigen JAYLIN + Flu 2. COPD with exacerbation - methylPREDNISolone (MEDROL) 4 MG dose pack; Take as directed on package instructions. Dispense: 21 tablet; Refill: 0 - doxycycline (VIBRAMYCIN) 100 MG capsule; Take 1 capsule by mouth 2 (Two) Times a Day for 10 days.Dispense: 20 capsule; Refill: 0 Treated for COPD exacerbation Increase fluid intake Take medications as prescribed Monitor for worsening symptoms Tylenol and ibuprofen as needed for aches and fever. Go to the ER for any shortness of breath, chest pains, fever uncontrolled by medications. Follow Up: Return if symptoms worsen or fail to improve. Maricel Cabrera. [facility] documented in this encounter Plan of Treatment Not on file documented as of this encounter Procedures Procedure Name Priority Date/Time Associated Diagnosis Comments POC FLU + SARS ANTIGEN JAYLIN Routine 01/29/2023 5:16 PM EST Exposure to the flu documented in this encounter Results * POCT SARS-CoV-2 Antigen JAYLIN + Flu (01/29/2023 5:16 PM EST) SARS Antigen Not Detected Not Detected, Presumptive Negative Influenza A Antigen JAYLIN Not Detected Not Detected Influenza B Antigen JAYLIN Not Detected Not Detected Internal Control Passed Passed Lot Number [id number] Expiration Date Swab 01/29/2023 5:16 PM EST Maricel Cabrera APRN POINT OF CARE TEST ORDERABLE S Final Result documented in this encounter Visit Diagnoses Diagnosis Exposure to the flu- Primary Contact with or exposure to other viral diseases COPD with exacerbation documented in this encounter Care Teams Hired Hand Relationship Specialty Start Date End Date Mansoor Lamas MD [address] [place] [address] PCP - General Family Medicine 06/04/21 Dr Jung [facility] [place] Pulmonary Disease 10/02/22 documented as of this encounter
--- OUTSIDE RECORDS SUMMARY | 2024-01-23 08:25 | XMS_ITS | Encounter Summary ---
[facility] Address [address] [place] [address] Care Team Providers Care Wool And Pelt Grader Name Role Phone Mansoor Lamas MD Primary Care Provider + Reason for Visit * Reason Onset Date Comments New Med Request 02/05/2023 Encounter Details Date Type Department Care Team (Late st Contact Info) Description 02/05/2023 Telephone [facility] [address] [place] [address] Mansoor Lamas MD [address] [place] [address] New Med Request Social History Tobacco Use Types Packs/Day Years [...] Miscellaneous Notes * Telephone Encounter - Cherri Hawkins RegSched Rep - 02/05/2023 10:12 AM EST Caller: Shira Mobley Relationship: Self Best call back number: [phone] What medication are you requesting: BENZONATATE COUGH MEDICATION What are your current symptoms: COUGHING How long have you been experiencing symptoms: Have you had these symptoms before: [x] Yes [] No Have you been treated for these symptoms before: [x] Yes [] No If a prescription is needed, what is your preferred pharmacy and phone number: [id number] - [place], [place] - [address]; [facility] - [phone] - [phone] FX Additional notes: REQUESTING TO BE CALLED WHEN MEDICATION IS CALLED IN documented in this encounter Plan of Treatment Not on file documented as of this encounter Visit Diagnoses Diagnosis Acute cough- Primary documented in this encounter Care Teams Wool And Pelt Grader Relationship Specialty Start Date End Date Mansoor Lamas MD [address] [place] [address] [place] [address] PCP - General Family Medicine 06/04/21 Dr Jung [facility] [place] Pulmonary Disease 10/02/22 documented as of this encounter
--- OUTSIDE RECORDS SUMMARY | 2024-01-23 08:25 | XMS_ITS | Encounter Summary ---
[facility] Address [address] [place] [address] Care Team Providers Care Advisory Software Engineer Name Role Phone Mansoor Lamas MD Primary Care Provider + Reason for Visit * Reason Onset Date Comments PRESCRIPTION REQUEST 05/15/2022 Encounter Details Date Type Department Care Team (Late st Contact Info) Description 05/15/2022 Telephone [facility] [address] [place] [address] Mansoor Lamas MD [address] [place] [address] PRESCRIPTION REQUEST Social History Tobacco Use Types Packs/Day Years Used Date Smoking Tobacco: Some Days Cigarettes 0.5 15 Smokeless Tobacco: Never Alcohol [...] Telephone Encounter - Roma Hickman MA - 05/20/2022 9:27 AM EDT Faxed order successfully * Telephone Encounter - Mansoor Lamas MD - 05/20/2022 7:42 AM EDT rx for Prolia printed to fax to [facility] * Telephone Encounter - Shira Burgos RegSched Rep - 05/15/2022 2:25 PM EDT Caller: [facility] Relationship to patient: Other Best call back number: [phone] Patient is needing: KOFFI @ [facility] REQUESTING PROLIA INJECTION PRESCRIPTION TO BE FAXEDTO THE INFUSION DEPARTMENT. FAX # [phone] documented in this encounter Plan of Treatment Not on file documented as of this encounter Visit Diagnoses Diagnosis Age-related osteoporosis without current pathological fracture- Primary documented in this encounter Additional Health Concerns Assessment Noted Time PHQ-2 Depression Total Score: 6 04/25/19 23 2:35 PM EST documented as of this encounter Care Teams Advisory Software Engineer Relationship Specialty Start Date End Date Mansoor Lamas MD [address] [place] [address] PCP - General Family Medicine 06/04/21 documented as of this encounter
--- OUTSIDE RECORDS SUMMARY | 2024-01-23 08:25 | XMS_ITS | Encounter Summary ---
[facility] Address [address] [place] [address] Care Team Providers Care Computerized Mill Mill Recorder Name Role Phone Mansoor Lamas MD Primary Care Provider + Reason for Visit * Reason Comments Follow-up Hypertension Encounter Details Date Type Department Care Team (Late st Contact Info) Description 12/31/2021 9:45 AM EST Office Visit [facility] [address] [place] [address] Mansoor Lamas MD [address] [place] [address] Primary hypertension (Primary Dx); Panlobular emphysema; Chronic respiratory failure with hypoxia Social History Tobacco Use Types Packs/Day Years [...] Sign Reading Time Taken Comments Blood Pressure 100/70 12/31/2021 9:54 AM EST Pulse 108 12/31/2021 9:54 AM EST Temperature 36.3 ??C (97.3 ??F) 12/31/2021 9:54 AM ES T Respiratory Rate 24 12/31/2021 9:54 AM EST Oxygen Saturation 92% 12/31/2021 9:54 AM EST Inhaled Oxygen Concentration - - Weight 70.9 kg (156 lb 3.2 oz) 12/31/2021 9:54 A M EST Height 165.1 cm (5' 5 ) 12/31/2021 9:54 AM EST Body Mass Index 25.99 12/31/2021 9:54 AM EST documented in this encounter Progress Notes * Mansoor Lamas MD - 12/31/2021 10:25 AM ESTAssociated Problem(s): Panlobular emphysema COPD is worsening. Discussed monitoring symptoms and use of quick-relief medications and contacting us early in the course of exacerbations. Continue current medications. Follow-up with pulmonology today as scheduled for review of CT scan and pulmonary function testing results. I will change patient's ProAir to Ventolin due to intolerance to ProAir. * Mansoor Lamas MD - 12/31/2021 10:17 AM ESTAssociated Problem(s): Primary hypertension Hypertension is response is variable. Continue current medications. Blood pressure will be reassessed patient will check pressures and call on Friday with update. * Mansoor Lamas MD - 12/31/2021 9:45 AM EST Chief Complaint Patient presents with ??? Follow-up ??? Hypertension Subjective Shira Mobley is a 66 y.o. who presents for hypertension follow-up and she wants to discuss her COPD. Hypertension. Patient brings in a list of daily blood pressures. Blood pressures have not been controlled with the lowest documented blood pressure being 145/90. However this morning her blood pressure is 100/65 on home monitoring and remains low here in the office. She admits to lightheadedness upon standing today only. She admits she does not drink enough fluids. COPD/emphysema. Patient is seeing pulmonology at [facility]. At her last visit she was taken off of Trelegy and placed on Anoro. Since that time patient has noticed increased breathlessness along with increased use of her rescue inhaler. She also reports side effects from her current rescue inhaler, ProAir. Since being changed from Ventolin HFA to ProAir she has noticed visual disturbance that affects her ability to drive at night. Objective Vital Signs: BP 100/70 Pulse 108 Temp 97.3 ??F (36.3 ??C) Resp 24 Ht 165.1 cm (65 ) Wt 70.9 kg (156 lb3.2 oz) SpO2 92% BMI 25.99 kg/m?? Physical Exam Constitutional: Appearance: Normal appearance. Cardiovascular: Rate and Rhythm: Normal rate and regular rhythm. Pulses: Normal pulses. Heart sounds: Normal heart sounds. Pulmonary: Effort: Pulmonary effort is normal. Comments: Breath sounds are distant Neurological: Mental Status: She is alert. Result Review Assessment and Plan Diagnoses and all orders for this visit: 1. Primary hypertension (Primary) Assessment & Plan: Hypertension is response is variable. Continue current medications. Blood pressure will be reassessed patient will check pressures and call on Friday with update. 2. Panlobular emphysema (HCC) Comments: Change ProAir to Ventolin due to visual impairment. Recommend eye exam Assessment & Plan: COPD is worsening. Discussed monitoring symptoms and use of quick-relief medications and contacting us early in the course of exacerbations. Continue current medications. Follow-up with pulmonology today as scheduled for review of CT scan and pulmonary function testing results. I will change patient's ProAir to Ventolin due to intolerance to ProAir. 3. Chronic respiratory failure with hypoxia (HCC) Comments: Patient may need to use oxygen more frequently. Follow-up with pulmonology Other orders - COVID-19 Bivalent Booster (Pfizer) 12+yrs - Ventolin HFA 108 (90 Base) MCG/ACT inhaler; Inhale 2 puffs Every 4 (Four) Hours As Needed for Wheezing. Dispense: 18 g; Refill: 11 Follow Up Return if symptoms worsen or fail to improve, for Follow-up to be decided after further blood pressure monitoring. Patient was given instructions and counseling regarding her condition or for health maintenance advice. Please see specific information pulled into the AVS if appropriate. documented in this encounter Plan of Treatment Not on file documented as of this encounter Visit Diagnoses Diagnosis Primary hypertension- Primary Unspecified essential hypertension Panlobular emphysema Other emphysema Chronic respiratory failure with hypoxia documented in this encounter Additional Health Concerns Assessment Noted Time PHQ-2 Depression Total Score: 6 09/04/19 22 10:24 AM EDT documented as of this encounter Care Teams Computerized Mill Mill Recorder Relationship Specialty Start Date End Date Mansoor Lamas MD [address] [place] [address] PCP - General Family Medicine 06/04/21 documented as of this encounter
--- OUTSIDE RECORDS SUMMARY | 2024-01-23 08:25 | XMS_ITS | Encounter Summary ---
[facility] Address [address] [place] [address] Care Team Providers Care Bark Grinder Name Role Phone Mansoor Lamas MD Primary Care Provider + Encounter Details Date Type Department Care Team (Late st Contact Info) Description 10/02/2021 Telephone [facility] [address] [facility] [place] [address] Mansoor Lamas MD [address] [place] [address] Social History Tobacco Use Types [...] Miscellaneous Notes * Telephone Encounter - Kathe Colvin RegSched Rep - 10/02/2021 10:20 AM EDT PT HAS A CT LUNG SCREEN DONE ON 09/24/21 RESULTS WERE SIGNIFICANT LUNG RAD 4A AND RADIOLOGIST RECOMMENDED [address] documented in this encounter Plan of Treatment Not on file documented as of this encounter Visit Diagnoses Not on filedocumented in this encounter Additional Health Concerns Assessment Noted Time PHQ-2 Depression Total Score: 6 09/04/19 22 10:24 AM EDT documented as of this encounter Care Teams Bark Grinder Relationship Specialty Start Date End Date Mansoor Lamas MD [address] [place] [address] PCP - General Family Medicine 06/04/21 documented as of this encounter
--- OUTSIDE RECORDS SUMMARY | 2024-01-23 08:25 | XMS_ITS | Encounter Summary ---
[facility] Address [address] [place] [address] Care Team Providers Care Seo Expert Name Role Phone Mansoor Lamas MD Primary Care Provider + Reason for Visit * Reason Comments Med Refill Encounter Details Date Type Department Care Team (Late st Contact Info) Description 01/08/2022 Refill [facility] [address] [place] [address] Mansoor Lamas MD [address] [place] [address] Primary hypertension Social History Tobacco Use Types [...] of this encounter Visit Diagnoses Diagnosis Primary hypertension Unspecified essential hypertension documented in this encounter Additional Health Concerns Assessment Noted Time PHQ-2 Depression Total Score: 6 09/04/19 22 10:24 AM EDT documented as of this encounter Care Teams Seo Expert Relationship Specialty Start Date End Date Mansoor Lamas MD [address] [place] [address] PCP - General Family Medicine 06/04/21 documented as of this encounter
--- OUTSIDE RECORDS SUMMARY | 2024-01-23 08:25 | XMS_ITS | Encounter Summary ---
[facility] Organization [facility] Address [address] [place] [address] Care Team Providers Care Dry Mill Worker Name Role Phone Mansoor Lamas MD Primary Care Provider + Reason for Visit * Reason Comments elevated BP w/o dx of HTN Noticed it is increasing over the past few years Encounter Details Date Type Department Care Team (Late st Contact Info) Description 12/10/2021 9:45 AM EDT Office Visit [facility] [address] [place] [address] Mansoor Lamas MD [address] [place] [address] Primary hypertension (Primary Dx); Panlobular emphysema; Cigarette nicotine dependence without complication Social History Tobacco Use Types Packs/Day Years [...] Sign Reading Time Taken Comments Blood Pressure 150/98 12/10/2021 10:01 AM EDT Pulse 92 12/10/2021 10:01 AM EDT Temperature 36.6 ??C (97.8 ??F) 12/10/2021 10:01 AM E DT Respiratory Rate 20 12/10/2021 10:01 AM EDT Oxygen Saturation 93% 12/10/2021 10:01 AM EDT Inhaled Oxygen Concentration - - Weight 72 kg (158 lb 12.8 oz) 12/10/2021 10:01 A M EDT Height 165.1 cm (5' 5 ) 12/10/2021 10:01 AM EDT Body Mass Index 26.43 12/10/2021 10:01 AM EDT documented in this encounter Progress Notes * Mansoor Lamas MD - 12/10/2021 9:45 AM EDT Chief Complaint Patient presents with ??? elevated BP w/o dx of HTN Noticed it is increasing over the past few years Subjective Shira Mobley is a 65 y.o. who presents for COPD, elevated blood pressures. Approximately a week ago patient awoke with some left-sided chest discomfort, wheezing and anxiety. She saw her dietetic aide at [facility] who placed her on doxycycline and prednisone. Blood pressure was elevated at that visit. Patient was told by her dietetic aide she needs better blood pressure controland returns today. Since her last visit here and her visit with the dietetic aide she has been monitoring blood pressure at home with systolics consistently over 180 and diastolics consistently over 100. The following portions of the patient's history were reviewed and updated as appropriate: allergies, current medications, past family history, past medical history, past social history, past surgicalhistory and problem list. Review of Systems Objective Vital Signs: BP 150/98 Pulse 92 Temp 97.8 ??F (36.6 ??C) Resp 20 Ht 165.1 cm (65 ) Wt 72 kg (158 lb 12.8 oz) SpO2 93% BMI 26.43 kg/m?? Physical Exam Constitutional: Appearance: Normal appearance. She is normal weight. Cardiovascular: Rate and Rhythm: Normal rate and regular rhythm. Pulses: Normal pulses. Heart sounds: Normal heart sounds. Pulmonary: Effort: Pulmonary effort is normal. Comments: Breath sounds are distant but no rales, rhonchi, wheezes Musculoskeletal: Right lower leg: No edema. Left lower leg: No edema. Neurological: Mental Status: She is alert. Result Review The following data was reviewed by: Mansoor Lamas MD on 12/10/2021: Data reviewed: CMP from May 2021 showing normal renal function pulmonology note from her COPD exacerbation visit was also reviewed. Assessment and Plan Diagnoses and all orders for this visit: 1. Primary hypertension (Primary) - lisinopril-hydrochlorothiazide (Zestoretic) 10-12.5 MG per tablet; Take 1 tablet by mouth Daily. Dispense: 30 tablet; Refill: 0 2. Panlobular emphysema (HCC) 3. Cigarette nicotine dependence without complication - nicotine (NICODERM CQ) 14 MG/24HR patch; Place 1 patch on the skin as directed by provider Daily.Dispense: 28 patch; Refill: 0 1. Start lisinopril with HCTZ daily. Counseled on side effects. Return in 2 weeks to reassess bloodpressure. Continue home blood pressure monitoring 2. As patient is currently on steroids for her COPD exacerbation we will delay COVID 19 by Valent booster until her follow-up visit 3. Patient is interested in smoking cessation which she has accomplished before for brief periods of time. she is agreeable to nicotine patches and we will start with NicoDerm 14 mg daily. Patient was counseled on the risks, benefits. She has prior history of adhesive reaction with nicotine patches. 3 to 10 minutes was spent inquiring counseling on smoking cessation. Follow Up Return in about 2 weeks (around 12/24/2021). Patient was given instructions and counseling regarding her condition or for health maintenance advice. Please see specific information pulled into the AVS if appropriate. documented in this encounter Plan of Treatment Not on file documented as of this encounter Visit Diagnoses Diagnosis Primary hypertension- Primary Unspecified essential hypertension Panlobular emphysema Other emphysema Cigarette nicotine dependence without complication documented in this encounter Additional Health Concerns Assessment Noted Time PHQ-2 Depression Total Score: 6 09/04/19 22 10:24 AM EDT documented as of this encounter Care Teams Dry Mill Worker Relationship Specialty Start Date End Date Mansoor Lamas MD [address] [place] [address] PCP - General Family Medicine 06/04/21 documented as of this encounter
--- OUTSIDE RECORDS SUMMARY | 2024-01-23 08:25 | XMS_ITS | Encounter Summary ---
[facility] Address [address] [place] [address] Care Team Providers Care Transmission Inspector Name Role Phone Mansoor Marquez MD Primary Care Provider + Reason for Visit * Reason Onset Date Comments BLOOD PRESSURE READINGS 01/07/2022 Encounter Details Date Type Department Care Team (Late st Contact Info) Description 01/07/2022 Telephone [facility] [address] [place] [address] Mansoor Marquez MD [address] [place] [address] BLOOD PRESSURE READINGS Social History Tobacco Use Types Packs/Day Years [...] Telephone Encounter - Roma Hickman MA - 01/07/2022 6:30 PM EST Left detailed msg informing pt what Dr. Marquez suggested. * Telephone Encounter - Mansoor Marquez MD - 01/07/2022 1:46 PM EST Based on the numbers that she is given as her blood pressure is not under control. I am going to add a small additional dose of hydrochlorothiazide to her regimen. She will need to follow-up in 1 month * Telephone Encounter - Machelle William RegSched Rep - 01/07/2022 11:23 AM EST Caller: Shira Mobley Relationship to patient: Self Best call back number: [phone] What is the call regarding: PATIENT IS CALLING TO GIVE BLOOD PRESSURE READINGS. DOES DR MARQUEZ WANT HER TO STAY ON THE LISINOPRIL OR IS HE GOING IN ANOTHER MEDICATION? IF SHE NEEDS TO STAY ON THIS, SHE NEEDS A REFILL SENT TO [facility]. 01/01 - 5:30 133/88 - PULSE 100 - BEFORE TAKING LISINOPRIL 01/02 - 7AM 150/101 PULSE 99 - BEFORE TAKING LISINOPRIL 01/03 10:30AM - 165/99 PULSE 87 - BEFORE TAKING LISINOPRIL 01/05 - 9:30AM - 194/111 PULSE 98 - BEFORE TAKING LISINOPRIL 01/06 - MORNING - 160/94 PULSE 94 - BEFORE TAKING LISINOPRIL 12/19 - 11AM - 130/91 PULSE 87 - AFTER TAKING LISINOPRIL documented in this encounter Plan of Treatment Not on file documented as of this encounter Visit Diagnoses Diagnosis Primary hypertension Unspecified essential hypertension documented in this encounter Additional Health Concerns Assessment Noted Time PHQ-2 Depression Total Score: 6 09/04/19 22 10:24 AM EDT documented as of this encounter Care Teams Transmission Inspector Relationship Specialty Start Date End Date Mansoor Marquez MD [address] [address] PCP - General Family Medicine 06/04/21 documented as of this encounter
--- OUTSIDE RECORDS SUMMARY | 2024-01-23 08:25 | XMS_ITS | Encounter Summary ---
[facility] Address [address] [place] [address] Care Team Providers Care Food Packer Name Role Phone Mansoor Lamas MD Primary Care Provider + Reason for Visit * Reason Comments FU on COPD, chest congestion, cough & SO A Encounter Details Date Type Department Care Team (Late st Contact Info) Description 02/14/2023 4:15 PM EST Office Visit [facility] [address] [place] [address] Mansoor Lamas MD [address] [place] [address] COPD with exacerbation (Primary Dx); Panlobular emphysema Social History Tobacco Use Types [...] Reading Time Taken Comments Blood Pressure 118/70 02/14/2023 4:19 PM EST Pulse 85 02/14/2023 4:19 PM EST Temperature 36.2 ??C (97.1 ??F) 02/14/2023 4:19 PM ES T Respiratory Rate 20 02/14/2023 4:19 PM EST Oxygen Saturation 92% 02/14/2023 4:19 PM EST Inhaled Oxygen Concentration - - Weight 68.4 kg (150 lb 12.8 oz) 02/14/2023 4:19 PM EST Height 162.6 cm (5' 4 ) 02/14/2023 4:19 PM EST Body Mass Index 25.88 02/14/2023 4:19 PM EST documented in this encounter Progress Notes * Mansoor Lamas MD - 02/14/2023 4:15 PM EST Chief Complaint Patient presents with FU on COPD, chest congestion, cough & SOA Subjective Shira Mobley is a 67 y.o. who presents for continued cough and chest congestion with resolution of sputum production. Patient has emphysema. She was seen in the office a little over 2 weeks ago andgiven Medrol which did improve how she felt by the end of treatment. Symptoms however have not continue to improve. She gets transient relief from her short acting beta agonist. She continues on Trelegy Objective Vital Signs: BP 118/70 Pulse 85 Temp 97.1 ??F (36.2 ??C) Resp 20 Ht 162.6 cm (64 ) Wt 68.4 kg (150 lb 12.8 oz) SpO2 92% BMI 25.88 kg/m?? Physical Exam Vitals reviewed. Constitutional: Appearance: Normal appearance. HENT: Head: Normocephalic. Right Ear: Tympanic membrane normal. Left Ear: Tympanic membrane normal. Nose: Nose normal. Mouth/Throat: Mouth: Mucous membranes are moist. Pharynx: Oropharynx is clear. Cardiovascular: Rate and Rhythm: Normal rate and regular rhythm. Pulses: Normal pulses. Heart sounds: Normal heart sounds. Pulmonary: Effort: Pulmonary effort is normal. No respiratory distress. Breath sounds: Wheezing present. No rhonchi. Comments: Breath sounds are distant Neurological: Mental Status: She is alert. Result Review Assessment and Plan Diagnoses and all orders for this visit: 1. COPD with exacerbation (Primary) - triamcinolone acetonide (KENALOG-40) injection 40 mg - predniSONE (DELTASONE) 20 MG tablet; Take 2 tablets by mouth Daily for 5 days. Dispense: 10 tablet; Refill: 0 - azithromycin (Zithromax Z-Ha) 250 MG tablet; Take 2 tablets by mouth on day 1, then 1 tablet daily on days 2-5 Dispense: 6 tablet; Refill: 0 2. Panlobular emphysema Plan: Patient has improved compared to previous visit. We will repeat a 5-day steroid burst with prednisone 40 mg and add on azithromycin. Follow Up No follow-ups on file. Patient was given instructions and counseling regarding her condition or for health maintenance advice. Please see specific information pulled into the AVS if appropriate. documented in this encounter Plan of Treatment Not on file documented as of this encounter Visit Diagnoses Diagnosis COPD with exacerbation- Primary Panlobular emphysema Other emphysema documented in this encounter Administered Medications Inactive Administered Medications - up to 3 most recent administrations Medication Order MAR Action Action Date Dose Rate Site triamcinolone acetonide (KENALOG-40) injection 40 mg 40 mg, Intramuscular, Once, On Fri02/14/23 at 1653, For 1 doseIndications:COPD with exacerbation Given 02/14/2023 4:56 PM EST 40 mg Right Ventrogluteal documented in this encounter Care Teams Food Packer Relationship Specialty Start Date End Date Mansoor Lamas MD [address] [place] [address] PCP - General Family Medicine 06/04/21 Dr Jung [facility] [place] Pulmonary Disease 10/02/22 documented as of this encounter
--- OUTSIDE RECORDS SUMMARY | 2024-01-23 08:25 | XMS_ITS | Encounter Summary ---
[facility] Address [address] [place] [address] Care Team Providers Care Solid Waste Analyst Name Role Phone Mansoor Lamas MD Primary Care Provider + Reason for Visit * Reason Comments R knee pain Pt felt a pop in r ight knee approx week and half ago when she twisted walking out of her bathroom. Encounter Details Date Type Department Care Team (Late st Contact Info) Description 11/09/2021 8:00 AM EDT Office Visit [facility] [address] [place] [address] Mansoor Lamas MD [address] [place] [address] Sprain of medial collateral ligament of right knee, initial encounter (Primary Dx) Social History Tobacco Use Types Packs/Day Years Used Date Smoking Tobacco: Every Day Smokeless Tobacco: Never PHQ-2 Answer Date Recorded Retired PHQ-9: Brief Depression Severity Measure Score 24 09/03/2021 Comments Unknown Sex and Gender Information Value Date Recorded Sex Assigned at Not on file Legal Sex Female 10:16 AM EDT Gender Identity Not on file Sexual Orientation Not on file documented as of this encounter Last Filed Vital Signs Vital Sign Reading Time Taken Comments Blood Pressure 160/80 11/09/2021 7:58 AM EDT Pulse 88 11/09/2021 7:58 AM EDT Temperature 36.4 ??C (97.5 ??F) 11/09/2021 7:58 AM ED T Respiratory Rate 20 11/09/2021 7:58 AM EDT Oxygen Saturation 92% 11/09/2021 7:58 AM EDT Inhaled Oxygen Concentration - - Weight 72.7 kg (160 lb 3.2 oz) 11/09/2021 7:58 A M EDT Height 165.1 cm (5' 5 ) 11/09/2021 7:58 AM EDT Body Mass Index 26.66 11/09/2021 7:58 AM EDT documented in this encounter Patient Instructions * Attachments The following attachments cannot be sent through Care Everywhere. * Medial Collateral Knee Ligament Sprain (Qatari) documented in this encounter Progress Notes * Mansoor Lamas MD - 11/09/2021 8:00 AM EDT Chief Complaint Patient presents with ??? R knee pain Pt felt a pop in right knee approx week and half ago when she twisted walking out of her bathroom. Subjective Shira Mobley is a 65 y.o. who presents for pain in right medial knee for nearly 2 weeks after twisting and feeling a pop. Review of Systems Objective Vital Signs: BP 160/80 Pulse 88 Temp 97.5 ??F (36.4 ??C) Resp 20 Ht 165.1 cm (65 ) Wt 72.7 kg (160 lb 3.2 oz) SpO2 92% BMI 26.66 kg/m?? Physical Exam Musculoskeletal: Right knee: Effusion and bony tenderness present. No crepitus. Decreased range of motion. Comments: Suprapatellar effusion. Incomplete extension, 5 degrees. Pain with MCL stressing Neurological: Mental Status: She is alert. Result Review Assessment and Plan Diagnoses and all orders for this visit: 1. Sprain of medial collateral ligament of right knee, initial encounter (Primary) Comments: 1. Neoprene Sleeve 2. Naproxen BID 3. Home Rehab Exercises 4. WBAT Orders: - naproxen (Naprosyn) 500 MG tablet; Take 1 tablet by mouth 2 (Two) Times a Day With Meals. Dispense: 60 tablet; Refill: 0 Follow Up Return if symptoms worsen or fail to improve. Patient was given instructions and counseling regarding her condition or for health maintenance advice. Please see specific information pulled into the AVS if appropriate. documented in this encounter Plan of Treatment Not on file documented as of this encounter Visit Diagnoses Diagnosis Sprain of medial collateral ligament of right knee, initial encounter- Primary documented in this encounter Additional Health Concerns Assessment Noted Time PHQ-2 Depression Total Score: 6 09/04/19 10:24 AM EDT documented as of this encounter Care Teams Solid Waste Analyst Relationship Specialty Start Date End Date Mansoor Lamas MD [address] [facility] [place] [address] PCP - General Family Medicine 06/04/21 documented as of this encounter
--- OUTSIDE RECORDS SUMMARY | 2024-01-23 08:25 | XMS_ITS | Encounter Summary ---
[facility] Address [address] [place] [address] Care Team Providers Care Exhaust Equipment Operator Name Role Phone Mansoor Lamas MD Primary Care Provider + Reason for Visit * Reason Onset Date Comments ANTI BIOTICS 04/24/2022 Encounter Details Date Type Department Care Team (Late st Contact Info) Description 04/24/2022 Telephone [facility] [address] [place] [address] Mansoor Lamas MD [address] [place] [address] ANTI BIOTICS Social History Tobacco Use Types Packs/Day Years [...] encounter Miscellaneous Notes * Telephone Encounter - Jacquie Badillo MA - 04/24/2022 6:09 PM EST Pt informed and understood zpak is antibiotic and she received steroid shot in office, eye drops are antibiotic drops * Telephone Encounter - Idalia Adler DO - 04/24/2022 6:04 PM EST She received steroid injection in office. Z-Ha and antibiotic eyedrops sent to pharmacy during herappointment. Z-Ha is an antibiotic. * Telephone Encounter - Jacquie Badillo MA - 04/24/2022 5:27 PM EST LVM advising pt eye drops and zpak were sent in-pt had kenalog shot today-was there any other medications being sent in * Telephone Encounter - Tunde Oropeza RegSched Rep - 04/24/2022 3:52 PM EST Caller: Shira Mobley Relationship: Self Best call back number: [phone] What medication are you requesting: ANTI BIOTICS What are your current symptoms: ?? How long have you been experiencing symptoms: 3 WEEKS Have you had these symptoms before: [x] Yes [] No Have you been treated for these symptoms before: [x] Yes [] No If a prescription is needed, what is your preferred pharmacy and phone number: [id number] [place], [place] - [address] [facility] & - [phone] - [phone] FX Additional notes:SHIRA IS ASKING IF YOU SENT THE ANTI BIOTICS IN, ZPACK AND EYE DROPS AND ANTI BIOTIC documented in this encounter Plan of Treatment Not on file documented as of this encounter Visit Diagnoses Not on filedocumented in this encounter Additional Health Concerns Assessment Noted Time PHQ-2 Depression Total Score: 6 04/25/19 23 2:35 PM EST documented as of this encounter Care Teams Exhaust Equipment Operator Relationship Specialty Start Date End Date Mansoor Lamas MD [address] [place] [address] PCP - General Family Medicine 06/04/21 documented as of this encounter
--- OUTSIDE RECORDS SUMMARY | 2024-01-23 08:25 | XMS_ITS | Encounter Summary ---
[facility] Address [address] [place] [address] Care Team Providers Care Supervisor Meter Repair Shop Name Role Phone Mansoor Marquez MD Primary Care Provider + Reason for Visit * Reason Onset Date Comments Med Refill 01/08/2022 Encounter Details Date Type Department Care Team (Late st Contact Info) Description 01/08/2022 Telephone [facility] [address] [place] [address] Mansoor Marquez MD [address] [place] [address] Med Refill Social History Tobacco Use Types Packs/Day Years [...] Telephone Encounter - Jacquie Badillo MA - 01/08/2022 2:15 PM EST Pt informed and understood * Telephone Encounter - Mansoor Marquez MD - 01/08/2022 1:45 PM EST Yes she is to take both blood pressure medications * Telephone Encounter - Jacquie Badillo MA - 01/08/2022 1:17 PM EST Pt stated she wanted to make sure to continue the lisinopril-hctz and the hydrochlorathiazide together-also needed this to go to [facility] in [place] I [facility] and pt stated takes about 10 days to get her meds from them * Telephone Encounter - Lora Hanson RegSched Rep - 01/08/2022 12:21 PM EST Caller: Shira Mobley Relationship: Self Best call back number: [phone] Requested Prescriptions: lisinopril-hydrochlorothiazide (Zestoretic) 10-12.5 MG per tablet PATIENT ALSO STATED A NEW MEDICATION WAS TO BE PRESCRIBED BY DR MARQUEZ FOR BLOOD PRESSURE Pharmacy where request should be sent: [id number] - [place], [place] - [address] [facility] & - [phone] - [phone] FX Additional details provided by patient: PATIENT STATED SHE HAS A (3) DAY SUPPLY OF THE LISINOPRIL-HYDROCHLOROTHIAZIDE PATIENT REQUESTED A CALL BACK WITH CLARIFICATION IF SHE IS TO CONTINUE TAKING THE LISINOPRIL-HYDROCHLOROTHIAZIDE ALONG WITH THE NEW BLOOD PRESSURE MEDICATION OR IF THE NEW BLOOD PRESSURE MEDICATION IS TO REPLACE THE LISINOPRIL-HYDROCHLOROTHIAZIDE Does the patient have less than a 3 day supply: [] Yes [x] No Radha Borrego 01/08/22 12:[address] MARQUEZ documented in this encounter Plan of Treatment Not on file documented as of this encounter Visit Diagnoses Diagnosis Primary hypertension Unspecified essential hypertension documented in this encounter Additional Health Concerns Assessment Noted Time PHQ-2 Depression Total Score: 6 09/04/19 22 10:24 AM EDT documented as of this encounter Care Teams Supervisor Meter Repair Shop Relationship Specialty Start Date End Date Mansoor Marquez MD [address] [place] [address] PCP - General Family Medicine 06/04/21 documented as of this encounter
--- OUTSIDE RECORDS SUMMARY | 2024-01-23 08:25 | XMS_ITS | Encounter Summary ---
[facility] Address [address] [place] [address] Care Team Providers Care Final Cigar And Box Examiner Name Role Phone Mansoor Marquez MD Primary Care Provider + Reason for Visit * Reason Onset Date Comments Med Refill 06/17/2022 Encounter Details Date Type Department Care Team (Late st Contact Info) Description 06/17/2022 Telephone [facility] [address] [place] [address] Mansoor Marquez MD [address] [place] [address] Med Refill Social History Tobacco [...] on file documented as of this encounter Progress Notes * Mansoor Marquez MD - 06/18/2022 4:49 PM EDTAddended by: MANSOOR MARQUEZ on: 06/18/2022 04:49 PM Modules accepted: Orders documented in this encounter Miscellaneous Notes * Telephone Encounter - Lora Hanson RegSched Rep - 06/17/2022 11:04 AM EDT Caller: Shira Mobley Relationship: Self Best call back number: [phone] Requested Prescriptions: buPROPion SR (WELLBUTRIN SR) 150 MG 12 hr tablet Pharmacy where request should be sent: [facility] - [address] [phone] [facility] [phone] Last office visit with prescribing clinician: 02/04/2022 Last telemedicine visit with prescribing clinician: 09/05/2022 Next office visit with prescribing clinician: 09/05/2022 Additional details provided by patient: PATIENT STATED SHE HAS LESS THAN A WEEK OF THE MEDICATION Does the patient have less than a 3 day supply: [x] Yes [] No Would you like a call back once the refill request has been completed: [] Yes [] No If the office needs to give you a call back, can they leave a voicemail: [] Yes [] No Radha Borrego Rep 06/17/22 11:[address] MARQUEZ documented in this encounter Plan of Treatment Not on file documented as of this encounter Visit Diagnoses Not on filedocumented in this encounter Additional Health Concerns Assessment Noted Time PHQ-2 Depression Total Score: 6 04/25/19 23 2:35 PM EST documented as of this encounter Care Teams Final Cigar And Box Examiner Relationship Specialty Start Date End Date Mansoor Marquez MD [address] [place] [address] PCP - General Family Medicine 06/04/21 documented as of this encounter
--- OUTSIDE RECORDS SUMMARY | 2024-01-23 08:25 | XMS_ITS | Encounter Summary ---
[facility] Address [address] [place] [address] Care Team Providers Care Signal Tester Name Role Phone Mansoor Lamas MD Primary Care Provider + Reason for Visit * Reason Comments Med Refill Encounter Details Date Type Department Care Team (Late st Contact Info) Description 02/23/2023 Refill [facility] [address] [facility] [place] [address] Mansoor Lamas MD [address] [facility] [place] [address] Social History Tobacco Use Types [...] on filedocumented in this encounter Care Teams Signal Tester Relationship Specialty Start Date End Date Mansoor Lamas MD [address] [place] [address] PCP - General Family Medicine 06/04/21 Dr Jung [facility] [place] Pulmonary Disease 10/02/22 documented as of this encounter
--- OUTSIDE RECORDS SUMMARY | 2024-01-23 08:25 | XMS_ITS | Encounter Summary ---
Author Organization [facility] Address [address] [place] [address] Care Team Providers Care Cia Agent Name Role Phone Mansoor Lamas MD Primary Care Provider + Reason for Referral * Consultation (Urgent) - Closed Specialty Diagnoses / Procedures Referred By Contumair t Referred To Contact Diagnoses Multiple lung nodules Mansoor Lamas MD [address] [place] [address] Phone: tel: fax: [facility] [address] [place] [address] Phone: tel: fax: Referral ID Status Reason Start Date Expiration Date V isits Requested Visits Authorized [id number] Closed Specialty Services Required 10/04/2021 10/04/2022 1 1 Reason for Visit * Reason Comments L ear pain and itching Pain for the past month after swimming / itching since Spring when she had a tick bite FU to discuss CT scan of lungs Encounter Details Date Type Department Care Team (Late st Contact Info) Description 10/04/2021 10:00 AM EDT Office Visit [facility] FAMILY MEDICINE [address] [facility] [place] [id number] Mansoor Lamas MD [address] [place] [address] (work) Hearing loss of left ear due to cerumen impaction (Primary Dx); Multiple lung nodules; BMI 26.0-26.9,adult Social History Tobacco Use Types Packs/Day Years Used Date Smoking Tobacco: Every Day Tobacco Cessation:Ready to Q uit: Yes PHQ-2 Answer Date Recorded Retired PHQ-9: Brief Depression Severity Measure Score 24 09/03/2021 Comments Unknown Sex and Gender Information Value Date Recorded Sex Assigned at Not on file Legal Sex Female 10:16 AM EDT Gender Identity Not on file Sexual Orientation Not on file documented as of this encounter Last Filed Vital Signs Vital Sign Reading Time Taken Comments Blood Pressure 160/85 10/04/2021 10:05 AM EDT Pulse 80 10/04/2021 10:05 AM EDT Temperature 36.4 ??C (97.5 ??F) 10/04/2021 1 0:05 AM EDT Respiratory Rate 20 10/04/2021 10:0 5 AM EDT Oxygen Saturation 88% 10/04/2021 10: 05 AM EDT 94% after sitting for a bit Inhaled Oxygen Concentration - - Weight 71.3 kg (157 lb 3.2 oz) 10/04/2021 10:05 AM EDT Height 165.1 cm (5' 5 ) 10/04/2021 10:0 5 AM EDT Body Mass Index 26.16 10/04/2021 10:05 AM EDT documented in this encounter Progress Notes * Mansoor Lamas MD - 10/04/2021 10:00 AM EDTAssociated Order(s): Cerumen Removal Post-Procedure Diagnose(s): Hearing loss of left ear due to cerumen impaction Chief Complaint Patient presents with ??? L ear pain and itching Pain for the past month after swimming / itching since Spring when she had a tick bite ??? FU to discuss CT scan of lungs Subjective Shira Mobley is a 65 y.o. who presents for 2 issues. First is hearing loss out of the left ear has been present for a month. Patient had submerged her head in water and since that time has had difficulty hearing. She believes initially water may have become trapped by some cerumen. Second concern is an abnormal low-dose CT scan of the chest the patient had recently which showed multiple pulmonary lung nodules 7 mm or less. Nodules are noncalcified. Patient will need repeat scanning in 3 months but family has convinced her this requires more urgent attention. She asks if thereare alternative options for evaluation for reassurance. Review of Systems Objective Vital Signs: BP 160/85 Pulse 80 Temp 97.5 ??F (36.4 ??C) Resp 20 Ht 165.1 cm (65 ) Wt 71.3 kg (157 lb 3.2 oz) SpO2 (!) 88% Comment: 94% after sitting for a bit BMI 26.16 kg/m?? Physical Exam HENT: Right Ear: Tympanic membrane and ear canal normal. Left Ear: There is impacted cerumen. Neurological: Mental Status: She is alert. Result Review Ear Cerumen Removal Date/Time: 10/04/2021 10:44 AM Performed by: Mansoor Lamas MD Authorized by: Mansoor Lamas MD Consent: Verbal consent obtained. Comments: Lavage was used to loosen and dislodge small amounts of wax. This improved patient's hearing. There was some wax retention and attempt to use curette to remove the remainder of wax was too painful. Patient will continue to address at home Assessment and Plan Diagnoses and all orders for this visit: 1. Hearing loss of left ear due to cerumen impaction (Primary) Comments: Improved hearing after lavage. Patient will continue to address at home Orders: - Ear Cerumen Removal 2. Multiple lung nodules Comments: Patient will be referred to [facility] pulmonology for second opinion Orders: - Ambulatory Referral to Pulmonology 3. BMI 26.0-26.9,adult Follow Up No follow-ups on file. Patient was given instructions and counseling regarding her condition or for health maintenance advice. Please see specific information pulled into the AVS if appropriate. documented in this encounter Plan of Treatment Not on file documented as of this encounter Procedures Procedure Name Priority Date/Time Associated Diagnosis Comments EAR CERUMEN REMOVAL Routine 10/04/2021 1 0:44 AM EDT Hearing loss of left ear due to cerumen impaction documented in this encounter Results * Cerumen Removal (10/04/2021 10:44 AM EDT) Narrative Mansoor Lamas MD - 10/04/2021 10:44 AM EDT Mansoor Lamas MD ? 10/04/2021 10:46 AM Ear Cerumen Removal Date/Time: 10/04/2021 10:44 AM Performed by: Mansoor Lamas MD Authorized by: Mansoor Lamas MD Consent: Verbal consent obtained. Comments: Lavage was used to loosen and dislodge small amounts of wax. ?? This improved patient's hearing. ??There was some wax retention and attempt to use curette to remove the remainder of wax was too painful. ??Patient will continue to address at home Mansoor Lamas MD PROCEDURE/MINOR SURGICAL ORDERABLES Final Result documented in this encounter Visit Diagnoses Diagnosis Hearing loss of left ear due to cerumen impaction- Primary Multiple lung nodules Other diseases of lung, not elsewhere classified BMI 26.0-26.9,adult documented in this encounter Additional Health Concerns Assessment Noted Time PHQ-2 Depression Total Score: 6 09/04/19 22 10:24 AM EDT documented as of this encounter Care Teams Cia Agent Relationship Specialty Start Date End Date Mansoor Lamas [place] [address] PCP - General Family Medicine 06/04/21 documented as of this encounter
--- OUTSIDE RECORDS SUMMARY | 2024-01-23 08:25 | XMS_ITS | Encounter Summary ---
[facility] Address [address] [place] [address] Care Team Providers Care Certified Industrial Hygienist Name Role Phone Mansoor Lamas MD Primary Care Provider + Reason for Visit * Reason Comments Med Refill Encounter Details Date Type Department Care Team (Late st Contact Info) Description 10/01/2022 Refill [facility] FAMILY MEDICINE [address] [facility] [place] [address] Mansoor Lamas MD [address] [place] [address] Social History Tobacco Use Types [...] on filedocumented in this encounter Care Teams Certified Industrial Hygienist Relationship Specialty Start Date End Date Mansoor Lamas MD [address] [place] [address] PCP - General Family Medicine 06/04/21 Dr Jung [facility] [place] Pulmonary Disease 10/02/22 documented as of this encounter
--- OUTSIDE RECORDS SUMMARY | 2024-01-23 08:25 | XMS_ITS | Encounter Summary ---
[facility] [address] [place] [address] Care Team Providers Care Insurance Healthcare Representative Name Role Phone Mansoor Lamas MD Primary Care Provider + Reason for Visit * Reason Onset Date Comments PHARAMCAY CALLS 02/25/2023 Encounter Details Date Type Department Care Team (Late st Contact Info) Description 02/25/2023 Telephone [facility] FAMILY MEDICINE [address] [place] [address] Mansoor Lamas MD [address] [place] [address] PHARAMCAY CALLS Social History Tobacco Use Types Packs/Day Years [...] Telephone Encounter - Kathe Porras MA - 02/26/2023 9:23 AM EST [facility] aware and understood pt taking both 02/26 * Telephone Encounter - Mansoor Lamas MD - 02/25/2023 4:35 PM EST Yes, the patient is to take both medications * Telephone Encounter - Sarah Goldman RegSched Rep - 02/25/2023 3:45 PM EST Pharmacy Name: Audience Reference Number (if applicable): [id number] Pharmacy customer support representative name: LOU Pharmacy customer support representative phone number: [phone] What medication are you calling in regards to: LOSARTIN HYDROCHLOROTHIAZIDE AND HYDROCHLOTHAZIDE What question does the pharmacy have: THE PHARMACY STATES THAT THE PATIENT IS REQUESTING TO FILL BOTH MEDICATIONS THE PHARMACY NEEDS TO KNOW IF ONE IS MENT TO REPLACE THE OTHER OR IF THE PATIENT SHOULD BE ON BOTH Who is the provider that prescribed the medication: JIMMY documented in this encounter Plan of Treatment Not on file documented as of this encounter Visit Diagnoses Not on filedocumented in this encounter Care Teams Insurance Healthcare Representative Relationship Specialty Start Date End Date Mansoor Lamas MD [address] [facility] [place] [address] PCP - General Family Medicine 06/04/21 Dr Jung [facility] Pulmonary Disease 10/02/22 documented as of this encounter
--- OUTSIDE RECORDS SUMMARY | 2024-01-23 08:25 | XMS_ITS | Encounter Summary ---
[facility] [address] [place] [address] Care Team Providers Care Tool Engine Lathe Set Up Operator Name Role Phone Mansoor Lamas MD Primary Care Provider + Encounter Details Date Type Department Care Team (Late st Contact Info) Description 06/20/2021 Refill [facility] FAMILY MEDICINE [address] [place] [address] Mansoor Lamas MD [address] [place] [address] Panlobular emphysema (Primary Dx) Social History Tobacco Use Types Packs/Day Years Used Date Smoking Tobacco: Every Day PHQ-2 Answer Date Recorded Retired PHQ-9: Brief Depression Severity Measure Score 12 06/04/2021 Comments Unknown Sex and Gender Information Value Date Recorded Sex Assigned at Not on file Legal Sex Female 10:16 AM EDT Gender Identity Not on file Sexual Orientation Not on file documented as of this encounter Miscellaneous Notes * Telephone Encounter - Susan Cardoso - 06/20/2021 11:47 AM EDTSummary: med refill It would like 1 dose of the trelegy sent to the [facility] and the [facility]. Pt only has a 3 day supply left. documented in this encounter Plan of Treatment Not on file documented as of this encounter Visit Diagnoses Diagnosis Panlobular emphysema- Primary Other emphysema documented in this encounter Additional Health Concerns Assessment Noted Time PHQ-2 Depression Total Score: 2 06/05/19 22 10:33 AM EDT documented as of this encounter Care Teams Tool Engine Lathe Set Up Operator Relationship Specialty Start Date End Date Mansoor Lamas MD [address] [place] [address] PCP - General Family Medicine 06/04/21 documented as of this encounter
--- OUTSIDE RECORDS SUMMARY | 2024-01-23 08:25 | XMS_ITS | Encounter Summary ---
Author Organization [facility] Address [address] [place] [address] Care Team Providers Care Paper Products Machine Operator Name Role Phone Mansoor Lamas MD Primary Care Provider + Reason for Referral * Consultation (Routine) - Closed Specialty Diagnoses / Procedures Referred By Contac t Referred To Contact Dermatology Diagnoses Neoplasm of uncertain behavior of skin of nose Mansoor Lamas MD [facility] [place] [address] Phone: tel: fax: Shannon Summers MD [address] [place] [address] Phone: tel: fax: Referral ID Status Reason Start Date Expiration Date V isits Requested Visits Authorized [id number] Closed Specialty Services Required 06/04/2021 06/04/2022 1 1 * Durable Medical Equipment (Routine) - Closed Specialty Diagnoses / Procedures Referred By Contac t Referred To Contact Diagnoses Chronic respiratory failure with hypoxia Memory loss or impairment Family history of dementia Procedures Oxygen Therapy Mansoor Lamas MD [address] [place] [address] [place] [address] Phone: tel: fax: [address] [place] [address] Phone: tel: fax: Referral ID Status Reason Start Date Expiration Date Visits Re quested Visits Authorized [id number] Closed 06/04/2021 06/04/2022 1 1 Reason for Visit * Reason Comments 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 Previous Hari p t COPD Encounter Details Date Type Department Care Team (Late st Contact Info) Description 06/04/2021 11:00 AM EDT Office Visit [facility] FAMILY MEDICINE [address] [place] [address] Mansoor Lamas MD [address] [place] [address] Chronic respiratory failure with hypoxia (Primary Dx); Memory loss or impairment; Family history of dementia; Neoplasm of uncertain behavior of skin of nose Social History Tobacco Use Types Packs/Day Years [...] Sign Reading Time Taken Comments Blood Pressure 150/80 06/04/2021 10:28 AM EDT Pulse 87 06/04/2021 10:28 AM EDT Temperature 36.3 ??C (97.3 ??F) 06/04/2021 10:28 AM E DT Respiratory Rate 24 06/04/2021 10:28 AM EDT Oxygen Saturation 97% 06/04/2021 10:28 AM EDT Inhaled Oxygen Concentration - - Weight 68 kg (150 lb) 06/04/2021 10:28 AM EDT Height 165.1 cm (5' 5 ) 06/04/2021 10:28 AM EDT Body Mass Index 24.96 06/04/2021 10:28 AM EDT documented in this encounter Progress Notes * Mansoor Lamas MD - 06/04/2021 11:00 AM EDT Chief Complaint Patient presents with ??? 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 COPD Subjective Shira Mobley is a 65 y.o. who presents for 3 specific things. First is need for supplemental oxygen. Patient has emphysema and chronic respiratory failure with hypoxia. Hypoxia is nocturnal and then throughout the day on an intermittent basis depending on her level of exertion. She is required oxygen after hospitalizations but generally is able to wean herself. Within the last month she was seen at another primary care office and had desaturations in office to 85%. She was prescribed an oxygen concentrator but asks for portable oxygen and a conserving device when she is out of her home. 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 She also does not have oxygen to take with her if she stays outside ofthe home as occasionally she will stay with her daughter. She feels like a portable oxygen tank would benefit her in that situation, and I am in agreement. The second issue is memory loss. The primary example the patient reports is forgetting the names ofactors and actresses she is known all of her life. She has had difficulty recalling her Social Security number. She has forgotten specific events or interactions with her daughter. Her mother had dementia and in her 80s. In regards to ADLs patient reports no problems. She is very afraid because of the memory loss. She feels like it has become more noticeable over the last month. Third is recurrence of an abnormal appearing skin lesion on the bridge of the nose around the area where she had prior skin cancer removed. She would like dermatology referral Objective Vital Signs: BP 150/80 Pulse 87 Temp 97.3 ??F (36.3 ??C) Resp 24 Ht 165.1 cm (65 ) Wt 68 kg (150 lb) SpO2 97% BMI 24.96 kg/m?? BMI is within normal parameters. No follow-up required. Physical Exam Constitutional: Appearance: Normal appearance. HENT: [...] is normal. No respiratory distress. Breath sounds: Normal breath sounds. Abdominal: General: Abdomen is flat. Bowel sounds are normal. There is no distension. Palpations: Abdomen is soft. Tenderness: There is no abdominal tenderness. Musculoskeletal: Cervical back: Normal range of motion and neck supple. No tenderness. Lymphadenopathy: Cervical: No cervical adenopathy. Skin: General: Skin is warm and dry. Neurological: General: No focal deficit present. Mental Status: She is alert and oriented to person, place, and time. Cranial Nerves: No cranial nerve deficit. Motor: No weakness. Psychiatric: Mood and Affect: Mood normal. Result Review Assessment and Plan Diagnoses and all orders for this visit: 1. Chronic respiratory failure with hypoxia (HCC) (Primary) Comments: Order sent to [facility] for portable oxygen and conserving device. Suspect hypoxia may be contributing to memory impairment. RTO 3 months to reassess. Orders: - Oxygen Therapy 2. Memory loss or impairment Comments: Suspect due to chronic respiratory failure. Reassess in 3 months unless symptoms rapidly worsen. Dementia labs ordered Orders: - Oxygen Therapy - Comprehensive Metabolic Panel - Vitamin B12 - Folate; Future - CBC Auto Differential 3. Family history of dementia - Oxygen Therapy - Comprehensive Metabolic Panel - Vitamin B12 - Folate; Future - CBC Auto Differential 4. Neoplasm of uncertain behavior of skin of nose Comments: History of skin cancer of the nose with recurrence of a lesion in the same area. Refer to dermatology Orders: - Ambulatory Referral to Dermatology Follow Up Return in about 3 months (around 09/03/2021) for Annual, Recheck. Patient was given instructions and counseling regarding her condition or for health maintenance advice. Please see specific information pulled into the AVS if appropriate. documented in this encounter Plan of Treatment Not on file documented as of this encounter Results * Folate (06/04/2021 11:39 AM EDT) Folate 11.60 4.78 - 24.20 ng/mL [facility] Comment:Results may be false ly increased if patient taking Biotin. Blood 06/04/2021 11:3 9 AM EDT 06/04/2021 Narrative [facility] ([facility]UL[facility]) - 06/04/2021 8:07 PM EDT Performed at: [address] [place] [address] [place], [place] [id number] Outside Sales Account Executive: Pop Bobby MD, Phone: ??[phone] Patient Fasting: ??Y us Mansoor Lamas MD LAB BLOOD ORDERABLES Fin al Result [facility] ([facility]) [address] [place] [address], [facility] [address] [place] [address], [place] [phone] documented in this encounter Visit Diagnoses Diagnosis Chronic respiratory failure with hypoxia- Primary Memory loss or impairment Memory loss Family history of dementia Family history of other neurological diseases Neoplasm of uncertain behavior of skin of nose documented in this encounter Additional Health Concerns Assessment Noted Time PHQ-2 Depression Total Score: 2 06/05/19 22 10:33 AM EDT documented as of this encounter Care Teams Paper Products Machine Operator Relationship Specialty Start Date End Date Mansoor Lamas MD [facility] [place] [address] PCP - General Family Medicine 06/04/21 documented as of this encounter
--- OUTSIDE RECORDS SUMMARY | 2024-01-23 08:25 | XMS_ITS | Encounter Summary ---
[facility] Address [address] [place] [address] Care Team Providers Care Dermatology Physician Assistant Name Role Phone Mansoor Lamas MD Primary Care Provider + Encounter Details Date Type Department Care Team (Late st Contact Info) Description 07/30/2021 Telephone [facility] FAMILY MEDICINE [address] [place] [address] Mansoor Lamas MD [address] [place] [address] Social History Tobacco Use Types [...] encounter Miscellaneous Notes * Telephone Encounter - CastorenaSudheer RegSched Rep - 08/01/2021 4:04 PM EDT Caller: Shira Mobley Relationship: Self Best call back number: [phone] What was the call regarding: PATIENT CALLED STATING THAT HER PRESCRIPTION WAS SENT TO [facility]. PATIENT STATED THAT IT COST TOO MUCH FOR HER. PATIENT ASKED FOR THIS PRESCRIPTION TO BE [facility] TO [facility]. PHARMACY VERIFIED [facility] - [address] [phone] [facility] [phone] FX?? * Telephone Encounter - Maya Soliman RegSched Rep - 07/30/2021 9:33 AM EDT Pt called stated that she is almost out of her rescue inhaler and needed a refill Ventolin 2 times a day due to [facility] [place] documented in this encounter Plan of Treatment Not on file documented as of this encounter Visit Diagnoses Not on filedocumented in this encounter Additional Health Concerns Assessment Noted Time PHQ-2 Depression Total Score: 2 06/05/19 10:33 AM EDT documented as of this encounter Care Teams Dermatology Physician Assistant Relationship Specialty Start Date End Date Mansoor Lamas MD [address] [place] [address] PCP - General Family Medicine 06/04/21 documented as of this encounter
--- OUTSIDE RECORDS SUMMARY | 2024-01-23 08:25 | XMS_ITS | Encounter Summary ---
[facility] Address [address] [place] [address] Care Team Providers Care Tetryl Boiling Tub Operator Name Role Phone Unavailable Primary Care Provider Unavailabl e Encounter Details Date Type Department Care Team (Late st Contact Info) Description 12/01/2008 Conversion Encounter [facility] HISTORICAL CONV [address] [place] [address] Interface, See Report Social History Tobacco Use Types Packs/Day Years Used Date Smoking Tobacco: Never Assessed Comments Unknown Sex and Gender Information Value Date Recorded Sex Assigned at Not on file Legal Sex Female 10:16 AM EDT Gender Identity Not on file Sexual Orientation Not on file documented as of this encounter Plan of Treatment Not on file documented as of this encounter Procedures Procedure Name Priority Date/Time Associated Diagnosis Comments CONVERTED (HISTORICAL) SURGICAL PATHOLOGY Routine 12/01/2008 1:55 PM EDT documented in this encounter Results * Converted Surgical Pathology (12/01/2008 1:55 PM EDT) 12/01/2008 1:55 PM EDT [facility] - 12/02/2008 12:33 PM EDT [facility] SURGICAL PATHOLOGY REPORT Patient Name: SHIRA SANCHEZ MR#: [id number] : 1955 Gender: F Ordering Physician: EUNICE DERAS Copy To: [facility] [place] Location: [facility] Collected: 12/01/2008 Received: 12/01/2008 Reported: 12/02/2008 Clinical Diagnosis and History 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 Final Diagnosis 1. SKIN, RIGHT HAND, EXCISION: ? Dermal scar. 2. NERVE, RIGHT HAND EXCISION: ? Neuroma. TDC/rw Amendments: Electronically Signed Out By Solomon Mason M.D. Specimen(s) Received: 1: Scar - other than skin 2: Repair Gross Description Specimen 1 received in formalin labeled scar from right carpal tunnel right hand is a 1.5 x 0.4 x 0.3 cm domínguez/white fibrous scar which is submitted in toto in cassette 1. Specimen 2 received in formalin labeled neuroma from right carpal tunnel right hand is a 0.3 x 0.3 x 0.3 cm domínguez/white soft tissue fragment which is submitted in toto in cassette 2. ??HBM/sk Microscopic Description The first specimens shows skin with underlying scar. ??The second specimen shows a small disorganized peripheral nerve. ??TDC/rw Procedures/Addenda us See Report Interface PATHOLOGY/CYTOLOGY ORDERABL ES Final Result [facility] [address] [place] [address], documented in this encounter Visit Diagnoses Not on filedocumented in this encounter
--- OUTSIDE RECORDS SUMMARY | 2024-01-23 08:25 | XMS_ITS | Encounter Summary ---
[facility] Organization [facility] Address [address] [place] [address] Care Team Providers Care Yarding Supervisor Name Role Phone Mansoor Lamas MD Primary Care Provider + Reason for Visit * Reason Onset Date Comments BP Meds 04/02/2022 Encounter Details Date Type Department Care Team (Late st Contact Info) Description 04/02/2022 Telephone [facility] [address] [place] [address] Mansoor Lamas MD [address] [place] [address] BP Meds Social History Tobacco Use Types Packs/Day Years [...] Telephone Encounter - Berkley Cortez MA - 04/04/2022 12:50 PM EST Left detailed vm informing pt. * Telephone Encounter - Megan Maciel - 04/04/2022 10:02 AM EST Called lvm * Telephone Encounter - Mansoor Lamas MD - 04/04/2022 7:46 AM EST No, she is to continue the HCTZ. * Telephone Encounter - Berkley Cortez MA - 04/03/2022 4:09 PM EST Pt asking if she needs to stop the HCTZ Rx? She's aware to stop the Lisinopril. Suggested she stop taking until we hear from you. She's aware you're out of the office today. * Telephone Encounter - Viviana Adkins LPN - 04/02/2022 6:10 PM EST Left detailed vm for pt with response * Telephone Encounter - Mansoor Lamas MD - 04/02/2022 1:13 PM EST Alternative prescription has been sent to patient's pharmacy. * Telephone Encounter - Cherri Murphy - 04/02/2022 10:21 AM EST Pt stop by the office reporting that she has had a dry cough since starting Lisinopril. She has tried stopping the medicine and the cough goes away then it returns after starting it again. Pt feels she needs to be changed to a different med for her blood pressure. She has discontinued taking the medicine. She also reports trouble with the cough especially after getting new dental work. [phone] documented in this encounter Plan of Treatment Not on file documented as of this encounter Visit Diagnoses Not on filedocumented in this encounter Additional Health Concerns Assessment Noted Time PHQ-2 Depression Total Score: 6 09/04/19 10:24 AM EDT documented as of this encounter Care Teams Yarding Supervisor Relationship Specialty Start Date End Date Mansoor Lamas MD [address] [place] [address] PCP - General Family Medicine 06/04/21 documented as of this encounter
--- OUTSIDE RECORDS SUMMARY | 2024-01-23 08:25 | XMS_ITS | Encounter Summary ---
[facility] [address] [place] [address] Care Team Providers Care Continuous Drier Operator Name Role Phone Mansoor Lamas MD Primary Care Provider + Encounter Details Date Type Department Care Team (Late st Contact Info) Description 01/04/2022 Documentation [facility] [address] [place] [address] Mansoor Lamas MD [address] [place] [address] Social History Tobacco Use Types [...] of this encounter Progress Notes * Mansoor Lamas MD - 01/04/2022 10:42 AM EST Patient was contacted regarding her low blood pressure earlier in the week. Due to some unforeseen circumstances patient has not been able to monitor her blood pressure as much as advised. On the fewoccasions she is checked her blood pressure she states it is not been too high and not been too low. At present we will have her continue to take her medicines as prescribed documented in this encounter Plan of Treatment Not on file documented as of this encounter Visit Diagnoses Not on filedocumented in this encounter Additional Health Concerns Assessment Noted Time PHQ-2 Depression Total Score: 6 09/04/19 10:24 AM EDT documented as of this encounter Care Teams Continuous Drier Operator Relationship Specialty Start Date End Date Mansoor Lamas MD [address] [place] [address] PCP - General Family Medicine 06/04/21 documented as of this encounter
--- OUTSIDE RECORDS SUMMARY | 2024-01-23 08:25 | XMS_ITS | Encounter Summary ---
[facility] [address] [place] [address] Care Team Providers Care Sightseeing Guide Name Role Phone Mansoor Lamas MD Primary Care Provider + Reason for Visit * Reason Comments Hospital Follow Up Visit Encounter Details Date Type Department Care Team (Latest Contact Info) Description 02/04/2022 2:45 PM EST Office Visit [facility] [address] [place] [address] Mansoor Lamas MD [address] [place] [address] Enterocolitis (Primary Dx); Primary hypertension Social History Tobacco Use Types [...] Sign Reading Time Taken Comments Blood Pressure 110/68 02/04/2022 2:46 PM EST Pulse 87 02/04/2022 2:46 PM EST Temperature 36.4 ??C (97.5 ??F) 02/04/2022 2:46 PM ES T Respiratory Rate 18 02/04/2022 2:46 PM EST Oxygen Saturation 90% 02/04/2022 2:46 PM EST Inhaled Oxygen Concentration - - Weight 71.7 kg (158 lb) 02/04/2022 2:46 PM EST Height 165.1 cm (5' 5 ) 02/04/2022 2:46 PM EST Body Mass Index 26.29 02/04/2022 2:46 PM EST documented in this encounter Progress Notes * Mansoor Lamas MD - 02/04/2022 2:45 PM EST Chief Complaint Patient presents with ??? Hospital Follow Up Visit Subjective Shira Mobley is a 66 y.o. who presents for ER follow up of a visit on 01/23 for abdominal pain diagnosed as enteritis. She is better now. Still has mild stomach cramping after eating. Objective Vital Signs: BP 110/68 Pulse 87 Temp 97.5 ??F (36.4 ??C) Resp 18 Ht 165.1 cm (65 ) Wt 71.7 kg (158 lb) SpO2 90% BMI 26.29 kg/m?? Physical Exam Constitutional: Appearance: Normal appearance. Neurological: Mental Status: She is alert. Result Review The following data was reviewed by: Mansoor Lamas MD on 02/04/2022: Data reviewed: Radiologic studies CT ABD/Pel from [facility] and CMP/CBC 01/23/22 [facility] Assessment and Plan Diagnoses and all orders for this visit: 1. Enterocolitis (Primary) Comments: Nearly resolved. No further treatment indicated 2. Primary hypertension Comments: BP has been better over last 3 weeks on BP log. No more lows. Patient will take medicine as long asSBP >110 Follow Up No follow-ups on file. Patient was given instructions and counseling regarding her condition or for health maintenance advice. Please see specific information pulled into the AVS if appropriate. documented in this encounter Plan of Treatment Not on file documented as of this encounter Visit Diagnoses Diagnosis Enterocolitis- Primary Other and unspecified noninfectious gastroenteritis and colitis Primary hypertension Unspecified essential hypertension documented in this encounter Additional Health Concerns Assessment Noted Time PHQ-2 Depression Total Score: 6 09/04/19 22 10:24 AM EDT documented as of this encounter Care Teams Sightseeing Guide Relationship Specialty Start Date End Date Mansoor Lamas MD [address] [place] [address] PCP - General Family Medicine 06/04/21 documented as of this encounter
--- OUTSIDE RECORDS SUMMARY | 2024-01-23 08:26 | XMS_ITS | Encounter Summary ---
Author Organization [facility] Address [address] [place] [address] Care Team Providers Care Laboratory Sample Carrier Name Role Phone Mansoor Lamas MD Primary Care Provider [phone] Encounter Details Date Type Department Care Team (Latest Contact Info) Description 05/14/2021 Travel Social History Tobacco Use Types Packs/Day Years Used Date Smoking Tobacco: Never Assessed Comments No Sex and Gender Information Value Date Recorded Sex Assigned at Not on file Legal Sex Female 8:27 PM EDT Gender Identity Not on file Sexual Orientation Not on file COVID-19 Exposure Response Date Recorded In the last month, have you been in contact with someone who was confirmed or suspected to have Coronavirus / COVID-19? No / Unsure 05/14/2021 11:02 AM EDT documented as of this encounter Plan of Treatment Not on file documented as of this encounter Visit Diagnoses Not on filedocumented in this encounter Care Teams Laboratory Sample Carrier Relationship Specialty Start Date End Date Mansoor Lamas MD [address] [place] [address] PCP - General 04/16/21 documented as of this encounter
--- OUTSIDE RECORDS SUMMARY | 2024-01-23 08:26 | XMS_ITS | Encounter Summary ---
Author Organization [facility] Address [address] [place] [address] Care Team Providers Care Hand Tube Winder Name Role Phone Mansoor Lamas MD Primary Care Provider Reason for Visit * Reason Onset Date Comments HCN - Patient Message 05/25/2021 return debra l Encounter Details Date Type Department Care Team (Late st Contact Info) Description 05/25/2021 Telephone Obstetrics & Gynecology [address] [place] [address] Mehul Sanchez MD [address] [place] [address] HCN - Patient Message (return call ) Social History Tobacco Use Types Packs/Day Years [...] AM EDT documented as of this encounter Miscellaneous Notes * Telephone Encounter - Santhosh Coto - 05/25/2021 9:34 AM EDT Spoke with pt and went through results. * Telephone Encounter - Jayesh Stevens - 05/25/2021 8:57 AM EDT Patient Phone Message Reason for Call: Patient states returning a call from the clinic. Please advise. Best contact number and optimal time of day to reach caller: [phone] Note: Please do not reply to this message. Follow-up communication and further actions as a result of this message need to be communicated with the patient directly, if the patient is not active onMyChart. If the patient is active on MyChart, they will receive notification of the communication/outcome via NextIO. documented in this encounter Plan of Treatment Not on file documented as of this encounter Visit Diagnoses Not on filedocumented in this encounter Care Teams Hand Tube Winder Relationship Specialty Start Date End Date Mansoor Lamas MD [address] [place] [address] PCP - General 04/16/21 documented as of this encounter
--- OUTSIDE RECORDS SUMMARY | 2024-01-23 08:26 | XMS_ITS | Clinical Summary ---
Author Organization [facility] Address [address] [place] [address] Care Team Providers Care Quarter Trimmer Name Role Phone Mansoor Lamas MD Primary Care Provider [phone] Allergies No known active allergies Medications COVID-19 mRNA, puple cap, (Pfizer? BioNTech) 30 MCG/0.3ML suspension vaccine 06/15/2020 Active Fluticasone-Umecli din-Vilant (Trelegy Ellipta) 100-62.5-25 MCG/INH aerosol powder 05/29/2020 Active Trelegy Ellipta 100-62.5-25 MCG/INH aerosol powder 02/17/2021 Active Active Problems Problem Noted Date Diagnosed Date COPD (chronic obstructive pulmonary disease) Social History Tobacco Use Types Packs/Day Years Used Date Smoking Tobacco: Never Assessed Tobacco Cessation:Counseling Given: No Comments No Sex and Gender Information Value Date Recorded Sex Assigned at Not on file Legal Sex Female 8:27 PM EDT Gender Identity Not on file Sexual Orientation Not on file Last Filed Vital Signs Vital Sign Reading Time Taken Comments Blood Pressure 163/93 05/14/2021 11:18 AM EDT Pulse - - Temperature - - Respiratory Rate - - Oxygen Saturation - - Inhaled Oxygen Concentration - - Weight 69.6 kg (153 lb 7 oz) 05/14/2021 11:18 AM EDT Height 160 cm (5' 3 ) 05/14/2021 11:18 AM EDT Body Mass Index 27.18 05/14/2021 11:18 AM EDT Plan of Treatment Health Maintenance Due Date Last Done Comments [facility]-Bone Density Scan 1955 [facility]-Depression Screening 1955 [facility]-Hepatitis C Screening 1955 [facility]-Medicare Annual Wellness (AWV) 1955 [facility]-Infant/Child/Adol SDOH Screenings 1955 [facility]-Obesity Intervention 1960 [facility]-Pneumococcal Vaccine: 65 + Years (1 of 2 - PCV) 1960 [facility]- SDOH Screenings 1972 [facility]-Adult SDOH Screenings 1972 CT Colonography 12/14/1999 Colonoscopy 12/14/1999 FIT-DNA 12/14/1999 FIT 12/14/1999 FOBT 12/14/1999 Sigmoidoscopy 12/14/1999 [facility]-Colorectal Cancer Screening 12/14/1999 [facility]-RSV Vaccine: 60+ Years o r (1 - Risk 60-74 years 1-dose series) 2014 [facility]-Zoster Vaccines (2 of 3) 11/15/2016 09/20/2016 [facility]-Breast Cancer Screening 04/19/2023 04/18/2021 [id number] Vaccine (3 - season) 2023 06/15/2020, 05/18/2020 [facility]-Influenza Vaccine (#1) 2023 [facility]-DTaP,Tdap,and Td Vaccine s (2 - Td or Tdap) 10/29/2028 10/29/2018 [facility]-HIB Vaccines Aged Out No longer e ligible based on patient's age to complete this topic [facility]-HPV Vaccines Aged Out No longer e ligible based on patient's age to complete this topic [facility]-Hepatitis A Vaccines Aged Out No longer eligible based on patient's age to complete this topic [facility]-IPV Vaccines Aged Out No longer e ligible based on patient's age to complete this topic [facility]-Rotavirus Vaccines Aged Out No lo nger eligible based on patient's age to complete this topic Procedures Procedure Name Priority Date/Time Associated Diagnosis Comments MAMMOGRAPHY BREAST SCREENING TOMOSYNTHESIS BILATERAL 04/18/2021 9:59 AM EST from Last 3 Months or Most Recently Relevant to Health Maintenance Results * Mammography Breast Screening Tomosynthesis Bilateral (04/18/2021 9:59 AM EST) Anatomical Region Laterality Modality Breast Bilateral Mammography 04/18/2021 9:59 AM EST Narrative 04/18/2021 5:13 [place] [address] Name: SHIRA SANCHEZ Exam Date: 04/18/2021 : 1955 Age 65 Gender: F Physician: MEHUL SANCHEZ Facility: [facility] Facility HSV: Outpatient Exam: OBINNA SCRN MAMMO W/CAD BILAT MAMMOGRAM SCREENING BILATERAL HISTORY: Routine screening exam COMPARISON: October 11, 2019 TECHNIQUE: Standard digital 2-D views with 3-D tomosynthesis DENSITY: There are scattered areas of fibroglandular density FINDINGS: Stable asymmetries. No mass, suspicious calcifications or architectural distortion is present. IMPRESSION: No mammographic evidence of malignancy BI-RADS 2: Benign finding RECOMMENDATION: Annual mammography CAD was utilized during interpretation. The patient will be sent a letter from the mammography department with their mammography results. Dictated By: ??Nighat Ortega Transcribed By: Nighat Villegas Transcribed On: 04/18/2021 5:01 PM Electronically signed by: Nighat Ortega 04/18/2021 Thank you for referring SHIRA SANCHEZ to [facility]. Legally authenticated by SOFYA BURNETT 2021-04-18 17:01:21 Procedure Note Provider, Generic [place] - 04/18/2021 [place] [address] Name: SHIRA SANCHEZ Exam Date: 04/18/2021 : 1955 Age 65 Gender: F Physician: MEHUL SANCHEZ Facility: [facility] Facility HSV: Outpatient Exam: OBINNA SCRN MAMMO W/CAD BILAT MAMMOGRAM SCREENING BILATERAL HISTORY: Routine screening exam COMPARISON: October 11, 2019 TECHNIQUE: Standard digital 2-D views with 3-D tomosynthesis DENSITY: There are scattered areas of fibroglandular density FINDINGS: Stable asymmetries. No mass, suspicious calcifications or architectural distortion is present. IMPRESSION: No mammographic evidence of malignancy BI-RADS 2: Benign finding RECOMMENDATION: Annual mammography CAD was utilized during interpretation. The patient will be sent a letter from the mammography department withtheir mammography results. Dictated By: Nighat Ortega Transcribed By: Nighat Villegas Transcribed On: 04/18/2021 5:01 PM Electronically signed by: Nighat Ortega 04/18/2021 Thank you for referring SHIRA SANCHEZ to [facility]. Legally authenticated by SOFYA BURNETT 2021-04-18 17:01:21 Meuhl Sanchez MD IMG BI PROCEDURES Final Result from Last 3 Months or Most Recently Relevant to Health Maintenance Insurance [facility] MEDICARE Care Teams Quarter Trimmer Relationship Specialty Start Date End Date Mansoor Lamas MD [address] [place] [address] [facility] - General 04/16/21
--- OUTSIDE RECORDS SUMMARY | 2024-01-23 08:26 | XMS_ITS | Encounter Summary ---
Author Organization [facility] Address [address] [place] [address] Care Team Providers Care Manager Area Name Role Phone Mansoor Lamas MD Primary Care Provider [phone] Encounter Details Date Type Department Care Team (Late st Contact Info) Description 04/18/2021 Outside Procedure External Location [address] [place] [address] Mehul Sanchez MD [address] [place] [address] Social History Tobacco Use Types Packs/Day Years [...] SCREENING TOMOSYNTHESIS BILATERAL 04/18/2021 9:59 AM EST documented in this encounter Results * Mammography Breast Screening Tomosynthesis Bilateral (04/18/2021 9:59 AM EST) Anatomical Region Laterality Modality Breast Bilateral Mammography 04/18/2021 9:59 AM EST Narrative 04/18/2021 5:13 PM EST [facility] [address] [place] [address] Name: SHIRA SANCHEZ Exam Date: 04/18/2021 : 1955 Age 65 Gender: F Physician: MEHUL SANCHEZ Facility: [facility] Facility HSV: Outpatient Exam: OBINNA SCRN [...] you for referring SHIRA SANCHEZ to [facility]. Legally authenticated by SOFYA BURNETT 2021-04-18 17:01:21 Procedure Note Provider, Generic [place] - 04/18/2021 [place] [address] Name: SHIRA SANCHEZ Exam Date: 04/18/2021 : 1955 Age 65 Gender: F Physician: MEHUL SANCHEZ Facility: [facility] Facility HSV: Outpatient Exam: OBINNA SCRN [...] Nighat Ortega 04/18/2021 Thank you for referring LAURA SHIRA to [facility]. Legally authenticated by SOFYA BURNETT 2021-04-18 17:01:21 us Mehul Sanchez MD IMG BI PROCEDURES Final Result documented in this encounter Visit Diagnoses Not on filedocumented in this encounter Care Teams Manager Area Relationship Specialty Start Date End Date Mansoor Lamas MD [address] [place] [address] PCP - General 04/16/21 documented as of this encounter
--- OUTSIDE RECORDS SUMMARY | 2024-01-23 08:26 | XMS_ITS | Continuity of Care Document ---
Author Name [facility] Organization [facility] Care Team Providers Care Price Checker Name Role Phone [facility] Unavailable Unavailable Medications Combined list of outpatient medications from Department of Defense and Veterans Affairs facilities.Medications provided include 1) outpatient medications from the last 15 months, and 2) patient-reported medications. Medication Details Route Status Patient Instructions Prescription Expires Prescription Number Last Dispense Date Ordering Provider Order Date Order Qty Source ACETYLCYSTE INE (ACETYLCYST EINE), 200 MG/ML, VIAL, MISCELL, M[employer]IR [employer]ARM[employer] , 10 ml VIAL Active [id number] 2023 30 Pharmac y Data Transac tion Service Facilit y ACETYLCYSTE INE (ACETYLCYST EINE), 200MG/ML, VIAL, MISCELL, [employer]ENT, 10 ml VIAL/KIT Cancele d [id number] : 2023 0 Pharmac y Data Transac tion Service Facilit y ALBUTEROL SULFATE (albuterol sulfate), 0.63MG/3ML, VIAL-NEB, INHALATION, MYLAN, 3 ml VIAL Active [id number] 4 2023 450 Pharmac y Data Transac tion Service Facilit y ALBUTEROL SULFATE HFA (albuterol sulfate), 90 MCG, HFA AER AD, INHALATION, [employer] [place], 8.5 g CANISTER Active [id number] 2023 51 Pharmac y Data Transac tion Service Facilit y ALBUTEROL SULFATE HFA (albuterol sulfate), 90 MCG, HFA AER AD, INHALATION, TEVA [place], 8.5 g CANISTER Active [id number] 4 2023 51 Pharmac y Data Transac tion Service Facilit y AMOXICILLIN (AMOXICILLI N), 500 MG, CAPSULE, ORAL, SANDOZ, 500 ea. BOTTLE Cancele d [id number] : 2023 0 Pharmac y Data Transac tion Service Facilit y AZITHROMYCI N (azithromyc in), 250 MG, TABLET, ORAL, AUROBINDO PHARM, 6 ea. BLIST PACK Cancele d [id number] : 2022 0 Pharmac y Data Transac tion Service Facilit y BENZONATATE (benzonatat e), 200 MG, CAPSULE, ORAL, [employer] PHARMA, 100 ea. BOTTLE Cancele d [id number] : 2023 0 Pharmac y Data Transac tion Service Facilit y BENZONATATE (benzonatat e), 200 MG, CAPSULE, ORAL, [employer] PHARMA, 100 ea. BOTTLE Cancele d [id number] : 2022 0 Pharmac y Data Transac tion Service Facilit y BUPROPION HCL SR (bupropion HCl), 150 MG, TAB SR 12H, ORAL, [employer], 500 ea. BOTTLE Cancele d [id number] : 2023 0 Pharmac y Data Transac tion Service Facilit y CEFDINIR (cefdinir), 300 MG, CAPSULE, ORAL, [employer], 60 ea. BOTTLE Cancele d [id number] : 2023 0 Pharmac y Data Transac tion Service Facilit y CEFDINIR (CEFDINIR), 300MG, CAPSULE, ORAL, AUROBINDO PHARM, 60 ea. BOTTLE Active [id number] 4 2023 14 Pharmac y Data Transac tion Service Facilit y CLENPIQ (sodium picosulfate /magnesium oxide/citri c acid), 10-3.5/175, SOLUTION, ORAL, [employer], 350 ml BOTTLE Active [id number] 4 2023 350 Pharmac y Data Transac tion Service Facilit y DOXYCYCLINE HYCLATE (doxycyclin e hyclate), 100 MG, CAPSULE, ORAL, [employer] PHARMA INC, 500 ea. BOTTLE Active [id number] 4 05/16/ 2024 10 Pharmac y Data Transac tion Service Facilit y FUROSEMIDE (furosemide ), 20 MG, TABLET, ORAL, RISING PHARM, 1000 ea. BOTTLE Cancele d [id number] : 2023 0 Pharmac y Data Transac tion Service Facilit y FUROSEMIDE (FUROSEMIDE ), 20MG, TABLET, ORAL, [employer]., 1000 ea. BOTTLE Active [id number] 2023 90 Pharmac y Data Transac tion Service Facilit y HYDROCHLORO THIAZIDE (hydrochlor othiazide), 12.5 MG, TABLET, ORAL, [employer] 1000 ea. BOTTLE Active [id number] 2023 90 Pharmac y Data Transac tion Service Facilit y LEVOFLOXACI N (levofloxac in), 750 MG, TABLET, ORAL, VIONA PHARMACEU, 20 ea. BOTTLE Active [id number] 2023 2 Pharmac y Data Transac tion Service Facilit y LORATADINE (LORATADINE ), 10MG, TABLET, ORAL, [employer] 300 ea. BOTTLE Active [id number] 4 2023 90 Pharmac y Data Transac tion Service Facilit y NAPROXEN (naproxen), 500 MG, TABLET, ORAL, [employer] PHARMAC, 500 ea. BOTTLE Cancele d [id number] : 2023 0 Pharmac y Data Transac tion Service Facilit y NAPROXEN (naproxen), 500 MG, TABLET, ORAL, [employer] PHARMAC, 500 ea. BOTTLE Active [id number] 2023 60 Pharmac y Data Transac tion Service Facilit y PAXLOVID (EUA) (nirmatrelv ir/ritonavi r), 300-100 MG, TAB DS PK, ORAL, [employer]., 30 ea. BLIST PACK Active [id number] 2023 30 Pharmac y Data Transac tion Service Facilit y POTASSIUM CHLORIDE (potassium chloride), 10 MEQ, TAB ER PRT, ORAL, GRAN[employer]ES PHARMA, 100 ea. BOTTLE Active [id number] 4 04/18/ 2024 90 Pharmac y Data Transac tion Service Facilit y PREDNISONE (prednisone ), 10 MG, TABLET, ORAL, NOVITIUM/AN I PH, 1000 ea. BOTTLE Cancele d [id number] : 2023 0 Pharmac y Data Transac tion Service Facilit y PREDNISONE (PREDNISONE ), 10MG, TABLET, ORAL, [employer]ARMAC, 1000 ea. BOTTLE Cancele d [id number] : 2023 0 Pharmac y Data Transac tion Service Facilit y PREDNISONE (prednisone ), 20 MG, TABLET, ORAL, NOVITIUM/AN I PH, 500 ea. BOTTLE Cancele d [id number] : 2023 0 Pharmac y Data Transac tion Service Facilit y PREDNISONE (prednisone ), 20 MG, TABLET, ORAL, NOVITIUM/AN I PH, 500 ea. BOTTLE Cancele d [id number] : 2023 0 Pharmac y Data Transac tion Service Facilit y PREDNISONE (prednisone ), 20 MG, TABLET, ORAL, NOVITIUM/AN I PH, 500 ea. BOTTLE Active [id number] 2022 10 Pharmac y Data Transac tion Service Facilit y PREDNISONE (PREDNISONE ), 20MG, TABLET, ORAL, [employer]ARMAC, 500 ea. BOTTLE Active [id number] 2023 10 Pharmac y Data Transac tion Service Facilit y PROMETHAZIN E-DM (promethazi ne HCl/dextrom ethorphan HBr), 6.25-15/5, SYRUP, ORAL, [employer], 473 ml BOTTLE Active [id number] 2023 120 Pharmac y Data Transac tion Service Facilit y TRELEGY ELLIPTA (fluticason e furoate/ume clidinium bromide/malinda anterol trifenat), 100-62.5, BLST W/DEV, INHALATION, [employer] LINE, 60 ea. BLIST PACK Active [id number] 2023 60 Pharmac y Data Transac tion Service Facilit y TRELEGY ELLIPTA (fluticason e furoate/ume clidinium bromide/malinda anterol trifenat), 100-62.5, BLST W/DEV, INHALATION, GLAXOSMITH[employer] LINE, 60 ea. BLIST PACK Cancele d [id number] : 2023 0 Pharmac y Data Transac tion Service Facilit y TRELEGY ELLIPTA (fluticason e furoate/ume clidinium bromide/malinda anterol trifenat), 100-62.5, BLST W/DEV, INHALATION, GLAXOSMITHK LINE, 60 ea. BLIST PACK Active [id number] 2023 180 Pharmac y Data Transac tion Service Facilit y TRELEGY ELLIPTA (fluticason e furoate/ume clidinium bromide/malinda anterol trifenat), 100-62.5, BLST W/DEV, INHALATION, GLAXOSMITHK LINE, 60 ea. BLIST PACK Active [id number] 2023 180 Pharmac y Data Transac tion Service Facilit y Immunizations Combined list of available immunizations from the Department of Defense and Veterans Affairs facilities. 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 Status Comments Source COVID-19, mRNA, LNP-S, PF, 30 mcg/0.3 mL dose 2020 [employer] (PFR) Not Given COVID-19, mRNA, LNP-S, PF, 30 mcg/0.3 mL dose DoD COVID-19, mRNA, LNP-S, PF, 30 mcg/0.3 mL dose 2020 [employer] [place] (PFR) Not Given COVID-19, mRNA, LNP-S, PF, 30 mcg/0.3 mL dose DoD influenza, injectable, quadrivalent, preservative free 2018 CANDY JACOBO () Not Given influenza , injectabl e, quadrival ent, preservat nahomy free DoD zoster live 2016 MARLENI MARQUEZ () Not Given zoster live DoD influenza, injectable, quadrivalent, preservative free 2014 PEGGY MINOR MD () Not Given influenza , injectabl e, quadrival ent, preservat nahomy free DoD Social History Combined list of available smoking, tobacco, and other social history from Department of Defense and Veterans Affairs facilities. Social History Type Response Date Comment [facility] e This section is an empty social history section. DoD
--- OUTSIDE RECORDS SUMMARY | 2024-01-23 08:26 | XMS_ITS | Encounter Summary ---
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 Mechanic Name Role Phone Mansoor Lamas MD Primary Care Provider [phone] Reason for Visit * Reason Comments Procedure pap, mammogram maile l 2 weeks ago Encounter Details Date Type Department Care Team (Late st Contact Info) Description 05/14/2021 11:30 AM EDT Office Visit Obstetrics & Gynecology [address] [place] [address] Mehul Sanchez MD [address] [place] [address] Encounter for annual routine gynecological examination (Primary Dx); Health care maintenance Social History Tobacco Use Types Packs/Day Years [...] AM EDT documented as of this encounter Last Filed [...] Mass Index 27.18 05/14/2021 11:18 AM EDT documented in this encounter Miscellaneous Notes * Progress Notes - Mehul Sanchez MD - 05/14/2021 11:30 AM EDT Gynecology Health Maintenance Note Subjective Shira Mobley is a 65 y.o. here for a routine gynecology health maintenance visit. [employer] x years. No bleeding. recently dies from colon cancer - her colon screening was recent & OK. LMMG 2m ago - OK. LPS years ago NO menopausal sxs. Does have c/o fatigue. The following chart sections have been reviewed and updated: Allergies Review of Systems Constitutional: Negative. HENT: Negative. Eyes: Negative. Respiratory: Negative. Cardiovascular: Negative. Gastrointestinal: Negative. Endocrine: Negative. Genitourinary: Negative. Musculoskeletal: Negative. Skin: Negative. Allergic/Immunologic: Negative. Neurological: Negative. Hematological: Negative. Psychiatric/Behavioral: Negative. All other systems reviewed and are negative. Objective Visit Vitals BP (!) 163/93 Body mass index is 27.18 kg/m??. Physical Exam Constitutional: Appearance: Normal appearance. She is normal weight. Genitourinary: Vulva, bladder and urethral meatus normal. Right Labia: No tenderness or lesions. Left Labia: No tenderness or lesions. No vaginal discharge, tenderness or bleeding. No vaginal prolapse present. No vaginal atrophy present. Right Adnexa: not tender and no mass present. Left Adnexa: not tender and no mass present. Cervix is parous. No cervical discharge. Uterus is not enlarged or tender. Uterus is midaxial. Pelvic exam was performed with patient in the lithotomy position. HENT: Head: Normocephalic and atraumatic. Right Ear: External ear normal. Left Ear: External ear normal. Cardiovascular: Rate and Rhythm: Normal rate and regular rhythm. Heart sounds: Normal heart sounds. Pulmonary: Effort: Pulmonary effort is normal. Breath sounds: Normal breath sounds. Abdominal: General: Abdomen is flat. Palpations: Abdomen is soft. Musculoskeletal: General: Normal range of motion. Cervical back: Normal range of motion. Neurological: General: No focal deficit present. Mental Status: She is alert and oriented to person, place, and time. Skin: General: Skin is warm and dry. Psychiatric: Mood and Affect: Mood normal. Behavior: Behavior normal. Thought Content: Thought content normal. Judgment: Judgment normal. Vitals and nursing note reviewed. Exam conducted with a heavy truck driver present. Pap done Assessment Diagnoses and all orders for this visit: Encounter for annual routine gynecological examination - Pap Smear Health care maintenance - Thyroid Stimulating Hormone, Plasma - CBC W/O Differential - Hemoglobin A1c - Comprehensive Metabolic Panel, Plasma - T4, free - Vitamin D 1,25 dihydroxy Check Pap Check labs - see above - for cause of fatigue. Exercise, nutrition. F/U 1 year documented in this encounter Plan of Treatment Not on file documented as of this encounter Procedures Procedure Name Priority Date/Time Associated Diagnosis Comments VITAMIN D, 1, 25-DIHYDROXY Routine 05/14/2021 11:42 AM EDT Health care maintenance CBC W/O DIFFERENTIAL Routine 05/14/2021 11:42 AM EDT Health care maintenance TSH Routine 05/14/2021 11:42 AM EDT Health care maintenance FREE T4, PLASMA Routine 05/14/2021 11:42 AM EDT Health care maintenance HEMOGLOBIN A1C Routine 05/14/2021 11:42 AM EDT Health care maintenance COMPREHENSIVE METABOLIC PANEL, PLASMA Routine 05/14/2021 11:42 AM EDT Health care maintenance HIGH RISK HUMAN PAPILLOMAVIRUS (HPV) PCR WITH GENOTYPING WITH REFLEX TO PAP Routine 05/14/2021 11:38 AM EDT Encounter for annual routine gynecological examination PAP TEST - CYTOLOGY Routine 05/14/2021 1 1:38 AM EDT Encounter for annual routine gynecological examination documented in this encounter Results * Vitamin D 1,25 dihydroxy (05/14/2021 11:42 AM EDT) VITAMIN D,1,25(OH)2, TOTAL 38.1 19.9 - 79.3 pg/mL 05/22/2021 3:20 PM EDT [facility] [employer] ([facility]) Blood Venous blood specimen / Unknown Venipuncture / Unknown 05/14/2021 11:42 AM EDT 05/14/2021 1:11 PM EDT Narrative [facility] ([facility]) - 05/22/2021 3:20 PM EDT INTERPRETIVE INFORMATION: Vitamin D, 1,25-Dihydroxy This test is primarily indicated during patient evaluation for hypercalcemia and renal failure. A normal result does not rule out Vitamin D deficiency. The recommended test for diagnosing Vitamin D deficiency is Vitamin D 25-hydroxy. Performed By: [facility] [address] [place] [address] Outdoor Fitness Trainer: Lissa Escobar MD us Mehul Sanchez MD LAB BLOOD ORDERABLES Final Resu lt Performing Organization Address [facility] Co de Phone Number [facility] [employer]) [address] [place] [address] * T4, free (05/14/2021 11:42 AM EDT) Free T4, Plasma 1.2 0.8 - 1.7 ng/dL 05/14/2021 1:45 PM EDT [facility] Blood Venous blood specimen / Unknown Venipuncture / Unknown 05/14/2021 11:42 AM EDT 05/14/2021 1:20 PM EDT us Mehul Sanchez MD LAB BLOOD ORDERABLES Final Resu lt [facility] [address] [place] [address] * Comprehensive Metabolic Panel, Plasma (05/14/2021 11:42 AM EDT) Glucose, Plasma 77 74 - 99 mg/dL 05/14/2021 1:45 PM EDT [facility] BUN, Plasma 15 8 - 23 mg/dL 05/14/2021 1:45 PM EDT [facility] Creatinine, Plasma 0.73 0.60 - 1.10 mg/dL 05/14/2021 1:45 PM EDT [facility] BUN/Creatinine Ratio 21 05/14/2021 1:45 PM EDT [facility] Sodium, Plasma 144 136 - 145 mmol/L 05/14/2021 1:45 PM EDT [facility] Potassium, Plasma 4.4 3.7 - 4.8 mmol/L 05/14/2021 1:45 PM EDT [facility] Comment:Reference range for Serum potassium is 0.2 to 0.5 mmol/L higher than Plasma range. Chloride, Plasma 104 97 - 107 mmol/L 05/14/2021 1:45 PM EDT [facility] CO2, Plasma 27 22 - 29 mmol/L 05/14/2021 1:45 PM EDT [facility] Anion Gap 13 6 - 16 mmol/L 05/14/2021 1:45 PM EDT [facility] Total Calcium, Plasma 9.2 8.9 - 10.2 mg/dL 05/14/2021 1:45 PM EDT [facility] Total Protein 6.8 6.3 - 7.9 g/dL 05/14/2021 1:45 PM EDT [facility] Albumin, Plasma 4.8 3.5 - 5.2 g/dL 05/14/2021 1:45 PM EDT [facility] AST, Plasma 13 9 - 36 U/L 05/14/2021 1:45 PM EDT [facility] ALT, Plasma 16 8 - 33 U/L 05/14/2021 1:45 PM EDT [facility] Alkaline Phosphatase, Plasma 54 46 - 142 U/L 05/14/2021 1:45 PM EDT [facility] Total Bilirubin, Plasma 0.3 0.2 - 1.1 mg/dL 05/14/2021 1:45 PM EDT [facility] eGFR >60 >60 mL/min/1.7 3m*2 05/14/2021 1:45 PM EDT [facility] Comment:eGFR = estimated GFR ; eGFR units = mL/min/1.73 sq meters Chronic Kidney Disease is considered if eGFR <60 mL/min/1.73 sq meters Kidney failure is considered if eGFR is <15 mL/min/1.73 sq meters. eGFR assumes steady state plasma creatinine concentration; not applicable if renal function is rapidly changing or patient is on dialysis. eGFR, if AFR/AM >60 >60 mL/min/1.7 3m*2 05/14/2021 1:45 PM EDT [facility] Comment:eGFR = estimated GFR ; eGFR units = mL/min/1.73 sq meters Chronic Kidney Disease is considered if eGFR <60 mL/min/1.73 sq meters Kidney failure is considered if eGFR is <15 mL/min/1.73 sq meters. eGFR assumes steady state plasma creatinine concentration; not applicable if renal function is rapidly changing or patient is on dialysis. Blood Venous blood specimen / Unknown Venipuncture / Unknown 05/14/2021 11:42 AM EDT 05/14/2021 1:20 PM EDT Result Valentin Sanchez MD LAB BLOOD ORDERABLES Final Resu lt Performing Organization Address [facility] de Phone Number [facility] [address] [place] [address] * Hemoglobin A1c (05/14/2021 11:42 AM EDT) Hemoglobin A1c 5.4 <5.7 % 05/14/2021 1:51 PM EDT [facility] Blood Venous blood specimen / Unknown Venipuncture / Unknown 05/14/2021 11:42 AM EDT 05/14/2021 1:22 PM EDT Narrative [facility] - 05/14/2021 1:51 PM EDT HA1C Interpretive Data: Diagnosis of Diabetes: Diabetic > or = 6.5% Pre-diabetic 5.7 to 6.4% Non-diabetic < or = 5.6% Glycemic Targets for Type I and Type II Diabetics: Non- Adults <7.0% Adults <6.0% Children and Adolescents <7.5% Source: ??[place] [employer]. Standards of medical care in diabetes,2017. Diabetes Care.2017:40 (suppl 1):S1-S135. HbA1c assay performed by an ion-exchange chromatography method that is certified traceable to the DCCT. Result Valentin Sanchez MD LAB BLOOD ORDERABLES Final Resu lt Performing Organization Address [facility] Phone Number [facility] [address] [place] [address] * (ABNORMAL) CBC W/O Differential (05/14/2021 11:42 AM EDT) WBC Count 10.96(H) 3.70 - 10.30 10*3/uL LAB HEMATOLOGY METHOD 05/14/2021 1:31 PM EDT [facility] RBC Count 5.17 3.90 - 5.20 10*6/uL LAB HEMATOLOGY METHOD 05/14/2021 1:31 PM EDT [facility] HGB 15.6 11.2 - 15.7 g/dL LAB HEMATOLOGY METHOD 05/14/2021 1:31 PM EDT [facility] HCT 49.3(H) 34.0 - 45.0 % LAB HEMATOLOGY METHOD 05/14/2021 1:31 PM EDT [facility] Platelet Count 373(H) 155 - 369 10*3/uL LAB HEMATOLOGY METHOD 05/14/2021 1:31 PM EDT [facility] MCV 95 79 - 98 fL LAB HEMATOLOGY METHOD 05/14/2021 1:31 PM EDT [facility] MCH 30.2 26.0 - 32.0 pg LAB HEMATOLOGY METHOD 05/14/2021 1:31 PM EDT [facility] MCHC 31.6 30.7 - 35.5 g/dL LAB HEMATOLOGY METHOD 05/14/2021 1:31 PM EDT [facility] RDW 14.3 11.5 - 14.5 % LAB HEMATOLOGY METHOD 05/14/2021 1:31 PM EDT [facility] MPV 10.9 8.8 - 12.5 fL LAB HEMATOLOGY METHOD 05/14/2021 1:31 PM EDT [facility] nRBC 0.0 <=0.0 per 100 WBCs LAB HEMATOLOGY METHOD 05/14/2021 1:31 PM EDT [facility] Blood Venous blood specimen / Unknown Venipuncture / Unknown 05/14/2021 11:42 AM EDT 05/14/2021 1:11 PM EDT us Mehul Sanchez MD LAB BLOOD ORDERABLES Final Resu lt [facility] [address] [place] [address] * Thyroid Stimulating Hormone, Plasma (05/14/2021 11:42 AM EDT) Pathologist [facility] Thyroid Stimulating Hormone, Plasma 0.74 0.40 - 4.20 uIU/mL 05/14/2021 1:45 PM EDT [facility] Blood Venous blood specimen / Unknown Venipuncture / Unknown 05/14/2021 11:42 AM EDT 05/14/2021 1:20 PM EDT Mehul Sanchez MD LAB BLOOD ORDERABLES Final Resu lt [facility] [address] [place] [address] * High Risk Human Papillomavirus (HPV) PCR with Genotyping (05/14/2021 11:38 AM EDT) [facility] High Risk Human Papillomavirus (HPV) PCR Interpretation Not Detected Not Detected 05/24/2021 10:49 AM EDT [facility] High Risk Human Papillomavirus (HPV) PCR Genotype 16 Not Detected Not Detected 05/24/2021 10:49 AM EDT [facility] High Risk Human Papillomavirus (HPV) PCR Genotype 18 Result Not Detected Not Detected 05/24/2021 10:49 AM EDT [facility] (HPV) Other High Risk HPV Genotypes (Not 16 or 18) Not Detected Not Detected 05/24/2021 10:49 AM EDT [facility] Swab Cervix uteri structure / Unknown Non-blood Collection / Unknown 05/14/2021 11:38 AM EDT 05/23/2021 10:25 AM EDT Narrative [facility] - 05/24/2021 10:49 AM EDT This test is performed by the [employer] 4800 instrument Real Time PCR HPV DNA and genotype testing. This test is FDA approved for use with cervical and endocervical specimens. This test is used for clinical purposes. It should not be regarded as investigational or for research. The test specifically identifies HPV-16 and HPV-18 while concurrently detecting the rest of the high risk types (31, 33, 35, 39, 45, 51, 52, 56, 58, 59, 66 and 68). [facility] Clinical Microbiology [facility] is certified under the Clinical Laboratory Improvement Amendments of 1988 (CLIA-88) as qualified to perform high complexity clinical laboratory testing. us Mehul Sanchez MD LAB MICROBIOLOGY - GENERAL [place] Final Result [facility] [address] [place] [address] * (ABNORMAL) Pap Smear (05/14/2021 11:38 AM EDT) Case Report Cytology ?Case: [id number] ? Authorizing Provider: ??Mehul Sanchez MD ?Collected: ? 05/14/2021 1138 ? Ordering Location: ? [facility] Received: ?05/15/2021 0917 ? First Screen: ?DELPHINE Strange ? Pathologist: ? Soumya Adams MD ? Specimen: ?ThinPrep Pap Test, Liquid-Based Cervical/Vagina l, CERVICAL/VAGINA L ? 05/23/2021 10:25 AM EDT [facility] Interpretation ATYPICAL SQUAMOUS CELLS OF UNDETERMINED SIGNIFICANCE (ASCUS)(A) 05/23/2021 10:25 AM EDT [facility] Specimen Adequacy Satisfactory for evaluation; endocervical/tr ansformation zone component present. Slide imaged by the ThinPrep Imaging system and selected 22 zhang reviewed then full manual screening. 05/23/2021 10:25 AM EDT [facility] Cervical cytology is a screening test primarily for squamous cancers and precursors and has associated false negative and positive results. New technologies such as liquid based sampling may decrease but will not eliminate all false negative results. Regular screening and follow-up of unexplained clinical signs and symptoms are recommended to minimize false negative results. Please see the ASCCP website (www.asccp.org) for followup recommendations . If HPV testing was requested, correlation with the results is suggested (please call Microbiology at [phone] for results). 05/23/2021 10:25 AM EDT [facility] Menstrual Status Post-Menopausal 07/2021 10:25 AM EDT [facility] History of Hysterectomy Not Applicable 05/23/2021 10:25 AM EDT [facility] Contraceptive History Not Applicable 05/23/2021 10:25 AM EDT [facility] Screening Type Routine Screen 2021 10:25 AM EDT [facility] High Risk? No 05/23/2021 10:25 AM EDT [facility] HPV Testing Requested? Request HPV Testing Regardless of Pap Test Findings 05/23/2021 10:25 AM EDT [facility] Previous Cancer History No 05/23/2021 10:25 AM EDT [facility] Clinical Information Z01.419 - Encounter for annual routine gynecological examination [ICD-10-CM] 05/23/2021 10:25 AM EDT [facility] Last Menstrual Period unknown 05/23/2021 10:25 AM EDT [facility] Swab Vaginal and cervical cytologic material / Unknown Non-blood Collection / Unknown 05/14/2021 11:38 AM EDT 05/15/2021 9:17 AM EDT us Mehul Sanchez MD LAB CYTOLOGY ORDERABLES Final R esult Performing Organization Address City/State/ZIP Co [place] Phone Number [facility] [address] [place] [phone] documented in this encounter Visit Diagnoses Diagnosis Encounter for annual routine gynecological examination- Primary Health care maintenance documented in this encounter Care Teams Copying Machine Mechanic Relationship Specialty Start Date End Date Mansoor Lamas MD [address] [place] [address] PCP - General 04/16/21 documented as of this encounter
--- NOTE | 2024-01-23 08:29 | XR_ITS ---
FINAL REPORT CLINICAL HISTORY: shortness of breath COMPARISON: 05/01/2023 FINDINGS: Two views of the chest were obtained. The heart size and pulmonary vascularity are within normal limits. The mediastinum is normal. The lungs are hyperinflated consistent with COPD. There is mild atelectasis or scarring in the lung bases. There is no pneumothorax. The bony thorax is intact. IMPRESSION: Mild atelectasis or scarring in the lung bases. COPD. Reviewed, Interpreted and Dictated by German Roberson III, MD Transcribed by Jessica Cannon Authenticated and [facility]
--- NOTE | 2024-01-23 08:33 | ED_ITS ---
Discharge Plan Disposition Patient Disposition: Home, Self-Care Condition: Good Prescriptions Prescriptions: New prednisone 10 mg tablet 10 mg PO DIRECTED 9 Days Qty: 21 0RF Rx Instructions: Take 4 tablets daily for 3 days, then take 2 tablets daily for 3 days, then take 1 tablet daily for 3 days, then stop. benzonatate 100 mg capsule 100 mg PO TIDP PRN (Reason: Cough) Qty: 30 0RF amoxicillin-pot clavulanate 875-125 mg Tablet 1 tab PO Q12H Qty: 20 0RF No Action albuterol sulfate [ProAir HFA] 90 mcg/actuation HFA aerosol inhaler 2 puff inhalation Q6HP PRN (Reason: Shortness Of Breath) Trelegy Ellipta 100-62.5-25 mcg blister with device 1 inh inhalation DAILY 90 Days Qty: 90 3RF albuterol sulfate 90 mcg/actuation HFA aerosol inhaler 2 inh inhalation QID PRN (Reason: shortness of breath or wheezing) 90 Days Qty: 8.5 2RF acetaminophen [Tylenol] 325 mg Tablet 325 mg PO QID PRN (Reason: Pain) ibuprofen [Advil] 200 mg Tablet 200 mg PO Q6H PRN (Reason: Pain) ipratropium-albuterol 0.5 mg-3 mg(2.5 mg base)/3 mL solution for nebulization 3 ml inhalation Q6HP PRN (Reason: wheezing) Rx Instructions: Do not combine with other breathing treatments Trelegy Ellipta 100-62.5-25 mcg blister with device 1 inh inhalation DAILY Referrals Follow up/Referrals: Mansoor Lamas MD [Primary Care Provider] - See instructions Activity Restrictions/Add. Instructions Additional Instructions/Restrictions: Drink plenty of fluids. Take tylenol or ibuprofen for pain or fever. Take the medications as directed. Follow up with your regular doctor. GO TO THE ER FOR ANY WORSENING SYMPTOMS Don't start the oral steroids (prednisone) until tomorrow since you had the shot here Clinical Impressions Clinical Impression: COPD exacerbation Instructions Patient Instructions: DI for Chronic Obstructive Pulmonary Disease, Ceftriaxone Injection, Methylprednisolone Injection Print Language Print Language: Yoruba Discharge ED Provider: Jayesh Quintanilla [facility] General Stated complaint: soa and congestion Time Seen by Provider: 01/23/24 08:33 History of Present Illness Provider Complaint: She states that for the past 3 days she has had worsening chest congestion and shortness of breath. She has a history of copd. She denies fever/chills. Related Data Home Medications ?Medication ?Instructions ?Recorded ?Confirmed albuterol sulfate 90 mcg/actuation 2 puff inhalation Q6HP PRN 10/31/21 01/08/24 aerosol inhaler (ProAir HFA) Shortness Of Breath fluticasone fur. 100 mcg-umeclid 1 inh inhalation DAILY Copd 03/29/23 01/08/24 62.5 mcg-vilant 25 mcg inhalat.powder (Trelegy Ellipta) ipratropium 0.5 mg-albuterol 3 mg 3 ml inhalation Q6HP PRN wheezing 03/29/23 01/08/24 (2.5 mg base)/3 mL nebulization soln acetaminophen 325 mg tablet 325 mg PO QID PRN Pain 08/19/23 01/08/24 (Tylenol) ibuprofen 200 mg tablet (Advil) 200 mg PO Q6H PRN Pain 08/19/23 01/08/24 Previous Rx's ?Medication ?Instructions ?Recorded albuterol sulfate 90 mcg/actuation 2 inh inhalation QID PRN shortness 01/08/24 aerosol inhaler of breath or wheezing 90 days #8.5 grams fluticasone fur. 100 mcg-umeclid 1 inh inhalation DAILY 90 days #90 01/08/24 62.5 mcg-vilant 25 mcg ea inhalat.powder (Trelegy Ellipta) amoxicillin 875 mg-potassium 1 tab PO Q12H #20 tabs 01/23/24 clavulanate 125 mg tablet benzonatate 100 mg capsule 100 mg PO TIDP PRN Cough #30 caps 01/23/24 prednisone 10 mg tablet 10 mg PO DIRECTED 9 days #21 01/23/24 tabs Allergies Allergy/AdvReac Type Severity Reaction Status Date / Time No Known Allergies Allergy Verified 01/08/24 11:48 [facility] Disclaimer: The information contained in this section may have been updated after the patient was seen, as this information can be updated by other users. Medical History Diverticulitis Abnormal electrocardiogram [ECG] [EKG] Acute respiratory failure with hypoxia Pneumonia Abnormal computerized axial tomography of chest Personal history of nicotine dependence Acute exacerbation of chronic obstructive pulmonary disease (COPD) Dyspnea on exertion Tobacco abuse counseling Tobacco abuse Smoking greater than 30 pack years Screening for lung cancer Tobacco abuse disorder Chronic hypoxemic respiratory failure Panlobular emphysema Multiple pulmonary nodules COPD (chronic obstructive pulmonary disease) Surgical History History of hernia surgery History of appendectomy History of colonoscopy History of carpal tunnel release Family History Other No significant family history Social History (Updated 01/08/24 @ 12:55 by Vikki Jung MD) Smoking Status: Current some day smoker smoking status stop date: 04/01/2023 second hand exposure: Yes alcohol intake: never substance use type: denies use current occupational status: employed Travel in the last 8 weeks: None household members: none housing: house 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 occupational exposures/hazards: No caffeine: Yes ROS Obtained: Yes All systems reviewed & no additional complaints except as documented Constitutional Constitutional: Reports poor appetite Eyes Eyes: Reports system reviewed and no additional complaints, except as documented ENT Ears, Nose, Mouth, and Throat: Reports as per HPI Cardiovascular Cardiovascular: Reports system reviewed and no additional complaints, except as documented and Denies chest pain Respiratory Respiratory: Reports shortness of breath, Reports chest congestion, Reports cough, Denies stridor and Reports wheezing Gastrointestinal Gastrointestingal: Reports system reviewed and no additional complaints, except as documented; Denies abdominal pain, diarrhea or vomiting Musculoskeletal Musculoskeletal: Reports system reviewed and no additional complaints, except as documented and Denies arthralgias Integumentary/Breasts Skin/Breast: Reports system reviewed and no additional complaints, except as documented and Denies rash Neurologic Neurologic: Denies paresthesias Allergic/Immunologic Allergic/Immunologic: Reports wheezing Physical Exam General General appearance: alert and in no apparent distress Head Head exam: atraumatic, normocephalic and normal inspection Eye Eye exam: Present normal appearance, PERRL and EOMI ENT ENT exam: Present normal exam, normal oropharynx, mucous membranes moist, TM's normal bilaterally and normal external ear exam Neck Neck exam: Present normal inspection, full ROM and trachea midline; Absent meningismus or lymphadenopathy Chest Chest inspection: Present normal inspection and symmetric chest wall rise; Absent tenderness Respiratory Respiratory exam: Present normal lung sounds bilaterally; Absent respiratory distress Cardiovascular Cardiovascular exam: Present regular rate and normal rhythm; Absent JVD Abdominal Exam Abdominal exam: Present soft and normal bowel sounds; Absent distention, tenderness or guarding Extremities Exam Extremities exam: Present normal inspection, full ROM and normal capillary refill; Absent calf tenderness Back Exam Back exam: Present normal inspection; Absent tenderness Neurological Exam Neurological exam: Present alert and oriented X3 Psychiatric Psychiatric exam: Present normal affect and normal mood Skin Skin exam: Present warm, dry, intact and normal color Lymphatic Lymphatic Findings: no adenopathy Medical Decision Making Medical Records Medical records reviewed: No I reviewed the patient's medical records. Screening: Per USPSTF and CDC recommendations, given the prevalence of disease in our region, it is our hospital?s policy to screen for HIV and viral Hepatitis for all patients aged 18 and over and those with ongoing risk factors. Sajan Inquiry Pt receiving controlled substance: No Orders (Tests/Meds): ORDERS Category Date Time Status CXR 2 view (NOT portable) [XR chest 2V] Stat Exams 01/23/24 08:29 Ordered
[2024-01-23 08:36] VITALS: BP 146/86; PULSE 106; RESP 24; TEMP 36.7; O2SAT 84; BMI 24.1
[2024-01-23] MEDS: IPRATROPIUM/ALBUTEROL 3 ML NEB IH (08:38)
[2024-01-23 08:39] VITALS: PULSE 103; O2SAT 98
[2024-01-23] MEDS: cefTRIAXone 1GM VIAL 1 GM IM (09:02)
[2024-01-23] MEDS: METHYLPREDNISOLONE SOD SUCC 125MG VIAL 125 MG IM (09:02)
[2024-01-23] MEDS: LIDOCAINE 1% 5ML PF VIAL IM (09:02)
[2024-01-23 10:05] VITALS: BP 146/86; PULSE 100; RESP 24; TEMP 36.7
== END 2024-01-23 10:06 | disposition home or self-care (01) ==
PROVIDERS: Emergency Provider Nurse Practitioner Family; PCP Family Medicine
DX: J44.1 Chronic obstructive pulmonary disease with (acute) exacerbation (principal); R06.02 Shortness of breath; R09.89 Other specified symptoms and signs involving the circulatory and respiratory systems; R63.8 Other symptoms and signs concerning food and fluid intake; R05.9 Cough, unspecified
CPT/HCPCS: 71046; 99212; G0381; J0696; J2919; J7620

== ENCOUNTER 2024-02-25 11:03 | Observation (INO) | payer MEDICARE, OTHER, SELFPAY ==
[2024-02-25] VITALS (14 sets, daily range): BP systolic 69–124; BP diastolic 59–80; PULSE 57–102; RESP 16–24; TEMP 36.6–37.1; O2SAT 84–99; BMI 25.0; BMI 24.7
--- NOTE | 2024-02-25 11:10 | ECG_ITS ---
APPROVED REPORT Exam: Resting ECG HR:84 bpm ECG Measurements Heart Rate 84 AXES TN 135 P 93 QRSd 118 QRS -76 QT 363 T 84 QTc 404 Conclusion SINUS RHYTHM LEFT AXIS DEVIATION [QRS AXIS < -30] MODERATE INTRAVENTRICULAR CONDUCTION DELAY [110+ ms QRS DURATION] ABNORMAL ECG UNCONFIRMED REPORT Electronically signed by : KARLY SO, 02/27/2024 05:47:02
--- NOTE | 2024-02-25 11:16 | XR_ITS ---
FINAL REPORT TECHNIQUE: Chest PA & Lateral CLINICAL HISTORY: prolonged SOA, cough, hypoxia COMPARISON: 01/23/2024 FINDINGS: 2 views of the chest were performed. The lungs are hyperinflated. The heart size is normal. The mediastinum is within normal limits. There is prominence of the pulmonary arteries bilaterally, that may be secondary to pulmonary arterial hypertension. There is no acute cardiopulmonary process. Mild chronic changes are present in the lung bases, stable. There are no pleural effusions. There is no pneumothorax. The bony thorax appears intact. IMPRESSION: Hyperinflation and prominence of the pulmonary arteries bilaterally, that may be secondary to pulmonary arterial hypertension. Mild chronic changes present in the lung bases, stable. Reviewed, Interpreted and Dictated by Nabil Chávez MD Transcribed by Shyanne Lopez Authenticated and [facility]
[2024-02-25] MEDS: DEXAMETHASONE 4MG/ML 1ML VIAL 10 MG IV (11:22)
[2024-02-25 11:25] LABS: Basophils # 0.1 K/mm3 (0-0.2); Basophils % 0.9 % (0.1-2.0); Eosinophils % 0.4 % (0.1-12.0); Hemoglobin 14.9 g/dL (12.2-16.2); Lymphocytes # 1.6 K/mm3 (0.7-4.5); Lymphocytes % 19.7 % (10-50); Mean Corpuscular HGB Conc 32.4 g/dL (31.8-35.4); Mean Corpuscular Hemoglobin 30.7 pg (27.0-31.2); Mean Corpuscular Volume 94.7 fl (81-99); Monocytes # 1.5 K/mm3 (0.1-1.0); Monocytes % 18.6 % (1.7-9.3); Neutrophils # 4.9 K/mm3 (1.8-7.8); Platelet Count 315 K/mm3 (142-424); Red Blood Count 4.86 M/mm3 (4.20-5.40); Red Cell Distribution Width 14.9 % (11.5-17.5); White Blood Count 8.2 K/mm3 (4.8-10.8)
[2024-02-25 11:25] LABS: Lactate Venous 1.7 mmol/L (0.4-2.0)
[2024-02-25] MEDS: IPRATROPIUM/ALBUTEROL 3 ML NEB 9 ML IH (11:27)
[2024-02-25 11:29] LABS: Lactate Venous 1.7 mmol/L (0.4-2.0); VBG Base Excess -1.4 mmol/L (-2.4-2.3); VBG HCO3 24.8 mmol/L (23-30); VBG Oxygen Saturation 96.5 % (50-70); VBG PCO2 49.8 mmol/L (35-51); VBG PH 7.32 mmol/L (7.31-7.41); VBG PO2 85.3 mmol/L (28-40); VBG Total CO2 26.3 mmol/L (23-27)
[2024-02-25 12:03] LABS: Blood Urea Nitrogen 19 mg/dl (7-17); Carbon Dioxide 32 mmol/L (22.0-30.0); Chloride 100 mmol/L (98-107); Creatinine Clearance Estimated 57 mL/min (50-200); Estimated Glomerular Filt Rate 83 ml/min (>60); GFR (African American) 100 ML/MIN (>60); Glucose 86 mg/dl (74-100); Sodium 138 mmol/L (136-145)
--- NOTE | 2024-02-25 12:10 | [facility].EDCP ---
Discharge Plan Disposition Patient Disposition: Admitted Prescriptions Prescriptions: No Action albuterol sulfate 90 mcg/actuation HFA aerosol inhaler 2 inh inhalation QID PRN (Reason: shortness of breath or wheezing) 90 Days Qty: 8.5 2RF acetaminophen [Tylenol] 325 mg Tablet 325 mg PO QID PRN (Reason: Pain) ibuprofen [Advil] 200 mg Tablet 200 mg PO Q6H PRN (Reason: Pain) losartan 50 mg Tablet 50 mg PO DAILY bupropion HCl (smoking deter) 150 mg Tablet Extended Release 12 Hr 150 mg PO DAILY ipratropium-albuterol 0.5 mg-3 mg(2.5 mg base)/3 mL solution for nebulization 3 ml inhalation Q6HP PRN (Reason: wheezing) Rx Instructions: Do not combine with other breathing treatments Trelegy Ellipta 100-62.5-25 mcg blister with device 1 inh inhalation DAILY Referrals Follow up/Referrals: Mansoor Lamas MD [Primary Care Provider] - See instructions Clinical Impressions Clinical Impression: Chronic obstructive pulmonary disease with acute exacerbation Print Language Print Language: Malay Discharge ED Provider: Vicki Green General Chief Complaint: Shortness of Breath/Dyspnea Stated Complaint: soa Time Seen by Provider: 02/25/24 11:05 Mode of Arrival: Wheelchair Source of Information: Patient Limitations: No Limitations Description of Symptoms (Recalled from ER Triage Doc. by RN): Pt. presents to the ED with complaints of shortness of breath and difficulty getting a deep breath since . She was seen at the [facility] about a month ago and was given Augmentin and prednisone. She states she still feels bad and is having worsening periods of shortness of air. History of Present Illness HPI narrative: Patient is a 68-year-old female presenting with shortness of air. Patient states she has had increased difficulty taking deep breaths since and approximately 1 month ago she was treated with Augmentin and prednisone. Patient states she chronically wears 2 L nasal cannula at home and has not increased her volume. Patient denies fevers, chills, nausea, vomiting. Patient has continued coughing. Patient states she has not smoked cigarettes in the past week. Patient tried to use her inhalers this morning without relief and decided to come and get evaluated. Patient denies chest pain, neck pain, back pain, headache. Related Data Home Medications ?Medication ?Instructions ?Recorded ?Confirmed fluticasone fur. 100 mcg-umeclid 1 inh inhalation DAILY Copd 03/29/23 02/25/24 62.5 mcg-vilant 25 mcg inhalat.powder (Trelegy Ellipta) ipratropium 0.5 mg-albuterol 3 mg 3 ml inhalation Q6HP PRN wheezing 03/29/23 02/25/24 (2.5 mg base)/3 mL nebulization soln acetaminophen 325 mg tablet 325 mg PO QID PRN Pain 08/19/23 02/25/24 (Tylenol) ibuprofen 200 mg tablet (Advil) 200 mg PO Q6H PRN Pain 08/19/23 02/25/24 bupropion HCl (smoking deter) 150 150 mg PO DAILY 02/25/24 02/25/24 mg tablet,12 hr sustained-release(smoking deterrent) losartan 50 mg tablet 50 mg PO DAILY 02/25/24 02/25/24 Previous Rx's ?Medication ?Instructions ?Recorded albuterol sulfate 90 mcg/actuation 2 inh inhalation QID PRN shortness 01/08/24 aerosol inhaler of breath or wheezing 90 days #8.5 grams Allergies Allergy/AdvReac Type Severity Reaction Status Date / Time No Known Allergies Allergy Verified 02/25/24 11:15 [facility] Disclaimer: The information contained in this section may have been updated after the patient was seen, as this information can be updated by other users. Medical History Diverticulitis Abnormal electrocardiogram [ECG] [EKG] Acute respiratory failure with hypoxia Pneumonia Abnormal computerized axial tomography of chest Personal history of nicotine dependence Acute exacerbation of chronic obstructive pulmonary disease (COPD) Dyspnea on exertion Tobacco abuse counseling Tobacco abuse Smoking greater than 30 pack years Screening for lung cancer Tobacco abuse disorder Chronic hypoxemic respiratory failure Panlobular emphysema Multiple pulmonary nodules COPD (chronic obstructive pulmonary disease) Surgical History History of hernia surgery History of appendectomy History of colonoscopy History of carpal tunnel release Family History No significant family history Social History Smoking Status: Current every day smoker smoking status stop date: 04/01/2023 second hand exposure: Yes alcohol intake: never substance use type: denies use current occupational status: employed Travel in the last 8 weeks: None household members: none housing: house 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 occupational 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: No Are you experiencing loss of taste or smell?: No Other Medical History Have you received the Flu Vaccine for this season: No Have you received the Pneumonia Vaccine: Yes ROS Obtained: Yes All systems reviewed & no additional complaints except as documented Physical Exam General General appearance: alert and in no apparent distress ENT ENT exam: Present normal exam Neck Neck exam: Present normal inspection and full ROM Chest Chest inspection: Present normal inspection; Absent tenderness Respiratory Respiratory exam: Present normal lung sounds bilaterally and prolonged expiratory phase; Absent respiratory distress Expanded Respiratory Exam Location: Left: decreased breath sounds, Right: decreased breath sounds and Lower: decreased breath sounds Cardiovascular Cardiovascular exam: Present regular rate and normal rhythm; Absent JVD Abdominal Exam Abdominal exam: Present soft and normal bowel sounds; Absent distention, tenderness or guarding Neurological Exam Neurological exam: Present alert and oriented X3 Skin Skin exam: Present warm, dry, intact and normal color HEART Score HEART Score HEART Score assessment performed?: Yes History (anamnesis): Slightly suspicious ECG: Non-specific disturbance Age: >65 years Risk factors: 1-2 risk factors Troponin: </= normal limit HEART Score: 4 Critical Care Critical Care Time Critical Care Time: No Medical Decision Making Medical Records Medical records reviewed: Yes I reviewed the patient's medical records. Sajan Inquiry Pt receiving controlled substance: No Sajan was queried for this patient: No Vital Signs Vital Signs: 02/25/24 11:12 02/25/24 11:17 02/25/24 12:06 Temperature 98.0 F Temperature Source Oral Pulse Rate 87 78 Pulse Rate [Right Brachial] 96 H Respiratory Rate 24 Blood Pressure 117/80 117/79 Blood Pressure [Right Arm] 117/80 Blood Pressure Mean 89 Blood Pressure Mean [Right Arm] 92 Blood Pressure Source [Right Arm] Automatic Cuff Blood Pressure Position [Right Arm] Sitting 02 Sat by Pulse Oximetry 96 92 L 99 Oxygen Delivery Method Room Air Nasal Cannula Oxygen Flow Rate (LPM) 3 02/25/24 12:30 02/25/24 13:00 02/25/24 13:30 Temperature Temperature Source Pulse Rate 67 91 H 81 Pulse Rate [Right Brachial] Respiratory Rate Blood Pressure 99/67 L 110/72 120/74 Blood Pressure [Right Arm] Blood Pressure Mean Blood Pressure Mean [Right Arm] Blood Pressure Source [Right Arm] Blood Pressure Position [Right Arm] 02 Sat by Pulse Oximetry 93 L 84 L 92 L Oxygen Delivery Method Nasal Cannula Oxygen Flow Rate (LPM) 3 Lab Data Lab results reviewed: Yes I reviewed the patient's lab results. Labs: Lab Results 02/25/24 11:13: WBC 8.2, RBC 4.86, Hgb 14.9, Hct 46.0, MCV 94.7, MCH 30.7, MCHC 32.4, RDW 14.9, Plt Count 315, MPV 10.0, Neut % (Auto) 60.0, Lymph % (Auto) 19.7, [place] % (Auto) 18.6 H, Eos % (Auto) 0.4, Baso % (Auto) 0.9, Neut # (Auto) 4.9, Lymph # (Auto) 1.6, [place] # (Auto) 1.5 H, Eos # (Auto) 0.0, Baso # (Auto) 0.1, Sodium 138, Potassium 4.0, Chloride 100, Carbon Dioxide 32 H, Anion Gap 10.0, BUN 19 H, Creatinine 0.70, Estimated Creat Clear 57, Estimated GFR 83, Est GFR ( Amer) 100, Glucose 86, Calcium 9.0, Troponin I < 0.01 02/25/24 11:16: VBG pH 7.32, VBG pCO2 49.8, VBG pO2 85.3 H, VBG HCO3 24.8, VBG Total CO2 26.3, VBG O2 Saturation 96.5 H, VBG Base Excess -1.4, VBG Lactic Acid 1.7 02/25/24 11:17: VBG Lactic Acid 1.7 02/25/24 11:13 02/25/24 11:13 Response Orders (Tests/Meds): ED MEDICATIONS Generic Name Dose Route Start Last Admin Trade Name Arun PRN Reason Stop Dose Admin Albuterol/Ipratropium 3 ml 02/25/24 18:00 Ipratropium/Albuterol 3 Ml [facility] 03/26/24 17:59 Q6RT HARMAN Ceftriaxone Sodium 1 gm/ 50 mls @ 100 mls/hr 02/25/24 12:45 02/25/24 12:52 Sodium Chloride IV 03/06/24 12:44 100 mls/hr Q24H HARMAN Administration Azithromycin 500 mg/ Sodium 250 mls @ 250 mls/hr 02/25/24 12:45 02/25/24 12:53 Chloride IV 03/06/24 12:44 250 mls/hr Q24H HARMAN Administration Nicotine 21 mg 02/25/24 13:42 Nicotine 21mg/24hr Patch TD 03/26/24 13:41 DAILYP PRN Nicotine Cravings Discontinued Medications Generic Name Dose Route Start Last Admin Trade Name Arun PRN Reason Stop Dose Admin Albuterol/Ipratropium 9 ml 02/25/24 11:16 02/25/24 11:27 Ipratropium/Albuterol 3 Ml [facility] 02/25/24 11:17 9 ml ONCE ONE Administration Benzonatate 200 mg 02/25/24 12:45 02/25/24 12:54 Benzonatate 100mg Capsule PO 02/25/24 12:46 200 mg ONCE ONE Administration Dexamethasone Sodium Phosphate 10 mg 02/25/24 11:16 02/25/24 11:22 Dexamethasone 4mg/Ml 1ml Vial IV 02/25/24 11:17 10 mg ONCE ONE Administration Furosemide 20 mg 02/25/24 12:50 02/25/24 13:02 Furosemide 20mg Tablet PO 02/25/24 12:51 20 mg ONCE ONE Administration Furosemide 40 mg 02/25/24 13:41 Furosemide 40mg/4ml Vial IV 02/25/24 13:42 ONCE ONE ORDERS Category Date Time Status CXR 2 view (NOT portable) [XR chest 2V] Stat Exams 02/25/24 11:16 Completed BMP [Basic Metabolic Panel] Stat Lab 02/25/24 11:13 Completed CBC w/Auto Diff [Complete Blood Count Auto Diff] Stat Lab 02/25/24 11:13 Completed Complete Blood Count Auto Diff AMLAB Lab 02/26/24 06:00 Ordered Comprehensive Metabolic Panel AMLAB Lab 02/26/24 06:00 Ordered Lactate Venous Routine Lab 02/25/24 11:17 Completed Magnesium AMLAB Lab 02/26/24 06:00 Ordered Mini Respiratory Panel Stat Lab 02/25/24 11:13 Received Trop I [Troponin I] Stat Lab 02/25/24 11:13 Completed Troponin I Q3H Lab 02/25/24 14:30 Ordered Troponin I Q3H Lab 02/25/24 17:30 Ordered VBG [Venous Blood Gas] Stat RT 02/25/24 11:16 Completed ECG Data Tracing #1: ECG Narrative: Normal sinus rhythm with a rate of 84, no QTc prolongation, no significant ST elevation/depression or evidence of acute ischemia ECG initial impression date: 02/25/24 ECG initial impression time: 11:13 MDM Narrative Medical Decision Narrative: In summary, patient is a 68-year-old female presenting with SOA. Differential diagnosis includes was not limited to, COPD exacerbation, URI, pneumonia, ACS, among others. Patient has a severe history of COPD with recent exacerbation treated with steroids and antibiotics. Patient also has an upcoming appointment with [facility] pulmonology on 03/08. Patient will be managed with 3 X DuoNeb, Decadron. Patient will be evaluated with CBC, BMP, troponin, CXR, VBG. [facility] and stated she had left in the car. Initial saturation 92% on room air. Patient placed on 4L NC and promptly improved her oxygen saturations. On evaluation of patient's labs, she has no leukocytosis, anemia, thrombocytopenia. Patient's VBG without hypercapnia. Renal function and electrolytes largely unremarkable with slight elevation of carbon dioxide at 32. Patient's CXR personally reviewed by me and significant for bilateral interstitial markings, similar in appearance to CXR on 01/23/2024. Final radiologic read notes possible pulmonary hypertension. Upon reevaluation, patient is moving more air after 3 x DuoNebs. Patient now experiencing increased coughing. Initially attempted to wean oxygen to 2 L nasal cannula. Patient remained hypoxic at 86 to 87% with good pleth. On further chart review, patient saw cardiology in May 2023 and had an echo as well as a CCTA performed. These tests noted slight increased right heart pressure which was believed to be from patient's significant pulmonary disease. Will give patient a dose of Lasix and discussed patient admission with hospitalist. After discussion with Dr. Rosenthal, patient treated with IV Lasix and a respiratory panel for further evaluation. Patient in agreement with admission for further management. Vicki Green MD PGY-3, Emergency Medicine
[2024-02-25 12:17] LABS: Troponin I < 0.01 ng/ml (0.00-0.034)
[2024-02-25] MEDS: CEFTRIAXONE SODIUM 1 GM in 0.9 % SODIUM CHLORIDE 50 ML IV (12:52)
[2024-02-25] MEDS: AZITHROMYCIN 500 MG in 0.9 % SODIUM CHLORIDE 250 ML 250 MG IV (12:53)
[2024-02-25] MEDS: BENZONATATE 100MG CAPSULE 200 MG PO (12:54)
[2024-02-25] MEDS: FUROSEMIDE 20MG TABLET 20 MG PO (13:02)
[2024-02-25 13:46] LABS: Coronavirus 19, PCR Not Detected (NotDetected); Human Rhinovirus Not Detected (NotDetected); Influenza B, PCR Not Detected (NotDetected); Respiratory Syncytial Virus Not Detected (NotDetected)
[2024-02-25] MEDS: FUROSEMIDE 40MG/4ML VIAL 40 MG IV (13:46)
--- NOTE | 2024-02-25 13:46 | P.HP_ITS ---
History of Present Illness *Admission Date: 02/25/24 *Reason for visit:: dyspnea *History of present illness: Ms. Mobley is a 68-year-old female with COPD, continues to smoke, on 2 L oxygen chronically. has history of COVID a year ago and has had intermittent shortness of breath since. Presented to the ER with complaint of worsening shortness of breath since [place]. Was seen at the [facility] earlier in January and treated with short course of antibiotics and steroids. Has started to get worse over the past few days. States she has not had much production of cough. Feels quite short of breath however. Denies any fever. No nausea or vomiting. On presentation to the ER was having a hard time breathing. Necessitated 4 to 5 L oxygen for appropriate saturations. Treated with [id number] nebulizer and a low oral dose of Lasix. Feeling a little better but still quite short of breath. Chest imaging concerning for hyper expansion and increased pulmonary vascular congestion. Medicine consulted for admission and further management of COPD exacerbation. On my evaluation after arriving to the floor, patient states she is feeling better during 2 to 3 L nasal cannula oxygen. States she gets quite short of breath with any exertion and cannot walk to the bathroom without desatting at home. Was around her grandson recently prior to onset of symptoms. Denies any other known sick contacts. Alert and oriented x 4. Has not seen her PCP in over a year, follows with pulmonology regularly. [facility] Disclaimer: The information contained in this section may have been updated after the patient was seen, as this information can be updated by other users. Medical History Diverticulitis Abnormal electrocardiogram [ECG] [EKG] Acute respiratory failure with hypoxia Pneumonia Abnormal computerized axial tomography of chest Personal history of nicotine dependence Acute exacerbation of chronic obstructive pulmonary disease (COPD) Dyspnea on exertion Tobacco abuse counseling Tobacco abuse Smoking greater than 30 pack years Screening for lung cancer Tobacco abuse disorder Chronic hypoxemic respiratory failure Panlobular emphysema Multiple pulmonary nodules COPD (chronic obstructive pulmonary disease) Surgical History History of hernia surgery History of appendectomy History of colonoscopy History of carpal tunnel release Family History No significant family history Social History Smoking Status: Current every day smoker smoking status stop date: 04/01/2023 second hand exposure: Yes alcohol intake: never substance use type: denies use current occupational status: employed Travel in the last 8 weeks: None household members: none housing: house 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 occupational 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: No Are you experiencing loss of taste or smell?: No Other Medical History Have you received the Flu Vaccine for this season: No Have you received the Pneumonia Vaccine: Yes Review of Systems Review of Systems Review of systems (narrative): 14 point review of systems performed, pertinent positives and negatives as per HPI Meds Home Medications and Allergies Home Medications ?Medication ?Instructions ?Recorded ?Confirmed ?Type fluticasone fur. 100 mcg-umeclid 1 inh inhalation DAILY Copd 03/29/23 02/25/24 History 62.5 mcg-vilant 25 mcg inhalat.powder (Trelegy Ellipta) ipratropium 0.5 mg-albuterol 3 mg 3 ml inhalation Q6HP PRN wheezing 03/29/23 02/25/24 History (2.5 mg base)/3 mL nebulization soln acetaminophen 325 mg tablet 325 mg PO QID PRN Pain 08/19/23 02/25/24 History (Tylenol) ibuprofen 200 mg tablet (Advil) 200 mg PO Q6H PRN Pain 08/19/23 02/25/24 History albuterol sulfate 90 mcg/actuation 2 inh inhalation QID PRN shortness 01/08/24 02/25/24 Rx aerosol inhaler of breath or wheezing 90 days #8.5 grams bupropion HCl (smoking deter) 150 150 mg PO DAILY 02/25/24 02/25/24 History mg tablet,12 hr sustained-release(smoking deterrent) losartan 50 mg tablet 50 mg PO DAILY 02/25/24 02/25/24 History New Prescriptions to Start Prescriptions: Allergies Allergy/AdvReac Type Severity Reaction Status Date / Time No Known Allergies Allergy Verified 02/25/24 11:15 Exam Data for Last 24 hours Vital signs and Labs for Last 24 Hours: Temp Pulse Resp BP Pulse Ox O2 Del Method O2 Flow Rate 98.0 F 81 24 120/74 92 L Nasal Cannula 3 02/25/24 11:17 02/25/24 13:30 02/25/24 11:17 02/25/24 13:30 02/25/24 13:30 02/25/24 13:30 02/25/24 13:30 Laboratory Results - last 24 hr 02/25/24 11:13: WBC 8.2, RBC 4.86, Hgb 14.9, Hct 46.0, MCV 94.7, MCH 30.7, MCHC 32.4, RDW 14.9, Plt Count 315, MPV 10.0, Neut % (Auto) 60.0, Lymph % (Auto) 19.7, [place] % (Auto) 18.6 H, Eos % (Auto) 0.4, Baso % (Auto) 0.9, Neut # (Auto) 4.9, Lymph # (Auto) 1.6, [place] # (Auto) 1.5 H, Eos # (Auto) 0.0, Baso # (Auto) 0.1, Sodium 138, Potassium 4.0, Chloride 100, Carbon Dioxide 32 H, Anion Gap 10.0, BUN 19 H, Creatinine 0.70, Estimated Creat Clear 57, Estimated GFR 83, Est GFR ( Amer) 100, Glucose 86, Calcium 9.0, Troponin I < 0.01 02/25/24 11:16: VBG pH 7.32, VBG pCO2 49.8, VBG pO2 85.3 H, VBG HCO3 24.8, VBG Total CO2 26.3, VBG O2 Saturation 96.5 H, VBG Base Excess -1.4, VBG Lactic Acid 1.7 02/25/24 11:17: VBG Lactic Acid 1.7 I & O for Last 24 hours: Intake & Output 02/22/24 02/23/24 02/24/24 02/25/24 23:59 23:59 23:59 23:59 Weight 68.039 kg Constitutional Constitutional: mild distress, average body habitus, chronically ill appearing and cooperative *Routine HEENT Exam Head: Present normocephalic Eye: Present EOMI and PERRL ENT: Present mucous membranes moist *Routine Neck Exam Neck: Present supple; Absent lymphadenopathy *Routine Respiratory Exam Respiratory: Present accessory muscle use, prolonged expiratory phase and wheezes; Absent rhonchi or crackles *Routine Cardiovascular Exam Cardiovascular: Present Normal S2 and tachycardia *Routine Abdominal Exam Abdominal: Present soft and normoactive bowel sounds; Absent tenderness *Routine Rectal Exam Rectal:: deferred *Routine Genitalia Exam Genitalia:: deferred *Routine Extremities Exam Extremities: Absent cyanosis, clubbing or edema *Routine Skin Exam Skin: Present intact and warm; Absent rash *Routine Neurological Exam Neurological: Present alert, oriented X3 and moving all extremities; Absent altered mental status Assessment and Plan *Assessment and plan (1) Acute on chronic hypoxic respiratory failure: Status: Acute Category: Medical Code(s): J96.21 - Acute and chronic respiratory failure with hypoxia (2) Acute exacerbation of chronic obstructive pulmonary disease: Status: Acute Category: Medical Code(s): J44.1 - Chronic obstructive pulmonary disease with (acute) exacerbation (3) Influenza A: Status: Acute Category: Medical Code(s): J10.1 - Influenza due to other identified influenza virus with other respiratory manifestations (4) Personal history of nicotine dependence: Status: Chronic Category: Medical Code(s): Z87.891 - Personal history of nicotine dependence (5) HTN (hypertension): Status: Acute Qualifiers: Hypertension type: primary hypertension Qualified Code(s): I10 - Essential (primary) hypertension Category: Medical Code(s): I10 - Essential (primary) hypertension (6) Acute on chronic respiratory failure with hypoxemia: Status: Acute Category: Medical Code(s): J96.21 - Acute and chronic respiratory failure with hypoxia Plan 68-year-old female presents with worsening shortness of breath. Concern for COPD exacerbation with increased oxygen requirement from baseline. Discussed case with ER physician, request admission due to worsening oxygen requirement and significant nebulizer need. I agreed to admit for further care. Continue antibiotics and steroids. Will monitor overnight. Problems addressed as follows: COPD exacerbation with worsening acute on chronic hypoxemic respiratory failure. Influenza A infection -DuoNebs every 6 hours scheduled -Budesonide twice daily scheduled -Received 10 mg dexamethasone in the ER. Will continue prednisone 40 mg daily x 5 days -Mini respiratory panel obtained, positive for flu A -Per my review of chest x-ray, has hyperinflation and expansion along with increased pulmonary vascular markings -Lasix 40 mg IV once. Patient having good response. -Continue ceftriaxone 1 g daily and azithromycin 500 mg daily. -Supplemental oxygen with goal saturation greater 90%, currently on 3 L. - Continue Trelegy 100 inhaler daily - White count normal 8.2, hemoglobin 14.9. Kidney function and electrolytes normal with BUN 19, creatinine 0.7. BNP marginally elevated at 324. Repeat CBC, CMP, magnesium ordered for the morning. - Initiate Tamiflu 75 mg twice daily Hypertension: Irbesartan 75 mg daily as formulary conversion for home losartan for hypertension. Blood pressure well-controlled. Tobacco use disorder, nicotine patch daily as needed DNR/DNI Regular diet Lovenox 40 mg subcu daily
[2024-02-25 14:05] LABS: NT Pro Brain Natriuretic Pep. 324 pg/mL (0-125)
--- NOTE | 2024-02-25 14:25 | PC.NURSE ---
arrived by w/c from ED
[2024-02-25 15:39] LABS: Influenza A, PCR Detected (NotDetected)
[2024-02-25] MEDS: BUDESONIDE 0.5MG/2ML NEB 0.5 MG IH (18:34)
[2024-02-25] MEDS: IPRATROPIUM/ALBUTEROL 3 ML NEB IH ×2 (18:34→23:32)
[2024-02-25] MEDS: CYCLOBENZAPRINE 10MG TABLET 5 MG PO (20:17)
[2024-02-25] MEDS: OSELTAMIVIR 75MG CAPSULE 75 MG PO (20:17)
[2024-02-26] MEDS: BENZONATATE 100MG CAPSULE 200 MG PO ×3 (02:52→12:02)
[2024-02-26 04:00] VITALS: BP 144/74; PULSE 102; RESP 18; TEMP 36.4; O2SAT 93; BMI 25.3
[2024-02-26 06:09] VITALS: PULSE 101; PULSE 89; O2SAT 96
[2024-02-26] MEDS: IPRATROPIUM/ALBUTEROL 3 ML NEB IH ×2 (06:09→11:19)
[2024-02-26] MEDS: BUDESONIDE 0.5MG/2ML NEB 0.5 MG IH (06:09)
[2024-02-26 08:00] VITALS: BP 132/65; PULSE 88; RESP 23; TEMP 36.8; O2SAT 92
--- NOTE | 2024-02-26 08:06 | P.DS_ITS ---
General Admission date:: 02/25/24 Discharge date: 02/26/24 HPI HPI HPI: Ms. Mobley is a 68-year-old female with COPD, continues to smoke, on 2 L oxygen chronically. has history of COVID a year ago and has had intermittent shortness of breath since. Presented to the ER with complaint of worsening shortness of breath since [place]. Was seen at the [facility] earlier in January and treated with short course of antibiotics and steroids. Has started to get worse over the past few days. States she has not had much production of cough. Feels quite short of breath however. Denies any fever. No nausea or vomiting. On presentation to the ER was having a hard time breathing. Necessitated 4 to 5 L oxygen for appropriate saturations. Treated with [id number] nebulizer and a low oral dose of Lasix. Feeling a little better but still quite short of breath. Chest imaging concerning for hyper expansion and increased pulmonary vascular congestion. Medicine consulted for admission and further management of COPD exacerbation. On my evaluation after arriving to the floor, patient states she is feeling better during 2 to 3 L nasal cannula oxygen. States she gets quite short of breath with any exertion and cannot walk to the bathroom without desatting at home. Was around her grandson recently prior to onset of symptoms. Denies any other known sick contacts. Alert and oriented x 4. Has not seen her PCP in over a year, follows with pulmonology regularly. Hospital Course Hospital Course Hospital Course: 68-year-old female presents with worsening shortness of breath. Concern for COPD exacerbation with increased oxygen requirement from baseline. Discussed case with ER physician, request admission due to worsening oxygen requirement and significant nebulizer need. I agreed to admit for further care. Initiated on antibiotics and steroids. Found to be positive for flu A. Monitored ove rnight. Patient doing well. Stable on baseline oxygen of 2 L. Will discharge home to complete treatment of Tamiflu. Follow-up as an outpatient. Problems addressed as follows: COPD exacerbation with worsening acute on chronic hypoxemic respiratory failure. Influenza A infection -Admitted for respiratory symptoms. Found to be positive for flu A. Treated with steroids, Tamiflu, nebulizers for the COPD exacerbation secondary to flu. Started on empiric antibiotics for possible bacterial component. DuoNebs every 6 hours scheduled during admission. Started on budesonide twice daily. Rece ived 10 mg dose of dexamethasone. Transitioned antibiotics to cefdinir to complete 5 days of therapy and steroids to prednisone 40 mg daily. Continue Tamiflu for total of 5 days to treat flu component. Patient remained stable on 2 L oxygen during admission. White count remained normal. Kidney function normal. Given stability, will discharge home to complete course. Continue Trelegy 100 inhaler daily. Recommend following up with pulmonology as an outpatient. Patient independently mobile. Hypertension: Well-controlled during admission. Continue home regimen with losartan.. Tobacco use disorder, nicotine patch daily as needed Total time spent on discharge 32 minutes in counseling, documentation, chart review, and direct care with patient. Exam Data for Last 24 hours Vital signs and Labs for Last 24 Hours: Temp Pulse Resp BP Pulse Ox O2 Del Method O2 Flow Rate 97.6 F 101 H 18 144/74 H 96 Nasal Cannula 2 02/26/24 04:00 02/26/24 06:09 02/26/24 04:00 02/26/24 04:00 02/26/24 06:09 02/26/24 07:26 02/26/24 07:26 Laboratory Results - last 24 hr 02/25/24 11:13: WBC 8.2, RBC 4.86, Hgb 14.9, Hct 46.0, MCV 94.7, MCH 30.7, MCHC 32.4, RDW 14.9, Plt Count 315, MPV 10.0, Neut % (Auto) 60.0, Lymph % (Auto) 1 9.7, [place] % (Auto) 18.6 H, Eos % (Auto) 0.4, Baso % (Auto) 0.9, Neut # (Auto) 4.9, Lymph # (Auto) 1.6, [place] # (Auto) 1.5 H, Eos # (Auto) 0.0, Baso # (Auto) 0.1, Sodium 138, Potassium 4.0, Chloride 100, Carbon Dioxide 32 H, Anion Gap 10.0, BUN 19 H, Creatinine 0.70, Estimated Creat Clear 57, Estimated GFR 83, Est GFR ( Amer) 100, Glucose 86, Calcium 9.0, Troponin I < 0.01, NT-Pro-B Natriuret Pep 324 H, SARS-CoV-2 (PCR) Not detected, Influenza Type A (PCR) Detected A, Influenza Type B (PCR) Not detected, RSV (PCR) Not detected, Rhinovirus (PCR) Not detected 02/25/24 11:16: VBG pH 7.32, VBG pCO2 49.8, VBG pO2 85.3 H, VBG HCO3 24.8, VBG Total CO2 26.3, VBG O2 Saturation 96.5 H, VBG Base Excess -1.4, VBG Lactic Acid 1.7 02/25/24 11:17: VBG Lactic Acid 1.7 I & O for Last 24 hours: Intake & Output 02/23/24 02/24/24 02/25/24 02/26/24 23:59 23:59 23:59 23:59 Intake Total 420 / 670 250 / 250 Output Total 800 / 800 Balance -380 / -130 250 / 250 Weight 67.614 kg 68.946 kg Constitutional Constitutional: no acute distress, average body habitus, chronically ill appearing and cooperative *Routine HEENT Exam Head: Present normocephalic Eye: Present EOMI and PERRL ENT: Present mucous membranes moist *Routine Neck Exam Neck: Present supple; Absent lymphadenopathy *Routine Respiratory Exam Respiratory: Present prolonged expiratory phase, rhonchi and normal respiratory effort; Absent wheezes (minimal end expiratory) or crackles *Routine Cardiovascular Exam Cardiovascular: Present RRR *Routine Abdominal Exam Abdominal: Present soft and normoactive bowel sounds; Absent tenderness *Routine Rectal Exam Patient deferred: visual exam *Routine Exam Patient deferred: external exam *Routine Extremities Exam Extremities: Absent cyanosis, clubbing or edema *Routine Skin Exam Skin: Present warm; Absent rash *Routine Neurological Exam Neurological: Present alert, oriented X3 and moving all extremities; Absent altered mental status Results Data Completed and Pending Labs on day of discharge: Labs from last 24 hours 02/25/24 02/25/24 02/25/24 11:17 11:16 11:13 WBC 8.2 RBC 4.86 Hgb 14.9 Hct 46.0 MCV 94.7 MCH 30.7 MCHC 32.4 RDW 14.9 Plt Count 315 MPV 10.0 Neut % (Auto) 60.0 Lymph % (Auto) 19.7 [place] % (Auto) 18.6 H Eos % (Auto) 0.4 Baso % (Auto) 0.9 Neut # (Auto) 4.9 Lymph # (Auto) 1.6 [place] # (Auto) 1.5 H Eos # (Auto) 0.0 Baso # (Auto) 0.1 VBG pH 7.32 VBG pCO2 49.8 VBG pO2 85.3 H VBG HCO3 24.8 VBG Total CO2 26.3 VBG O2 Saturation 96.5 H VBG Base Excess -1.4 VBG Lactic Acid 1.7 1.7 Sodium 138 Potassium 4.0 Chloride 100 Carbon Dioxide 32 H Anion Gap 10.0 BUN 19 H Creatinine 0.70 Estimated Creat Clear 57 Estimated GFR 83 Est GFR ( Amer) 100 Glucose 86 Calcium 9.0 Troponin I < 0.01 NT-Pro-B Natriuret Pep 324 H SARS-CoV-2 (PCR) Not detected Influenza Type A (PCR) Detected A Influenza Type B (PCR) Not detected RSV (PCR) Not detected Rhinovirus (PCR) Not detected DS: Diagnosis Discharge Diagnosis (1) Acute on chronic hypoxic respiratory failure: Status: Acute Code(s): J96.21 - Acute and chronic respiratory failure with hypoxia (2) Acute exacerbation of chronic obstructive pulmonary disease: Status: Acute Code(s): J44.1 - Chronic obstructive pulmonary disease with (acute) exacerbation (3) Influenza A: Status: Acute Code(s): J10.1 - Influenza due to other identified influenza virus with other respiratory manifestations (4) Personal history of nicotine dependence: Status: Chronic Code(s): Z87.891 - Personal history of nicotine dependence (5) HTN (hypertension): Status: Acute Code(s): I10 - Essential (primary) hypertension Qualifiers: Hypertension type: primary hypertension Qualified Code(s): I10 - Essential (primary) hypertension (6) Acute on chronic respiratory failure with hypoxemia: Status: Acute Code(s): J96.21 - Acute and chronic respiratory failure with hypoxia Meds Home Medications and Allergies Home Medications ?Medication ?Instructions ?Recorded ?Confirmed ?Type fluticasone fur. 100 mcg-umeclid 1 inh inhalation DAILY COPD. 03/29/23 02/25/24 History 62.5 mcg-vilant 25 mcg inhalat.powder (Trelegy Ellipta) ipratropium 0.5 mg-albuterol 3 mg 3 ml inhalation Q6HP PRN wheezing 03/29/23 02/26/24 History (2.5 mg base)/3 mL nebulization soln acetaminophen 325 mg tablet 325 mg PO QID PRN Pain 08/19/23 02/26/24 History (Tylenol) ibuprofen 200 mg tablet (Advil) 200 mg PO Q6H PRN Pain 08/19/23 02/26/24 History albuterol sulfate 90 mcg/actuation 2 inh inhalation QID PRN shortness 01/08/24 02/26/24 Rx aerosol inhaler of breath or wheezing 90 days #8.5 grams bupropion HCl (smoking deter) 150 150 mg PO DAILY 02/25/24 02/26/24 History mg tablet,12 hr sustained-release(smoking deterrent) losartan 50 mg tablet 50 mg PO DAILY 02/25/24 02/26/24 History cefdinir 300 mg capsule 300 mg PO BID 4 days #8 caps 02/26/24 Rx oseltamivir 75 mg capsule (Tamiflu) 75 mg PO BID 4 days #8 caps 02/26/24 Rx prednisone 20 mg tablet 40 mg (2 x 20 mg) PO DAILY 4 days 02/26/24 Rx #8 tabs New Prescriptions to Start Prescriptions: Jayesh Brewster oseltamivir [Tamiflu] Jayesh Gutierrez prednisone Jayesh Gutierrez Allergies Allergy/AdvReac Type Severity Reaction Status Date / Time No Known Allergies Allergy Verified 02/25/24 11:15 Discharge Plan Disposition Patient Disposition: Home, Self-Care Condition: Fair Follow up Plan Follow up with: Mansoor Lamas MD [Primary Care Provider] - 03/05/24 11:00 am Prescriptions/Medication Reconciliation: New prednisone 20 mg Tablet 40 mg PO DAILY 4 Days Qty: 8 0RF oseltamivir [Tamiflu] 75 mg Capsule 75 mg PO BID 4 Days Qty: 8 0RF cefdinir 300 mg capsule 300 mg PO BID 4 Days Qty: 8 0RF Continued albuterol sulfate 90 mcg/actuation HFA aerosol inhaler 2 inh inhalation QID PRN (Reason: shortness of breath or wheezing) 90 Days Qty: 8.5 2RF acetaminophen [Tylenol] 325 mg Tablet 325 mg PO QID PRN (Reason: Pain) ibuprofen [Advil] 200 mg Tablet 200 mg PO Q6H PRN (Reason: Pain) losartan 50 mg Tablet 50 mg PO DAILY bupropion HCl (smoking deter) 150 mg Tablet Extended Release 12 Hr 150 mg PO DAILY ipratropium-albuterol 0.5 mg-3 mg(2.5 mg base)/3 mL solution for nebulization 3 ml inhalation Q6HP PRN (Reason: wheezing) Rx Instructions: Do not combine with other breathing treatments Trelegy Ellipta 100-62.5-25 mcg blister with device 1 inh inhalation DAILY Problem Reconciliation Problems Reviewed?: Yes Patient Discharge Instructions ACTIVITY: Continue current activity DIET: continue same diet Additional Instructions: Patient states she has an appointment with Dr. Jung in 2 weeks. Recommend she keep this appointment. Patient Instructions: Chronic Obstructive Pulmonary Disease Print Language: Nigerian Providers Primary Care Provider: Mansoor Lamas Admit Provider: Jayesh Gutierrez Attending Provider: Jayesh Gutierrez
[2024-02-26 08:16] LABS: Alanine Aminotransferase 21 U/L (12-78); Albumin Level 4.1 g/dl (3.5-5.0); Albumin/Globulin Ratio 1.7 (1.1-1.8); Alkaline Phosphatase 47 U/L (38-126); Aspartate Amino Transferase 32 U/L (14-36); Blood Urea Nitrogen 21 mg/dl (7-17); Calcium 8.5 mg/dl (8.4-10.2); Carbon Dioxide 33 mmol/L (22.0-30.0); Chloride 98 mmol/L (98-107); Creatinine Clearance Estimated 58 mL/min (50-200); Estimated Glomerular Filt Rate 99 ml/min (>60); GFR (African American) 120 ML/MIN (>60); Globulin 2.4 g/dL (1.3-3.2); Glucose 120 mg/dl (74-100); Magnesium 1.6 mg/dl (1.6-2.3); Sodium 139 mmol/L (136-145); Total Protein,Serum 6.5 g/dl (6.3-8.2)
[2024-02-26 08:17] LABS: Bilirubin,Total < 0.1 mg/dl (0.2-1.3)
[2024-02-26] MEDS: OSELTAMIVIR 75MG CAPSULE 75 MG PO (08:24)
[2024-02-26] MEDS: predniSONE 20MG TAB 40 MG PO (08:25)
[2024-02-26] MEDS: IRBESARTAN 75MG TABLET 75 MG PO (08:25)
[2024-02-26] MEDS: buPROPion HCl SR 150MG TAB 150 MG PO (08:25)
[2024-02-26] MEDS: MAGNESIUM SULFATE IN WATER 2 GM/50 ML PIGGYBACK IV (08:29)
--- NOTE | 2024-02-26 09:27 | HMH.PHAINT1 ---
Pharmacy Intervention Comments: VERIFIED MEDICATIONS WITH OUTPATIENT PHARMACY AND CONFIRMED WITH PATIENT.
[2024-02-26] MEDS: ACETAMINOPHEN 325MG TAB 650 MG PO (09:58)
[2024-02-26 10:15] LABS: Basophils % 0.2 % (0.1-2.0); Hematocrit 44.4 % (37.0-47.0); Hemoglobin 14.5 g/dL (12.2-16.2); Lymphocytes # 1.4 K/mm3 (0.7-4.5); Lymphocytes % 14.6 % (10-50); Mean Corpuscular HGB Conc 32.7 g/dL (31.8-35.4); Mean Corpuscular Hemoglobin 31.3 pg (27.0-31.2); Mean Corpuscular Volume 95.7 fl (81-99); Mean Platelet Volume 10.6 fl (7.4-10.4); Monocytes # 1.3 K/mm3 (0.1-1.0); Neutrophils # 6.5 K/mm3 (1.8-7.8); Neutrophils % 70.7 % (37.0-80.0); Platelet Count 341 K/mm3 (142-424); Red Blood Count 4.64 M/mm3 (4.20-5.40); Red Cell Distribution Width 14.9 % (11.5-17.5); White Blood Count 9.2 K/mm3 (4.8-10.8)
[2024-02-26] MEDS: CEFTRIAXONE SODIUM 1 GM in 0.9 % SODIUM CHLORIDE 50 ML IV (11:13)
[2024-02-26 11:19] VITALS: PULSE 109; PULSE 97; O2SAT 93
[2024-02-26 11:52] LABS: Anion Gap 11.9 mEq/L (5-15); Potassium 3.9 mmoL/L (3.5-5.1)
[2024-02-26] MEDS: AZITHROMYCIN 500 MG in 0.9 % SODIUM CHLORIDE 250 ML 250 MG IV (12:01)
--- NOTE | 2024-02-26 14:13 | HMH.PHAINT1 ---
Pharmacy Intervention Comments: COUNSELED PATIENT ON NEW MEDICATIONS PRIOR TO DISCHARGE. PATIENT VERBALIZED UNDERSTANDING.
--- NOTE | 2024-02-27 10:39 | SW/DCPLANNER ---
Spoke with patient on the phone. Patient stated that she wished she stayedd in the hospital. Patient stated that she isnt feeling well. Patient stated that she is aware of her upcoming appointments and that clinic brought her medicine to her before she was discharged. Patient stated that she has no questions or concerns at this time. Parish Daley
== END 2024-02-26 15:31 | disposition home or self-care (01) ==
LOC: ER 13:46 → 2ND 14:00
PROVIDERS: Admitting Provider Internal Medicine Adolescent Medicine; Emergency Provider Student in an Organized Health Care Education/Training Program; PCP Family Medicine; Visit Provider Internal Medicine Adolescent Medicine
DX: J10.1 Influenza due to other identified influenza virus with other respiratory manifestations (principal); J96.21 Acute and chronic respiratory failure with hypoxia; J44.1 Chronic obstructive pulmonary disease with (acute) exacerbation; I10 Essential (primary) hypertension; F17.210 Nicotine dependence, cigarettes, uncomplicated; Z71.6 Tobacco abuse counseling; Z86.16 Personal history of COVID-19; Z79.899 Other long term (current) drug therapy; Z79.51 Long term (current) use of inhaled steroids; Z99.81 Dependence on supplemental oxygen
CPT/HCPCS: 36415; 71046; 80048; 80053; 82803; 83605; 83735; 83880; 84484; 85025; 87631; 93005; 94640; 94761; 99285; G0378; J0456; J0696; J1100; J1940; J3475; J7050; J7620

== ENCOUNTER 2024-03-08 16:04 | Outpatient (CLI) | payer MEDICARE, OTHER, SELFPAY ==
--- NOTE | 2024-03-08 16:12 | XR_ITS ---
FINAL REPORT TECHNIQUE: Chest PA & Lateral CLINICAL HISTORY: SOB COMPARISON: 02/25/2024 FINDINGS: 2 views of the chest were performed. The heart size is normal. The mediastinum is within normal limits. The lungs are hyperinflated. There is flattening of the diaphragms on the lateral view. There is no acute cardiopulmonary process. There scarring at the lung bases. There are no pleural effusions. There is no pneumothorax. The bony thorax appears intact. IMPRESSION: Hyperinflation with no acute infiltrate. Reviewed, Interpreted and Dictated by Nabil Chávez MD Transcribed by Olimpia Ty Authenticated and [facility]
== END 2024-03-08 23:59 | disposition home or self-care (01) ==
LOC: LAB 16:06
PROVIDERS: PCP Family Medicine; Visit Provider Internal Medicine Pulmonary Disease
DX: R06.00 Dyspnea, unspecified (principal); R06.02 Shortness of breath
CPT/HCPCS: 71046; 87070; 87205

== ENCOUNTER 2024-03-22 09:22 | Outpatient (CLI) | payer MEDICARE, OTHER, SELFPAY ==
--- NOTE | 2024-03-22 09:25 | US_ITS ---
PROCEDURE INFORMATION: Exam: US Left Breast, Complete MG Left Diagnostic Breast Tomosynthesis Exam date and time: 03/22/2024 9:32 AM Age: 68 years old Clinical indication: Follow-up of a left breast finding from prior study dated 10/07/2023. TECHNIQUE: Imaging protocol: Complete ultrasound of all four quadrants of the left breast and the retroareolar regions, including ultrasound of the axilla when performed. Left Diagnostic tomosynthesis and 2D mammography including computer-aided detection (CAD) when performed. Unilateral or bilateral exam. COMPARISON: US BREAST LT COMPLETE 10/07/2023 2:23 PM FINDINGS: MAMMOGRAPHY: Breast composition: There are scattered areas of fibroglandular density. Breast mammogram findings: Ovoid asymmetry measuring 0.9 cm in the lower-inner quadrant left breast at the anterior depth is stable. There is no new or suspicious mass, distortion, calcifications or other mammogram abnormality. ULTRASOUND: Breast ultrasound findings: Ultrasound the left breast at the 7 o'clock axis, 2 cm from the nipple, demonstrates a stable hypoechoic partially cystic area measuring 0.5 x 0.7 x 0.2 cm, correlating to the mammogram finding. Overall this is not significantly changed since 10/07/2023. No shadowing or distortion. Left axilla demonstrates normal appearing lymph nodes. IMPRESSION: Asymmetry in the left breast correlating to underlying complicated cyst on ultrasound at the 7 o'clock axis, 2 cm from the nipple is unchanged since 10/07/2023. Six-month follow-up left breast ultrasound and bilateral diagnostic mammogram recommended to ensure stability over time. ASSESSMENT: BI-RADS Category 3: Probably benign.
== END 2024-03-22 23:59 | disposition home or self-care (01) ==
LOC: RAD 09:23
PROVIDERS: PCP Family Medicine; Visit Provider Family Medicine
DX: R92.8 Other abnormal and inconclusive findings on diagnostic imaging of breast (principal); N63.24 Unspecified lump in the left breast, lower inner quadrant
CPT/HCPCS: 76641; 77061; 77065; G0279

== ENCOUNTER 2024-05-17 09:50 | Outpatient (CLI) | payer MEDICARE, OTHER, SELFPAY ==
[2024-05-17 11:30] VITALS: PULSE 88; PULSE 92
[2024-05-17] MEDS: ALBUTEROL 0.083% 2.5 MG/3 ML NEB IH (11:30)
--- NOTE | 2024-05-17 11:50 | CT_ITS ---
FINAL REPORT CLINICAL HISTORY: lung cancer screening smoker 1 ppd for 51 years copd, emphysema COMPARISON: LDCT 01/14/2023, CTA chest 05/01/2023 FINDINGS: CT CHEST LOW DOSE SCREENING HISTORY: Screening exam for lung cancer. 68-year-old female, current smoker, 61-[id number]-rkzg history. DOSE: CTDI vol: 2.90 mGy, DLP: 98.99 mGy*cm TECHNIQUE: Axial CT without IV contrast administration using low dose protocol. This study was performed with techniques to keep radiation doses as low as reasonably achievable, (ALARA). Individualized dose reduction techniques using automated exposure control or adjustment of mA and/or kV according to the patient's size were employed. No acute lung disease is present. No pulmonary lesions are seen suspicious for neoplasm. There are coarse linear densities in the lingula consistent with scar. Advanced changes of emphysema are noted. No pleural or pericardial effusion is seen. No adenopathy or mass lesion is present. IMPRESSION: No evidence of lung cancer LUNG RADS CATEGORY 1 RECOMMENDATION: 12 month LDCT follow up Reviewed, Interpreted and Dictated by Syed Velazquez MD Transcribed by Shyanne Lopez Authenticated and [facility]
== END 2024-05-17 23:59 | disposition home or self-care (01) ==
LOC: RT 09:51
PROVIDERS: PCP Family Medicine; Visit Provider Internal Medicine Pulmonary Disease
DX: R06.09 Other forms of dyspnea (principal); F17.210 Nicotine dependence, cigarettes, uncomplicated
CPT/HCPCS: 71271; 94060; 94618; 94640; J7613

== ENCOUNTER 2024-05-25 09:35 | Outpatient (CLI) | payer MEDICARE, OTHER, SELFPAY ==
[2024-05-25 09:45] VITALS: BP 147/87; PULSE 88; RESP 18; TEMP 36.8; O2SAT 98
[2024-05-25] MEDS: DENOSUMAB 60 MG/ML SYRINGE SUBCUT (09:45)
== END 2024-05-25 09:50 | disposition home or self-care (01) ==
LOC: INF 09:37
PROVIDERS: PCP Family Medicine; Visit Provider Family Medicine
DX: M81.0 Age-related osteoporosis without current pathological fracture (principal); M06.4 Inflammatory polyarthropathy; Z79.899 Other long term (current) drug therapy
CPT/HCPCS: 96372; J0897

== ENCOUNTER 2024-09-07 09:07 | Day surgery (SDC) | payer MEDICARE, OTHER, SELFPAY ==
[2024-09-07] MEDS: PHENYLEPHRINE 2.5% OPHTH SOLN 2ML OP ×3 (09:40→09:51)
[2024-09-07] MEDS: CYCLOPENTOLATE 2% OPHTH SOLN 2ML BOTTLE OP ×3 (09:40→09:51)
[2024-09-07] MEDS: TETRACAINE 0.5% OPTH SOL 15ML OP ×3 (09:40→09:50)
[2024-09-07 09:43] VITALS: BMI 25.7
[2024-09-07 09:44] VITALS: BP 126/75; PULSE 75; RESP 18; TEMP 36.6; O2SAT 90
[2024-09-07 10:14] VITALS: BP 112/70; PULSE 64; RESP 16; TEMP 36.6; O2SAT 92
[2024-09-07] MEDS: MIDAZOLAM 2MG/2ML VIAL 1 MG IV (10:14)
[2024-09-07 10:19] VITALS: BP 119/71; PULSE 60; RESP 16; TEMP 36.6; O2SAT 85
[2024-09-07 10:24] VITALS: BP 109/65; PULSE 64; RESP 16; TEMP 36.6; O2SAT 86
[2024-09-07] MEDS: TIMOLOL 0.5% OPTH SOLN 5ML OP (10:26)
[2024-09-07] MEDS: TOBRAMYCIN/DEX OPTH SUSP 2.5ML OP (10:26)
[2024-09-07] MEDS: LIDOCAINE 1% PF 2ML VIAL 2 ML IJ (10:27)
[2024-09-07] MEDS: SODIUM CHLORIDE 0.9% 10ML FLUSH SYRINGE 10 ML IV (10:27)
[2024-09-07 10:29] VITALS: BP 112/68; PULSE 64; RESP 16; TEMP 36.6; O2SAT 84
[2024-09-07 10:35] VITALS: BP 123/72; PULSE 80; RESP 17; TEMP 36.7; O2SAT 89
--- NOTE | 2024-09-07 11:41 | HMH.PROCNOTE ---
[facility] Procedure Note Date: 09/07/24 Time: 11:41 Procedure Note:: Preoperative Diagnosis: Cataract combined NS Cortical Complex [Right] Eye Postop diagnosis: same Operation: Microscopic phacoemulsification with intraocular lens implant [Right] Eye Specimen: None Blood Loss: None The patient was examined in the office with a complaint of poor vision in the [right] eye. The patient reports that this interferes with ADLs such as reading, watching TV and/or driving or the vision is like looking through a foggy haze and is very troubling. The patient was examined and found to have a visually significant cataract with best corrected vision of [20/400] by refraction and/or glare testing. Treatment options, risks and benefits were explained and the patient elected to have cataract surgery in an attempt to improve their vision. The patient had the eye anesthetized with topical tetracaine, the eye ways prepped and draped in the usual fashion for cataract surgery. A paracentesis and a temporal keratotomy were made. 0.2cc of 1% lidocaine PF was placed into the anterior chamber. And aqueous/viscoelastic exchange was done and a 360 degree capsulorexis was performed. Through hydrodissection and delineation with BSS on a cannula was done. The lens nucleus was phecoemulsified with CDE of [9.32]. Residual cortical material was removed using automated I&A The capsular bag was deepened with viscoelastica and a PCIOL was placed in the capsular bag with good centration and stability. Residual viscoelastic was removed using automated I&A. The keratotomy incision was hydrated with BSS on a cannula. The wound were checked and found to be water tight. IOP was checked digitally and adjusted as needed so as not to be too high. 1 drop of timolol 0.5%, ofloxacin, prednisolone acetate and ketorolac was instilled and eye shield taped over the eye. The patient was taken to recovery in good condition and will be seen postoperatively.
== END 2024-09-07 10:48 | disposition home or self-care (01) ==
PROVIDERS: PCP Family Medicine; Visit Provider Ophthalmology
PROC: (CPT 66984; principal; 2024-09-07 11:30)
DX: H25.811 Combined forms of age-related cataract, right eye (principal); J43.1 Panlobular emphysema; M19.90 Unspecified osteoarthritis, unspecified site; Z79.899 Other long term (current) drug therapy; Z79.51 Long term (current) use of inhaled steroids; Z97.3 Presence of spectacles and contact lenses; Z87.891 Personal history of nicotine dependence
CPT/HCPCS: 66984; J2250; V2632

== ENCOUNTER 2024-11-18 12:25 | Outpatient (CLI) | payer MEDICARE, OTHER, SELFPAY ==
--- OUTSIDE RECORDS SUMMARY | 2024-11-18 12:28 | XMS_ITS | Encounter Summary ---
[facility] Address [address] [place] [address] Care Team Providers Care Timber Grader Name Role Phone Mansoor Lamas MD Primary Care Provider + Reason for Visit * Reason Onset Date Comments OXYGEN ORDER 10/20/2024 Encounter Details Date Type Department Care Team (Late st Contact Info) Description 10/20/2024 Telephone [facility]INE [address] [place] [address] Mansoor Lamas MD [address] [place] [address] OXYGEN ORDER Social History Tobacco Use Types Packs/Day Years Used Date Smoking Tobacco: Some Days Cigarettes 0.5 15 Started: 04/01/2008; Last attempted to quit: 04/01/2023 Smokeless Tobacco: Never Comments:Many years Alcohol Use Standard Drinks/Week Comments Never 0 (1 standard drink = 0.6 oz pur e alcohol) PHQ-2 Answer Date Recorded Retired PHQ-9: Brief Depression Severity Measure Score 0 09/05/2022 PHQ-2 Answer Date Recorded Patient Health Questionnaire-2 Score 1 03/16/2024 Comments Unknown Sex and Gender Information Value Date Recorded Sex Assigned at Not on file Legal Sex Female 10:16 AM EDT Gender Identity Not on file Sexual Orientation Not on file documented as of this encounter Miscellaneous Notes * Telephone Encounter - Roma Hickman MA - 10/21/2024 4:14 PM EDT Order was faxed back to [facility] * Telephone Encounter - Roma Hickman MA - 10/20/2024 11:40 AM EDT Fax has been received and Dr. Lamas will sign at his return. * Telephone Encounter - Valerie Reddy RegSched Rep - 10/20/2024 11:24 AM EDT Caller: JEFFREY-LEATHA Relationship: Other Best call back number: [phone] ([facility]) What form or medical record are you requesting: OXYGEN PRESCRIPTION Who is requesting this form or medical record from you[facility] How would you like to receive the form or medical records (pick-up, mail, fax): FAX If fax, what is the fax number: [phone] Timeframe paperwork needed: SOON POSSIBLE Additional notes: JEFFREY STATES THAT SHE FAXED OVER THE REQUEST ON 10/18/24 AND IS WONDERING IF IT WAS RECEIVED. JEFFREY GAVE TOD'S DIRECT PHONE NUMBER AND FAX NUMBER. JEFFREY STATES THEY ARE NEEDING THE DOCTOR TO COMPLETE THE PRESCRIPTION THEY FAXED OVER, SIGN IT AND FAX IT BACK. * Telephone Encounter - Melody York RegSched Rep - 10/20/2024 10:28 AM EDT Caller: Shira Mobley Relationship: Self Best call back number: [phone] What was the call regarding: PATIENT STATES SHE JUST PURCHASED AN O2 CONCENTRATOR FROM [employer]. SHE STATES THEY NEED A WRITTEN ORDER FOR HER OXYGEN AND IT NEEDS TO HAVE THE FLOW RATE ON IT AND CIRCLED. documented in this encounter Plan of Treatment Not on file documented as of this encounter Visit Diagnoses Not on filedocumented in this encounter Additional Health Concerns Assessment Noted Time PHQ-2 Depression Total Score: 2 09/08/19 24 9:47 AM EDT documented as of this encounter Care Teams Timber Grader Relationship Specialty Start Date End Date Mansoor Lamas MD [address] [facility] [place] [address] PCP - General Family Medicine 06/04/21 Dr Jung [facility] [place] Pulmonary Disease 10/02/22 documented as of this encounter
--- OUTSIDE RECORDS SUMMARY | 2024-11-18 12:28 | XMS_ITS | Clinical Summary ---
[facility] Address [address] [place] [address] Care Team Providers Care Bridal Sales Consultant Name Role Phone Mansoor Lamas MD Primary [...] for Wheezing. 30 each 12 4 Active potassium chloride (KLOR-CON M10) 10 MEQ CR tabletIndication s:snf current use of diuretic Take 1 tablet [...] NOT RELIEVED 9 tablet 11 4 Active losartan (COZAAR) 50 MG tabletIndication s:Primary hypertension Take 1 tablet by mouth Daily. 90 tablet 1 5 Active hydroCHLOROthiaz tyesha 12.5 MG tabletIndication s:Primary hypertension Take 1 tablet by mouth Daily. 90 tablet 1 5 Active buPROPion SR (Wellbutrin SR) 150 MG 12 hr tablet Take 1 tablet by mouth 2 (Two) Times a Day. 60 tablet 2 5 Active denosumab (PROLIA) 60 MG/ML solution prefilled syringe syringeIndicatio ns:Age-related osteoporosis without current pathological fracture Inject 1 mL under the skin into the appropriate area as directed Every 6 (Six) Months. 1 mL 3 5 Active Active Problems Problem Noted Date Diagnosed [...] Encounters Date Type Department Care Team Description 10/20/2024 Telephone [facility] FAMILY MEDICINE [address] [place] [address] Mansoor Lamas MD OXYGEN ORDER from Last 3 Months Immunizations Immunization Administration Dates Next Due Arexvy (RSV, Adults 60+ yrs) 09/25/2023 COVID-19 (PFIZER) BIVALENT 12+YRS 12/31/2021 Covid-19 (Pfizer) Chairez Cap Monovalent 09/03/2021 Fluzone High-Dose 65+YRS 10/27/2023 Pneumococcal Conjugate 20-Valent (PCV20) 022 Tdap 10/29/2018 [...] uit: Not Asked; Counseling Given: Not Answered Comments:Many years Alcohol Use Standard Drinks/Week Comments [...] Sign Reading Time Taken Comments Blood Pressure 128/80 03/16/2024 11:27 AM EST Pulse 76 08/17/2024 9:25 AM EDT Temperature 36.3 C (97.3 F) 08/17/2024 9:25 AM EDT Respiratory Rate 18 08/17/2024 9:25 AM EDT Oxygen Saturation 90% 08/17/2024 9:25 AM EDT Inhaled Oxygen Concentration - - Weight 72.9 kg (160 lb 12.8 oz) 08/17/2024 9:25 AM EDT Height 162.6 cm (5' 4 ) 08/17/2024 9:25 AM EDT Body Mass Index 27.6 08/17/2024 9:25 AM EDT Plan of Treatment Health Maintenance Due Date Last Done Comments COLOGUARD 12/14/1999 COLON CANCER SCREENING 5 YEA R SIGMOIDOSCOPY 12/14/1999 CT COLONOGRAPHY 12/14/1999 FECAL OCCULT BLOOD TEST 12/14/1999 FIT Testing (1 year) 12/14/1999 ZOSTER VACCINE (2 of 3) 11/15/2016 09/20/2016 HEPATITIS C SCREENING 06/04/2021 ANNUAL WELLNESS VISIT 09/07/2024 09/08/2023 , 09/08/2023, 09/05/2022, Additional history exists INFLUENZA VACCINE 09/17/2024 10/27/2023 DXA SCAN 10/10/2024 10/10/2022, 09/17, 09/30/2022, Additional history exists COVID-19 Vaccine (6 - 2023-2 5 season) 2024 12/16/2023, 12/31/2021, 09/03/2021, Additional history exists MAMMOGRAM 03/24/2026 03/24/2024, 020 06/2024, 03/22/2024, Additional history exists TDAP/TD VACCINES (2 - Td or Tdap) 10/29/2028 019 COLONOSCOPY 08/25/2033 08/26/2023, 07/0 10/2023, 11/09/2020, Additional history exists COLORECTAL CANCER SCREENING 08/25/2033 Pneumococcal Vaccine 50+ Completed 09/03/2021 Procedures Procedure Name Priority Date/Time Associated Diagnosis Comments MAMMO DIAGNOSTIC DIGITAL TOMOSYNTHESIS LEFT W CAD Routine 03/22/2024 Mass of lower inner quadrant of left breast SCANNED - DEXA 10/10/2022 from Last 3 Months or Most Recently Relevant to Health Maintenance Results * Mammo Diagnostic Digital Tomosynthesis Left With CAD (03/22/2024) Anatomical Region Laterality Modality Breast Left Mammography us Mansoor Lamas MD IMG MAMMOGRAPHY ORDERABL ES Final Result * SCANNED - DEXA (10/10/2022) Anatomical Region Laterality Modality Other Mansoor Lamas MD CHART REVIEW TABS Fin al Result from Last 3 Months or Most Recently Relevant to Health Maintenance Insurance [place] [id number] MEDICARE A & B Member Subscriber Plan / Payer (Ef fective 2019-Present) Name:Lindsey Mobleyra Member ID:[id number] Relation to Subscriber:Self Name:Lindsey Mobleyra Subscriber ID:[id number] Payer ID:[id number] Group ID:Not on file Type:Not on file Address: [facility] [id number] [address] Care Teams Bridal Sales Consultant Relationship Specialty Start Date End Date Mansoor Lamas MD [facility] [place] [address] [place] [address] PCP - General Family Medicine 06/04/[address] [facility] [place] Pulmonary Disease 10/02/22
--- OUTSIDE RECORDS SUMMARY | 2024-11-18 12:28 | XMS_ITS | Encounter Summary ---
[facility] Address [address] [place] [address] Care Team Providers Care Store Person Name Role Phone Mansoor Lamas MD Primary Care Provider + Reason for Visit * Reason Onset Date Comments Med Refill 12/20/2021 Encounter Details Date Type Department Care Team (Late st Contact Info) Description 12/20/2021 Refill [facility] FAMILY MEDICINE [address] [place] [address] Mansoor Lamas MD [address] [place] [address] Social History Tobacco Use Types [...] Mobley Relationship: Self Best call back number: [phone] Requested Prescriptions: Requested Prescriptions Pending Prescriptions Disp Refills ??? buPROPion SR (WELLBUTRIN SR) 150 MG 12 hr tablet 60 tablet 5 Sig: Take 1 tablet by mouth 2 (Two) Times a Day. Pharmacy where request should be sent: [id number] - [place], [place] - [address] [facility] [address] - [phone] - [phone] FX Additional details provided by patient: Does [...] documented as of this encounter Care Teams Store Person Relationship Specialty Start Date End Date Mansoor Lamas MD [address] [place] [address] PCP - General Family Medicine 06/04/21 Dr Jung [facility] [place] Pulmonary Disease 10/02/22 documented as of this encounter
--- NOTE | 2024-11-18 12:33 | XR_ITS ---
FINAL REPORT TECHNIQUE: Chest PA & Lateral CLINICAL HISTORY: sob, COUGH, HX COPD COMPARISON: 03/08/2024 FINDINGS: 2 views of the chest were performed. The heart size is normal. The mediastinum is within normal limits. Hyperinflation is present, along with scarring present in the lung bases. There are no pleural effusions. There is no pneumothorax. The bony thorax appears intact. There is no significant change since the prior exam of 03/08/2024. IMPRESSION: Hyperinflation, with no acute cardiopulmonary process. Reviewed, Interpreted and Dictated by Nabil Chávez MD Transcribed by Shyanne Lopez Authenticated and [facility]
== END 2024-11-18 23:59 | disposition home or self-care (01) ==
LOC: LAB 12:26
PROVIDERS: PCP Family Medicine; Visit Provider Internal Medicine Pulmonary Disease
DX: J98.4 Other disorders of lung (principal); R06.09 Other forms of dyspnea; R06.02 Shortness of breath; R05.9 Cough, unspecified
CPT/HCPCS: 71046; 87070; 87205

== ENCOUNTER 2024-11-24 09:59 | Outpatient (CLI) | payer MEDICARE, OTHER, SELFPAY ==
[2024-11-24 10:10] VITALS: BP 154/92; PULSE 103; RESP 18; TEMP 36.1; O2SAT 91
[2024-11-24] MEDS: DENOSUMAB 60 MG/ML SYRINGE SUBCUT (10:10)
== END 2024-11-24 23:59 | disposition home or self-care (01) ==
LOC: INF 10:01
PROVIDERS: PCP Family Medicine; Visit Provider Family Medicine
DX: M81.0 Age-related osteoporosis without current pathological fracture (principal)
CPT/HCPCS: 96372; J0897

== ENCOUNTER 2025-02-12 10:03 | Outpatient (CLI) | payer MEDICARE, OTHER, SELFPAY ==
--- OUTSIDE RECORDS SUMMARY | 2025-02-12 10:07 | XMS_ITS | Clinical Summary ---
Author Organization [facility] Address [address] [place] [address] Care Team Providers Care Mine Laborer Name Role Phone Mansoor Lamas MD Primary Care Provider + Allergies No known active allergies Medications Calcium-Magnesi um-Vitamin D (CALCIUM 1200+D3 PO) Take by mouth. Act nahomy Trelegy Ellipta 100-62.5-25 MCG/ACT inhaler 01/08/20 22 Active albuterol sulfate HFA 108 (90 Base) MCG/ACT inhaler USE 2 INHALATIONS EVERY 4 HOURS NEEDED FOR WHEEZING OR SHORTNESS OF BREATH 51 g 3 02/24/19 24 Active albuterol (ACCUNEB) 0.63 MG/3ML nebulizer solutionIndicat ions:Panlobular emphysema Take 3 mL by nebulization Every 6 (Six) Hours As Needed for Wheezing. 30 each 12 02/27/19 24 Active potassium chloride (KLOR-CON M10) 10 MEQ CR tabletIndicatio ns:detention current use of diuretic Take 1 tablet by mouth Daily. 30 tablet 2 06/05/19 24 Active loratadine (Claritin) 10 MG tabletIndicatio ns:Seasonal allergic rhinitis due to pollen Take 1 tablet by mouth Daily. 30 tablet 2 06/05/19 24 Active acetylcysteine (MUCOMYST) 20 % nebulizer solutionIndicat ions:COPD with exacerbation Take 4 mL by nebulization 3 (Three) Times a Day. 40 mL 2 06/05/19 24 Active losartan (COZAAR) 50 MG tabletIndicatio ns:Primary hypertension Take 1 tablet by mouth Daily. 90 tablet 1 03/16/19 25 Active hydroCHLOROthia zide 12.5 MG tabletIndicatio ns:Primary hypertension Take 1 tablet by mouth Daily. 90 tablet 1 03/16/19 25 Active buPROPion SR (Wellbutrin SR) 150 MG 12 hr tablet Take 1 tablet by mouth 2 (Two) Times a Day. 60 tablet 2 05/21/19 25 Active denosumab (PROLIA) 60 MG/ML solution prefilled syringe syringeIndicati ons:Age-related osteoporosis without current pathological fracture Inject 1 mL under the skin into the appropriate area as directed Every 6 (Six) Months. 1 mL 3 05/21/19 25 Active SUMAtriptan (IMITREX) 100 MG tablet TAKE 1 TABLET AT ONSET OF HEADACHE. MAY REPEAT DOSE ONE TIME IN 2 HOURS IF HEADACHE NOT RELIEVED 9 tablet 2 01/21/20 25 Active SUMAtriptan (IMITREX) 100 MG tablet TAKE 1 TABLET AT ONSET OF HEADACHE. MAY REPEAT DOSE ONE TIME IN 2 HOURS IF HEADACHE NOT RELIEVED 9 tablet 11 12/22/19 24 2024 Discontinued Active Problems Problem Noted Date Diagnosed Date [...] Encounters Date Type Department Care Team Description 01/20/2025 Refill [facility] FAMILY MEDICINE [address] [place] [address] Mansoor Lamas MD from Last 3 Months Immunizations Immunization Administration [...] Additional history exists COVID-19 Vaccine (6 - Pfizer risk 2023- season) 2024 12/16/2023, 12/31/2021, 09/03/2021, Additional history exists MAMMOGRAM 03/24/2026 03/24/2024, 020 06/2024, 03/22/2024, Additional history exists TDAP/TD VACCINES (2 - Td or Tdap) 10/29/2028 019 COLONOSCOPY 08/25/2033 08/26/2023, 07/0 10/2023, 11/09/2020, Additional history exists COLORECTAL CANCER SCREENING 08/25/2033 Pneumococcal Vaccine 50+ Completed 09/03/2021 Procedures Procedure Name Priority Date/Time Associated Diagnosis Comments SCANNED - LABS 11/18/2024 MAMMO DIAGNOSTIC DIGITAL TOMOSYNTHESIS LEFT W CAD Routine 03/22/2024 Mass of lower inner quadrant of left breast SCANNED - DEXA 10/10/2022 from Last 3 Months or Most Recently Relevant to Health Maintenance Results * LABS SCANNED (11/18/2024) Mansoor Lamas MD LAB BLOOD ORDERABLES Fin al Result * Mammo Diagnostic Digital Tomosynthesis Left With CAD (03/22/2024) Anatomical Region Laterality Modality Breast Left Mammography Mansoor Lamas MD IMG MAMMOGRAPHY ORDERABL ES Final Result * SCANNED - DEXA (10/10/2022) Anatomical Region Laterality Modality Other Mansoor Lamas MD CHART REVIEW TABS Fin al Result from Last 3 Months or Most Recently Relevant to Health Maintenance Insurance MEDICARE A & B [facility] Care Teams Mine Laborer Relationship Specialty Start Date End Date Mansoor Lamas MD [address] [place] [address] [place] [address] PCP - General Family Medicine 06/04/21 Dr Jung [facility] Pulmonary Disease 10/02/22
--- OUTSIDE RECORDS SUMMARY | 2025-02-12 10:07 | XMS_ITS | Encounter Summary ---
Author Organization Healthcare Address [address] [place] [address] Care Team Providers Care Stone Banker Name Role Phone Mansoor Lamas MD Primary Care Provider [phone] Encounter Details Date Type Department Care Team (Late st Contact Info) Description 04/18/2021 Outside Procedure External Location [address] [place] [address] Mehul Sanchez MD [address] [place] [address] Social History Tobacco Use Types Packs/Day [...] AM EST Narrative 04/18/2021 5:13 PM EST [facility] [address] [place] [address] Name: SHIRA SANCHEZ Exam Date: 04/18/2021 : 1955 Age 65 Gender: F Physician: MEHUL SANCHEZ Facility: [facility] Facility HSV: Outpatient Exam: OBINNA SCRN MAMMO [...] department with their mammography results. Dictated By: Nighat Ortega Transcribed By: Nighat Villegas Transcribed On: 04/18/2021 5:01 PM Electronically signed by: Nighat Ortega 04/18/2021 Thank you for referring SHIRA SANCHEZ to [facility]. Legally authenticated by SOFYA BURNETT 2021-04-18 17:01:21 Procedure Note Provider, [facility] [place] - 04/18/2021 [place] [address] Name: SHIRA SANCHEZ Exam Date: 04/18/2021 : 1955 Age 65 Gender: F Physician: MEHUL SANCHEZ Facility: [facility] Facility HSV: Outpatient Exam: OBINNA SCRN MAMMO [...] for referring SHIRA SANCHEZ to [facility]. Legally authenticated by SOFYA BURNETT 2021-04-18 17:01:21 us Mehul Sanchez MD IMG BI PROCEDURES Final Result documented in this encounter Visit Diagnoses Not on filedocumented in this encounter Care Teams Stone Banker Relationship Specialty Start Date End Date Mansoor Lamas MD [address] [place] [address] PCP - General 04/16/21 documented as of this encounter
--- OUTSIDE RECORDS SUMMARY | 2025-02-12 10:07 | XMS_ITS | Encounter Summary ---
[facility] Address [address] [place] [address] Care Team Providers Care Steam Plant Records Clerk Name Role Phone Mansoor Lamas MD Primary Care Provider + Reason for Visit * Reason Onset Date Comments Med Refill 12/20/2021 Encounter Details Date Type Department Care Team (Late st Contact Info) Description 12/20/2021 Refill [facility] FAMILY MEDICINE [address] [place] [address] Mansoor Lamas MD [address] [place] [address] Social History Tobacco Use Types [...] Mobley Relationship: Self Best call back number: [phone] Requested Prescriptions: Requested Prescriptions Pending Prescriptions Disp Refills ??? buPROPion SR (WELLBUTRIN SR) 150 MG 12 hr tablet 60 tablet 5 Sig: Take 1 tablet by mouth 2 (Two) Times a Day. Pharmacy where request should be sent: [id number] - [place], [place] - [address] [facility] [address] - [phone] - [phone] FX Additional details provided by patient: Does [...] documented as of this encounter Care Teams Steam Plant Records Clerk Relationship Specialty Start Date End Date Mansoor Lamas MD [address] [place] [address] PCP - General Family Medicine 06/04/21 Dr Jung [facility] [place] Pulmonary Disease 10/02/22 documented as of this encounter
--- OUTSIDE RECORDS SUMMARY | 2025-02-12 10:07 | XMS_ITS | Encounter Summary ---
Author Organization [facility] Address [address] [place] [address] Care Team Providers Care Compensation Director Name Role Phone Mansoor Lamas MD Primary Care Provider + Reason for Visit * Reason Comments Med Refill Encounter Details Date Type Department Care Team (Late st Contact Info) Description 01/20/2025 Refill [facility] FAMILY MEDICINE [address] [place] [address] Mansoor Lamas MD [address] [place] [address] Social History Tobacco Use Types [...] documented as of this encounter Care Teams Compensation Director Relationship Specialty Start Date End Date Mansoor Lamas MD [address] [place] [address] PCP - General Family Medicine 06/04/21 Dr Jung [facility] [place] Pulmonary Disease 10/02/22 documented as of this encounter
--- OUTSIDE RECORDS SUMMARY | 2025-02-12 10:07 | XMS_ITS | Clinical Summary ---
Author Organization Healthcare [place] [place] [place] [address] Care Team Providers Care Flooring Machine Feeder Name Role Phone Mansoor Lamas MD Primary Care Provider [phone] Allergies No known active allergies Medications COVID-19 mRNA, puple cap, (Pfizer B ioNTech) 30 MCG/0.3ML suspension vaccine 06/15/2020 Active Fluticasone-Umecli [...] [facility]-Bone Density Scan 1955 [facility]-Depression Screening 1955 [facility]-/Child/Adol SDOH Screenings 1955 [facility]- SDOH Screenings 1972 [facility]-Adult SDOH Screenings 1972 CT Colonography 12/14/1999 Colonoscopy 12/14/1999 FIT-DNA 12/14/1999 FIT 12/14/1999 FOBT 12/14/1999 Sigmoidoscopy 12/14/1999 [facility]-Colorectal Cancer Screening 12/14/1999 [facility]-Pneumococcal Vaccine: 50 + Years (1 of 1 - PCV) 2004 [facility]-Zoster Vaccines (2 of 3) 11/15/2016 09/20/2016 JBZ-LLOVR-19 Vaccine (3 - season) 2024 06/15/2020, 05/18/2020 [facility]-Influenza Vaccine (#1) 2024 [facility]-DTaP,Tdap,and Td Vaccine s (2 - Td or Tdap) 10/29/2028 10/29/2018 [facility]-RSV Vaccine: 60+ Years o r (1 - 1-dose 75+ series) 2029 [facility]-Breast Cancer Screening Discontinued 04/18/2021 HPV Vaccines (No Doses Required) Completed [facility]-HIB Vaccines Aged Out No longer e [...] AM EST Narrative 04/18/2021 5:13 PM EST [address] [place] [address] Name: SHIRA SANCHEZ Exam Date: 04/18/2021 : 1955 Age 65 Gender: F Physician: MEHUL SANCHEZ Facility: [facility] Facility HSV: Outpatient Exam: OBINNA SCRN [...] Thank you for referring SHIRA SANCHEZ to [facility]. Legally authenticated by SOFYA BURNETT 2021-04-18 17:01:21 Procedure Note Provider, [place] - 04/18/2021 [place] [address] Name: SHIRA SANCHEZ Exam Date: 04/18/2021 : 1955 Age 65 Gender: F Physician: MEHUL SANCHEZ Facility: [facility] Facility HSV: Outpatient Exam: OBINNA SCRN [...] Thank you for referring LAURA SHIRA to [facility]. Legally authenticated by SOFYA BURNETT 2021-04-18 17:01:21 us Mehul Sanchez MD IMG BI PROCEDURES Final Result from Last 3 Months or Most Recently Relevant to Health Maintenance Insurance [place] [address] Care Teams Flooring Machine Feeder Relationship Specialty Start Date End Date Mansoor [place] [address] PCP - General 04/16/21
--- NOTE | 2025-02-12 10:13 | XR_ITS ---
PROCEDURE INFORMATION: Exam: XR Chest Exam date and time: 02/12/2025 10:05 AM Age: 69 years old Clinical indication: Pain; Left-sided; Additional info: L sided back pain TECHNIQUE: Imaging protocol: Radiologic exam of the chest. Views: 2 views. COMPARISON: CR XR CHEST 2V 11/18/2024 12:36 PM FINDINGS: Lungs: The lungs appear hyperinflated with COPD changes. No definite acute pulmonary infiltrates identified. Pleural spaces: Unremarkable. No pleural effusion. No pneumothorax. Heart/Mediastinum: Unremarkable. No cardiomegaly. Bones/joints: Unremarkable. IMPRESSION: COPD but no radiographic evidence of acute cardiopulmonary disease.
== END 2025-02-12 23:59 ==
LOC: RAD 10:06
PROVIDERS: PCP Family Medicine; Visit Provider Student in an Organized Health Care Education/Training Program
DX: M54.9 Dorsalgia, unspecified (principal); J44.9 Chronic obstructive pulmonary disease, unspecified
CPT/HCPCS: 71046